=== PATIENT | female | born 1985 | race Caucasian/White ===

== ENCOUNTER → 2016-09-21 | Outpatient (CLI) | payer OTHER ==
[2016-09-21 16:09] LABS: Hepatitis B Surface Ag Index 0.07
[2016-09-21 20:42] LABS: HSV I IgG Interp POSITIVE (NEGATIVE); HSV II IgG Interp POSITIVE (NEGATIVE)
[2016-09-21 20:44] LABS: Treponemal Ab Non-Reactive (Non-Reactive)
[2016-09-22 07:19] LABS: HIV-1/HIV-2 Ab Screen NONREAC (NON REAC)
== END | disposition home or self-care (01) ==
LOC: LABWHC1 14:16
PROVIDERS: ATTEND Obstetrics & Gynecology
DX: Z11.3 Encounter for screening for infections with a predominantly sexual mode of transmission (principal)
CPT/HCPCS: 36415; 86695; 86696; 86780; 87340; 87389

== ENCOUNTER 2017-12-04 00:21 | Emergency (ER) | payer OTHER ==
[2017-12-04] MEDS ORDERED: SODIUM CHLORIDE 0.9% 1,000 ML IV STA (00:44)
[2017-12-04] MEDS ORDERED: RX INFO: IV CONTRAST WAS GIVEN 1 EACH MISC MISCELLANE PRN (00:44)
[2017-12-04] MEDS ORDERED: MORPHINE SULFATE 4 MG/ML SYRINGE IVP STA ×2 (00:45→04:21)
[2017-12-04] MEDS ORDERED: ONDANSETRON ODT 4 MG TAB PO STA (00:45)
--- NOTE | 2017-12-04 00:49 | ED ---
General Adult HPI - General Chief complaint: Abdominal Pain Stated complaint: Right flank pain Time Seen by Provider: 12/04/17 00:40 Source: patient, RN notes reviewed Mode of arrival: ambulatory Limitations: no limitations - History of Present Illness Initial comments: Patient 32-year-old female presented to the emergency room today with chief complaint right-sided abdominal pain over the last for 5 days. She states pain greatly increased yesterday. States pain is located right whole side of the abdomen. States prior pressure used to make it feel better but now any movement or palpation of the area is causing pain. She currently rates it a . Denies any radiation. She does admit to a history of ovarian cyst on the side. She states pain is higher than usual. She admits to nausea. Denies any other complaints. Patient denies any recent fever, chills, shortness of breath, chest pain, back pain, numbness or tingling, dysuria or hematuria, constipation or diarrhea, headaches or visual changes, or any other complaints. - Related Data Home Medications Medication Instructions Recorded Confirmed Atenolol [Tenormin] 100 mg PO TID 12/19/15 12/04/17 Lisinopril [Zestril] 20 mg PO BID 05/30/16 12/04/17 Allergies Allergy/AdvReac Type Severity Reaction Status Date / Time Penicillins Allergy Unknown Verified 05/30/16 10:31 Childhood Review of Systems ROS Statement: Those systems with pertinent positive or pertinent negative responses have been documented in the HPI. ROS Other: All systems not noted in ROS Statement are negative. Past Medical History Past Medical History: Hypertension Additional Past Medical History / Comment(s): OTHER HX: fibromyalgia, chronic pain-generalized, migraines, R ovarian cysts, frequent UTI's, tachycardia, gastritis, duodenitis. Anxiety disorder History of Any Multi-Drug Resistant Organisms: None Reported Past Surgical History: Orthopedic Surgery Past Anesthesia/Blood Transfusion Reactions: Unable to Obtain Additional Past Anesthesia/Blood Transfusion Reaction / Comment(s): Pt has never had surgery Past Psychological History: Anxiety, Depression Smoking Status: Current every day smoker Past Alcohol Use History: None Reported Past Drug Use History: None Reported - Past Family History Mother Family Medical History: Cancer, Diabetes Mellitus, Myocardial Infarction ([place]) Additional Family Medical History / Comment(s): Mother had cervical cancer and hypotension. Father Family Medical History: Hypertension General Exam - General Exam Comments Initial Comments: General: The patient is awake and alert, in moderate distress. Eye: Pupils are equal, round and reactive to light, extra-ocular movements are intact. No nystagmus. There is normal conjunctiva bilaterally. No signs of icterus. Ears, nose, mouth and throat: There are moist mucous membranes and no oral lesions. Neck: The neck is supple, there is no tenderness or JVD. Cardiovascular: There is a regular rate and rhythm. No murmur, rub or gallop is appreciated. Respiratory: Lungs are clear to auscultation, respirations are non-labored, breath sounds are equal. No wheezes, stridor, rales, or rhonchi. Gastrointestinal: Abdomen soft on palpation. There is no CVA tenderness or rebound tenderness. Patient is tender greatest in the right lower quadrant with mild tenderness in the right upper quadrant. Musculoskeletal: Normal ROM, no tenderness. Strength 5/5. Sensation intact. Pulses equal bilaterally 2+. Neurological: A&O x 3. CN II-XII intact, There are no obvious motor or sensory deficits. Coordination appears grossly intact. Speech is normal. Skin: Skin is warm and dry and no rashes or lesions are noted. Psychiatric: Cooperative, appropriate mood & affect, normal judgment. Limitations: no limitations Course Vital Signs 12/04/17 12/04/17 00:30 01:33 Temperature 98.1 F Pulse Rate 94 68 Respiratory 20 18 Rate Blood Pressure 217/123 171/94 O2 Sat by Pulse 98 98 Oximetry Medical Decision Making - Medical Decision Making Patient's labs been reviewed shows 11,000 white count. Patient has no fever here in the emergency room. CT the abdomen and pelvis performed shows a left- sided ovarian cyst measuring approximately 4 cm. Ultrasound performed showing no sign of ovarian torsion. At this time patient comfortable will be discharged home advised to follow-up with or family physician over the next 1-2 days. Advised return if there is any fever or increase or worsen his symptoms - Lab Data Result diagrams: 12/04/17 00:50 12/04/17 00:50 Lab Results 12/04/17 12/04/17 12/04/17 Range/Units 00:50 00:50 00:50 WBC 11.7 H (3.8-10.6) k/uL RBC 4.24 (3.80-5.40) m/uL Hgb 13.7 (11.4-16.0) gm/dL Hct 39.4 (34.0-46.0) % MCV 93.0 (80.0-100.0) fL MCH 32.2 (25.0-35.0) pg MCHC 34.7 (31.0-37.0) g/dL RDW 13.8 (11.5-15.5) % Plt Count 283 (150-450) k/uL Neutrophils % 61 % Lymphocytes % 29 % Monocytes % 6 % Eosinophils % 2 % Basophils % 0 % Neutrophils # 7.1 (1.3-7.7) k/uL Lymphocytes # 3.3 (1.0-4.8) k/uL Monocytes # 0.8 (0-1.0) k/uL Eosinophils # 0.2 (0-0.7) k/uL Basophils # 0.0 (0-0.2) k/uL Sodium 144 (137-145) mmol/L Potassium 3.4 L (3.5-5.1) mmol/L Chloride 105 (98-107) mmol/L Carbon Dioxide 26 (22-30) mmol/L Anion Gap 13 mmol/L BUN 11 (7-17) mg/dL Creatinine 0.70 (0.52-1.04) mg/dL Est GFR (CKD-EPI)AfAm >90 (>60 ml/min/1.73 sqM) Est GFR (CKD-EPI)NonAf >90 (>60 ml/min/1.73 sqM) Glucose 113 H (74-99) mg/dL Calcium 9.0 (8.4-10.2) mg/dL Total Bilirubin 0.2 (0.2-1.3) mg/dL AST 16 (14-36) U/L ALT 15 (9-52) U/L Alkaline Phosphatase 71 (38-126) U/L Total Protein 6.6 (6.3-8.2) g/dL Albumin 4.1 (3.5-5.0) g/dL Amylase 81 (30-110) U/L Lipase 158 (23-300) U/L Urine Color Urine Appearance (Clear) Urine pH (5.0-8.0) Ur Specific [place] (1.001-1.035) Urine Protein (Negative) Urine Glucose (UA) (Negative) Urine Ketones (Negative) Urine Blood (Negative) Urine Nitrite (Negative) Urine Bilirubin (Negative) Urine Urobilinogen (<2.0) mg/dL Ur Leukocyte Esterase (Negative) Urine HCG, Qual Not Detected (Not Detectd) 12/04/17 Range/Units 00:50 WBC (3.8-10.6) k/uL RBC (3.80-5.40) m/uL Hgb (11.4-16.0) gm/dL Hct (34.0-46.0) % MCV (80.0-100.0) fL MCH (25.0-35.0) pg MCHC (31.0-37.0) g/dL RDW (11.5-15.5) % Plt Count (150-450) k/uL Neutrophils % % Lymphocytes % % Monocytes % % Eosinophils % % Basophils % % Neutrophils # (1.3-7.7) k/uL Lymphocytes # (1.0-4.8) k/uL Monocytes # (0-1.0) k/uL Eosinophils # (0-0.7) k/uL Basophils # (0-0.2) k/uL Sodium (137-145) mmol/L Potassium (3.5-5.1) mmol/L Chloride (98-107) mmol/L Carbon Dioxide (22-30) mmol/L Anion Gap mmol/L BUN (7-17) mg/dL Creatinine (0.52-1.04) mg/dL Est GFR (CKD-EPI)AfAm (>60 ml/min/1.73 sqM) Est GFR (CKD-EPI)NonAf (>60 ml/min/1.73 sqM) Glucose (74-99) mg/dL Calcium (8.4-10.2) mg/dL Total Bilirubin (0.2-1.3) mg/dL AST (14-36) U/L ALT (9-52) U/L Alkaline Phosphatase (38-126) U/L Total Protein (6.3-8.2) g/dL Albumin (3.5-5.0) g/dL Amylase (30-110) U/L Lipase (23-300) U/L Urine Color Yellow Urine Appearance Clear (Clear) Urine pH 6.5 (5.0-8.0) Ur Specific [place] 1.017 (1.001-1.035) Urine Protein Negative (Negative) Urine Glucose (UA) Negative (Negative) Urine Ketones Negative (Negative) Urine Blood Negative (Negative) Urine Nitrite Negative (Negative) Urine Bilirubin Negative (Negative) Urine Urobilinogen 2.0 (<2.0) mg/dL Ur Leukocyte Esterase Negative (Negative) Urine HCG, Qual (Not Detectd) Disposition Clinical Impression: Ovarian cyst Disposition: HOME SELF-CARE Condition: Good Instructions: Ovarian Cyst (ED) Additional Instructions: Please follow-up with the [facility]/family doctor over the next 1-2 days. Please return to emergency room for any fever or increase worsen symptoms or any other concerns. Is patient prescribed a controlled substance at d/c from ED?: No Referrals: None,Stated [Primary Care Provider] - 1-2 days Amanda Campos DO [Doctor of Osteopathic Medicine] - 1-2 days Zeferino Sun DO [STAFF PHYSICIAN] - 1-2 days Mirta Schuler MD [REFERRING] - 1-2 days Time of Disposition: 03:52
[2017-12-04 01:08] LABS: Appearance,Urine Clear (Clear); Basophils % (A) 0 %; Bilirubin,Urine Negative (Negative); Blood,Urine Negative (Negative); Color,Urine Yellow; Eosinophils # (A) 0.2 k/uL (0-0.7); Eosinophils % (A) 2 %; Glucose,Urine (UA) Negative (Negative); HCT 39.4 % (34.0-46.0); HGB 13.7 gm/dL (11.4-16.0); Ketones,Urine Negative (Negative); Leukocyte Esterase,Urine Negative (Negative); Lymphocytes # (A) 3.3 k/uL (1.0-4.8); Lymphocytes % (A) 29 %; MCH 32.2 pg (25.0-35.0); MCHC 34.7 g/dL (31.0-37.0); Mean Platelet Volume 7.6; Monocytes # (A) 0.8 k/uL (0-1.0); Monocytes % (A) 6 %; Neutrophils # (A) 7.1 k/uL (1.3-7.7); Neutrophils % (A) 61 %; Nitrite,Urine Negative (Negative); PH, Urine 6.5 (5.0-8.0); Platelet Count 283 k/uL (150-450); Protein,Urine Negative (Negative); RBC 4.24 m/uL (3.80-5.40); RDW 13.8 % (11.5-15.5); Specific Gravity,Urine 1.017 (1.001-1.035); WBC 11.7 k/uL (3.8-10.6)
[2017-12-04 01:19] LABS: ALT 15 U/L (9-52); AST 16 U/L (14-36); Albumin 4.1 g/dL (3.5-5.0); Alkaline Phosphatase 71 U/L (38-126); Amylase 81 U/L (30-110); Anion Gap 13 mmol/L; Blood Urea Nitrogen 11 mg/dL (7-17); Carbon Dioxide 26 mmol/L (22-30); Chloride 105 mmol/L (98-107); Glucose 113 mg/dL (74-99); Lipase 158 U/L (23-300); Potassium 3.4 mmol/L (3.5-5.1); Sodium 144 mmol/L (137-145); Total Bilirubin 0.2 mg/dL (0.2-1.3); Total Protein 6.6 g/dL (6.3-8.2)
--- NOTE | 2017-12-04 02:02 | CT ---
EXAMINATION TYPE: CT abdomen pelvis w con DATE OF EXAM: 12/04/2017 COMPARISON: 09/02/2014 HISTORY: Prior on 2014, pt having mid to right sided abd pain CT DLP: 669.00 mGycm Automated exposure control for dose reduction was used. TECHNIQUE: Helical acquisition of images was performed from the lung bases through the pelvis. CONTRAST: Performed without Oral Contrast and with IV Contrast, patient injected with 100 mL of Isovue 300. FINDINGS: Lung bases are clear. There is no pleural effusion. There is no pericardial effusion. Heart is top no rmal in size. Liver spleen pancreas gallbladder appear normal. Bile ducts are not dilated. Stomach is large. There is no adrenal mass. There is normal contrast opacification the kidneys. There is no hydronephro sis. Ureters are not dilated. There is no retroperitoneal adenopathy. I see no intestinal wall thickening. There are no dilated loops. The lumbar spine is intact. There is no sign of free air. Bladder distends smoothly. Uterus is retroverted. There is a small amount of free fluid in the pelvis. There is probably a left ovarian cyst. Appendix is not seen. There is no sign of appendicitis. IMPRESSION: THERE IS A SMALL AMOUNT OF FREE FLUID IN THE PELVIS. THERE IS PROBABLY A LEFT OVARIAN CYST. THIS OMAR URES 4 CM IN LENGTH. I DO NOT SEE A CAUSE FOR RIGHT-SIDED ABDOMINAL PAIN.
[2017-12-04] MEDS ORDERED: KETOROLAC 30 MG/ML 1 ML VIAL IVP STA (02:06)
--- NOTE | 2017-12-04 03:43 | US ---
EXAMINATION TYPE: US transvaginal DATE OF EXAM: 12/04/2017 COMPARISON: NONE CLINICAL HISTORY: pain. Pain TECHNIQUE: Transvaginal (TV). EXAM MEASUREMENTS: Uterus: 7.8 x 4.4 x 4.3 cm Endometrial Stripe: 0.9 cm Right Ovary: 3.3 x 1.3 x 1.5 cm Left Ovary: 4.5 x 2.1 x 3.9 cm 1. Uterus: Retroverted wnl 2. Endometrium: wnl 3. Right Ovary: wnl 4. Left Ovary: Cystic area seen measuring 2.1 x 1.2 x 2.5 cm. Spectral, color and waveform doppler imaging shows good arterial and venous flow within the ovaries ; there is no evidence for ovarian torsion. 5. Bilateral Adnexa: wnl 6. Posterior cul-de-sac: Small amount of fluid. Cystic area left ovary measuring 21. x 1.2 x 2.5 cm. IMPRESSION: Normal uterus and endometrium. Simple left ovarian cyst. No evidence of ovarian torsion. There is a small amount of free fluid that could be physiologic.
[2017-12-04 04:19] VITALS: BP 150/98; PULSE 84; RESP 17; TEMP 98.2
== END 2017-12-04 04:51 | disposition home or self-care (01) ==
LOC: EC 00:21
DX: N83.202 Unspecified ovarian cyst, left side (principal); I10 Essential (primary) hypertension; F17.200 Nicotine dependence, unspecified, uncomplicated; Z79.899 Other long term (current) drug therapy; Z88.0 Allergy status to penicillin
CPT/HCPCS: 99284; 96374; 96375; 96376; 96361; 36415; 80053; 82150; 83690; 85025; 81003; 81025; 93975; 76830; 74177; J2270; J1885; Q9967

== ENCOUNTER 2018-01-19 15:29 | Emergency (ER) | payer OTHER ==
--- NOTE | 2018-01-19 16:04 | ED ---
General Adult HPI - General Chief complaint: Extremity Problem,Nontraumatic Stated complaint: arm swelling Source: patient Mode of arrival: ambulatory Limitations: no limitations - History of Present Illness Initial comments: Chief Complaint: 32-year-old female with past medical history hypertension presents with left forearm pain 1 day. History of Present Illness: States that her symptoms began last night. She noted that after work she began having forearm pain. She localizes the pain to her lateral left forearm. Patient states that the pain is constant and dull radiating up the left upper extremity to the shoulder. Patient denies any history of blood clots. Denies any history of IV drug abuse. Denies any family history of blood clots. Denies any chance of being . Denies any use of oral contraceptive pills. Past Medical History: Hypertension Past Surgical History:[reviewed, none to report] Social History: Tobacco, occasional marijuana Family History: reviewed and noncontributory The ROS documented in this emergency department record has been reviewed and confirmed by me. Those systems with pertinent positive or negative responses have been documented in the HPI. All other systems are other negative and/or noncontributory. - Related Data Home Medications Medication Instructions Recorded Confirmed Atenolol [Tenormin] 100 mg PO TID 12/19/15 12/04/17 Lisinopril [Zestril] 20 mg PO BID 05/30/16 12/04/17 Previous Rx's Medication Instructions Recorded Cephalexin [Keflex] 500 mg PO Q6HR 5 Days #20 cap 01/19/18 Ibuprofen [Motrin] 600 mg PO Q6HR PRN #24 tab 01/19/18 Sulfamethox-Tmp 800-160Mg [Bactrim 1 tab PO Q12HR 5 Days #10 tab 01/19/18 DS 800-160 mg] Allergies Allergy/AdvReac Type Severity Reaction Status Date / Time Penicillins Allergy Unknown Verified 01/19/18 15:36 Childhood Review of Systems ROS Statement: Those systems with pertinent positive or pertinent negative responses have been documented in the HPI. ROS Other: All systems not noted in ROS Statement are negative. Past Medical History Past Medical History: Hypertension Additional Past Medical History / Comment(s): OTHER HX: fibromyalgia, chronic pain-generalized, migraines, R ovarian cysts, frequent UTI's, tachycardia, gastritis, duodenitis. Anxiety disorder History of Any Multi-Drug Resistant Organisms: None Reported Past Surgical History: Orthopedic Surgery Past Anesthesia/Blood Transfusion Reactions: Unable to Obtain Additional Past Anesthesia/Blood Transfusion Reaction / Comment(s): Pt has never had surgery Past Psychological History: Anxiety, Depression Smoking Status: Current every day smoker Past Alcohol Use History: None Reported Past Drug Use History: Marijuana - Past Family History Mother Family Medical History: Cancer, Diabetes Mellitus, Myocardial Infarction ([place]) Additional Family Medical History / Comment(s): Mother had cervical cancer and hypotension. Father Family Medical History: Hypertension General Exam - General Exam Comments Initial Comments: Vitals: Signs upon arrival shows temperature of 99.7, heart rate 1:30, blood pressure 200/125 PHYSICAL EXAM: General Impression: Alert and oriented x3, acute distress secondary to pain HEENT: Normocephalic atraumatic, extra-ocular movements intact, pupils equal and reactive to light bilaterally, mucous membranes moist. Cardiovascular: Heart regular rate and rhythm, S1&S2 audible, no murmurs, rubs or gallops Chest: Lungs clear to auscultation bilaterally, no rhonchi, no wheeze, no rales Abdomen: Bowel sounds present, abdomen soft, non-tender, non-distended, no organomegaly Musculoskeletal: Pulses present and equal in all extremities, no peripheral edema, fullness and pain over left lateral forearm Motor: Power 5/5 bilaterally, no focal deficits noted Neurological: CN II-XII grossly intact, no focal motor or sensory deficits noted Skin: Intact with no visualized rashes Psych: Normal affect and mood Limitations: no limitations Course Vital Signs 01/19/18 01/19/18 01/19/18 15:32 16:26 17:03 Temperature 99.7 F H Pulse Rate 130 H 122 H 105 H Respiratory 20 18 18 Rate Blood Pressure 200/125 183/113 164/107 O2 Sat by Pulse 99 98 98 Oximetry Medical Decision Making - Medical Decision Making ED course: 32-year-old female with past medical history of hypertension presents with left forearm pain. Vital signs upon arrival shows tachycardia and hypertension. Patient has a past medical history of hypertension. Patient denies any chest pain and shortness of breath to suggest pulmonary embolus.Laboratory evaluation obtained. Leukocytosis of 15.0. Cardiac panel unremarkable. Patient has potassium level 3.2. Glucose of 117. Patient given 2 potassium. Forearm x-ray shows no acute processes. Left upper extremity venous Doppler shows no acute processes. [facility] bedside ultrasound showed hypoechoic area superficially approximately half a centimeter below the skin surface. Due to aspiration was performed using ultrasound guidance yielding no purulent fluid. At this point there is clinical suspicion that patient's symptoms represent abscess versus cellulitis. Patient given prescription for antibiotics and by mouth analgesia. She is advised to follow up with primary care physician upon discharge. She is told to return to the emergency Department with any worsening symptoms. Patient is understandable and agreeable to plan. Patient's blood pressure still mildly elevated however she is asymptomatic. Heart rate is improved. EKG Interpretation: A 12 lead EKG was obtained. It was interpreted by myself and attending physician. There is a P wave before every QRS complex. Rate is 109. Rhythm is sinus tachycardia, [place] interval 142, respiration 88, QTc 455. QT is not prolonged. No ST segment depression or elevation. No old EKG for comparison. Overall, this EKG is unremarkable - Lab Data Result diagrams: 01/19/18 15:38 01/19/18 15:38 Lab Results 01/19/18 01/19/18 01/19/18 Range/Units 15:38 15:38 15:38 WBC 15.0 H (3.8-10.6) k/uL RBC 4.45 (3.80-5.40) m/uL Hgb 14.4 (11.4-16.0) gm/dL Hct 42.4 (34.0-46.0) % MCV 95.3 (80.0-100.0) fL MCH 32.4 (25.0-35.0) pg MCHC 34.0 (31.0-37.0) g/dL RDW 13.3 (11.5-15.5) % Plt Count 267 (150-450) k/uL Neutrophils % 70 % Lymphocytes % 22 % Monocytes % 6 % Eosinophils % 0 % Basophils % 0 % Neutrophils # 10.5 H (1.3-7.7) k/uL Lymphocytes # 3.3 (1.0-4.8) k/uL Monocytes # 0.9 (0-1.0) k/uL Eosinophils # 0.1 (0-0.7) k/uL Basophils # 0.1 (0-0.2) k/uL PT 11.4 (9.0-12.0) sec INR 1.2 H (<1.2) Sodium 140 (137-145) mmol/L Potassium 3.2 L (3.5-5.1) mmol/L Chloride 104 (98-107) mmol/L Carbon Dioxide 24 (22-30) mmol/L Anion Gap 12 mmol/L BUN 15 (7-17) mg/dL Creatinine 0.68 (0.52-1.04) mg/dL Est GFR (CKD-EPI)AfAm >90 (>60 ml/min/1.73 sqM) Est GFR (CKD-EPI)NonAf >90 (>60 ml/min/1.73 sqM) Glucose 117 H (74-99) mg/dL Calcium 9.1 (8.4-10.2) mg/dL Disposition Clinical Impression: Abscess Disposition: HOME SELF-CARE Condition: Stable Instructions: Abscess (ED) Prescriptions: Cephalexin [Keflex] 500 mg PO Q6HR 5 Days #20 cap Ibuprofen [Motrin] 600 mg PO Q6HR PRN #24 tab PRN Reason: Pain Sulfamethox-Tmp 800-160Mg [Bactrim DS 800-160 mg] 1 tab PO Q12HR 5 Days #10 tab Is patient prescribed a controlled substance at d/c from ED?: No Referrals: None,Stated [Primary Care Provider] - 1-2 days Time of Disposition: 18:05
[2018-01-19] MEDS ORDERED: MORPHINE SULFATE 2 MG/ML SYRINGE IVP PRN (16:07)
[2018-01-19] MEDS ORDERED: SODIUM CHLORIDE 0.9% 1,000 ML IV STA (16:10)
[2018-01-19 16:14] LABS: Basophils # (A) 0.1 k/uL (0-0.2); Basophils % (A) 0 %; Eosinophils # (A) 0.1 k/uL (0-0.7); Eosinophils % (A) 0 %; HCT 42.4 % (34.0-46.0); HGB 14.4 gm/dL (11.4-16.0); Lymphocytes # (A) 3.3 k/uL (1.0-4.8); Lymphocytes % (A) 22 %; MCH 32.4 pg (25.0-35.0); MCV 95.3 fL (80.0-100.0); Mean Platelet Volume 7.4; Monocytes # (A) 0.9 k/uL (0-1.0); Monocytes % (A) 6 %; Neutrophils # (A) 10.5 k/uL (1.3-7.7); Neutrophils % (A) 70 %; Platelet Count 267 k/uL (150-450); RBC 4.45 m/uL (3.80-5.40); RDW 13.3 % (11.5-15.5)
[2018-01-19 16:20] LABS: INR 1.2 (<1.2); Prothrombin Time 11.4 sec (9.0-12.0)
[2018-01-19 16:23] LABS: Anion Gap 12 mmol/L; Blood Urea Nitrogen 15 mg/dL (7-17); Calcium 9.1 mg/dL (8.4-10.2); Carbon Dioxide 24 mmol/L (22-30); Chloride 104 mmol/L (98-107); Glucose 117 mg/dL (74-99); Potassium 3.2 mmol/L (3.5-5.1); Sodium 140 mmol/L (137-145)
[2018-01-19 16:28] VITALS: RESP 18
--- NOTE | 2018-01-19 16:54 | US ---
EXAMINATION TYPE: US venous doppler duplex UE LT DATE OF EXAM: 01/19/2018 COMPARISON: NONE CLINICAL HISTORY: Pain. Left arm pain SIDE PERFORMED: Left Left Arm: Appears negative for DVT IMPRESSION: Negative exam. No evidence of deep venous thrombosis in the left arm.
[2018-01-19] MEDS ORDERED: POTASSIUM CHLORIDE ER 10 MEQ TAB.ER.PRT PO ONE (17:15)
[2018-01-19] MEDS ORDERED: LIDOCAINE 1%-EPI 1:100,000 30 ML VIAL SQ STA (17:15)
--- NOTE | 2018-01-19 17:35 | XR ---
EXAMINATION TYPE: XR forearm LT DATE OF EXAM: 01/19/2018 COMPARISON: NONE HISTORY: Pain and swelling TECHNIQUE: 2 views FINDINGS: I see no fracture nor dislocation. Radius and ulna appear intact. IMPRESSION: Negative left forearm exam.
[2018-01-19] MEDS ORDERED: HYDROcodone/APAP 5-325MG 1 EACH TAB PO STA (18:02)
[2018-01-19 18:28] LABS: Appearance,Urine Clear (Clear); Bilirubin,Urine Negative (Negative); Blood,Urine Negative (Negative); Color,Urine Light Yellow; Glucose,Urine (UA) Negative (Negative); Ketones,Urine Negative (Negative); Leukocyte Esterase,Urine Negative (Negative); Nitrite,Urine Negative (Negative); PH, Urine 6.5 (5.0-8.0); Protein,Urine Negative (Negative); Urobilinogen,Urine <2.0 mg/dL (<2.0)
[2018-01-19] MEDS ORDERED: POTASSIUM CHLORIDE ER 10 MEQ TAB.ER.PRT PO SCH (18:30)
[2018-01-19 18:39] VITALS: BP 189/114; PULSE 98
[2018-01-19 18:41] VITALS: TEMP 99
[2018-01-20] MEDS ORDERED: POTASSIUM CITRATE 5 MEQ TABLET.ER PO SCH (08:30)
== END 2018-01-19 18:40 | disposition home or self-care (01) ==
LOC: EC 15:29
DX: L02.414 Cutaneous abscess of left upper limb (principal); I10 Essential (primary) hypertension; F17.200 Nicotine dependence, unspecified, uncomplicated; Z79.899 Other long term (current) drug therapy; Z88.0 Allergy status to penicillin
CPT/HCPCS: 36415; 93005; 80048; 85025; 85610; 81003; 81025; 73090; 93971; 99284; 96374; 96361 ×2; J2270

== ENCOUNTER 2018-10-24 21:29 | Emergency (ER) | payer OTHER ==
[2018-10-24] MEDS ORDERED: KETOROLAC 30 MG/ML 1 ML VIAL IVP STA (22:51)
[2018-10-24] MEDS ORDERED: diphenhydrAMINE 50 MG/ML 1 ML VIAL IVP STA (22:51)
[2018-10-24] MEDS ORDERED: cloNIDine HCL 0.2 MG TAB PO STA (22:53)
--- NOTE | 2018-10-24 22:55 | ED ---
Chest Pain HPI - General Chief Complaint: Chest Pain Stated Complaint: Chest pain,headache, lt arm numbness,CHF Time Seen by Provider: 10/24/18 21:55 Source: patient Mode of arrival: ambulatory Limitations: no limitations - History of Present Illness MD Complaint: chest pain Onset/Timin -: days(s) Onset: during rest Pain Location: substernal Pain Radiation: LUE Severity: moderate Quality: aching Consistency: constant Improves With: nothing Worsens With: nothing Treatments Prior to Arrival: none - Related Data Home Medications Medication Instructions Recorded Confirmed Lisinopril [Zestril] 20 mg PO BID 05/30/16 10/24/18 Atenolol [Tenormin] 50 mg PO TID 10/24/18 10/24/18 Previous Rx's Medication Instructions Recorded Ibuprofen 400 mg PO TID #20 tablet 10/25/18 Metoclopramide [Reglan] 5 mg PO TID PRN #12 tab 10/25/18 Allergies Allergy/AdvReac Type Severity Reaction Status Date / Time Penicillins Allergy Unknown Verified 10/24/18 21:56 Childhood Review of Systems ROS Statement: Those systems with pertinent positive or pertinent negative responses have been documented in the HPI. ROS Other: All systems not noted in ROS Statement are negative. Constitutional: Denies: fever, chills Respiratory: Denies: cough, dyspnea Cardiovascular: Reports: as per HPI, chest pain. Denies: palpitations, dyspnea on exertion, orthopnea, edema, syncope Gastrointestinal: Denies: abdominal pain, nausea, vomiting Genitourinary: Denies: dysuria, hematuria Musculoskeletal: Denies: back pain Skin: Denies: rash Neurological: Reports: headache. Denies: weakness, numbness, paresthesias, confusion EKG Findings - EKG Comments: EKG Findings:: Possible LVH - EKG Results: EKG: interpreted by ERMD, sinus rhythm (Rate proximal been 94 bpm), normal axis, normal QRS, normal ST/T Past Medical History Past Medical History: Hypertension Additional Past Medical History / Comment(s): OTHER HX: fibromyalgia, chronic pain-generalized, migraines, R ovarian cysts, frequent UTI's, tachycardia, gastritis, duodenitis. Anxiety disorder History of Any Multi-Drug Resistant Organisms: None Reported Past Surgical History: Orthopedic Surgery Past Anesthesia/Blood Transfusion Reactions: Unable to Obtain Additional Past Anesthesia/Blood Transfusion Reaction / Comment(s): Pt has never had surgery Past Psychological History: Anxiety, Depression Smoking Status: Current every day smoker Past Alcohol Use History: None Reported Past Drug Use History: Marijuana - Past Family History Mother Family Medical History: Cancer, Diabetes Mellitus, Myocardial Infarction ([place]) Additional Family Medical History / Comment(s): Mother had cervical cancer and hypotension. Father Family Medical History: Hypertension General Exam Limitations: no limitations General appearance: alert, in no apparent distress Head exam: Present: atraumatic, normocephalic Eye exam: Present: normal appearance, PERRL, EOMI. Absent: scleral icterus, conjunctival injection, nystagmus ENT exam: Present: normal oropharynx Neck exam: Present: normal inspection, full ROM Respiratory exam: Present: normal lung sounds bilaterally. Absent: respiratory distress, wheezes, rales, rhonchi, stridor Cardiovascular Exam: Present: regular rate, normal rhythm, normal heart sounds. Absent: systolic murmur, diastolic murmur, rubs, gallop GI/Abdominal exam: Present: soft. Absent: distended, tenderness, guarding, rebound, rigid, mass Extremities exam: Present: normal inspection, normal capillary refill. Absent: pedal edema, calf tenderness Back exam: Present: normal inspection. Absent: CVA tenderness (R), CVA tenderness (L) Neurological exam: Present: alert Skin exam: Present: warm, dry, intact, normal color. Absent: rash Course Vital Signs 10/24/18 10/24/18 10/24/18 21:36 21:50 22:40 Temperature 99.5 F Pulse Rate 116 H 111 H Respiratory 18 15 Rate Blood Pressure 225/132 188/116 O2 Sat by Pulse 98 99 97 Oximetry 10/24/18 10/25/18 10/25/18 23:00 00:00 00:34 Temperature Pulse Rate 73 79 Respiratory 19 20 Rate Blood Pressure 188/116 189/119 140/89 O2 Sat by Pulse 97 98 Oximetry Disposition Clinical Impression: Headache, Chest wall pain Disposition: HOME SELF-CARE Condition: Fair Instructions (If sedation given, give patient instructions): Chest Pain (ED), Acute Headache (ED) Prescriptions: Ibuprofen 400 mg PO TID #20 tablet Metoclopramide [Reglan] 5 mg PO TID PRN #12 tab PRN Reason: Headache Is patient prescribed a controlled substance at d/c from ED?: No Referrals: None,Stated [Primary Care Provider] - 1-2 days
--- NOTE | 2018-10-24 23:10 | XR ---
EXAM: XR Chest, 2 Views CLINICAL HISTORY: ITS.REASON XR Reason: Chest Pain TECHNIQUE: Frontal and lateral views of the chest. COMPARISON: No relevant prior studies available. FINDINGS: Lungs: No consolidation or mass. Pleural space: No effusion. Heart: No cardiomegaly. Mediastinum: Unremarkable. Bones/joints: No acute findings. IMPRESSION: No acute cardiopulmonary process.
[2018-10-24 23:12] LABS: Basophils % (A) 0 %; Eosinophils # (A) 0.1 k/uL (0-0.7); Eosinophils % (A) 0 %; HCT 47.3 % (34.0-46.0); HGB 15.6 gm/dL (11.4-16.0); Lymphocytes % (A) 16 %; MCH 32.4 pg (25.0-35.0); MCHC 32.9 g/dL (31.0-37.0); MCV 98.6 fL (80.0-100.0); Mean Platelet Volume 6.7; Monocytes # (A) 0.5 k/uL (0-1.0); Monocytes % (A) 4 %; Neutrophils % (A) 78 %; Platelet Count 362 k/uL (150-450); RDW 13.9 % (11.5-15.5); WBC 12.7 k/uL (3.8-10.6)
[2018-10-24 23:25] LABS: D-Dimer 0.18 mg/L FEU (<0.60); Partial Thromboplastin Time 26.2 sec (22.0-30.0); Prothrombin Time 10.6 sec (9.0-12.0)
[2018-10-24 23:41] LABS: ALT 28 U/L (9-52); AST 24 U/L (14-36); Albumin 4.7 g/dL (3.5-5.0); Alkaline Phosphatase 74 U/L (38-126); Amylase 89 U/L (30-110); Anion Gap 9 mmol/L; Blood Urea Nitrogen 18 mg/dL (7-17); Calcium 9.6 mg/dL (8.4-10.2); Carbon Dioxide 26 mmol/L (22-30); Chloride 106 mmol/L (98-107); Glucose 107 mg/dL (74-99); Lipase 173 U/L (23-300); Potassium 3.6 mmol/L (3.5-5.1); Sodium 141 mmol/L (137-145); Total Bilirubin 0.4 mg/dL (0.2-1.3); Total Protein 7.7 g/dL (6.3-8.2)
[2018-10-25] MEDS ORDERED: HYDROcodone/APAP 5-325MG 1 EACH TAB PO STA (00:23)
[2018-10-25 00:35] VITALS: RESP 20
--- NOTE | 2018-10-25 00:57 | CT ---
EXAM: CT Head Without Intravenous Contrast CLINICAL HISTORY: ITS.REASON CT Reason: Pain TECHNIQUE: Axial computed tomography images of the head/brain without intravenous contrast. CTDI is 49 mGy and DLP is 1099 mGy-cm. This CT exam was performed using one or more of the following dose reduction techniques: automated exposure control, adjustment of the mA and/or kV according to patient size, and/or use of iterative reconstruction technique. COMPARISON: 06/09/2014 FINDINGS: Brain: No hemorrhage, large hypodensity, or mass effect. Ventricles: No hydrocephalus. Bones/joints: Unremarkable. Soft tissues: Unremarkable. Sinuses: Unremarkable. Mastoid air cells: Clear. IMPRESSION: No acute hemorrhage, hydrocephalus, or mass effect.
[2018-10-25 02:27] VITALS: BP 136/87; PULSE 83; TEMP 97.6
== END 2018-10-25 02:29 | disposition home or self-care (01) ==
LOC: EC 21:29
DX: R07.89 Other chest pain (principal); R51 Headache; R07.2 Precordial pain; R20.0 Anesthesia of skin; I10 Essential (primary) hypertension; F17.200 Nicotine dependence, unspecified, uncomplicated; Z86.69 Personal history of other diseases of the nervous system and sense organs; Z82.49 Family history of ischemic heart disease and other diseases of the circulatory system; Z79.899 Other long term (current) drug therapy; Z88.0 Allergy status to penicillin
CPT/HCPCS: 36415; 93005; 85379; 80053; 82150; 83690; 83735; 84484; 85025; 85610; 85730; 71046; 70450; 99285; 96374; 96375; J1200; J1885

== ENCOUNTER 2020-04-03 18:58 | Observation (INO) | payer OTHER ==
[2020-04-03] MEDS ORDERED: lisinopriL 20 MG TAB PO STA (19:30)
[2020-04-03] MEDS ORDERED: atenoloL 50 MG TAB PO STA (19:30)
[2020-04-03 19:59] LABS: Cocaine Screen,Urine Not Detected (NotDetected); Opiate Screen,Urine Detected (NotDetected); Phencyclidine Screen,Urine Not Detected (NotDetected); Urn Cannabinoid Scrn Detected (NotDetected)
[2020-04-03 20:00] LABS: Amphetamine Screen,Urine Detected (NotDetected); Barbiturate Screen,Urine Not Detected (NotDetected); Benzodiazepines Screen,Urine Not Detected (NotDetected); Methadone Screen, Urine Not Detected (NotDetected); Oxycodone Screen, Urine Not Detected (NotDetected); Tricyclic Antidepressant,Urine Not Detected (NotDetected)
--- NOTE | 2020-04-03 20:24 | ED ---
Psych HPI - General Source: patient Mode of arrival: ambulatory <Desiree Edgar - Last Filed: 04/04/20 04:01> <Mariaa Douglas - Last Filed: 04/06/20 21:41> - General Chief Complaint: Psychiatric Symptoms Stated Complaint: EPS eval Time Seen by Provider: 04/03/20 19:22 - History of Present Illness Initial Comments: 35-year-old female patient presents to the emergency department today for evaluation of hallucinations and increased anxiety. Patient states that she's had a lot going on lately and has been very stressed out. She admits to having auditory hallucinations today. States she is hearing her friends voice begging for help when she was not present. States that this has never happened to her before. She does admit to a history of anxiety and depression but denies taking any medication for her symptoms. She admits to using marijuana but denies any other use of street drugs. Denies suicidal or homicidal ideation. Patient does have elevated blood pressure in triage, states she has a history of hypertension but stopped taking her medications quite some time ago. She does not follow with a primary care physician. She is currently reporting headache and nasal congestion. Patient denies any recent rash, fever, chills, cough, shortness of breath, chest pain, abdominal pain, nausea, vomiting, diarrhea, constipation, back pain, numbness, tingling, dizziness, weakness, hematuria, dysuria, urinary urgency, urinary frequency, or any other complaints. (Desiree Edgar) - Related Data Previous Rx's Medication Instructions Recorded atenoloL [Tenormin] 50 mg PO BID #60 tab 04/04/20 lisinopriL [Zestril] 20 mg PO BID #60 tab 04/04/20 Allergies Allergy/AdvReac Type Severity Reaction Status Date / Time Penicillins Allergy Unknown Verified 04/03/20 19:15 Childhood Review of Systems ROS Other: All systems not noted in ROS Statement are negative. <Desiree Edgar - Last Filed: 04/04/20 04:01> ROS Other: All systems not noted in ROS Statement are negative. <Mariaa Douglas - Last Filed: 04/06/20 21:41> ROS Statement: Those systems with pertinent positive or pertinent negative responses have been documented in the HPI. Past Medical History Past Medical History: Hypertension Additional Past Medical History / Comment(s): OTHER HX: fibromyalgia, chronic pain-generalized, migraines, R ovarian cysts, frequent UTI's, tachycardia, gastritis, duodenitis. Anxiety disorder History of Any Multi-Drug Resistant Organisms: None Reported Past Surgical History: Orthopedic Surgery Past Anesthesia/Blood Transfusion Reactions: Unable to Obtain Additional Past Anesthesia/Blood Transfusion Reaction / Comment(s): Pt has never had surgery Past Psychological History: Anxiety, Depression Smoking Status: Current every day smoker Past Alcohol Use History: None Reported Past Drug Use History: Marijuana - Past Family History Mother Family Medical History: Cancer, Diabetes Mellitus, Myocardial Infarction ([place]) Additional Family Medical History / Comment(s): Mother had cervical cancer and hypotension. Father Family Medical History: Hypertension <Desiree Edgar - Last Filed: 04/04/20 04:01> General Exam Limitations: no limitations General appearance: alert, in no apparent distress, other (This is a well-deve loped, well-nourished adult female patient in no acute distress. Vital signs upon presentation are temperature 98.1F, pulse 107, respirations 18, blood pressure 200/136, pulse ox 99% on room air.) Eye exam: Present: normal appearance, PERRL, EOMI. Absent: scleral icterus, conjunctival injection, periorbital swelling ENT exam: Present: normal exam, normal oropharynx, mucous membranes moist Respiratory exam: Present: normal lung sounds bilaterally. Absent: respiratory distress, wheezes, rales, rhonchi, stridor Cardiovascular Exam: Present: normal rhythm, tachycardia, normal heart sounds. Absent: systolic murmur, diastolic murmur, rubs, gallop, clicks GI/Abdominal exam: Present: soft, normal bowel sounds. Absent: distended, tenderness, guarding, rebound, rigid Neurological exam: Present: alert, oriented X3, CN II-XII intact Psychiatric exam: Present: normal affect, normal mood Skin exam: Present: warm, dry, intact, normal color. Absent: rash <Desiree Edgar - Last Filed: 04/04/20 04:01> Course Vital Signs 04/03/20 04/03/20 04/03/20 19:12 19:48 20:15 Temperature 98.1 F Pulse Rate 107 H 105 H Respiratory 18 Rate Blood Pressure 200/136 192/125 186/140 O2 Sat by Pulse 99 98 Oximetry 04/03/20 04/03/20 04/03/20 20:42 22:08 22:18 Temperature Pulse Rate 103 H 83 63 Respiratory 20 20 20 Rate Blood Pressure 200/142 190/154 172/135 O2 Sat by Pulse 98 96 Oximetry 04/03/20 04/03/20 22:31 23:57 Temperature Pulse Rate 91 91 Respiratory 18 18 Rate Blood Pressure 133/101 163/112 O2 Sat by Pulse 98 98 Oximetry Medical Decision Making - Lab Data Result diagrams: 04/03/20 21:33 04/03/20 21:33 - EKG Data -: EKG Interpreted by Me - Radiology Data Radiology results: report reviewed, image reviewed <Desiree Edgar - Last Filed: 04/04/20 04:01> - Lab Data Result diagrams: 04/04/20 06:01 04/03/20 21:33 <Mariaa Douglas - Last Filed: 04/06/20 21:41> - Medical Decision Making 35-year-old female patient presented to the emergency department today for evaluation of auditory hallucinations. Patient states that she has never experienced this before. Patient was found to have significantly elevated blood pressure. We did attempt to give her oral medications without relief. At that time we did add labs which were relatively unremarkable other than leukocytosis at 19,000. Drug screen positive for opiates, marijuana, and methamphetamines. Patient's chest x-ray was negative. CT brain was negative. We did give doses of Ativan and labetalol which did seem to improve blood pressure however he did want to admit for accelerated hypertension and to be evaluated by psych due to the hallucinations. Patient became very upset and anxious. She was reporting concern for her mother who was going to "be arrested", she stated that her mother was "being held hostage and was going to " and she had to go. Patient was quite delusional during our discussion and was trying to leave the hospital. I did speak to her mother on the phone who stated that none of these claims were true and that the patient had been exhibiting bizarre behavior for the last three days. Due to concerns that she was unable to understand the significance of her medical condition related to her mental state I did fill out a petition. She will be admitted to the hospital with psych on consult. (Desiree Edgar) I was available for consultation in the emergency department. The history and physical exam were done by the midlevel provider. I was consulted for this patients care. I reviewed the case with the midlevel provider and based on their presentation of the patient, I agree with the assessment, medical decision making and plan of care as documented. Chart was dictated using [employer] dictation software. Attempts were made to correct any dictation errors however some typographical errors may persist. Patient was seen during a national state of emergency due to the Covid-19 pandemic. (Mariaa Douglas) - Lab Data Lab Results 04/03/20 04/03/20 04/03/20 Range/Units 19:43 19:43 19:43 WBC (3.8-10.6) k/uL RBC (3.80-5.40) m/uL Hgb (11.4-16.0) gm/dL Hct (34.0-46.0) % MCV (80.0-100.0) fL MCH (25.0-35.0) pg MCHC (31.0-37.0) g/dL RDW (11.5-15.5) % Plt Count (150-450) k/uL Neutrophils % % Lymphocytes % % Monocytes % % Eosinophils % % Basophils % % Neutrophils # (1.3-7.7) k/uL Lymphocytes # (1.0-4.8) k/uL Monocytes # (0-1.0) k/uL Eosinophils # (0-0.7) k/uL Basophils # (0-0.2) k/uL Sodium (137-145) mmol/L Potassium (3.5-5.1) mmol/L Chloride (98-107) mmol/L Carbon Dioxide (22-30) mmol/L Anion Gap mmol/L BUN (7-17) mg/dL Creatinine (0.52-1.04) mg/dL Est GFR (CKD-EPI)AfAm (>60 ml/min/1.73 sqM) Est GFR (CKD-EPI)NonAf (>60 ml/min/1.73 sqM) Glucose (74-99) mg/dL Calcium (8.4-10.2) mg/dL Total Bilirubin (0.2-1.3) mg/dL AST (14-36) U/L ALT (4-34) U/L Alkaline Phosphatase (38-126) U/L Troponin I (0.000-0.034) ng/mL Total Protein (6.3-8.2) g/dL Albumin (3.5-5.0) g/dL Urine Color Yellow Urine Appearance Clear (Clear) Urine pH 6.0 (5.0-8.0) Ur Specific [place] 1.011 (1.001-1.035) Urine Protein 1+ H (Negative) Urine Glucose (UA) Negative (Negative) Urine Ketones Negative (Negative) Urine Blood Negative (Negative) Urine Nitrite Negative (Negative) Urine Bilirubin Negative (Negative) Urine Urobilinogen <2.0 (<2.0) mg/dL Ur Leukocyte Esterase Small H (Negative) Urine RBC 4 (0-5) /hpf Urine WBC 6 H (0-5) /hpf Ur Squamous Epith Cells 2 (0-4) /hpf Urine Bacteria Moderate H (None) /hpf Urine Mucus Rare H (None) /hpf Urine HCG, Qual Not Detected (Not Detectd) Urine Opiates Screen Detected H (NotDetected) Ur Oxycodone Screen Not Detected (NotDetected) Urine Methadone Screen Not Detected (NotDetected) Ur Propoxyphene Screen Not Detected (NotDetected) Ur Barbiturates Screen Not Detected (NotDetected) U Tricyclic Antidepress Not Detected (NotDetected) Ur Phencyclidine Scrn Not Detected (NotDetected) Ur Amphetamines Screen Detected H (NotDetected) U Methamphetamines Scrn Detected H (NotDetected) U Benzodiazepines Scrn Not Detected (NotDetected) Urine Cocaine Screen Not Detected (NotDetected) U Marijuana (THC) Screen Detected H (NotDetected) 04/03/20 04/03/20 04/03/20 Range/Units 21:33 21:33 21:33 WBC 19.6 H (3.8-10.6) k/uL RBC 4.58 (3.80-5.40) m/uL Hgb 14.5 (11.4-16.0) gm/dL Hct 44.1 (34.0-46.0) % MCV 96.4 (80.0-100.0) fL MCH 31.8 (25.0-35.0) pg MCHC 32.9 (31.0-37.0) g/dL RDW 13.5 (11.5-15.5) % Plt Count 369 (150-450) k/uL Neutrophils % 80 % Lymphocytes % 12 % Monocytes % 4 % Eosinophils % 2 % Basophils % 1 % Neutrophils # 15.7 H (1.3-7.7) k/uL Lymphocytes # 2.4 (1.0-4.8) k/uL Monocytes # 0.9 (0-1.0) k/uL Eosinophils # 0.3 (0-0.7) k/uL Basophils # 0.1 (0-0.2) k/uL Sodium 138 (137-145) mmol/L Potassium 3.9 (3.5-5.1) mmol/L Chloride 105 (98-107) mmol/L Carbon Dioxide 28 (22-30) mmol/L Anion Gap 5 mmol/L BUN 19 H (7-17) mg/dL Creatinine 0.76 (0.52-1.04) mg/dL Est GFR (CKD-EPI)AfAm >90 (>60 ml/min/1.73 sqM) Est GFR (CKD-EPI)NonAf >90 (>60 ml/min/1.73 sqM) Glucose 93 (74-99) mg/dL Calcium 9.1 (8.4-10.2) mg/dL Total Bilirubin 0.5 (0.2-1.3) mg/dL AST 33 (14-36) U/L ALT 25 (4-34) U/L Alkaline Phosphatase 79 (38-126) U/L Troponin I <0.012 (0.000-0.034) ng/mL Total Protein 6.4 (6.3-8.2) g/dL Albumin 3.9 (3.5-5.0) g/dL Urine Color Urine Appearance (Clear) Urine pH (5.0-8.0) Ur Specific [place] (1.001-1.035) Urine Protein (Negative) Urine Glucose (UA) (Negative) Urine Ketones (Negative) Urine Blood (Negative) Urine Nitrite (Negative) Urine Bilirubin (Negative) Urine Urobilinogen (<2.0) mg/dL Ur Leukocyte Esterase (Negative) Urine RBC (0-5) /hpf Urine WBC (0-5) /hpf Ur Squamous Epith Cells (0-4) /hpf Urine Bacteria (None) /hpf Urine Mucus (None) /hpf Urine HCG, Qual (Not Detectd) Urine Opiates Screen (NotDetected) Ur Oxycodone Screen (NotDetected) Urine Methadone Screen (NotDetected) Ur Propoxyphene Screen (NotDetected) Ur Barbiturates Screen (NotDetected) U Tricyclic Antidepress (NotDetected) Ur Phencyclidine Scrn (NotDetected) Ur Amphetamines Screen (NotDetected) U Methamphetamines Scrn (NotDetected) U Benzodiazepines Scrn (NotDetected) Urine Cocaine Screen (NotDetected) U Marijuana (THC) Screen (NotDetected) - EKG Data EKG Comments: EKG obtained at 2138 shows normal sinus rhythm with a prolonged QT interval. Ventricular rate is 91, CO interval 132, QRS duration 92, QT 398, QTC 489. No evidence of ST elevation or depression. (Desiree Edgar) - Radiology Data CT brain without contrast was obtained. Report reviewed in its entirety. Impression by Dr. Mobley shows negative unenhanced head computed tomography scan. No change. Two-view x-ray of the chest is obtained. Report was reviewed in its entirety. Impression by Dr. Mobley shows no active cardiopulmonary disease. No change. (Desiree Edgar) Disposition Decision to Admit Reason: Admit from EC Decision Date: 04/03/20 Decision Time: 22:52 <Desiree Edgar - Last Filed: 04/04/20 04:01> <Mariaa Douglas - Last Filed: 04/06/20 21:41> Clinical Impression: Accelerated hypertension, Headache, Hallucinations Disposition: ADMITTED IP TO THIS [facility] Condition: Stable
[2020-04-03] MEDS ORDERED: ACETAMINOPHEN TAB 500 MG TAB PO STA (20:25)
[2020-04-03] MEDS ORDERED: IBUPROFEN 600 MG TAB PO STA (20:25)
[2020-04-03] MEDS ORDERED: LORazepam 2 MG/ML INJ IV STA (20:59)
[2020-04-03] MEDS ORDERED: SODIUM CHLORIDE 0.9% 1,000 ML IV ONE (20:59)
[2020-04-03 21:34] LABS: Appearance,Urine Clear (Clear); Bacteria,Urine Moderate /hpf; Bilirubin,Urine Negative (Negative); Blood,Urine Negative (Negative); Color,Urine Yellow; Glucose,Urine (UA) Negative (Negative); Ketones,Urine Negative (Negative); Leukocyte Esterase,Urine Small (Negative); Mucus,Urine Rare /hpf; Nitrite,Urine Negative (Negative); Protein,Urine 1+ (Negative); RBC,Urine 4 /hpf (0-5); Specific Gravity,Urine 1.011 (1.001-1.035); Squamous Epithelial Cell,Urine 2 /hpf (0-4); Urobilinogen,Urine <2.0 mg/dL (<2.0); WBC,Urine 6 /hpf (0-5)
[2020-04-03 21:45] LABS: Basophils # (A) 0.1 k/uL (0-0.2); Basophils % (A) 1 %; Eosinophils # (A) 0.3 k/uL (0-0.7); Eosinophils % (A) 2 %; HCT 44.1 % (34.0-46.0); HGB 14.5 gm/dL (11.4-16.0); Lymphocytes # (A) 2.4 k/uL (1.0-4.8); Lymphocytes % (A) 12 %; MCH 31.8 pg (25.0-35.0); MCHC 32.9 g/dL (31.0-37.0); MCV 96.4 fL (80.0-100.0); Mean Platelet Volume 7.1; Monocytes # (A) 0.9 k/uL (0-1.0); Monocytes % (A) 4 %; Neutrophils # (A) 15.7 k/uL (1.3-7.7); Neutrophils % (A) 80 %; Platelet Count 369 k/uL (150-450); RBC 4.58 m/uL (3.80-5.40); RDW 13.5 % (11.5-15.5); WBC 19.6 k/uL (3.8-10.6)
[2020-04-03 21:56] LABS: ALT 25 U/L (4-34); AST 33 U/L (14-36); African American GFR (CKD) >90 (>60 ml/min/1.73 sqM); Albumin 3.9 g/dL (3.5-5.0); Alkaline Phosphatase 79 U/L (38-126); Anion Gap 5 mmol/L; Blood Urea Nitrogen 19 mg/dL (7-17); Calcium 9.1 mg/dL (8.4-10.2); Carbon Dioxide 28 mmol/L (22-30); Chloride 105 mmol/L (98-107); Glucose 93 mg/dL (74-99); Non-African American GFR(CKD) >90 (>60 ml/min/1.73 sqM); Sodium 138 mmol/L (137-145); Total Bilirubin 0.5 mg/dL (0.2-1.3); Total Protein 6.4 g/dL (6.3-8.2)
[2020-04-03 22:01] LABS: Potassium 3.9 mmol/L (3.5-5.1)
--- NOTE | 2020-04-03 22:05 | CT ---
EXAMINATION TYPE: CT brain wo con DATE OF EXAM: 04/03/2020 COMPARISON: 10/25/2018 HISTORY: Headache, critical blood pressure. CT DLP: 1131.4 mGycm Automated exposure control for dose reduction was used. Ventricles and sulci appear normal. There is no mass effect nor midline shift. There is no sign of in tracranial hemorrhage. There is no evidence of cerebral edema. The calvarium is intact. IMPRESSION: Negative unenhanced head CT scan. No change.
[2020-04-03] MEDS ORDERED: LABETALOL 5 MG/ML VIAL MDV IVP STA (22:12)
--- NOTE | 2020-04-03 22:33 | XR ---
EXAMINATION TYPE: XR chest 2V DATE OF EXAM: 04/03/2020 COMPARISON: 10/24/2018 HISTORY: Chest pain TECHNIQUE: FINDINGS: There is no heart failure nor confluent pneumonic infiltrate. Costophrenic angles are clear . There are no hilar masses. There are chest leads. Bony thorax is intact. IMPRESSION: No active cardiopulmonary disease. No change.
[2020-04-03] MEDS ORDERED: NALOXONE 0.4 MG/ML 1 ML VIAL IV PRN (22:43)
[2020-04-03] MEDS ORDERED: ENALAPRILAT 1.25 MG/ML 1 ML VIAL IVP PRN (22:51)
[2020-04-03] MEDS ORDERED: LORazepam 2 MG/ML INJ IV PRN (23:55)
--- NOTE | 2020-04-04 01:03 | P.HPIM ---
History of Present Illness H&P Date: 04/04/20 Patient is a 35-year-old female with a PMH of polysubstance abuse and hypertension who presented to the ED with complaints of auditory hallucinations. The patient reports that she has been hearing her friends begging for help who she knows are not there. The history was limited as the patient was lethargic during the interview. She also notes that she has been under quite a bit of stress recently. She admits to using marijuana though denied any additional recent drug use, though did say that she used methamphetamine several months ago. She otherwise denied any active complaints including chest pain, shortness of fever, chills, cough, or abdominal pain. As per the ED staff, the patient w as paranoid and anxious throughout her stay and was claiming that her mother was being jailed and that she had to go take care of her. The patient also reported to them a history of hypertension and that she had not been taking her medications. The ED provider spoke with the patient's mother reported that the patient has been acting strangely throughout the day today. In the emergency room, the patient was very hypertensive upon initial presentation with BP 200/136 and pulse of 107. Brain CT was negative and chest x-ray unremarkable. Urine toxicology was positive for methamphetamine and marijuana. She also had leukocytosis with WBC count of 19.6. Review of Systems Pertinent positives and negatives as discussed in HPI, a complete review of systems was performed and all other systems are negative. Past Medical History Past Medical History: Hypertension Additional Past Medical History / Comment(s): OTHER HX: fibromyalgia, chronic pain-generalized, migraines, R ovarian cysts, frequent UTI's, tachycardia, gastritis, duodenitis. Anxiety disorder History of Any Multi-Drug Resistant Organisms: None Reported Past Surgical History: Orthopedic Surgery Past Anesthesia/Blood Transfusion Reactions: Unable to Obtain Additional Past Anesthesia/Blood Transfusion Reaction / Comment(s): Pt has never had surgery Past Psychological History: Anxiety, Depression Smoking Status: Current every day smoker Past Alcohol Use History: None Reported Past Drug Use History: Marijuana - Past Family History Mother Family Medical History: Cancer, Diabetes Mellitus, Myocardial Infarction ([place]) Additional Family Medical History / Comment(s): Mother had cervical cancer and hypotension. Father Family Medical History: Hypertension Medications and Allergies Home Medications Medication Instructions Recorded Confirmed Type lisinopriL [Zestril] 20 mg PO BID 05/30/16 10/24/18 History atenoloL [Tenormin] 50 mg PO TID 10/24/18 10/24/18 History Ibuprofen 400 mg PO TID #20 tablet 10/25/18 Rx Metoclopramide [Reglan] 5 mg PO TID PRN #12 tab 10/25/18 Rx Allergies Allergy/AdvReac Type Severity Reaction Status Date / Time Penicillins Allergy Unknown Verified 04/03/20 19:15 Childhood Physical Exam Vitals: Vital Signs Temp Pulse Pulse Resp BP BP Pulse Ox 04/04/20 00:38 97.6 F 89 12 138/92 98 04/03/20 23:57 91 18 163/112 98 04/03/20 22:31 91 18 133/101 98 04/03/20 22:18 63 20 172/135 04/03/20 22:08 83 20 190/154 96 04/03/20 20:42 103 H 20 200/142 98 04/03/20 20:15 105 H 186/140 98 04/03/20 19:48 192/125 04/03/20 19:12 98.1 F 107 H 18 200/136 99 Intake and Output 04/03/20 04/03/20 04/04/20 14:59 22:59 06:59 Other: Weight 48.988 kg General: Disheveled female, no distress, appears older than stated age, normal weight Derm: no unusual rashes/lesions no unusual ecchymoses, warm, dry Head: atraumatic, normocephalic, symmetric Eyes: EOMI, no lid lag, anicteric sclera, pupils equal round reactive to light ENT: Nose and ears atraumatic, no thrush, no pharyngeal erythema Neck: No thyromegaly, no cervical lymphadenopathy, trachea midline, supple Mouth: no lip lesion, mucus membranes moist Cardiovascular: S1S2 reg, no murmur, positive posterior tibial pulse bilateral, no edema, capillary refill less than 2 seconds Lungs: CTA bilateral, no rhonchi, no rales , no accessory muscle use Abdominal: soft, nontender to palpation, no guarding, no appreciable organomegaly Ext: no gross muscle atrophy, muscle strength 5 out of 5 in all 4 extremities grossly, no contractures Neuro: CN II-XI grossly intact, no focal neuro deficits noted, Kernig's and Brudzinski's negative Psych: Lethargic, answering questions appropriately but falls asleep during the conversation, oriented x 3 Results CBC & Chem 7: 04/03/20 21:33 04/03/20 21:33 Labs: Abnormal Lab Results - Last 24 Hours (Table) 04/03/20 04/03/20 04/03/20 Range/Units 19:43 19:43 21:33 WBC 19.6 H (3.8-10.6) k/uL Neutrophils # 15.7 H (1.3-7.7) k/uL BUN (7-17) mg/dL Urine Protein 1+ H (Negative) Ur Leukocyte Esterase Small H (Negative) Urine WBC 6 H (0-5) /hpf Urine Bacteria Moderate H (None) /hpf Urine Mucus Rare H (None) /hpf Urine Opiates Screen Detected H (NotDetected) Ur Amphetamines Screen Detected H (NotDetected) U Methamphetamines Scrn Detected H (NotDetected) U Marijuana (THC) Screen Detected H (NotDetected) 04/03/20 Range/Units 21:33 WBC (3.8-10.6) k/uL Neutrophils # (1.3-7.7) k/uL BUN 19 H (7-17) mg/dL Urine Protein (Negative) Ur Leukocyte Esterase (Negative) Urine WBC (0-5) /hpf Urine Bacteria (None) /hpf Urine Mucus (None) /hpf Urine Opiates Screen (NotDetected) Ur Amphetamines Screen (NotDetected) U Methamphetamines Scrn (NotDetected) U Marijuana (THC) Screen (NotDetected) Assessment and Plan Plan: Hypertensive urgency, likely secondary to methamphetamine abuse -Improved -Continue with atenolol and lisinopril home doses Lethargy, due to sedation with Ativan along with methamphetamine withdrawal -Neurochecks -CT head unremarkable -Fall, aspiration precautions Hallucinations -Psychiatry consult -The patient was petitioned by ED staff Leukocytosis, no signs of active infection at this time -Monitor CBC for now DVT prophylaxis -IPCDs The patient is admitted with an anticipated less than 2 midnight stay for evaluation of hypertensive urgency CODE STATUS: Full Code Discussed with: Patient Anticipated discharge date: 04/[address]: Home A total of 35 minutes was spent on the care of this complex patient more than 50% of the time was spent in counseling and care coordination.
[2020-04-04 03:47] LABS: Glucose,Whole Blood 86 mg/dL (75-99)
[2020-04-04 03:53] VITALS: RESP 10
[2020-04-04 07:40] LABS: HCT 47.4 % (34.0-46.0); HGB 15.1 gm/dL (11.4-16.0); MCH 31.6 pg (25.0-35.0); MCHC 31.8 g/dL (31.0-37.0); MCV 99.4 fL (80.0-100.0); Mean Platelet Volume 7.1; Platelet Count 366 k/uL (150-450); RBC 4.77 m/uL (3.80-5.40); RDW 13.6 % (11.5-15.5); WBC 13.5 k/uL (3.8-10.6)
[2020-04-04 09:17] VITALS: TEMP 97.7
[2020-04-04] MEDS ORDERED: atenoloL 50 MG TAB PO SCH (10:00)
[2020-04-04] MEDS ORDERED: lisinopriL 20 MG TAB PO SCH (10:00)
[2020-04-04] MEDS ORDERED: QUEtiapine 25 MG TAB PO PRN (10:23)
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
[2020-04-04] MEDS ORDERED: LORazepam 2 MG/ML INJ IV STA (13:09)
[2020-04-04 13:38] VITALS: BMI 18.3
[2020-04-04 15:51] VITALS: BP 147/96; PULSE 83
--- NOTE | 2020-04-04 17:32 | P.DS ---
Providers Date of admission: 04/03/20 23:22 Expected date of discharge: 04/04/20 Attending physician: Edis Morris MD Consults: 04/03/20 22:50 Consult Physician Stat Consulting Provider: Anne Marte Consult Reason/Comments: New onset hallucinations Do you want consulting provider notified?: Already Contacted Primary care physician: Stated None Hospital Course: Discharge Diagnosis: Hypertensive urgency secondary to medical noncompliance Methamphetamine use Hallucinations Leukocytosis, likely reactive Toxic metabolic encephalopathy secondary to Ativan and methamphetamine use Hospital Course: Patient is a 35-year-old female with a history of polysubstance abuse, hypertension who presented to the emergency department secondary to auditory hallucinations. On arrival to the ER her pulse was 107 and blood pressure was 200/136. Laboratory analysis showed white blood cell, 19.6. Urine showed 1+ protein with 6 white blood cells and moderate bacteria. Urine drug screen was positive for opiates, methamphetamine, amphetamines, and marijuana. In the ER she was actively hallucinating. Due to her hypertensive urgency she was admitted to the cardiac floor. She received atenolol and lisinopril in the ER. The next morning her blood pressure was up again but slightly improved. She was seen by psychiatry who cleared her for discharge home. They recommended substance abuse treatment program for that she did not need inpatient psych. There was some concern about a urinary tract infection however patient had no urinary symptoms and this was felt to be secondary to bacteria not in active infection. Her hallucinations had resolved. Her blood pressure was improving. She was determined stable for discharge home. She was given a 30 day supply of her lisinopril and metoprolol. She was given a list of primary care physicians. She was told to abstain from drug and alcohol use. She did not wish to receive any substance abuse treatment. Patient seen and examined at bedside. No additional hallucinations, no depression, still having some anxiety but she states she continue with this. S he denies any chest pain or headache. Asking to be discharged. Vital signs reviewed and stable. General: non toxic, no distress, appears at stated age, disheveled Derm: warm, dry Head: atraumatic, normocephalic, symmetric Eyes: EOMI, no lid lag, anicteric sclera Mouth: no lip lesion, mucus membranes moist Cardiovascular: S1S2 reg, no murmur, positive posterior tibial pulse bilateral, Lungs: Coarse breath sounds bilateral , no accessory muscle use Abdominal: soft, nontender to palpation, no guarding, no appreciable organomegaly Ext: no gross muscle atrophy, no edema, no contractures Neuro: CN II-XI grossly intact, no focal neuro deficits Psych: Alert, oriented, appropriate affect A total of 25 minutes of time were spent preparing this complex discharge summary . Patient Condition at Discharge: Stable Plan - Discharge Summary New Discharge Prescriptions: New lisinopriL [Zestril] 20 mg PO BID #60 tab Continue atenoloL [Tenormin] 50 mg PO BID #60 tab Discontinued lisinopriL 40 mg PO DAILY Discharge Medication List atenoloL [Tenormin] 50 mg PO BID #60 tab 04/04/20 [Rx] lisinopriL [Zestril] 20 mg PO BID #60 tab 04/04/20 [Rx] Follow up Appointment(s)/Referral(s): None,Stated [Primary Care Provider] - 1-2 days Patient Instructions/Handouts: Polysubstance Abuse (ED) Discharge Disposition: HOME SELF-CARE
== END 2020-04-04 16:07 | disposition home or self-care (01) ==
LOC: EC 18:58 → 3SCARD 23:22 → INTOOBSV 23:22
PROVIDERS: ADMIT Internal Medicine; ATTEND Internal Medicine
DX: I16.0 Hypertensive urgency (principal); Z91.19 Patient's noncompliance with other medical treatment and regimen; D72.829 Elevated white blood cell count, unspecified; G92 Toxic encephalopathy; F12.159 Cannabis abuse with psychotic disorder, unspecified; F15.23 Other stimulant dependence with withdrawal; F15.259 Other stimulant dependence with stimulant-induced psychotic disorder, unspecified; F17.200 Nicotine dependence, unspecified, uncomplicated; F32.9 Major depressive disorder, single episode, unspecified; F41.0 Panic disorder [episodic paroxysmal anxiety]; G89.29 Other chronic pain; R44.0 Auditory hallucinations; I10 Essential (primary) hypertension; M79.7 Fibromyalgia; T42.4X5A Adverse effect of benzodiazepines, initial encounter; Z79.899 Other long term (current) drug therapy; Z80.49 Family history of malignant neoplasm of other genital organs; Z82.49 Family history of ischemic heart disease and other diseases of the circulatory system; Z83.3 Family history of diabetes mellitus; Z87.440 Personal history of urinary (tract) infections
CPT/HCPCS: 96376; 82075; 96374; 96375; 99285; 36415; 93005; 80053; 84484; 85025; 85027; 81001; 81025; 80306; 71046; 70450; G0378 ×2; J2060 ×2

== ENCOUNTER 2020-05-30 02:48 | Emergency (ER) | payer OTHER ==
[2020-05-30 03:28] VITALS: TEMP 98.2
[2020-05-30] MEDS ORDERED: LORazepam 2 MG/ML INJ IV STA (03:49)
[2020-05-30] MEDS ORDERED: SODIUM CHLORIDE 0.9% 1,000 ML IV ONE (03:50)
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
[2020-05-30 04:03] LABS: Appearance,Urine Clear (Clear); Bilirubin,Urine Negative (Negative); Blood,Urine Moderate (Negative); Color,Urine Yellow; Glucose,Urine (UA) Negative (Negative); Ketones,Urine Negative (Negative); Leukocyte Esterase,Urine Trace (Negative); Mucus,Urine Moderate /hpf; Nitrite,Urine Negative (Negative); PH, Urine 6.5 (5.0-8.0); Protein,Urine Trace (Negative); RBC,Urine 4 /hpf (0-5); Specific Gravity,Urine 1.032 (1.001-1.035); Squamous Epithelial Cell,Urine 10 /hpf (0-4); WBC,Urine 2 /hpf (0-5)
[2020-05-30 04:09] LABS: Amphetamine Screen,Urine Detected (NotDetected); Barbiturate Screen,Urine Not Detected (NotDetected); Benzodiazepines Screen,Urine Detected (NotDetected); Cocaine Screen,Urine Detected (NotDetected); Methadone Screen, Urine Not Detected (NotDetected); Opiate Screen,Urine Detected (NotDetected); Oxycodone Screen, Urine Not Detected (NotDetected); Phencyclidine Screen,Urine Not Detected (NotDetected); Tricyclic Antidepressant,Urine Not Detected (NotDetected); Urn Cannabinoid Scrn Detected (NotDetected)
[2020-05-30] MEDS ORDERED: HALOPERIDOL LACTATE 5 MG/ML 1 ML VIAL IM STA (05:04)
[2020-05-30] MEDS ORDERED: diphenhydrAMINE 50 MG/ML 1 ML VIAL IM STA (05:04)
[2020-05-30 05:20] LABS: Basophils % (A) 0 %; Eosinophils # (A) 0.1 k/uL (0-0.7); Eosinophils % (A) 1 %; HCT 41.7 % (34.0-46.0); HGB 13.8 gm/dL (11.4-16.0); Lymphocytes # (A) 2.8 k/uL (1.0-4.8); Lymphocytes % (A) 25 %; MCH 31.9 pg (25.0-35.0); MCHC 33.2 g/dL (31.0-37.0); Mean Platelet Volume 7.1; Monocytes # (A) 0.5 k/uL (0-1.0); Monocytes % (A) 5 %; Neutrophils # (A) 7.3 k/uL (1.3-7.7); Neutrophils % (A) 67 %; Platelet Count 281 k/uL (150-450); RBC 4.34 m/uL (3.80-5.40); RDW 13.6 % (11.5-15.5); WBC 10.9 k/uL (3.8-10.6)
[2020-05-30 05:29] LABS: ALT 14 U/L (4-34); AST 19 U/L (14-36); Acetaminophen <10.0 ug/mL; African American GFR (CKD) >90 (>60 ml/min/1.73 sqM); Albumin 3.9 g/dL (3.5-5.0); Alkaline Phosphatase 65 U/L (38-126); Anion Gap 5 mmol/L; Blood Urea Nitrogen 20 mg/dL (7-17); Calcium 8.9 mg/dL (8.4-10.2); Carbon Dioxide 25 mmol/L (22-30); Chloride 107 mmol/L (98-107); Glucose 116 mg/dL (74-99); Non-African American GFR(CKD) >90 (>60 ml/min/1.73 sqM); Potassium 3.6 mmol/L (3.5-5.1); Salicylate <1.0 mg/dL; Sodium 137 mmol/L (137-145); Total Bilirubin 0.5 mg/dL (0.2-1.3); Total Protein 6.6 g/dL (6.3-8.2)
[2020-05-30 08:07] VITALS: RESP 18
[2020-05-30 12:32] VITALS: BP 149/108; PULSE 90
== END 2020-05-30 13:00 ==
LOC: EC 02:48
DX: F29 Unspecified psychosis not due to a substance or known physiological condition (principal); I10 Essential (primary) hypertension; F41.9 Anxiety disorder, unspecified; F32.9 Major depressive disorder, single episode, unspecified; F17.200 Nicotine dependence, unspecified, uncomplicated; Z79.899 Other long term (current) drug therapy; Z88.0 Allergy status to penicillin; R00.0 Tachycardia, unspecified
CPT/HCPCS: 82075; 36415; 80053; 85025; 81001; 81025; 80306; 83520; 87635; 99285; 96374; 96372 ×2; G0480; J2060; J1200; J1630; 80329

== ENCOUNTER 2020-07-10 01:11 | Emergency (ER) | payer OTHER ==
[2020-07-10 01:19] VITALS: TEMP 98.5
[2020-07-10] MEDS ORDERED: lisinopriL 20 MG TAB PO STA (01:50)
[2020-07-10] MEDS ORDERED: cloNIDine HCL 0.2 MG TAB PO STA (01:50)
[2020-07-10] MEDS ORDERED: amLODIPine 5 MG TAB PO STA (01:51)
[2020-07-10 01:54] LABS: Amphetamine Screen,Urine Detected (NotDetected); Barbiturate Screen,Urine Not Detected (NotDetected); Benzodiazepines Screen,Urine Detected (NotDetected); Cocaine Screen,Urine Detected (NotDetected); Methadone Screen, Urine Not Detected (NotDetected); Opiate Screen,Urine Detected (NotDetected); Oxycodone Screen, Urine Not Detected (NotDetected); Phencyclidine Screen,Urine Not Detected (NotDetected); Tricyclic Antidepressant,Urine Not Detected (NotDetected); Urn Cannabinoid Scrn Detected (NotDetected)
--- NOTE | 2020-07-10 01:54 | ED ---
General Adult HPI - General Source: patient, police Mode of arrival: ambulatory Limitations: no limitations <Jace Pizarro - Last Filed: 07/10/20 03:14> <Dickson Spangler - Last Filed: 07/10/20 06:15> - General Chief complaint: Psychiatric Symptoms Stated complaint: Mental Health Time Seen by Provider: 07/10/20 01:21 - History of Present Illness Initial comments: 35-year-old female with a past medical history of anxiety, depression, polysubstance abuse presents to the emergency department for paranoid delusions, petitioned by [employer]. Patient apparently called 911 today because she thought that her boyfriend had kidnapped her mom. Patient reports that she could see him dragging her to the car. Patient's mother reportedly lives out of state. Patient states that someone implanted something in her head and that this is why she can hear all these voices. Patient reports she can hear her mom's voice and her head right now. Patient denies suicidal ideation. Patient's speech is very tangential and pressured. Patient has had similar episodes previously possibly related to methamphetamine use.Patient has no other complaints at this time including shortness of breath, chest pain, abdominal pain, nausea or vomiting, headache, or visual changes. (Jace Pizarro) - Related Data Home Medications Medication Instructions Recorded Confirmed Escitalopram [Lexapro] 10 mg PO DAILY 05/30/20 05/30/20 Gabapentin [Neurontin] 300 mg PO BID 05/30/20 05/30/20 LORazepam [Ativan] 1 mg PO BID PRN 05/30/20 05/30/20 OLANZapine 20 mg PO HS 05/30/20 05/30/20 QUEtiapine [SEROquel] 200 mg PO HS 05/30/20 05/30/20 amLODIPine [Norvasc] 5 mg PO DAILY 05/30/20 05/30/20 lamoTRIgine [LaMICtal] 25 mg PO BID 05/30/20 05/30/20 Previous Rx's Medication Instructions Recorded lisinopriL [Zestril] 20 mg PO BID #60 tab 04/04/20 Allergies Allergy/AdvReac Type Severity Reaction Status Date / Time Penicillins Allergy Unknown Verified 07/10/20 01:19 Childhood Review of Systems ROS Other: All systems not noted in ROS Statement are negative. <Jace Pizarro P - Last Filed: 07/10/20 03:14> ROS Other: All systems not noted in ROS Statement are negative. <Dickson Spangler Giovanna - Last Filed: 07/10/20 06:15> ROS Statement: Those systems with pertinent positive or pertinent negative responses have been documented in the HPI. Past Medical History Past Medical History: Hypertension Additional Past Medical History / Comment(s): OTHER HX: fibromyalgia, chronic pain-generalized, migraines, R ovarian cysts, frequent UTI's, tachycardia, gastritis, duodenitis. Anxiety disorder History of Any Multi-Drug Resistant Organisms: None Reported Past Surgical History: Orthopedic Surgery Past Anesthesia/Blood Transfusion Reactions: Unable to Obtain Additional Past Anesthesia/Blood Transfusion Reaction / Comment(s): Pt has never had surgery Past Psychological History: Anxiety, Depression Smoking Status: Current every day smoker Past Alcohol Use History: None Reported Past Drug Use History: Marijuana - Past Family History Mother Family Medical History: Cancer, Diabetes Mellitus, Myocardial Infarction ([place]) Additional Family Medical History / Comment(s): Mother had cervical cancer and hypotension. Father Family Medical History: Hypertension <JuarezJace coles P - Last Filed: 07/10/20 03:14> General Exam Limitations: no limitations General appearance: anxious Head exam: Present: atraumatic, normocephalic, normal inspection Eye exam: Present: normal appearance, PERRL, EOMI. Absent: scleral icterus, conjunctival injection, periorbital swelling ENT exam: Present: normal exam, mucous membranes moist Neck exam: Present: normal inspection, full ROM. Absent: tenderness, meningismus, lymphadenopathy Respiratory exam: Present: normal lung sounds bilaterally. Absent: respiratory distress, wheezes, rales, rhonchi, stridor Cardiovascular Exam: Present: regular rate, normal rhythm, normal heart sounds. Absent: systolic murmur, diastolic murmur, rubs, gallop, clicks GI/Abdominal exam: Present: soft, normal bowel sounds. Absent: distended, tenderness, guarding, rebound, rigid Psychiatric exam: Present: anxious, manic <JuarezJace marte P - Last Filed: 07/10/20 03:14> General appearance: alert, in no apparent distress Head exam: Present: atraumatic, normocephalic, normal inspection Eye exam: Present: normal appearance, PERRL, EOMI. Absent: scleral icterus, conjunctival injection, periorbital swelling ENT exam: Present: normal exam, mucous membranes moist Neck exam: Present: normal inspection. Absent: tenderness, meningismus, lymphadenopathy Respiratory exam: Present: normal lung sounds bilaterally. Absent: respiratory distress, wheezes, rales, rhonchi, stridor Cardiovascular Exam: Present: regular rate, normal rhythm, normal heart sounds. Absent: systolic murmur, diastolic murmur, rubs, gallop, clicks GI/Abdominal exam: Present: soft, normal bowel sounds. Absent: distended, tenderness, guarding, rebound, rigid Extremities exam: Present: normal inspection, full ROM, normal capillary refill. Absent: tenderness, pedal edema, joint swelling, calf tenderness Back exam: Present: normal inspection Neurological exam: Present: alert, oriented X3, CN II-XII intact Psychiatric exam: Present: normal affect, normal mood Skin exam: Present: warm, dry, intact, normal color. Absent: rash <Dickson Spangler - Last Filed: 07/10/20 06:15> Course <Dickson Spangler - Last Filed: 07/10/20 06:15> Vital Signs 07/10/20 07/10/20 07/10/20 01:14 01:42 04:00 Temperature 98.5 F Pulse Rate 104 H 79 Respiratory 22 19 Rate Blood Pressure 160/120 198/125 162/93 O2 Sat by Pulse 99 94 L Oximetry - Reevaluation(s) Reevaluation #1: 07/10/20 06:13 Medical record is reviewed (Dickson Spangler) Reevaluation #2: 07/10/20 06:13 Medical clear for psychiatric evaluation Patient is seen and evaluated by psychiatry here in the ER (Dickson Spangler) Medical Decision Making <Jace Pizarro - Last Filed: 07/10/20 03:14> <Dickson Spangler - Last Filed: 07/10/20 06:15> - Medical Decision Making Patient hypertensive upon arrival. She is very agitated and anxious which is likely contributing. Patient's home medication for hypertension as well as Catapres were ordered. Care signed out to Dr. Spangler at 1452 pending psychiatric evaluation. (Jace Pizarro) 35 female to the ER for evaluation regarding acute she'll be admitted, patient also may be withdrawing, she is agitated, patient will be transferred for inpatient psychiatric evaluation. (Dickson Spangler) - Lab Data Lab Results 07/10/20 Range/Units 01:26 Urine Opiates Screen Detected H (NotDetected) Ur Oxycodone Screen Not Detected (NotDetected) Urine Methadone Screen Not Detected (NotDetected) Ur Propoxyphene Screen Not Detected (NotDetected) Ur Barbiturates Screen Not Detected (NotDetected) U Tricyclic Antidepress Not Detected (NotDetected) Ur Phencyclidine Scrn Not Detected (NotDetected) Ur Amphetamines Screen Detected H (NotDetected) U Methamphetamines Scrn Detected H (NotDetected) U Benzodiazepines Scrn Detected H (NotDetected) Urine Cocaine Screen Detected H (NotDetected) U Marijuana (THC) Screen Detected H (NotDetected) Disposition <Jace Pizarro - Last Filed: 07/10/20 03:14> Is patient prescribed a controlled substance at d/c from ED?: No <Dickson Spangler - Last Filed: 07/10/20 06:15> Clinical Impression: Acute psychosis, Drug-induced psychotic disorder, Hallucinations, Anxiety Disposition: TRANSFER TO PSYCH HOSP/UNIT Condition: Fair Referrals: Christophe Melton MD [Primary Care Provider] - 1-2 days
[2020-07-10] MEDS ORDERED: ALPRAZolam 0.5 MG TAB PO STA ×2 (03:24→09:43)
[2020-07-10 06:30] VITALS: BP 124/79; PULSE 85
[2020-07-10 08:10] VITALS: RESP 18
== END 2020-07-10 10:41 ==
LOC: EC 01:11
DX: Z03.818 Encounter for observation for suspected exposure to other biological agents ruled out (principal); F23 Brief psychotic disorder; F19.951 Other psychoactive substance use, unspecified with psychoactive substance-induced psychotic disorder with hallucinations; F41.9 Anxiety disorder, unspecified; I10 Essential (primary) hypertension; M79.7 Fibromyalgia; F32.9 Major depressive disorder, single episode, unspecified; G43.909 Migraine, unspecified, not intractable, without status migrainosus; F17.200 Nicotine dependence, unspecified, uncomplicated; Z79.899 Other long term (current) drug therapy; Z88.0 Allergy status to penicillin
CPT/HCPCS: 80306; 81025; 82075; 87635; 99285

== ENCOUNTER 2020-08-05 21:52 | Emergency (ER) | payer OTHER ==
[2020-08-05 22:01] VITALS: BP 145/95; PULSE 98; RESP 18; TEMP 98.6
--- NOTE | 2020-08-05 22:17 | ED ---
ENT HPI - General Chief complaint: Dental/Oral Stated complaint: Face swelling Time Seen by Provider: 08/05/20 22:05 Source: patient Mode of arrival: ambulatory Limitations: no limitations - History of Present Illness Initial comments: Patient is a 35-year-old female presenting to the emergency Department with complaints of left lower dental pain 2 days. Patient is also complaining that she feels like her face is swollen and she has biting the inside of her cheek. She denies any fever or chills, no nausea or vomiting. She states she has not seen her dentist in over 6 months. She denies any injuries or trauma to her face. She has no further complaints at this time. Upon arrival to the ER, her vitals are normal. - Related Data Home Medications Medication Instructions Recorded Confirmed Escitalopram [Lexapro] 10 mg PO DAILY 05/30/20 05/30/20 Gabapentin [Neurontin] 300 mg PO BID 05/30/20 05/30/20 LORazepam [Ativan] 1 mg PO BID PRN 05/30/20 05/30/20 OLANZapine 20 mg PO HS 05/30/20 05/30/20 QUEtiapine [SEROquel] 200 mg PO HS 05/30/20 05/30/20 amLODIPine [Norvasc] 5 mg PO DAILY 05/30/20 05/30/20 lamoTRIgine [LaMICtal] 25 mg PO BID 05/30/20 05/30/20 Previous Rx's Medication Instructions Recorded lisinopriL [Zestril] 20 mg PO BID #60 tab 04/04/20 Clindamycin HCl 300 mg PO Q8H 5 Days #15 cap 08/05/20 Allergies Allergy/AdvReac Type Severity Reaction Status Date / Time Penicillins Allergy Unknown Verified 08/05/20 22:01 Childhood Review of Systems ROS Statement: Those systems with pertinent positive or pertinent negative responses have been documented in the HPI. ROS Other: All systems not noted in ROS Statement are negative. Past Medical History Past Medical History: Hypertension Additional Past Medical History / Comment(s): OTHER HX: fibromyalgia, chronic pain-generalized, migraines, R ovarian cysts, frequent UTI's, tachycardia, gastritis, duodenitis. Anxiety disorder History of Any Multi-Drug Resistant Organisms: None Reported Past Surgical History: Orthopedic Surgery Past Anesthesia/Blood Transfusion Reactions: Unable to Obtain Additional Past Anesthesia/Blood Transfusion Reaction / Comment(s): Pt has never had surgery Past Psychological History: Anxiety, Depression Smoking Status: Current every day smoker Past Alcohol Use History: None Reported Past Drug Use History: Marijuana - Past Family History Mother Family Medical History: Cancer, Diabetes Mellitus, Myocardial Infarction ([place]) Additional Family Medical History / Comment(s): Mother had cervical cancer and hypotension. Father Family Medical History: Hypertension General Exam - General Exam Comments Initial Comments: GENERAL: Patient is well-developed and well-nourished. Patient is nontoxic and in no acute distress. HEAD: Atraumatic, normocephalic. EYES: Pupils equal round and reactive to light, extraocular movements intact, sclera anicteric, conjunctiva are normal. Eyelids were unremarkable. ENT: TMs normal, nares patent, oropharynx clear without exudates. Moist mucous membranes. Patient has many dental caries, broken teeth, there is some mild pain with palpation of tooth #20. No visible abscess seen. There is no facial swelling, no facial erythema. NECK: Normal range of motion, supple without lymphadenopathy or JVD. LUNGS: Unlabored respirations. Breath sounds clear to auscultation bilaterally and equal. No wheezes rales or rhonchi. HEART: Regular rate and rhythm without murmurs, rubs or gallops. ABDOMEN: Soft, nontender, normoactive bowel sounds. No guarding, no rebound. No masses appreciated. : Deferred MUSCULOSKELETAL: Normal extremities with adequate strength and normal range of motion, no pitting or edema. No clubbing or cyanosis. NEUROLOGICAL: Patient is alert and oriented x 3. Motor and sensory are also intact. Cranial nerves II through XII grossly intact. Symmetrical smile. Normal speech, normal gait. PSYCH: Normal mood, normal affect. SKIN: Warm, Dry, normal turgor, no rashes or lesions noted. Limitations: no limitations Course Vital Signs 08/05/20 21:55 Temperature 98.6 F Pulse Rate 98 Respiratory 18 Rate Blood Pressure 145/95 O2 Sat by Pulse 97 Oximetry Medical Decision Making - Medical Decision Making Patient is a 35-year-old female here for left lower sided dental pain 2 days. Her vitals are he will see is afebrile. Patient's exam reveals no obvious dental abscess, no signs of an obvious infection, she does have pain with palpation of tooth. I will start patient on antibiotic for possible infection, I'll give her shot of Toradol today. She is follow-up with her dentist on Saturday. She is in agreement with this plan of care. She is stable for discharge. Disposition Clinical Impression: Dental caries, Fracture of tooth, Toothache Disposition: HOME SELF-CARE Condition: Stable Instructions (If sedation given, give patient instructions): Toothache (ED) Additional Instructions: Please return to the Emergency Department if symptoms worsen or any other concerns. 8 antibiotic as prescribed. May alternate between Tylenol and Motrin for discomfort. Follow-up with your dentist as discussed. Prescriptions: Clindamycin HCl 300 mg PO Q8H 5 Days #15 cap Is patient prescribed a controlled substance at d/c from ED?: No Referrals: Christophe Melton MD [Primary Care Provider] - 1-2 days
[2020-08-05] MEDS: ACET/COD 300 MG/30 MG STARTER PACK 6 TAB BTL PO STA (22:23)
[2020-08-05] MEDS: CLINDAMYCIN 150 MG CAP PO STA (22:23)
[2020-08-05] MEDS: KETOROLAC 15 MG/ML 1 ML VIAL IM STA (22:24)
== END 2020-08-05 22:31 | disposition home or self-care (01) ==
LOC: EC 21:52
DX: K02.9 Dental caries, unspecified (principal); K03.81 Cracked tooth; I10 Essential (primary) hypertension; M79.7 Fibromyalgia; G89.29 Other chronic pain; G43.909 Migraine, unspecified, not intractable, without status migrainosus; F41.9 Anxiety disorder, unspecified; F32.9 Major depressive disorder, single episode, unspecified; F17.200 Nicotine dependence, unspecified, uncomplicated; Z88.0 Allergy status to penicillin; Z79.899 Other long term (current) drug therapy
CPT/HCPCS: 96372; 99283; J1885

== ENCOUNTER 2020-08-24 19:22 | Inpatient (IN) | payer MEDICAID, OTHER ==
--- NOTE | 2020-08-24 20:11 | ED ---
Psych HPI - General Source: patient, police, RN notes reviewed Mode of arrival: ambulatory - History of Present Illness MD Complaint: other <Juan Antonio Stockton - Last Filed: 08/24/20 22:57> <Dickson Spangler - Last Filed: 08/25/20 02:27> - General Chief Complaint: Psychiatric Symptoms Stated Complaint: Mental Health Time Seen by Provider: 08/24/20 19:58 - History of Present Illness Initial Comments: This is a 35-year-old female her prior history of psychosis from drug use history of anxiety history of depression also hypertension who is brought in by police today in petition been seen things and hearing things she also thought she saw her daughter pain from a tree today. She is talking to people that are not present. She denies any drug drug use at this time however. (Juan Antonio Stockton) - Related Data Home Medications Medication Instructions Recorded Confirmed amLODIPine [Norvasc] 5 mg PO DAILY 05/30/20 08/24/20 lamoTRIgine [LaMICtal] 25 mg PO HS 05/30/20 08/24/20 ALPRAZolam [Xanax] 0.5 mg PO TID PRN 08/24/20 08/24/20 Atenolol [Tenormin] 50 mg PO DAILY 08/24/20 08/24/20 Gabapentin [Neurontin] 100 mg PO BID 08/24/20 08/24/20 Ibuprofen [Motrin] 800 mg PO Q6H PRN 08/24/20 08/24/20 QUEtiapine FUMARATE [SEROquel] 300 mg PO HS 08/24/20 08/24/20 QUEtiapine [SEROquel] 100 mg PO DAILY 08/24/20 08/24/20 hydrOXYzine pamoate [Vistaril] 50 mg PO TID PRN 08/24/20 08/24/20 lisinopriL [Zestril] 20 mg PO DAILY 08/24/20 08/24/20 Allergies Allergy/AdvReac Type Severity Reaction Status Date / Time Penicillins Allergy Unknown Verified 08/24/20 21:11 Childhood Review of Systems ROS Other: All systems not noted in ROS Statement are negative. <Juan Antonio Stockton - Last Filed: 08/24/20 22:57> ROS Other: All systems not noted in ROS Statement are negative. <Dickson Spangler - Last Filed: 08/25/20 02:27> ROS Statement: Those systems with pertinent positive or pertinent negative responses have been documented in the HPI. Past Medical History Past Medical History: Hypertension Additional Past Medical History / Comment(s): OTHER HX: fibromyalgia, chronic pain-generalized, migraines, R ovarian cysts, frequent UTI's, tachycardia, gastritis, duodenitis. Anxiety disorder History of Any Multi-Drug Resistant Organisms: None Reported Past Surgical History: Orthopedic Surgery Past Anesthesia/Blood Transfusion Reactions: Unable to Obtain Additional Past Anesthesia/Blood Transfusion Reaction / Comment(s): Pt has never had surgery Past Psychological History: Anxiety, Depression Smoking Status: Current every day smoker Past Alcohol Use History: None Reported Past Drug Use History: Marijuana, Opiates - Past Family History Mother Family Medical History: Cancer, Diabetes Mellitus, Myocardial Infarction ([place]) Additional Family Medical History / Comment(s): Mother had cervical cancer and hypotension. Father Family Medical History: Hypertension <Juan Antonio Stockton - Last Filed: 08/24/20 22:57> General Exam Limitations: no limitations General appearance: alert, anxious Head exam: Present: atraumatic, normocephalic, normal inspection Eye exam: Present: normal appearance, PERRL, EOMI. Absent: scleral icterus, conjunctival injection, periorbital swelling ENT exam: Present: normal exam, mucous membranes moist Neck exam: Present: normal inspection. Absent: tenderness, meningismus, lymphadenopathy Respiratory exam: Present: normal lung sounds bilaterally. Absent: respiratory distress, wheezes, rales, rhonchi, stridor Cardiovascular Exam: Present: regular rate, normal rhythm, normal heart sounds. Absent: systolic murmur, diastolic murmur, rubs, gallop, clicks GI/Abdominal exam: Present: soft, normal bowel sounds. Absent: distended, tenderness, guarding, rebound, rigid Extremities exam: Present: normal inspection, full ROM, normal capillary refill. Absent: tenderness, pedal edema, joint swelling, calf tenderness Back exam: Present: normal inspection Neurological exam: Present: alert, oriented X3, CN II-XII intact Psychiatric exam: Present: anxious, other (Demonstrate a flight of ideas) Skin exam: Present: warm, dry, intact, normal color. Absent: rash <Juan Antonio Stockton - Last Filed: 08/24/20 22:57> - General Exam Comments Initial Comments: This is a well-developed well-nourished awake alert female (Juan Antonio Stockton) Course <Juan Antonio Stockton - Last Filed: 08/24/20 22:57> Vital Signs 08/24/20 08/24/20 19:41 23:33 Temperature 98.0 F Pulse Rate 110 H 92 Respiratory 18 14 Rate Blood Pressure 190/101 161/104 O2 Sat by Pulse 98 97 Oximetry - Reevaluation(s) Reevaluation #1: 08/24/20 22:57 The patient's care is endorsed to Dr. Spangler at our shift change pending psychiatric evaluation (Juan Antonio Stockton) Medical Decision Making <Dickson Spangler - Last Filed: 08/25/20 02:27> - Medical Decision Making 35 female who was seen in however psychiatry, patient is started will be admi tted for psychiatric evaluation and treatment (Dickson Spangler) - Lab Data Lab Results 08/24/20 08/24/20 Range/Units 23:45 23:45 Urine HCG, Qual Not Detected (Not Detectd) Urine Opiates Screen Detected H (NotDetected) Ur Oxycodone Screen Not Detected (NotDetected) Urine Methadone Screen Not Detected (NotDetected) Ur Propoxyphene Screen Not Detected (NotDetected) Ur Barbiturates Screen Not Detected (NotDetected) U Tricyclic Antidepress Detected H (NotDetected) Ur Phencyclidine Scrn Not Detected (NotDetected) Ur Amphetamines Screen Detected H (NotDetected) U Methamphetamines Scrn Detected H (NotDetected) U Benzodiazepines Scrn Detected H (NotDetected) Urine Cocaine Screen Not Detected (NotDetected) U Marijuana (THC) Screen Detected H (NotDetected) Disposition <Juan Antonio Stockton - Last Filed: 08/24/20 22:57> Is patient prescribed a controlled substance at d/c from ED?: No <Dickson Spangler - Last Filed: 08/25/20 02:27> Clinical Impression: Psychosis, Acute psychosis, Drug-induced psychotic disorder Disposition: TRANSFER TO PSYCH HOSP/UNIT Condition: Fair Referrals: None,Stated [Primary Care Provider] - 1-2 days
[2020-08-24] MEDS ORDERED: LORazepam 2 MG/ML INJ IM STA (20:33)
[2020-08-25 01:02] LABS: Amphetamine Screen,Urine Detected (NotDetected); Benzodiazepines Screen,Urine Detected (NotDetected); Cocaine Screen,Urine Not Detected (NotDetected); Methadone Screen, Urine Not Detected (NotDetected); Opiate Screen,Urine Detected (NotDetected); Phencyclidine Screen,Urine Not Detected (NotDetected); Tricyclic Antidepressant,Urine Detected (NotDetected)
[2020-08-25 01:03] LABS: Barbiturate Screen,Urine Not Detected (NotDetected); Oxycodone Screen, Urine Not Detected (NotDetected); Urn Cannabinoid Scrn Detected (NotDetected)
[2020-08-25] MEDS ORDERED: LORazepam 2 MG/ML INJ IM STA (02:11)
[2020-08-25] MEDS ORDERED: LORazepam 2 MG/ML INJ IM PRN (03:50)
[2020-08-25] MEDS: HALOPERIDOL LACTATE 5 MG/ML 1 ML VIAL IM PRN ×2 (04:25→23:59)
[2020-08-25] MEDS ORDERED: ZIPRASIDONE 20 MG VIAL IM STA (04:38)
[2020-08-25] MEDS ORDERED: ACETAMINOPHEN TAB 325 MG TAB PO PRN (05:00)
[2020-08-25] MEDS ORDERED: MAG HYDROX/AL HYDROX/SIMETH 30 ML CUP PO PRN (08:00)
[2020-08-25] MEDS ORDERED: MAGNESIUM HYDROXIDE 2,400 MG/10 ML CUP PO PRN (09:00)
[2020-08-25] MEDS: lisinopriL 20 MG TAB PO SCH (09:18)
[2020-08-25] MEDS: atenoloL 50 MG TAB PO SCH (09:18)
[2020-08-25] MEDS: amLODIPine 5 MG TAB PO SCH (09:18)
[2020-08-25] MEDS: NICOTINE 14MG/24HR PATCH TRANSDERM SCH (09:18)
[2020-08-25] MEDS: QUEtiapine 100 MG TAB PO SCH ×2 (09:18→21:15)
--- NOTE | 2020-08-25 10:53 | P.HP ---
Psychiatric H&P - . H&P Date: 08/25/20 History & Physical: I reviewed the medical record and attempted to interview the patient. She is laying in bed, made eye contact but would not get out of bed or answer questions. The police brought her to the ED and completed a petition stated she is "hearing voices" and "not acting herself." She told the EPS nurse that she is "hearing voices" for the last 2 days. In the ED she was restless and agitated. She perseverated about needing to find a person called Terry who she believed killed her daughter. Nursing staff was unable to redirect her and she remained agitated until she received a total of 4 mg of Ativan IM and 20 mg of Geodon. Her UDS was positive for opiates, tricyclics, amphetamine, methamphetamine, benzodiazepines and marijuana. According to medical record she presented to the ED on 05/30/2020 and 07/10/2020 involuntarily in an agitated state and expressing paranoid delusional beliefs. She was transferred to other psychiatric facilities due to bed availability. Her UDS during both presentations were positive for opiates, amphetamines, methamphetamines and marijuana. We will proceed with involuntary hospitalization and obtain a comprehensive psychiatric assessments with he she is more cooperative. Allergies Allergy/AdvReac Type Severity Reaction Status Date / Time Penicillins Allergy Unknown Verified 08/24/20 21:11 Childhood Vital Signs Temp 98.6 F 08/25/20 09:28 Pulse 135 H 08/25/20 09:28 Resp 16 08/25/20 09:28 BP 133/77 08/25/20 09:28 Pulse Ox 98 08/25/20 09:28 Intake & Output 08/24/20 08/25/20 08/25/20 18:59 06:59 18:59 Weight 47.627 kg Laboratory Last Values Urine HCG, Qual Not Detected (Not Detectd) 08/24/20 23:45 Urine Opiates Screen Detected (NotDetected) H 08/24/20 23:45 Ur Oxycodone Screen Not Detected (NotDetected) 08/24/20 23:45 Urine Methadone Screen Not Detected (NotDetected) 08/24/20 23:45 Ur Propoxyphene Screen Not Detected (NotDetected) 08/24/20 23:45 Ur Barbiturates Screen Not Detected (NotDetected) 08/24/20 23:45 U Tricyclic Antidepress Detected (NotDetected) H 08/24/20 23:45 Ur Phencyclidine Scrn Not Detected (NotDetected) 08/24/20 23:45 Ur Amphetamines Screen Detected (NotDetected) H 08/24/20 23:45 U Methamphetamines Scrn Detected (NotDetected) H 08/24/20 23:45 U Benzodiazepines Scrn Detected (NotDetected) H 08/24/20 23:45 Urine Cocaine Screen Not Detected (NotDetected) 08/24/20 23:45 U Marijuana (THC) Screen Detected (NotDetected) H 08/24/20 23:45 Coronavirus (PCR) Not Detected (Not Detectd) 08/25/20 03:16 08/25/20 10:39
[2020-08-25] MEDS: lamoTRIgine 25 MG TAB PO SCH (21:15)
[2020-08-25] MEDS: LORazepam 1 MG TAB PO PRN (23:28)
[2020-08-26] MEDS: lisinopriL 20 MG TAB PO SCH ×2 (09:18→09:28)
[2020-08-26] MEDS: atenoloL 50 MG TAB PO SCH ×2 (09:18→09:28)
[2020-08-26] MEDS: QUEtiapine 100 MG TAB PO SCH ×2 (09:18→21:39)
[2020-08-26] MEDS: amLODIPine 5 MG TAB PO SCH ×2 (09:18→09:28)
[2020-08-26] MEDS: NICOTINE 14MG/24HR PATCH TRANSDERM SCH (09:18)
--- NOTE | 2020-08-26 10:42 | P.PN ---
Progress Note - Text Progress Note Date: 08/26/20 Clinical Problems: Drug induced psychotic disorder, methamphetamine use disorder severe, opiate use disorder unspecified, cannabis use disorder Interim history: I reviewed the medical record, attempted to interview the patient and discussed her treatment and treatment plan during team meeting. She would not cooperate with an interview. She would not get out of bed or make eye contact. When I asked her if she would talk about the reasons for this hospitalization she mumbled "no". She complained of feeling "tired from the medicine." According to record she became agitated and and confused last night. She told the nurse that she was being followed and felt scared. She received 1 mg of Ativan and 5 mg Haldol by mouth. According to information from [facility] she was admitted to psychiatric unit at [facility] from 05/30/2020 to 06/03/2020 and at [facility] from 07/10/2020 to 07/25/2020. We do not have access to the discharge summaries from either hospitals. Mental status exam: She presented as a disheveled appearing woman who is laying in bed wrapped up in blankets. She would not make eye contact. She had marked psychomotor retardation. Her speech was not spontaneous and she had marked poverty of speech. Her affect was irritable. There is a paucity of speech, fully evaluate her content or process. She would not answer questions about hallucinatory experiences. Assessment: She appears he withdrawing from methamphetamine. I cannot exclude presence of a primary mood or psychotic disorder. Plan: Continue inpatient. Safety precautions. Probate hearing pending. Obtain release of information from prior 2 psychiatric hospitalizations. Continue to try to engage her to complete a comprehensive psychiatric assessment. Continue Seroquel 100 mg daily and 300 mg at bedtime and Lamictal 25 mg at bedtime. Continue Haldol and or Ativan IM or by mouth when necessary for agitation or anxiety. Continue Norvasc, atenolol, Zestril and Habitrol. Encourage participation in therapeutic groups and activities. Evaluate clinical status response to treatment daily basis.
[2020-08-26 11:18] LABS: Basophils # (A) 0.1 k/uL (0-0.2); Basophils % (A) 1 %; Eosinophils # (A) 0.2 k/uL (0-0.7); Eosinophils % (A) 3 %; HCT 41.8 % (34.0-46.0); HGB 13.9 gm/dL (11.4-16.0); Lymphocytes # (A) 2.4 k/uL (1.0-4.8); Lymphocytes % (A) 31 %; MCH 31.7 pg (25.0-35.0); MCHC 33.3 g/dL (31.0-37.0); MCV 95.2 fL (80.0-100.0); Mean Platelet Volume 6.8; Monocytes # (A) 0.4 k/uL (0-1.0); Monocytes % (A) 6 %; Neutrophils # (A) 4.4 k/uL (1.3-7.7); Neutrophils % (A) 57 %; Platelet Count 424 k/uL (150-450); RDW 13.5 % (11.5-15.5); WBC 7.6 k/uL (3.8-10.6)
[2020-08-26 12:05] LABS: ALT 20 U/L (4-34); AST 42 U/L (14-36); African American GFR (CKD) >90 (>60 ml/min/1.73 sqM); Albumin 3.5 g/dL (3.5-5.0); Alkaline Phosphatase 59 U/L (38-126); Anion Gap 5 mmol/L; Bilirubin, Delta 0.1 mg/dL (0.0-0.2); Bilirubin,Unconjugated 0.4 mg/dL (0.0-1.1); Blood Urea Nitrogen 28 mg/dL (7-17); Calcium 8.8 mg/dL (8.4-10.2); Carbon Dioxide 26 mmol/L (22-30); Chloride 106 mmol/L (98-107); Glucose 87 mg/dL (74-99); Non-African American GFR(CKD) >90 (>60 ml/min/1.73 sqM); Potassium 3.7 mmol/L (3.5-5.1); Sodium 137 mmol/L (137-145); Total Bilirubin 0.5 mg/dL (0.2-1.3); Total Protein 6.2 g/dL (6.3-8.2)
[2020-08-26 12:25] LABS: Cholesterol 170 mg/dL (<200); HDL Cholesterol 42 mg/dL (40-60); LDL Cholesterol,Calculated 117 mg/dL (0-99); Triglycerides 55 mg/dL (<150)
[2020-08-26 16:24] LABS: Hemoglobin A1C 5.2 % (4.0-6.0)
[2020-08-26] MEDS: LORazepam 1 MG TAB PO PRN (18:05)
[2020-08-26] MEDS: lamoTRIgine 25 MG TAB PO SCH (21:39)
--- NOTE | 2020-08-26 21:57 | P.CONS ---
History of Present Illness - Reason for Consult Consult date: 08/25/20 medical eval Requesting physician: Eusebio Moreno - Chief Complaint psychosis - History of Present Illness Maria M Paz is a 35 yo F with PMH of methamphetamine abuse, bipolar disorder, HTN who was brought to the ED by police due to psychosis. She has intermittently abused methamphetamine in the past which has frequently triggered her to experience auditory hallucinations and paranoia. She states she has had a lot of stress related to not being able to contact her mother and was apparently hearing voices. She as brought in by the police and became agitated expressing paranoid belief about hospital staff and required haldol. Currently she is groggy but has no complaints. Review of Systems All systems: negative Constitutional: Denies chills, Denies fever Eyes: denies blurred vision, denies pain Ears, nose, mouth and throat: Denies headache, Denies sore throat Cardiovascular: Denies chest pain, Denies shortness of breath Respiratory: Denies cough Gastrointestinal: Denies abdominal pain, Denies diarrhea, Denies nausea, Denies vomiting Genitourinary: Denies dysuria, Denies hematuria Musculoskeletal: Denies myalgias Integumentary: Denies pruritus, Denies rash Neurological: Denies numbness, Denies weakness Psychiatric: Reports as per HPI, Reports anxiety, Reports hallucinations, Reports irritability, Reports paranoia, Denies depression Endocrine: Denies fatigue, Denies weight change Past Medical History Past Medical History: Hypertension Additional Past Medical History / Comment(s): OTHER HX: fibromyalgia, chronic pain-generalized, migraines, R ovarian cysts, frequent UTI's, tachycardia, gastritis, duodenitis. Anxiety disorder History of Any Multi-Drug Resistant Organisms: None Reported Past Surgical History: Orthopedic Surgery Past Anesthesia/Blood Transfusion Reactions: Unable to Obtain Additional Past Anesthesia/Blood Transfusion Reaction / Comm: Pt has never had surgery Past Psychological History: Anxiety, Depression Smoking Status: Current every day smoker Past Alcohol Use History: None Reported Past Drug Use History: Marijuana, Opiates - Past Family History Mother Family Medical History: Cancer, Diabetes Mellitus, Myocardial Infarction ([place]) Additional Family Medical History / Comment(s): Mother had cervical cancer and hypotension. Father Family Medical History: Hypertension Medications and Allergies Home Medications Medication Instructions Recorded Confirmed Type amLODIPine [Norvasc] 5 mg PO DAILY 05/30/20 08/24/20 History lamoTRIgine [LaMICtal] 25 mg PO HS 05/30/20 08/24/20 History ALPRAZolam [Xanax] 0.5 mg PO TID PRN 08/24/20 08/24/20 History Atenolol [Tenormin] 50 mg PO DAILY 08/24/20 08/24/20 History Gabapentin [Neurontin] 100 mg PO BID 08/24/20 08/24/20 History Ibuprofen [Motrin] 800 mg PO Q6H PRN 08/24/20 08/24/20 History QUEtiapine FUMARATE [SEROquel] 300 mg PO HS 08/24/20 08/24/20 History QUEtiapine [SEROquel] 100 mg PO DAILY 08/24/20 08/24/20 History hydrOXYzine pamoate [Vistaril] 50 mg PO TID PRN 08/24/20 08/24/20 History lisinopriL [Zestril] 20 mg PO DAILY 08/24/20 08/24/20 History Allergies Allergy/AdvReac Type Severity Reaction Status Date / Time Penicillins Allergy Unknown Verified 08/24/20 21:11 Childhood Physical Exam Vitals: Vital Signs Temp Pulse Pulse Pulse Resp BP BP 08/25/20 09:28 98.6 F 135 H 16 133/77 08/25/20 04:54 98.0 F 112 H 18 08/25/20 03:17 98.1 F 111 H 16 137/98 08/24/20 23:33 92 14 161/104 BP Pulse Ox 08/25/20 09:28 98 08/25/20 04:54 142/82 97 08/25/20 03:17 97 08/24/20 23:33 97 General: well nourished, well developed, NAD. Vitals reviewed Eyes: PERRL, EOMI, conjunctiva normal HENT: normocephalic, mucus membranes moist Neck: supple, no JVD Lungs: normal respiratory effort, no wheezes or rales CV: Regular rate and rhythm, no murmur. Peripheral pulses 2+ Abdomen: soft, nondistended, no organomegaly Lymph: no cervical or axillary LAD Skin: warm and dry. Neuro: depressed mood and affect, poor eye contact Results CBC & Chem 7: 08/26/20 10:29 08/26/20 10:29 Labs: Abnormal Lab Results - Last 24 Hours (Table) 08/24/20 Range/Units 23:45 Urine Opiates Screen Detected H (NotDetected) U Tricyclic Antidepress Detected H (NotDetected) Ur Amphetamines Screen Detected H (NotDetected) U Methamphetamines Scrn Detected H (NotDetected) U Benzodiazepines Scrn Detected H (NotDetected) U Marijuana (THC) Screen Detected H (NotDetected) Assessment and Plan (1) Essential hypertension Current Visit: Yes Status: Acute Code(s): I10 - ESSENTIAL (PRIMARY) HYPERTENSION SNOMED Code(s): 36165310 (2) Bipolar 1 disorder Current Visit: Yes Status: Acute Code(s): F31.9 - BIPOLAR DISORDER, UNSPECIF IED SNOMED Code(s): 738806560 (3) Methamphetamine abuse Current Visit: Yes Status: Acute Code(s): F15.10 - OTHER STIMULANT ABUSE, UNCOMPLICATED SNOMED Code(s): 952773020 (4) Acute psychosis Current Visit: Yes Status: Acute Code(s): F23 - BRIEF PSYCHOTIC DISORDER SNOMED Code(s): 03695392 Plan: 1. Acute psychosis. Management per psychiatry. Continue with her regular seroquel and encourage participation in therapy 2. Methamphetamine abuse, likely contributing to hallucinations 3. Essential hypertension, continue norvasc, lisinopril and atenolol
[2020-08-27] MEDS: amLODIPine 5 MG TAB PO SCH (08:25)
[2020-08-27] MEDS: lisinopriL 20 MG TAB PO SCH (08:25)
[2020-08-27] MEDS: atenoloL 50 MG TAB PO SCH (08:25)
[2020-08-27] MEDS: NICOTINE 14MG/24HR PATCH TRANSDERM SCH (08:25)
[2020-08-27] MEDS: QUEtiapine 100 MG TAB PO SCH ×2 (08:25→20:55)
[2020-08-27] MEDS: IBUPROFEN 800 MG TAB PO PRN (08:26)
--- NOTE | 2020-08-27 11:58 | P.PN ---
Progress Note - Text Progress Note Date: 08/27/20 Interval history: Patient was seen taking part in group today and was directable and agreeable to speak with program writer. Patient appeared to be an distressed today when speaking with program writer. She states that she does not know where her daughter raises and was questioning out loud where she thinks she could be enlisted off several different people and names. She states that she feels very "unsure of myself" and claims that she is feeling confused. She states that she is also worried about her mother's safety and her own safety on the unit. She was tearful at times during the interview. She claims that she was able to sleep fairly throughout the night. She claims that she is going to groups. At this time patient denies any suicidal or homicidal ideations intent or plan. Denies any visual hallucinations however does state that she is hearing voices "telling me what to do". Patient denies any side effects from the medications and has been compliant with meds. Mental status exam: General Appearance: Patient appears to be short in stature, stated age is alert, directable, and appears to be confused at times. Poor hygiene and grooming. Behavior: No agitated behavior. Patient is calm and directable Speech: Patient's speech is fluent and nonpressured. Mood/Affect: Mood is improving mildly, affect is congruent and labile. Tearful at times. Suicidality/Homicidality: Patient denies having any suicidal or homicidal ideation intent or plan. Perceptions: Patient denies any visual hallucinations. She states that she is hearing voices "telling me what to do". Though content/process: Patient is endorsing paranoia, she is preoccupied with the safety of her family members and herself. Illogical at times. Memory and concentration: AOX3, grossly intact for the purposes of this session Judgment and insight: Poor Assessment/Plan: Continue with current diagnosis. Patient continues to meet criteria for inpatient psychiatric admission for symptom stabilization and safety.Patient will be maintained on current psychotropic medication regimen, with the exception of increasing Lamictal to 50 mg daily at bedtime for mood stabilization/depression. Monitor for medication compliance and for any psychotropic medication side effects. Will continue to monitor ongoing response to treatment. Encouraged participation in milieu.
[2020-08-27] MEDS: LORazepam 1 MG TAB PO PRN ×2 (13:43→20:55)
[2020-08-27] MEDS: hydrOXYzine HCL 25 MG TAB PO PRN ×2 (18:18→22:11)
[2020-08-27] MEDS: haloperidoL 5 MG TAB PO PRN (19:18)
[2020-08-27] MEDS: lamoTRIgine 25 MG TAB PO SCH (20:55)
[2020-08-28] MEDS: NICOTINE 14MG/24HR PATCH TRANSDERM SCH (08:27)
[2020-08-28] MEDS: lisinopriL 20 MG TAB PO SCH (08:27)
[2020-08-28] MEDS: amLODIPine 5 MG TAB PO SCH (08:27)
[2020-08-28] MEDS: IBUPROFEN 800 MG TAB PO PRN ×2 (08:28→23:33)
[2020-08-28] MEDS: atenoloL 50 MG TAB PO SCH (08:28)
[2020-08-28] MEDS: QUEtiapine 100 MG TAB PO SCH ×2 (08:28→20:57)
--- NOTE | 2020-08-28 12:40 | P.PN ---
Progress Note - Text Progress Note Date: 08/28/20 Interval history: Patient was seen lying in her bed today and was directable and agreeable to s peak with report writer. Patient appeared to be calmer today when speaking with report writer. She continues to raise doubts of her family safety and also today spoke more about how she believes that somebody murdered her father. She spoke about several different people that she thinks he could be however continues to state "I don't know" when asked why she believes this. She claims that overall she is feeling better today and appears to be tired. She was not tearful during the interview today had a constricted affect. She claims that she was able to sleep fairly throughout the night. She claims that she is going to groups. At this time patient denies any suicidal or homicidal ideations intent or plan. Denies any visual hallucinations however does state that she is hearing voices "telling me what to do". Patient denies any side effects from the medications and has been compliant with meds. Mental status exam: General Appearance: Patient appears to be short in stature, stated age is alert, directable, and attempts to cooperate however appears to be confused still. Poor hygiene and grooming. Behavior: No agitated behavior. Patient is calm and directable Speech: Patient's speech is fluent and nonpressured. Hesitant. Mood/Affect: Mood is improving mildly, affect is congruent and labile. Not tearful today Suicidality/Homicidality: Patient denies having any suicidal or homicidal idea tion intent or plan. Perceptions: Patient denies any visual hallucinations. She states that she is hearing voices "telling me what to do". Though content/process: Patient is endorsing paranoia, she is preoccupied with the safety of her family members and their safety. More logical today. Memory and concentration: AOX3, grossly intact for the purposes of this session Judgment and insight: Poor, improving mildly Assessment/Plan: Continue with current diagnosis. Patient continues to meet criteria for inpatient psychiatric admission for symptom stabilization and safety.Patient will be maintained on current psychotropic medication regimen. Patient spoke with report writer about the possibility and side effect of Lamictal which could cause a rash and for patient to be monitoring her skin and let staff know if this does occur. Monitor for medication compliance and for any psychotropic medication side effects. Will continue to monitor ongoing response to treatment. Encouraged participation in milieu.
[2020-08-28] MEDS: LORazepam 1 MG TAB PO PRN ×2 (13:54→22:29)
[2020-08-28] MEDS: haloperidoL 5 MG TAB PO PRN ×2 (17:29→22:29)
[2020-08-28] MEDS: lamoTRIgine 25 MG TAB PO SCH (20:57)
[2020-08-28] MEDS: hydrOXYzine HCL 25 MG TAB PO PRN (21:00)
[2020-08-29] MEDS: atenoloL 50 MG TAB PO SCH (08:50)
[2020-08-29] MEDS: lisinopriL 20 MG TAB PO SCH (08:50)
[2020-08-29] MEDS: QUEtiapine 100 MG TAB PO SCH (08:50)
[2020-08-29] MEDS: NICOTINE 14MG/24HR PATCH TRANSDERM SCH (08:50)
[2020-08-29] MEDS: amLODIPine 5 MG TAB PO SCH (08:51)
[2020-08-29] MEDS: LORazepam 1 MG TAB PO PRN (11:40)
[2020-08-29 11:54] VITALS: BP 102/68; PULSE 87; RESP 16
--- NOTE | 2020-08-29 12:25 | P.HP ---
Psychiatric H&P - . H&P Date: 08/29/20 History & Physical: IDENTIFYING DATA: She is a 35-year-old single female admitted psychiatric unit involuntarily. The police brought her to the ED and completed apetition stating that she was hearing voices "not acting herself." In the emergency room she told the EPS nurse that she was hearing voices for "2 days" prior to admission. In the ED she was restless, agitated and perseverative about needing to find a person called dog who she believes killed her daughter. She required sedation due to the level of her agitation. HISTORY OF PRESENT ILLNESS: She was uncooperative when she arrived on the unit. She refused to speak with me and spent her time in bed except for meals her medications. We proceeded with the involuntary hospitalization. She met with her professor of art and deferred the probate hearing on 08/26/2020. This morning she agreed to the interview and came to my office. She perseverated about needing to be discharge. She talked about having just paid off and the impound fee and now that she was "back in the hospital" and her car is again in impound she'll be left with another impound to pay off. She alleged that she called the police on the day of admission. She was in her car when she called the police. She stated that she was confused because she thought that her daughter and her mother were killed. She attributed her confusion to her medications. She talked about having prescriptions for "50 different medications" and was uncertain which one she should or shouldn't take. She was guarded about her use of drugs but after I showed her the results of her urine drug screening she admitted to using Vicodin and "some Adderall." She alleged that she couldn't understand why the urine was positive for methamphetamine. I reviewed her controlled substance prescription history on [facility]. She was prescribed Suboxone by a provider in [facility] until April 2019. She has been since prescribed Ativan and Xanax and Attempting by 2 prescribers PAST PSYCHIATRIC HISTORY: She was guarded about her psychiatric history. According to information from [facility] she was admitted to the psychiatric unit at [facility] and May and at [facility] in July. She alleges that she is unaware of her medications at discharge or the aftercare recommendations. PAST MEDICAL HISTORY: See medical history and physical ALLERGIES: Penicillins SUBSTANCE USE HISTORY: She was guarded about her substance use or need treatment history. She would not give a clear answer whether she has been admitted to a substance abuse treatment program in the past. FAMILY PSYCHIATRIC/SUBSTANCE USE HISTORY: She would not answer questions about her family history. LEGAL HISTORY: She was told forthcoming about her legal history but according to [facility] Docket she has past charges of attempted kidnapping- longterm interference, assault and battery, controlled substance manufacturing, maintaining a drug house and uttering and publishing. SOCIAL HISTORY: She would not provide information about her past history. She has one child out of wedlock. She currently lives with a friend. She is unemployed and has no income. MENTAL STATUS EXAM: She presented as a thin disheveled appearing 34-year-old female who is irritable and minimally cooperative. She made eye contact and attended their to attend to the interview. She had no prominent physical abnormalities or no distinguishing features. She had a distressed facial expression. She is alert and oriented to person, place and time. She had psychomotor retardation but no abnormal involuntary movements. Gait was slow but steady. Her speech was not spontaneous but had normal rate and rhythm. Affect was irritable but controlled. She denied suicidal ideation or wishes. She denied homicidal ideation. She ruminated about discharge. She did not express phobias, ideas reference, paranoid ideation or delusions. Her thinking was concrete but her associations were coherent, logical and goal directed. She denied hallucinations did not appear to be responding to internal stimuli. Global impression of intellect is average to below. She has limited awareness and understanding of her illness and need for treatment. STRENGTHS: Good physical health, stable housing, supportive relationships WEAKNESSES: Substance use problems, lack of income IMPRESSION: She is a 35-year-old single female admitted to the psychiatric unit involuntarily with the recent change in behavior, agitation and reported auditory hallucinations. She was irritable and uncooperative throughout much of the hospitalization initially refused to speak with auto service writer or other treatment staff. She eventually agreed to the interview overtly in order to gain discharge. She was guarded and not forthcoming about her history. Her history is significant for multiple legal infractions related to substance use problems. I suspect that the reason for this hospitalization is related to her chronic abuse of drugs. PRINCIPLE DIAGNOSIS: Drug induced psychotic disorder, amphetamine use disorder severe, methamphetamine use disorder severe, opiate use disorder severe, benzodiazepine use disorder moderate, cannabis use disorder, antisocial personality disorder RECOMMENDATION: And attended to the psychiatric unit. Safety precautions. Continue Seroquel 100 mg daily and 300 mg at bedtime and Lamictal 50 mg at bedt juwan. Continue Norvasc 5 mg daily, Tenormin 50 mg daily and lisinopril 20 mg daily for treatment of hypertension. Habitrol for smoking cessation. fruit farmworker to obtain a release and discussed aftercare with friends or family. Discharge patient after becoming complete the family contact. She would benefit from referral to community mental health for both mental health's abuse treatment.
[2020-08-29] MEDS: hydrOXYzine HCL 25 MG TAB PO PRN (14:32)
[2020-08-29 15:56] VITALS: TEMP 97.1
--- NOTE | 2020-08-30 09:09 | P.DS ---
Providers Date of admission: 08/25/20 03:19 Attending physician: Eusebio Moreno MD Consults: 08/25/20 05:29 Consult Physician Routine Consulting Provider: Christophe Melton Consult Reason/Comments: Medical H and P Do you want consulting provider notified?: Yes, Notify in am Primary care physician: Stated None - Discharge Diagnosis(es) (1) Drug-induced psychotic disorder Status: Acute Priority: Medium (2) Amphetamine and psychostimulant dependence Status: Chronic Priority: High (3) Opioid use disorder, severe, dependence Status: Chronic Priority: High (4) Moderate benzodiazepine use disorder Status: Chronic Priority: Medium (5) Cannabis use disorder, mild, abuse Status: Chronic Priority: Low (6) Antisocial personality disorder Status: Chronic Priority: High Hospital Course: HISTORY: She is a 35-year-old single female admitted psychiatric unit involuntarily. The police brought her to the ED and completed apetition stating that she was hearing voices "not acting herself." In the emergency room she told the EPS nurse that she was hearing voices for "2 days" prior to admission. In the ED she was restless, agitated and perseverative about needing to find a person called dog who she believes killed her daughter. She required sedation due to the level of her agitation. She was uncooperative when she arrived on the unit. She refused to speak with me and spent her time in bed except for meals her medications. We proceeded with the involuntary hospitalization. She met with her parcel post officer and deferred the probate hearing on 08/26/2020. This morning she agreed to the interview and came to my office. She perseverated about needing to be discharge. She talked about having just paid off and the impound fee and now that she was "back in the hospital" and her car is again in impound she'll be left with another impound to pay off. She alleged that she called the police on the day of admission. She was in her car when she called the police. She stated that she was confused because she thought that her daughter and her mother were killed. She attributed her confusion to her medications. She talked about having prescriptions for "50 different medications" and was uncertain which one she should or shouldn't take. She was guarded about her use of drugs but after I showed her the results of her urine drug screening she admitted to using Vicodin and "some Adderall." She alleged that she couldn't understand why the urine was positive for methamphetamine. I reviewed her controlled substance prescription history on [facility]. She was prescribed Suboxone by a provider in [facility] until April 2019. She has been since prescribed Ativan and Xanax and Attempting by 2 prescribers She was guarded about her psychiatric history. According to information from [facility] she was admitted to the psychiatric unit at [facility] and May and at [place] in July. She alleges that she is unaware of her medications at discharge or the aftercare recommendations. HOSPITAL COURSE: We admitted to the psychiatric unit under care of this investment underwriter. We completed the second clinical certificate and proceeded with involuntary hospitalization. We provided a comprehensive biopsychosocial assessment. The validation consultant help desk engineer completed initial physical exam and medical history and diagnosis of hypertension and recommended Norvasc 5 mg daily, Tenormin 50 mg daily and Zestril 20 mg daily. Maria M was uncooperative for several days. She remained in bed only coming out for medications or meals. When she recovered from the drug-induced psychosis she was irritable and demanding. She met with the court appointed parcel post officer and deferred the probate hearing. She minimized her substance use and did not need for substance abuse treatment. She repeatedly demanded to be discharge. We spoke with her mother who expressed no concerns about her safety and explained that she has a safe home to return. MENTAL STATUS ON DISCHARGE: At time of discharge she presented as a thin disheveled appearing 34-year-old female who is irritable and minimally cooperative. She made eye contact and attended their to attend to the interview. She had no prominent physical abnormalities or no distinguishing features. She had a distressed facial expression. She is alert and oriented to person, place and time. She had psychomotor retardation but no abnormal involuntary movements. Gait was slow but steady. Her speech was not spontaneous but had normal rate and rhythm. Affect was irritable but controll ed. She denied suicidal ideation or wishes. She denied homicidal ideation. She ruminated about discharge. She did not express phobias, ideas reference, paranoid ideation or delusions. Her thinking was concrete but her associations were coherent, logical and goal directed. She denied hallucinations did not appear to be responding to internal stimuli. Global impression of intellect is average to below. She has limited awareness and understanding of her illness and need for treatment. DISPOSITION: She will return to her former address. Her discharge medications include Seroquel 100 mg daily and 300 mg at bedtime Lamictal 50 mg at bedtime. She has a follow-up in health clinic appointment at [facility] 2020. Patient Condition at Discharge: Stable Plan - Discharge Summary New Discharge Prescriptions: New Nicotine 14Mg/24Hr Patch [Habitrol] 1 patch TRANSDERM DAILY patch lamoTRIgine [LaMICtal] 50 mg PO HS #30 tab Continue amLODIPine [Norvasc] 5 mg PO DAILY Ibuprofen [Motrin] 800 mg PO Q6H PRN PRN Reason: Pain Atenolol [Tenormin] 50 mg PO DAILY lisinopriL [Zestril] 20 mg PO DAILY hydrOXYzine pamoate [Vistaril] 50 mg PO TID PRN PRN Reason: Anxiety QUEtiapine FUMARATE [SEROquel] 300 mg PO HS #30 tab QUEtiapine [SEROquel] 100 mg PO DAILY #30 tab Discontinued lamoTRIgine [LaMICtal] 25 mg PO HS Gabapentin [Neurontin] 100 mg PO BID ALPRAZolam [Xanax] 0.5 mg PO TID PRN PRN Reason: Anxiety Discharge Medication List amLODIPine [Norvasc] 5 mg PO DAILY 05/30/20 [History] Atenolol [Tenormin] 50 mg PO DAILY 08/24/20 [History] Ibuprofen [Motrin] 800 mg PO Q6H PRN 08/24/20 [History] hydrOXYzine pamoate [Vistaril] 50 mg PO TID PRN 08/24/20 [History] lisinopriL [Zestril] 20 mg PO DAILY 08/24/20 [History] Nicotine 14Mg/24Hr Patch [Habitrol] 1 patch TRANSDERM DAILY patch 08/29/20 [Rx] QUEtiapine FUMARATE [SEROquel] 300 mg PO HS #30 tab 08/29/20 [Rx] QUEtiapine [SEROquel] 100 mg PO DAILY #30 tab 08/29/20 [Rx] lamoTRIgine [LaMICtal] 50 mg PO HS #30 tab 08/29/20 [Rx] Follow up Appointment(s)/Referral(s): [facility]Outside] - 09/05/20 11:30 am (Shielamaría Vasquez) None,Stated [Primary Care Provider] - 1-2 days [facility] [NON-STAFF] - 1 Week Patient Instructions/Handouts: Psychotic Disorder (DC) Activity/Diet/Wound Care/Special Instructions: Activity and diet as tolerated. Avoid the use of street drugs and alcohol. Take all medications as prescribed. When you are in need of refills on your medications please contact your medical provider and/or outpatient psychiatrist to have this done. Please go to scheduled outpatient appointment for aftercare treatment. If symptoms return or become worse, call the crisis line at [phone] and/or go to the nearest emergency room for evaluation. Discharge Disposition: HOME SELF-CARE
== END 2020-08-29 16:25 | disposition home or self-care (01) | DRG 897 ==
LOC: EC 19:22 → 3MHU 08-25 03:19
PROVIDERS: ADMIT Psychiatry & Neurology Psychiatry; ATTEND Psychiatry & Neurology Psychiatry
DX: F15.259 Other stimulant dependence with stimulant-induced psychotic disorder, unspecified (principal); F11.20 Opioid dependence, uncomplicated; F13.20 Sedative, hypnotic or anxiolytic dependence, uncomplicated; F31.9 Bipolar disorder, unspecified; F15.23 Other stimulant dependence with withdrawal; F60.2 Antisocial personality disorder; Z20.822 Contact with and (suspected) exposure to COVID-19; I10 Essential (primary) hypertension; F41.9 Anxiety disorder, unspecified; M79.7 Fibromyalgia; G43.909 Migraine, unspecified, not intractable, without status migrainosus; G89.29 Other chronic pain; N83.201 Unspecified ovarian cyst, right side; F17.200 Nicotine dependence, unspecified, uncomplicated; F12.10 Cannabis abuse, uncomplicated; Z79.899 Other long term (current) drug therapy; Z56.0 Unemployment, unspecified; Z87.440 Personal history of urinary (tract) infections; Z88.0 Allergy status to penicillin; Z82.49 Family history of ischemic heart disease and other diseases of the circulatory system; Z83.3 Family history of diabetes mellitus; Z80.49 Family history of malignant neoplasm of other genital organs
CPT/HCPCS: 80053; 80061; 80306; 81025; 82075; 82248; 83036; 84443; 85025; 87635; 99285

== ENCOUNTER 2020-09-02 03:39 | Inpatient (IN) | payer MEDICAID, OTHER ==
[2020-09-02] MEDS ORDERED: LORazepam 1 MG TAB PO STA (04:11)
[2020-09-02 04:31] LABS: Amorphous Sediment,Urine Occasional /hpf; Appearance,Urine Cloudy (Clear); Bilirubin,Urine Negative (Negative); Blood,Urine Negative (Negative); Color,Urine Light Yellow; Glucose,Urine (UA) Negative (Negative); Hyaline Casts,Urine 3 /lpf (0-2); Ketones,Urine Negative (Negative); Leukocyte Esterase,Urine Negative (Negative); Mucus,Urine Occasional /hpf; Nitrite,Urine Negative (Negative); Protein,Urine Negative (Negative); RBC,Urine 1 /hpf (0-5); Specific Gravity,Urine 1.007 (1.001-1.035); Squamous Epithelial Cell,Urine 2 /hpf (0-4); Urobilinogen,Urine <2.0 mg/dL (<2.0); WBC,Urine 1 /hpf (0-5)
--- NOTE | 2020-09-02 04:32 | ED ---
Psych HPI - General Chief Complaint: Psychiatric Symptoms Stated Complaint: Mental Health Source: patient, police, RN notes reviewed, old records reviewed Mode of arrival: ambulatory - History of Present Illness Initial Comments: This is a 35-year-old female poor historian presents for altered mental status, psychiatric illness with history of medical disease. Drug abuse history. Patient is delusional with hallucinations presented under petition by located within [facility] department for mental health evaluation MD Complaint: altered mental status -: unknown Associated Psychiatric Symptoms: auditory hallucinations, visual hallucinations, delusions Quality: constant, intermittent Improves With: none Worsens With: none Context: recent drug abuse Associated Symptoms: denies other symptoms Treatments Prior to Arrival: none - Related Data Home Medications Medication Instructions Recorded Confirmed amLODIPine [Norvasc] 5 mg PO DAILY 05/30/20 09/02/20 Atenolol [Tenormin] 50 mg PO DAILY 08/24/20 09/02/20 Ibuprofen [Motrin] 800 mg PO Q6H PRN 08/24/20 09/02/20 hydrOXYzine pamoate [Vistaril] 50 mg PO TID PRN 08/24/20 09/02/20 lisinopriL [Zestril] 20 mg PO DAILY 08/24/20 09/02/20 ALPRAZolam [Xanax] 0.5 mg PO TID PRN 09/02/20 09/02/20 Gabapentin [Neurontin] 100 mg PO BID 09/02/20 09/02/20 Previous Rx's Medication Instructions Recorded Nicotine 14Mg/24Hr Patch [Habitrol] 1 patch TRANSDERM DAILY patch 08/29/20 QUEtiapine FUMARATE [SEROquel] 300 mg PO HS #30 tab 08/29/20 QUEtiapine [SEROquel] 100 mg PO DAILY #30 tab 08/29/20 lamoTRIgine [LaMICtal] 50 mg PO HS #30 tab 08/29/20 Allergies Allergy/AdvReac Type Severity Reaction Status Date / Time Penicillins Allergy Unknown Verified 09/02/20 06:27 Childhood Review of Systems ROS Statement: Those systems with pertinent positive or pertinent negative responses have been documented in the HPI. ROS Other: All systems not noted in ROS Statement are negative. Past Medical History Past Medical History: Hypertension Additional Past Medical History / Comment(s): OTHER HX: fibromyalgia, chronic pain-generalized, migraines, R ovarian cysts, frequent UTI's, tachycardia, gas tritis, duodenitis. Anxiety disorder History of Any Multi-Drug Resistant Organisms: None Reported Past Surgical History: Orthopedic Surgery Past Anesthesia/Blood Transfusion Reactions: Unable to Obtain Additional Past Anesthesia/Blood Transfusion Reaction / Comment(s): Pt has never had surgery Past Psychological History: Anxiety, Depression Smoking Status: Current every day smoker Past Alcohol Use History: None Reported Past Drug Use History: Marijuana, Opiates - Past Family History Mother Family Medical History: Cancer, Diabetes Mellitus, Myocardial Infarction ([place]) Additional Family Medical History / Comment(s): Mother had cervical cancer and hypotension. Father Family Medical History: Hypertension General Exam Limitations: no limitations General appearance: alert, in no apparent distress, anxious Head exam: Present: atraumatic, normocephalic, normal inspection Eye exam: Present: normal appearance, PERRL, EOMI. Absent: scleral icterus, conjunctival injection, periorbital swelling ENT exam: Present: normal exam, mucous membranes moist Neck exam: Present: normal inspection. Absent: tenderness, meningismus, lymphadenopathy Respiratory exam: Present: normal lung sounds bilaterally. Absent: respiratory distress, wheezes, rales, rhonchi, stridor Cardiovascular Exam: Present: regular rate, normal rhythm, normal heart sounds. Absent: systolic murmur, diastolic murmur, rubs, gallop, clicks GI/Abdominal exam: Present: soft, normal bowel sounds. Absent: distended, tenderness, guarding, rebound, rigid Extremities exam: Present: normal inspection, full ROM, normal capillary refill. Absent: tenderness, pedal edema, joint swelling, calf tenderness Back exam: Present: normal inspection Neurological exam: Present: alert, oriented X3, CN II-XII intact Psychiatric exam: Present: normal affect, normal mood Skin exam: Present: warm, dry, intact, normal color. Absent: rash Course Vital Signs 09/02/20 03:42 Temperature 97.7 F Pulse Rate 93 Respiratory 20 Rate Blood Pressure 170/90 O2 Sat by Pulse 98 Oximetry - Reevaluation(s) Reevaluation #1: Medical record is reviewed Medical clear for psychiatric evaluation Medical Decision Making - Medical Decision Making 35 female DF for evaluation patient will be admitted for psychiatric evaluation and treatment - Lab Data Lab Results 09/02/20 09/02/20 09/02/20 Range/Units 04:00 04:09 04:16 Urine Color Light Yellow Urine Appearance Cloudy H (Clear) Urine pH 6.0 (5.0-8.0) Ur Specific [place] 1.007 (1.001-1.035) Urine Protein Negative (Negative) Urine Glucose (UA) Negative (Negative) Urine Ketones Negative (Negative) Urine Blood Negative (Negative) Urine Nitrite Negative (Negative) Urine Bilirubin Negative (Negative) Urine Urobilinogen <2.0 (<2.0) mg/dL Ur Leukocyte Esterase Negative (Negative) Urine RBC 1 (0-5) /hpf Urine WBC 1 (0-5) /hpf Ur Squamous Epith Cells 2 (0-4) /hpf Amorphous Sediment Occasional H (None) /hpf Hyaline Casts 3 H (0-2) /lpf Urine Mucus Occasional H (None) /hpf Urine HCG, Qual Not Detected (Not Detectd) Urine Opiates Screen Detected H (NotDetected) Ur Oxycodone Screen Not Detected (NotDetected) Urine Methadone Screen Not Detected (NotDetected) Ur Propoxyphene Screen Not Detected (NotDetected) Ur Barbiturates Screen Not Detected (NotDetected) U Tricyclic Antidepress Detected H (NotDetected) Ur Phencyclidine Scrn Not Detected (NotDetected) Ur Amphetamines Screen Detected H (NotDetected) U Methamphetamines Scrn Detected H (NotDetected) U Benzodiazepines Scrn Detected H (NotDetected) Urine Cocaine Screen Not Detected (NotDetected) U Marijuana (THC) Screen Detected H (NotDetected) Coronavirus (PCR) (Not Detectd) 09/02/20 Range/Units 07:13 Urine Color Urine Appearance (Clear) Urine pH (5.0-8.0) Ur Specific [place] (1.001-1.035) Urine Protein (Negative) Urine Glucose (UA) (Negative) Urine Ketones (Negative) Urine Blood (Negative) Urine Nitrite (Negative) Urine Bilirubin (Negative) Urine Urobilinogen (<2.0) mg/dL Ur Leukocyte Esterase (Negative) Urine RBC (0-5) /hpf Urine WBC (0-5) /hpf Ur Squamous Epith Cells (0-4) /hpf Amorphous Sediment (None) /hpf Hyaline Casts (0-2) /lpf Urine Mucus (None) /hpf Urine HCG, Qual (Not Detectd) Urine Opiates Screen (NotDetected) Ur Oxycodone Screen (NotDetected) Urine Methadone Screen (NotDetected) Ur Propoxyphene Screen (NotDetected) Ur Barbiturates Screen (NotDetected) U Tricyclic Antidepress (NotDetected) Ur Phencyclidine Scrn (NotDetected) Ur Amphetamines Screen (NotDetected) U Methamphetamines Scrn (NotDetected) U Benzodiazepines Scrn (NotDetected) Urine Cocaine Screen (NotDetected) U Marijuana (THC) Screen (NotDetected) Coronavirus (PCR) Not Detected (Not Detectd) Disposition Clinical Impression: Anxiety, Drug-induced psychotic disorder, Acute psychosis, Bipolar 1 disorder Disposition: TRANSFER TO PSYCH HOSP/UNIT Condition: Fair Is patient prescribed a controlled substance at d/c from ED?: No
[2020-09-02 04:44] LABS: Cocaine Screen,Urine Not Detected (NotDetected); Phencyclidine Screen,Urine Not Detected (NotDetected); Urn Cannabinoid Scrn Detected (NotDetected)
[2020-09-02 04:45] LABS: Amphetamine Screen,Urine Detected (NotDetected); Barbiturate Screen,Urine Not Detected (NotDetected); Benzodiazepines Screen,Urine Detected (NotDetected); Methadone Screen, Urine Not Detected (NotDetected); Opiate Screen,Urine Detected (NotDetected); Oxycodone Screen, Urine Not Detected (NotDetected); Tricyclic Antidepressant,Urine Detected (NotDetected)
[2020-09-02] MEDS ORDERED: ALPRAZolam 0.5 MG TAB PO STA (05:53)
[2020-09-02] MEDS ORDERED: MAG HYDROX/AL HYDROX/SIMETH 30 ML CUP PO PRN (08:52)
[2020-09-02] MEDS ORDERED: MAGNESIUM HYDROXIDE 2,400 MG/10 ML CUP PO PRN (08:52)
[2020-09-02] MEDS ORDERED: ACETAMINOPHEN TAB 325 MG TAB PO PRN (08:52)
[2020-09-02] MEDS ORDERED: LORazepam 2 MG/ML INJ IM PRN (08:56)
--- NOTE | 2020-09-02 12:02 | P.HP ---
Psychiatric H&P - . H&P Date: 09/02/20 History & Physical: Allergies Allergy/AdvReac Type Severity Reaction Status Date / Time Penicillins Allergy Unknown Verified 09/02/20 06:27 Childhood Vital Signs Temp 98.0 F 09/02/20 09:33 Pulse 14 L 09/02/20 09:33 Resp 16 09/02/20 09:33 BP 130/100 09/02/20 09:33 Pulse Ox 98 09/02/20 09:33 Intake & Output 09/01/20 09/02/20 09/02/20 18:59 06:59 18:59 Weight 48.081 kg 45.359 kg Laboratory Last Values Urine Color Light Yellow 09/02/20 04:16 Urine Appearance Cloudy (Clear) H 09/02/20 04:16 Urine pH 6.0 (5.0-8.0) 09/02/20 04:16 Ur Specific [place] 1.007 (1.001-1.035) 09/02/20 04:16 Urine Protein Negative (Negative) 09/02/20 04:16 Urine Glucose (UA) Negative (Negative) 09/02/20 04:16 Urine Ketones Negative (Negative) 09/02/20 04:16 Urine Blood Negative (Negative) 09/02/20 04:16 Urine Nitrite Negative (Negative) 09/02/20 04:16 Urine Bilirubin Negative (Negative) 09/02/20 04:16 Urine Urobilinogen <2.0 mg/dL (<2.0) 09/02/20 04:16 Ur Leukocyte Esterase Negative (Negative) 09/02/20 04:16 Urine RBC 1 /hpf (0-5) 09/02/20 04:16 Urine WBC 1 /hpf (0-5) 09/02/20 04:16 Ur Squamous Epith Cells 2 /hpf (0-4) 09/02/20 04:16 Amorphous Sediment Occasional /hpf (None) H 09/02/20 04:16 Hyaline Casts 3 /lpf (0-2) H 09/02/20 04:16 Urine Mucus Occasional /hpf (None) H 09/02/20 04:16 Urine HCG, Qual Not Detected (Not Detectd) 09/02/20 04:09 Urine Opiates Screen Detected (NotDetected) H 09/02/20 04:00 Ur Oxycodone Screen Not Detected (NotDetected) 09/02/20 04:00 Urine Methadone Screen Not Detected (NotDetected) 09/02/20 04:00 Ur Propoxyphene Screen Not Detected (NotDetected) 09/02/20 04:00 Ur Barbiturates Screen Not Detected (NotDetected) 09/02/20 04:00 U Tricyclic Antidepress Detected (NotDetected) H 09/02/20 04:00 Ur Phencyclidine Scrn Not Detected (NotDetected) 09/02/20 04:00 Ur Amphetamines Screen Detected (NotDetected) H 09/02/20 04:00 U Methamphetamines Scrn Detected (NotDetected) H 09/02/20 04:00 U Benzodiazepines Scrn Detected (NotDetected) H 09/02/20 04:00 Urine Cocaine Screen Not Detected (NotDetected) 09/02/20 04:00 U Marijuana (THC) Screen Detected (NotDetected) H 09/02/20 04:00 Coronavirus (PCR) Not Detected (Not Detectd) 09/02/20 07:13 09/02/20 11:45 IDENTIFYING DATA: Patient is a 35-year-old female who was admitted to the psychiatric unit involuntarily for psychosis. The patient is currently under deferral status. HPI: Patient presented to the hospital on 09/02/2020, brought in and petition by police for psychosis and bizarre behavior. As per petition, the patient has been calling 911 multiple times requesting officers to help her. The patient has been endorsing seeing a child hanging from the house and wanted officers to rescue the child. The patient was noted to be presenting as very disorganized and paranoid. In the emergency department, the patient tested positive for opiates, tricyclic antidepressants, amphetamines, methamphetamines, benzodiazepines, and marijuana. As per discussion with the EPS nurse, the patient denied using any substances despite testing positive for these. The patient later relented stating that she did use amphetamines 4 days ago. This would be impossible as the patient was admitted to the psychiatric unit on 08/25 and was discharged on 08/30/2020. Currently, the patient is not participating in the psychiatric interview. She appears to be quite somnolent. She did maintain eye contact for a few seconds and then go back to bed. Much of the history was obtained through chart review. PAST PSYCHIATRIC HISTORY: Patient has had multiple psychiatric hospitalizations. This appears to be her fourth psychiatric hospitalization over the past year. The patient was admitted to [facility] in May and at [facility] in July. Her whole medications prior to this admission included following psychotropic medications: Xanax 0.5 mg by mouth 3 times a day when necessary, Lamictal 50 mg by mouth at bedtime, Vistaril 50 mg by mouth 3 times a day when necessary, Seroquel 300 mg by mouth at bedtime, Seroquel 100 mg pill daily, Neurontin 100 mg by mouth twice a day, and nicotine replacement therapy patches. PMH: Hypertension ALLERGIES: Penicillins CHEMICAL DEPENDENCY HISTORY: Patient tested positive for multiple illicit substances including amphetamines, methamphetamines, and opiates. She is currently unable to provide any history. FAMILY PSYCHIATRIC/SUBSTANCE USE HISTORY: Unable to obtain at this time. SOCIAL HISTORY: As per review of the patient's chart, the patient does have a history of legal problems including attempted kidnappingcustodial interference, assault and battery, controlled substance manufacturing, and maintaining a drug house, and uttering and publishing. She has one child out of [facility]. She currently lives with a friend. She is unemployed and has no income. MENTAL STATUS EXAM: General Appearance: Patient appears to be petite and thin with blonde hair. She appears disheveled, dressed in a hospital gown. .Behavior: Patient appears to be somnolent, and unable to stay awake during the interview. Eye contact is poor. Speech: Patient's speech is nonspontaneous, very minimal, and only replied "no." Mood/Affect: Unable to appropriately assess mood. Affect appears to be somnolent. Suicidality/Homicidality: Unable to assess at this time. Perceptions: Unable to assess at this time. Though content/process: Unable to assess at this time. Memory and concentration: Very poor Judgment and insight: Very poor STRENGTHS/WEAKNESSES: unable to identify any strengths at this time other than relatively good physical health. Weakness is polysubstance abuse. INTELLECT: [average] IMPRESSIONS: Psychosis, unspecified - substance induced psychosis vs schizoaffective disorder vs bipolar disorder Polysubstance abuse - psychostimulant use disorder, cannabis use disorder, opiate use disorder, suspect benzodiazepine abuse Nicotine Dependence PLAN: -Patient is admitted under innvoluntary status to MHU for stabilization of psychiatric symptoms and safety. She is currently under deferral. -Will hold all her home prescribed psychotropic medications. Strongly recommend that this patient is not prescribed Xanax upon discharge or have access to this medication in the outpatient setting for concerns of abuse and respiratory depression when combined with her opiate use disorder. -We will start Risperdal 0.5 mg by mouth twice a day for mood stab ilization/psychosis. Patient may benefit from transition to a long-acting injectable medication to ensure treatment. -Ativan And Haldol PRN for agitation/aggression -Patient was informed of the risks, benefits, and alternatives of the medication but could not verbalize understanding due to somnolence. -Internal Medicine consult to perform medical evaluation and physical. -NRT - [nicotine patch] -SW on board for discharge planning. Encourage patient to participate in groups to work on coping skills. []
[2020-09-02] MEDS: NICOTINE 14MG/24HR PATCH TRANSDERM SCH (13:31)
[2020-09-02] MEDS: LORazepam 1 MG TAB PO PRN ×2 (13:33→19:59)
[2020-09-02] MEDS: haloperidoL 5 MG TAB PO PRN (16:00)
[2020-09-02] MEDS ORDERED: QUEtiapine 100 MG TAB PO STA (19:32)
[2020-09-02] MEDS ORDERED: risperiDONE 0.5 MG TAB PO SCH (21:00)
[2020-09-02] MEDS: HALOPERIDOL LACTATE 5 MG/ML 1 ML VIAL IM PRN (21:59)
[2020-09-03] MEDS: LORazepam 1 MG TAB PO PRN (09:11)
[2020-09-03] MEDS: NICOTINE 14MG/24HR PATCH TRANSDERM SCH (09:11)
[2020-09-03 09:26] VITALS: RESP 16
[2020-09-03] MEDS ORDERED: risperiDONE 0.5 MG TAB PO SCH (11:00)
--- NOTE | 2020-09-03 15:05 | P.PN ---
Subjective Progress Note Date: 09/03/20 Subjective: Patient was seen today as a cross coverage for Dr. Moreno. The patient was ev aluated, chart reviewed, case discussed with the treatment team. Patient reports better sleep last night, and appetite was reported as " fair ". Patient has not been going to groups and other unit activities. The patient is compliant with her medications and denies any adverse reactions. Patient refused to take risperidone yesterday and reports was maintained on Seroquel as outpatient and has history of successful treatment with Seroquel. Patient was a started on Seroquel 100 mg at bedtime last night which she reported helped with mood stabilization and sleep. Reports is still feeling depressed that the relatively better that she doesn't feel hopeless or suicidal. Her anxiety is manageable and she denies any homicidal ideation. Denies any hallucinations, delusions, paranoid ideation, or manic symptoms. Patient has no specific complaints today besides requested for discharge and to get back on Seroquel. Reports used to take 300 mg of Seroquel at home and she agreed to maintain 100 at this time Objective: Vitals has been reviewed. Mental status examination; Appearance: The patient appears disheveled, partially groomed, average body built, no specific features. Gait/posture: Normal gait, Normal arm swinging: No abnormal movements. Attitude and behavior: Not fully engaged, cooperative, intermittent eye contact. Motor activity: Normal psychomotor activity Speech: Slow, low tone Mood: Depressed Affect: Restricted Thought form: goal-directed, linear, coherent. Thought content: Non-delusional, denies suicidal thoughts, denies homicidal thoughts, denies intentions or plans. Perception: Denies any auditory or visual hallucinations Attention: No impairment. Orientation: Patient is oriented to time place person and situation. Insight: Patient has fair insight about her psychiatric disorder. Judgment: Patient has fair judgment about her psychiatric treatment. Assessment: Psychosis, unspecified - substance induced psychosis vs schizoaffective disorder vs bipolar disorder Polysubstance abuse - psychostimulant use disorder, cannabis use disorder, opiate use disorder, suspect benzodiazepine abuse Nicotine Dependence Plan: Continue inpatient level of care due to need for further stabilization on medications and monitoring of psychiatric symptoms Precautions: Continue 15 minutes check for safety. Consider medical consultation if any acute medical issues arise. Provide the patient individual, group therapy, substance use disorder counseling to give better insight and learn coping skills. Medications: Discontinue risperidone-patient refused medication. Start Seroquel 100 mg at bedtime for mood stabilization and to help with insomnia. Continue as needed medications for psychiatric emergencies including psychosis, agitation and anxiety. Continue non-psychiatric medications for medical conditions as recommended by the medical team. Discharge patient to OUTPATIENT services upon a stabilization Objective - Vital Signs Vital signs: Vital Signs Temp 98.3 F 09/03/20 09:10 Pulse 131 H 09/03/20 09:10 Resp 16 09/03/20 09:10 BP 133/84 09/03/20 09:10 Pulse Ox 98 09/02/20 09:33 Intake & Output 09/02/20 09/03/20 09/03/20 18:59 06:59 18:59 Weight 45.359 kg
[2020-09-03] MEDS: atenoloL 50 MG TAB PO SCH (19:11)
[2020-09-03] MEDS: HALOPERIDOL LACTATE 5 MG/ML 1 ML VIAL IM PRN (19:45)
--- NOTE | 2020-09-03 20:01 | CONS ---
CONSULTATION DATE OF SERVICE: 09/03/2020 REASON FOR CONSULTATION: Advice regarding hypertension and other medical issues, requested by Psychiatry. HISTORY OF PRESENT ILLNESS: This 35-year-old woman with the past medical history of hypertension, history of fibromyalgia, chronic pain syndrome, anxiety, depression, was admitted for evaluation of psychosis. The patient is followed by Dr. Melton in the outpatient setting. There is no history of chest pain. No history of palpitations, headache, loss of consciousness, seizures, nausea, vomiting, diarrhea, fever, rigors at this time. PAST MEDICAL HISTORY: Hypertension, fibromyalgia, chronic pain syndrome, anxiety, depression. MEDICATIONS: Zestril, Lamictal, Vistaril, Norvasc, Seroquel, Habitrol, Motrin, Neurontin, Tenormin, Xanax. Doses reviewed. ALLERGIES: PENICILLIN. FAMILY HISTORY: History of cancer, diabetes, myocardial infarction, cervical cancer, hypertension in the family. SOCIAL HISTORY: History of smoking. No history of alcohol intake. REVIEW OF SYSTEMS: ENT No history of diminished hearing or vision. CARDIOVASCULAR No angina or palpitations. RESPIRATORY No cough, no hemoptysis. GI No nausea, vomiting, or diarrhea. No dysuria or hematuria. NERVOUS No numbness or weakness. ALLERGY/IMMUNOLOGY No asthma or hayfever. MUSCULOSKELETAL As mentioned earlier. HEMATOLOGY/ONCOLOGY Negative. ENDOCRINE No history of diabetes or hypothyroidism. CONSTITUTIONAL As mentioned earlier. DERMATOLOGY Negative. RHEUMATOLOGY Negative, PSYCHIATRY As mentioned earlier. PHYSICAL EXAMINATION: Alert and oriented x3. Pulse 131, blood pressure 133/84, respirations 16, temperature 98.4, pulse ox 98% on room air. HEENT: Conjunctivae normal. Oral mucosa moist. NECK: No jugular venous distention. No lymph node enlargement. CARDIOVASCULAR: S1, S2, muffled. No S3, no S4, RESPIRATORY: Diminished breath sounds at the bases. Bilateral scattered rhonchi and crackles. ABDOMEN: Soft, nontender. LEGS: No edema, no swelling. NERVOUS SYSTEM: No focal motor or sensory deficits. LABS: At this time drug screen positive for opiates, antidepressants, amphetamines, methamphetamines, benzodiazepines and THC. UA noted. ASSESSMENT: 1. Psychosis for evaluation. 2. Hypertension. 3. History of fibromyalgia. 4. History of migraines. 5. History of frequent urinary tract infections. 6. History of duodenitis. 7. History of anxiety, depression. 8. History of nicotine dependence. 9. History of THC. 10.Tachycardia, possibly sinus. RECOMMENDATIONS AND DISCUSSION: In this 35-year-old woman who presented with multiple medical issues, at this time I recommend to continue the current medications. Resume the home medications and I would also recommend a TSH level. Otherwise, we will follow the patient closely with you. The patient will be asked to follow with Dr. Melton closely after discharge. Thank you for letting us participate in the care of this patient. MMODL / IJN: [id number] /
[2020-09-03] MEDS ORDERED: QUEtiapine 100 MG TAB PO SCH (21:00)
[2020-09-04] MEDS: NICOTINE 14MG/24HR PATCH TRANSDERM SCH (08:31)
[2020-09-04] MEDS: amLODIPine 5 MG TAB PO SCH (08:32)
[2020-09-04] MEDS: atenoloL 50 MG TAB PO SCH (08:32)
[2020-09-04] MEDS: lisinopriL 20 MG TAB PO SCH (08:32)
--- NOTE | 2020-09-04 13:04 | P.PN ---
Subjective Progress Note Date: 09/04/20 Subjective: Patient was seen today as a cross coverage for Dr. Moreno. The patient was evaluated, chart reviewed, case discussed with the treatment team. Patient reports feeling weak today and is still having some depression symptoms with irritability of her mood. Denies feeling hopeless or suicidal, and in no report of intention or plan to hurt herself or others. She denies any hallucinations, delusions, or paranoid ideation. No report of manic symptoms and patient presented with disorganized thoughts, speech and appropriate behavior. She continues to take her psychiatric medications and he denies any side effects, reports fair sleep and improved appetite. Patient selectively attends groups and other unit activities as per her report. Objective: Vitals has been reviewed. Mental status examination; Appearance: The patient appears disheveled, partially groomed, average body built, no specific features. Gait/posture: Normal gait, Normal arm swinging: No abnormal movements. Attitude and behavior: Not fully engaged, cooperative, intermittent eye contact. Motor activity: Normal psychomotor activity Speech: Slow, low tone Mood: Depressed Affect: Restricted Thought form: goal-directed, linear, coherent. Thought content: Non-delusional, denies suicidal thoughts, denies homicidal thoughts, denies intentions or plans. Perception: Denies any auditory or visual hallucinations Attention: No impairment. Orientation: Patient is oriented to time place person and situation. Insight: Patient has fair insight about her psychiatric disorder. Judgment: Patient has fair judgment about her psychiatric treatment. Assessment: Psychosis, unspecified - substance induced psychosis vs schizoaffective disorder vs bipolar disorder Polysubstance abuse - psychostimulant use disorder, cannabis use disorder, opiate use disorder, suspect benzodiazepine abuse Nicotine Dependence Plan: Continue inpatient level of care due to need for further stabilization on medications and monitoring of psychiatric symptoms Precautions: Continue 15 minutes check for safety. Consider medical consultation if any acute medical issues arise. Provide the patient individual, group therapy, substance use disorder counseling to give better insight and learn coping skills. Medications: Discontinue risperidone-patient refused medication. Increase Seroquel 150 mg at bedtime for mood stabilization and to help with insomnia. Continue as needed medications for psychiatric emergencies including psychosis, agitation and anxiety. Continue non-psychiatric medications for medical conditions as recommended by the medical team. Discharge patient to OUTPATIENT services upon a stabilization Objective - Vital Signs Vital signs: Vital Signs Temp 97.8 F 09/04/20 12:22 Pulse 87 09/04/20 12:22 Resp 16 09/04/20 12:22 BP 126/87 09/04/20 12:22 Pulse Ox 98 09/02/20 09:33
[2020-09-04] MEDS: LORazepam 1 MG TAB PO PRN ×2 (14:08→20:46)
[2020-09-04] MEDS: QUEtiapine 50 MG TAB PO SCH (20:08)
[2020-09-04] MEDS: HALOPERIDOL LACTATE 5 MG/ML 1 ML VIAL IM PRN (21:36)
[2020-09-05] MEDS: atenoloL 50 MG TAB PO SCH (08:48)
[2020-09-05] MEDS: amLODIPine 5 MG TAB PO SCH (08:48)
[2020-09-05] MEDS: NICOTINE 14MG/24HR PATCH TRANSDERM SCH (08:49)
[2020-09-05] MEDS: lisinopriL 20 MG TAB PO SCH (08:49)
--- NOTE | 2020-09-05 11:18 | P.PN ---
Progress Note - Text Progress Note Date: 09/05/20 Clinical Problems: Drug induced psychotic disorder, methamphetamine use disorder severe, opiate use disorder severe, benzodiazepine use disorder unspecified, cannabis use disorder moderate, antisocial personality disorder Interim history: I reviewed the medical record, interviewed the patient and discussed her treatment and treatment plan during team meeting. She is a 35-year-old female readmitted to the psychiatric unit involuntarily. The immigration officer completed the petition apparently because she was calling the police "several times" complaining of seeing a child hanging from a house and wanting the officers service to rescue the child. The admitting psychiatrist agreed to a voluntary admission. We discharged her from this unit on 08/25/2020 with the diagnoses of a drug- induced psychosis as well as some methamphetamine use disorder, opiate use disorder, benzodiazepines use disorder, cannabis use disorder and antisocial personality. We recommended residential substance abuse treatment but she did not follow through with this recommendation. She was focused on discharge and expressed concerns about her daughter. She alleged that her now ex-boyfriend influenced her to relapse to methamphetamine. She admitted that she has been insufflating methamphetamine since she was discharged from this unit. She currently denies feeling depressed or having thoughts of or suicide. She denied experiencing auditory, visual or olfactory hallucinations. She denied ideas reference, thought insertion, thought broadcasting or thought control. Mental status exam: She presented as a casually groomed minimally cooperative 35-year-old female who was pleasant on approach. She made eye contact and attended to the interview. She had no distinguishing features or prominent physical abnormalities. She had a blunted facial expression. She showed psychomotor retardation but no abnormal involuntary movements. Her affect was blunted but stable and appropriate. She denied suicidal ideation, wishes or homicidal ideation. She denied feeling hopeless or helpless but expressed feelings of worthlessness regarding her chronic and recurrent drug use. She ruminated about her ex-boyfriend and her child. She did not express ideas refe rence, paranoid ideation or delusions. Her thinking was concrete but her associations were goal-directed. She denied hallucinations and did not appear to be responding to internal stimuli. Assessment: This admission was precipitated by a psychosis induced by relapse to methamphetamine. She would benefit from participating in a residential substance abuse treatment considering her chronic and recurrent use of methamphetamine in addition to opiates and other drugs. Plan: Plan for discharge on 09/06/2020. Safety precautions. Continue Seroquel 50 mg at bedtime. Continue Norvasc 5 mg daily, atenolol 50 mg daily and Zestril 20 mg daily for the treatment of hypertension. Habitrol for smoking cessation. Shortly provide information about residential substance abuse treatment options. Encourage participation in therapeutic groups and activities. Evaluate clinical status and response to treatment daily basis.
[2020-09-05] MEDS: LORazepam 1 MG TAB PO PRN ×2 (11:21→19:34)
[2020-09-05] MEDS: QUEtiapine 50 MG TAB PO SCH (20:41)
[2020-09-05] MEDS: haloperidoL 5 MG TAB PO PRN (20:42)
[2020-09-06 06:57] VITALS: TEMP 97.9
[2020-09-06] MEDS: NICOTINE 14MG/24HR PATCH TRANSDERM SCH (08:20)
[2020-09-06] MEDS: amLODIPine 5 MG TAB PO SCH (08:20)
[2020-09-06] MEDS: lisinopriL 20 MG TAB PO SCH (08:20)
[2020-09-06] MEDS: atenoloL 50 MG TAB PO SCH (08:20)
[2020-09-06] MEDS: LORazepam 1 MG TAB PO PRN (09:03)
[2020-09-06 09:05] VITALS: BP 162/75; PULSE 109
--- NOTE | 2020-09-06 10:11 | P.DS ---
Providers Date of admission: 09/02/20 08:45 Attending physician: Eusebio Moreno MD Consults: 09/02/20 08:52 Consult Physician Routine Consulting Provider: Christophe Melton Consult Reason/Comments: Medical Management Do you want consulting provider notified?: Yes Primary care physician: Christophe Melton MD - Discharge Diagnosis(es) (1) Drug-induced psychotic disorder Current Visit: Yes Status: Acute Priority: Medium (2) Methamphetamine use disorder, severe Current Visit: No Status: Chronic Priority: High (3) Antisocial personality disorder Current Visit: No Status: Chronic Priority: High (4) Cannabis use disorder, mild, abuse Current Visit: No Status: Chronic Priority: Low (5) Moderate benzodiazepine use disorder Current Visit: No Status: Chronic Priority: Medium (6) Opioid use disorder, severe, dependence Current Visit: No Status: Chronic Priority: High Hospital Course: HISTORY: She is a 35-year-old female readmitted to the psychiatric unit involuntarily. The state highway police officer completed the petition apparently because she was calling the police "several times" complaining of seeing a child hanging from a house and wanting the officers service to rescue the child. The admitting psychiatrist agreed to a voluntary admission. Similar to her prior admission she was uncooperative and provided little information about the reason for her presentation. In the emergency department, the patient tested positive for opiates, tricyclic antidepressants, amphetamines, methamphetamines, benzodiazepines, and marijuana. As per discussion with the EPS nurse, the patient denied using any substances despite testing positive for these. The patient later relented stating that she did use amphetamines 4 days ago. This would be impossible as the patient was admitted to the psychiatric unit on 08/25/2020 and was discharged on 08/30/2020. We suspect that she relapsed to methamphetamine, opiates, benzodiazepines and marijuana and neatly after discharge. We discharged her from this unit on 08/25/2020 with the diagnoses of a drug- induced psychosis as well as some methamphetamine use disorder, opiate use disorder, benzodiazepines use disorder, cannabis use disorder and antisocial personality. We recommended residential substance abuse treatment but she did not follow through with this recommendation. Patient has had multiple psychiatric hospitalizations. This appears to be her fourth psychiatric hospitalization over the past year. The patient was admitted to [facility] in May and at [facility] in July. Her whole medications prior to this admission included following psychotropic medications: Xanax 0.5 mg by mouth 3 times a day when necessary, Lamictal 50 mg by mouth at bedtime, Vistaril 50 mg by mouth 3 times a day when necessary, Seroquel 300 mg by mouth at bedtime, Seroquel 100 mg pill daily, Neurontin 100 mg by mouth twice a day, and nicotine replacement therapy patches. HOSPITAL COURSE: We admitted her to psychiatric unit voluntarily and did not proceed with a demand (she is on a deferral from a prior admission) because this admission was a result of her use of drugs. We provided a comprehensive biopsychosocial assessment. The x ray consultant baking assistant completed initial physical exam and medical history diagnosed hypertension, history of fibromyalgia, history of migraine headaches, history of frequent urinary tract infections, tobacco use and tachycardia. We resumed her outpatient medications including Norvasc 5 mg daily, atenolol 50 mg daily, and Zestril 20 mg daily. We continued Seroquel at bedtime but reduced the dose to 150 mg. We prescribed Habitrol for smoking cessation. She spent her time in bed coming out for meals and medications. She did not participate in therapeutic groups to activities. She demand to be discharged soon after admission. She was irritable during most encounters. We discussed substance abuse treatment. Social work a little information about [facility] but she declined a referral. MENTAL STATUS ON DISCHARGE: Time of discharge presented as a disheveled appearing 35-year-old female who is irritable but cooperative. She made eye contact and attended to the interview. She had no distinction features are prominent physical abnormalities. She had a irritable facial expression. She was alert and oriented to person, place and time. She showed no abnormality of psychomotor activity. Her gait was slow but steady. His speech was spontaneous with normal rate and rhythm. Affect was guarded and irritable. She denied suicidal ideation, wishes or homicidal ideation. She denied feeling hopeless, helpless or worthless. She did not express ideas reference, paranoid ideation or delusions. Her thinking was concrete but his associations were coherent and logical. She denied hallucinations and did not appear to be responding to internal stimuli. DISPOSITION: We discharge her to her prior address. Her only psychotropic medication was Seroquel 150 mg at bedtime. We did not recommend she continue with Xanax due to history of substance use and substance use problems. She is scheduled for an intake appointment with [facility] on 09/08/2020. We recommend that she contact [facility] regarding residential substance abuse services. Patient Condition at Discharge: Stable Plan - Discharge Summary New Discharge Prescriptions: New QUEtiapine [SEROquel] 150 mg PO HS #90 tab Continue amLODIPine [Norvasc] 5 mg PO DAILY Ibuprofen [Motrin] 800 mg PO Q6H PRN PRN Reason: Pain Atenolol [Tenormin] 50 mg PO DAILY lisinopriL [Zestril] 20 mg PO DAILY Nicotine 14Mg/24Hr Patch [Habitrol] 1 patch TRANSDERM DAILY patch Discontinued hydrOXYzine pamoate [Vistaril] 50 mg PO TID PRN PRN Reason: Anxiety lamoTRIgine [LaMICtal] 50 mg PO HS #30 tab QUEtiapine FUMARATE [SEROquel] 300 mg PO HS #30 tab QUEtiapine [SEROquel] 100 mg PO DAILY #30 tab Gabapentin [Neurontin] 100 mg PO BID ALPRAZolam [Xanax] 0.5 mg PO TID PRN PRN Reason: Anxiety Discharge Medication List amLODIPine [Norvasc] 5 mg PO DAILY 05/30/20 [History] Atenolol [Tenormin] 50 mg PO DAILY 08/24/20 [History] Ibuprofen [Motrin] 800 mg PO Q6H PRN 08/24/20 [History] lisinopriL [Zestril] 20 mg PO DAILY 08/24/20 [History] Nicotine 14Mg/24Hr Patch [Habitrol] 1 patch TRANSDERM DAILY patch 08/29/20 [Rx] QUEtiapine [SEROquel] 150 mg PO HS #90 tab 09/06/20 [Rx] Follow up Appointment(s)/Referral(s): [facility] [Outside] - 09/08/20 11:30 am (Shiela Vasquez ) Christophe Melton MD [Primary Care Provider] - 1-2 days Patient Instructions/Handouts: How to Stop Smoking (DC), Bipolar Disorder (DC) Activity/Diet/Wound Care/Special Instructions: Activity and diet as tolerated. Avoid the use of street drugs and alcohol. Take all medications as prescribed. When you are in need of refills on your medications please contact your medical provider and/or outpatient psychiatrist to have this done. Please go to scheduled outpatient appointment for aftercare treatment. If symptoms return or become worse, call the crisis line at and/or go to the nearest emergency room for evaluation. Discharge Disposition: HOME SELF-CARE
== END 2020-09-06 10:32 | disposition home or self-care (01) | DRG 897 ==
LOC: EC 03:39 → 3MHU 08:45
PROVIDERS: ADMIT Psychiatry & Neurology Psychiatry; ATTEND Psychiatry & Neurology Psychiatry
DX: F15.259 Other stimulant dependence with stimulant-induced psychotic disorder, unspecified (principal); F11.20 Opioid dependence, uncomplicated; F12.10 Cannabis abuse, uncomplicated; F13.10 Sedative, hypnotic or anxiolytic abuse, uncomplicated; F17.210 Nicotine dependence, cigarettes, uncomplicated; F60.2 Antisocial personality disorder; F41.9 Anxiety disorder, unspecified; F31.9 Bipolar disorder, unspecified; G89.4 Chronic pain syndrome; I10 Essential (primary) hypertension; M79.7 Fibromyalgia; Z56.0 Unemployment, unspecified; Z65.3 Problems related to other legal circumstances; Z79.899 Other long term (current) drug therapy; Z80.49 Family history of malignant neoplasm of other genital organs; Z82.49 Family history of ischemic heart disease and other diseases of the circulatory system; Z83.3 Family history of diabetes mellitus; Z87.440 Personal history of urinary (tract) infections; Z88.0 Allergy status to penicillin; Z20.822 Contact with and (suspected) exposure to COVID-19
CPT/HCPCS: 80306; 81001; 81025; 82075; 87635; 99285

== ENCOUNTER 2020-09-10 15:16 | Emergency (ER) | payer OTHER ==
[2020-09-10 15:22] VITALS: RESP 18
--- NOTE | 2020-09-10 15:24 | ED ---
Recheck HPI - General Chief Complaint: Recheck/Abnormal Lab/Rx Stated Complaint: New med reacton/vomiting/high BP Time Seen by Provider: 09/10/20 15:23 Source: patient Mode of arrival: ambulatory Limitations: no limitations - History of Present Illness Initial Comments: 35-year-old female with extensive psychiatric history presents to emergency department with multiple chief complaints. Patient reports she was recently discharged from the psychiatric unit and was started on a new medication but cannot remember which one. Patient states over she has taken 2 doses of medication and is "not feeling right". Patient reports having some nausea and vomiting but is drinking a soda as she is talking. patient is also requesting psychiatric evaluation. Patient is also requesting some food and drinks because she is hungry. she is denying homicidal, suicidal thoughts or ideations. - Related Data Home Medications Medication Instructions Recorded Confirmed amLODIPine [Norvasc] 5 mg PO DAILY 05/30/20 09/02/20 Atenolol [Tenormin] 50 mg PO DAILY 08/24/20 09/02/20 Ibuprofen [Motrin] 800 mg PO Q6H PRN 08/24/20 09/02/20 lisinopriL [Zestril] 20 mg PO DAILY 08/24/20 09/02/20 Previous Rx's Medication Instructions Recorded Nicotine 14Mg/24Hr Patch [Habitrol] 1 patch TRANSDERM DAILY patch 08/29/20 QUEtiapine [SEROquel] 150 mg PO HS #90 tab 09/06/20 Allergies Allergy/AdvReac Type Severity Reaction Status Date / Time Penicillins Allergy Unknown Verified 09/10/20 15:22 Childhood Review of Systems ROS Statement: Those systems with pertinent positive or pertinent negative responses have been documented in the HPI. ROS Other: All systems not noted in ROS Statement are negative. Past Medical History Past Medical History: Hypertension Additional Past Medical History / Comment(s): OTHER HX: fibromyalgia, chronic pain-generalized, migraines, R ovarian cysts, frequent UTI's, tachycardia, gastritis, duodenitis. Anxiety disorder History of Any Multi-Drug Resistant Organisms: None Reported Past Surgical History: Orthopedic Surgery Past Anesthesia/Blood Transfusion Reactions: Unable to Obtain Additional Past Anesthesia/Blood Transfusion Reaction / Comment(s): Pt has never had surgery Past Psychological History: Anxiety, Depression Smoking Status: Current every day smoker Past Alcohol Use History: None Reported Past Drug Use History: Marijuana, Opiates - Past Family History Mother Family Medical History: Cancer, Diabetes Mellitus, Myocardial Infarction ([place]) Additional Family Medical History / Comment(s): Mother had cervical cancer and hypotension. Father Family Medical History: Hypertension General Exam Limitations: no limitations General appearance: alert, in no apparent distress Head exam: Present: atraumatic, normocephalic, normal inspection Eye exam: Present: normal appearance, PERRL, EOMI Pupils: Present: normal accommodation ENT exam: Present: normal exam, normal oropharynx, mucous membranes moist Neck exam: Present: normal inspection, full ROM. Absent: tenderness Respiratory exam: Present: normal lung sounds bilaterally. Absent: respiratory distress Cardiovascular Exam: Present: regular rate, normal rhythm, normal heart sounds GI/Abdominal exam: Present: soft. Absent: distended, tenderness, guarding, rebound, rigid Extremities exam: Present: normal inspection, full ROM, normal capillary refill. Absent: tenderness Back exam: Present: normal inspection, full ROM. Absent: tenderness, CVA tenderness (R), CVA tenderness (L) Neurological exam: Present: alert, oriented X3 Psychiatric exam: Present: normal affect, normal mood Skin exam: Present: warm, dry, intact, normal color Course Vital Signs 09/10/20 09/10/20 15:19 16:34 Temperature 98.1 F 98.2 F Pulse Rate 103 H 96 Respiratory 18 18 Rate Blood Pressure 124/86 120/78 O2 Sat by Pulse 98 98 Oximetry Medical Decision Making - Medical Decision Making 35-year-old female with extensive psychiatric history presents to the emergency department with multiple chief complaints.on physical examination, is patient is resting comfortably. She is eating and drinking right up front of me even though she reports being nauseous and vomiting. She requested food and drink. I gave her a sandwich and water. Patient was requesting psychiatric evaluation. I reviewed her medical records and the patient was started on Seroquel. So far taken only 2 doses of medication. Patient is likely having a response to this medication. She was offered laboratory workup she declined and only requested EPS evaluation. I did clear her medically EPS evaluation pending. Patient did not want to wait for evaluation and eloped. Case discussed with physician. Disposition Clinical Impression: Medication reaction Disposition: HOME SELF-CARE Condition: Stable Instructions (If sedation given, give patient instructions): Quetiapine (By mouth) Additional Instructions: Please return to the Emergency Department if symptoms worsen or any other concerns. Is patient prescribed a controlled substance at d/c from ED?: No Referrals: Christophe Melton MD [Primary Care Provider] - 1-2 days Time of Disposition: 16:34
[2020-09-10 16:47] VITALS: BP 120/78; PULSE 96; TEMP 98.2
== END 2020-09-10 16:34 | disposition home or self-care (01) ==
LOC: EC 15:16
DX: R11.2 Nausea with vomiting, unspecified (principal); T43.595A Adverse effect of other antipsychotics and neuroleptics, initial encounter; I10 Essential (primary) hypertension; F17.200 Nicotine dependence, unspecified, uncomplicated; Z79.899 Other long term (current) drug therapy; Z88.0 Allergy status to penicillin; Z87.19 Personal history of other diseases of the digestive system
CPT/HCPCS: 99283

== ENCOUNTER 2020-09-13 15:45 | Inpatient (IN) | payer MEDICAID, OTHER ==
--- NOTE | 2020-09-13 17:11 | ED ---
General Adult HPI - General Chief complaint: Psychiatric Symptoms Stated complaint: mental health Time Seen by Provider: 09/13/20 16:45 Source: patient, RN notes reviewed, old records reviewed Mode of arrival: ambulatory Limitations: no limitations - History of Present Illness Initial comments: This is a 35-year-old female with past medical history significant for bipolar. Patient comes emergency Department today because she believes someone may have killed her father and her daughter. Patient states all day she did try to get a hold and has not been able to get hold. Patient states it's either her friend who killed them or if maybe someone else. Patient states she has people whispering in her ear she hears her grandmother and her mother but neither of them told her that they were someone else told her that they were . Patient states it's a female voice but is not her grandmother or mother. Patient states she has a meth user and uses the last time 2 days ago. Patient denies any other drug use. Patient denies any physical complaints today. Patient denies headache patient denies lightheadedness. Patient denies any chest pain palpitations difficulty breathing first breath per patient denies any abdominal pain patient denies nausea vomiting diarrhea. Patient denies any recent fever chills or cough. - Related Data Home Medications Medication Instructions Recorded Confirmed amLODIPine [Norvasc] 5 mg PO DAILY 05/30/20 09/13/20 Atenolol [Tenormin] 50 mg PO DAILY 08/24/20 09/13/20 Ibuprofen [Motrin] 800 mg PO Q6H PRN 08/24/20 09/13/20 lisinopriL [Zestril] 20 mg PO DAILY 08/24/20 09/13/20 Azithromycin [Zithromax Z-pack (6 See Taper PO DIRECTED 09/13/20 09/13/20 tabs)] cloNIDine HCL [Catapres] 0.1 mg PO HS 09/13/20 09/13/20 Previous Rx's Medication Instructions Recorded Nicotine 14Mg/24Hr Patch [Habitrol] 1 patch TRANSDERM DAILY patch 08/29/20 Allergies Allergy/AdvReac Type Severity Reaction Status Date / Time Penicillins Allergy Unknown Verified 09/13/20 18:01 Childhood Review of Systems ROS Statement: Those systems with pertinent positive or pertinent negative responses have been documented in the HPI. ROS Other: All systems not noted in ROS Statement are negative. Past Medical History Past Medical History: Hypertension Additional Past Medical History / Comment(s): OTHER HX: fibromyalgia, chronic pain-generalized, migraines, R ovarian cysts, frequent UTI's, tachycardia, gastritis, duodenitis. Anxiety disorder History of Any Multi-Drug Resistant Organisms: None Reported Past Surgical History: Orthopedic Surgery Past Anesthesia/Blood Transfusion Reactions: Unable to Obtain Additional Past Anesthesia/Blood Transfusion Reaction / Comment(s): Pt has never had surgery Past Psychological History: Anxiety, Depression Smoking Status: Current every day smoker Past Alcohol Use History: None Reported Past Drug Use History: Marijuana, Opiates - Past Family History Mother Family Medical History: Cancer, Diabetes Mellitus, Myocardial Infarction ([place]) Additional Family Medical History / Comment(s): Mother had cervical cancer and hypotension. Father Family Medical History: Hypertension General Exam - General Exam Comments Initial Comments: GENERAL: Patient is well-developed and well-nourished. Patient is nontoxic and well- hydrated and is in no acute distress. ENT: Neck is soft and supple. No significant lymphadenopathy is noted. Oropharynx is clear. Moist mucous membranes. Neck has full range of motion without eliciting any pain. EYES: The sclera were anicteric and conjunctiva were pink and moist. Extraocular movements were intact and pupils were equal round and reactive to light. Eyelids were unremarkable. PULMONARY: Unlabored respirations. Good breath sounds bilaterally. CARDIOVASCULAR: There is a regular rate and rhythm without any murmurs gallops or rubs. ABDOMEN: Soft and nontender with normal bowel sounds. SKIN: Skin is clear with no lesions or rashes and otherwise unremarkable. NEUROLOGIC: Patient is alert and oriented x3. Cranial nerves II through XII are grossly intact. Motor and sensory are also intact. Normal speech, volume and content. Symmetrical smile. MUSCULOSKELETAL: Normal extremities with adequate strength and full range of motion. LYMPHATICS: No significant lymphadenopathy is noted PSYCHIATRIC: Patient thinks someone is killed her daughter and her father. Patient denies suicidal homicidal ideations. Limitations: no limitations Course Vital Signs 09/13/20 15:47 Temperature 98.7 F Pulse Rate 111 H Respiratory 18 Rate Blood Pressure 171/140 O2 Sat by Pulse 100 Oximetry Medical Decision Making - Medical Decision Making EPS evaluated the patient and determined the patient needed to be admitted. - Lab Data Lab Results 09/13/20 Range/Units 17:48 Urine Opiates Screen Detected H (NotDetected) Ur Oxycodone Screen Not Detected (NotDetected) Urine Methadone Screen Not Detected (NotDetected) Ur Propoxyphene Screen Not Detected (NotDetected) Ur Barbiturates Screen Not Detected (NotDetected) U Tricyclic Antidepress Detected H (NotDetected) Ur Phencyclidine Scrn Not Detected (NotDetected) Ur Amphetamines Screen Detected H (NotDetected) U Methamphetamines Scrn Detected H (NotDetected) U Benzodiazepines Scrn Not Detected (NotDetected) Urine Cocaine Screen Not Detected (NotDetected) U Marijuana (THC) Screen Detected H (NotDetected) Disposition Clinical Impression: Polypharmacy, Acute psychosis Disposition: ADMITTED IP TO THIS HOSP Referrals: Christophe Melton MD [Primary Care Provider] - 1-2 days Time of Disposition: 18:14
[2020-09-13] MEDS ORDERED: LORazepam 1 MG TAB PO STA (17:51)
[2020-09-13 18:05] LABS: Amphetamine Screen,Urine Detected (NotDetected); Barbiturate Screen,Urine Not Detected (NotDetected); Benzodiazepines Screen,Urine Not Detected (NotDetected); Cocaine Screen,Urine Not Detected (NotDetected); Methadone Screen, Urine Not Detected (NotDetected); Opiate Screen,Urine Detected (NotDetected); Oxycodone Screen, Urine Not Detected (NotDetected); Phencyclidine Screen,Urine Not Detected (NotDetected); Tricyclic Antidepressant,Urine Detected (NotDetected); Urn Cannabinoid Scrn Detected (NotDetected)
[2020-09-13] MEDS ORDERED: IBUPROFEN 600 MG TAB PO STA (18:56)
[2020-09-13] MEDS ORDERED: LORazepam 2 MG/ML INJ IM STA (19:43)
[2020-09-13] MEDS ORDERED: MAGNESIUM HYDROXIDE 2,400 MG/10 ML CUP PO PRN (20:05)
[2020-09-13] MEDS ORDERED: LORazepam 2 MG/ML INJ IM PRN (20:06)
[2020-09-13] MEDS ORDERED: HALOPERIDOL LACTATE 5 MG/ML 1 ML VIAL IM PRN (20:06)
[2020-09-13] MEDS: busPIRone HCl 10 MG TAB PO SCH (20:48)
[2020-09-13] MEDS: cloNIDine HCL 0.1 MG TAB PO SCH (20:48)
[2020-09-13] MEDS: DIVALPROEX 250 MG TABLET.DR PO SCH (20:48)
[2020-09-13] MEDS: NICOTINE 14MG/24HR PATCH TRANSDERM SCH (20:50)
[2020-09-13] MEDS: AZITHROMYCIN 250 MG TAB PO SCH (20:52)
[2020-09-13] MEDS ORDERED: QUEtiapine 50 MG TAB PO SCH (21:00)
[2020-09-14] MEDS: atenoloL 50 MG TAB PO SCH (09:03)
[2020-09-14] MEDS: lisinopriL 20 MG TAB PO SCH (09:03)
[2020-09-14] MEDS: busPIRone HCl 10 MG TAB PO SCH ×2 (09:03→20:39)
[2020-09-14] MEDS: amLODIPine 5 MG TAB PO SCH (09:03)
[2020-09-14] MEDS: NICOTINE 14MG/24HR PATCH TRANSDERM SCH (09:03)
--- NOTE | 2020-09-14 11:35 | P.HP ---
Psychiatric H&P - . H&P Date: 09/14/20 History & Physical: Allergies Allergy/AdvReac Type Severity Reaction Status Date / Time Penicillins Allergy Unknown Verified 09/13/20 18:01 Childhood Vital Signs Temp 98.2 F 09/13/20 20:01 Pulse 87 09/14/20 09:10 Resp 20 09/14/20 09:10 BP 133/86 09/14/20 09:10 Pulse Ox 100 09/13/20 20:01 Intake & Output 09/13/20 09/14/20 09/14/20 18:59 06:59 18:59 Weight 48.534 kg Laboratory Last Values Urine Opiates Screen Detected (NotDetected) H 09/13/20 17:48 Ur Oxycodone Screen Not Detected (NotDetected) 09/13/20 17:48 Urine Methadone Screen Not Detected (NotDetected) 09/13/20 17:48 Ur Propoxyphene Screen Not Detected (NotDetected) 09/13/20 17:48 Ur Barbiturates Screen Not Detected (NotDetected) 09/13/20 17:48 U Tricyclic Antidepress Detected (NotDetected) H 09/13/20 17:48 Ur Phencyclidine Scrn Not Detected (NotDetected) 09/13/20 17:48 Ur Amphetamines Screen Detected (NotDetected) H 09/13/20 17:48 U Methamphetamines Scrn Detected (NotDetected) H 09/13/20 17:48 U Benzodiazepines Scrn Not Detected (NotDetected) 09/13/20 17:48 Urine Cocaine Screen Not Detected (NotDetected) 09/13/20 17:48 U Marijuana (THC) Screen Detected (NotDetected) H 09/13/20 17:48 Coronavirus (PCR) Not Detected (Not Detectd) 09/13/20 18:28 09/14/20 11:10 IDENTIFYING DATA: Patient is a 35-year-old female who was admitted to the psychiatric unit involuntarily for psychosis, she is currently living with a friend has 1 in an house and is unemployed. HPI: Patient has a significant history for polysubstance abuse including methamphetamine and bipolar disorder with multiple psychiatric hospitalizations within the past few months. Patient presented to the ER and complained of believing that someone had killed her father and daughter. She stated that she could not get a hold of them or reach them. She is also endorsing auditory hallucinations of whispering in her ears. She reported that her last methamphetamine use was 2 days prior to coming into the ER. Patient's UDS was positive for methamphetamine, opiates, TCAs and THC. Patient was previously discharged from the mental health unit on Seroquel with [facility] follow-up however patient did not follow up. Patient was seen today and appeared to be fairly disheveled in appearance and have poor hygiene and grooming. She claims that she stopped taking her medications and believes that she is on the "wrong meds". She states that she wants to be back on Xanax at this time and believes that the hospital is telling her PCP to take her off of Xanax. She states that "I have nothing for panic attacks and have them every day". She claims that she also came into the hospital because she believed that her kid was "gone". She claims that it was because she wasn't on her medications that she believed that. She also states that her brother may have been killed by "Kevin" however claims that she is unsure about this. She states that her father was also killed. She states that she has been using methamphetamine daily approximately "2 lines" a day. She states that her mood is okay however claims that she has anxiety. She states that she's been having poor sleep. At this time she is denying any suicidal or homicidal ideations intent or plan. She denies any auditory or visual hallucinations. PAST PSYCHIATRIC HISTORY: Patient has had multiple psychiatric hospitalizations. This appears to be her fifth psychiatric hospitalization over the past year. The patient was admitted to [facility] in May and at [facility] in July. She was previously discharged from the mental health unit under the care of Dr. Moreno. She was previously on seroquel however claims that she only needs to be on xanax. PMH: Hypertension ALLERGIES: Penicillins CHEMICAL DEPENDENCY HISTORY: Patient tested positive for multiple illicit substances including amphetamines, methamphetamines, and opiates, cannabis. FAMILY PSYCHIATRIC/SUBSTANCE USE HISTORY: denies SOCIAL HISTORY: As per review of the patient's chart, the patient does have a history of legal problems including attempted kidnappingcustodial interference, assault and battery, controlled substance manufacturing, and maintaining a drug house, and uttering and publishing. She has one child out of wedlock. She currently lives with a friend in a house. She is unemployed and has no income. MENTAL STATUS EXAM: General Appearance: Patient appears to be petite and thin with blonde hair. She appears disheveled, dressed in a hospital gown. Poor hygiene and grooming. Behavior: Patient appears to be somnolent, and unable to stay awake during the interview. Eye contact is poor. Speech: Patient's speech is nonspontaneous, concrete. Mood/Affect: She claims her mood is "fine".. Affect appears to be constricted. Suicidality/Homicidality: denies Perceptions: Not responding to internal stimuli. Denies any auditory or visual hallucinations. Though content/process: Patient is illogical at times, loose in associations. She is preoccupied with her family and then being . Multiple loosely formed delusions. Memory and concentration: Alert and oriented 3, poor attention span. Judgment and insight: poor STRENGTHS/WEAKNESSES: Strength is that patient has access to healthcare and follow-up. Weakness is polysubstance abuse and impulsivity. INTELLECT: average IMPRESSIONS: Bipolar disorder with psychotic features Methamphetamine abuse cannabis use disorder opiate use disorder Nicotine Dependence PLAN: -Patient is admitted under involuntary status to MHU for stabilization of psychiatric symptoms and safety. Patient has signed medication consent and is placed in patient's chart. As patient was previously on a deferral from her last admission and did not have follow-up and not taking her medications, will file demand for hearing today. -Medications : Will start patient on paliperidone 3 mg daily at bedtime for mood stabilization/psychosis. Plan will be to transition patient onto long-acting injection to ensure compliance. Continue Depakote 250 mg daily at bedtime for mood stabilization. BuSpar 10 mg twice a day for anxiety. -Ativan and Haldol PRN for agitation/aggression -Patient was counselled on substance abuse and desired to cut back on use -Patient was informed of the risks, benefits and side effects of the medication and patient verbally consented to taking the medications. Patient signed med consent form and was placed in chart. -Internal Medicine consult to perform medical evaluation and physical. -NRT - nicotine patch -SW on board for discharge planning. Encourage patient to participate in groups to work on coping skills. Will await court date for demand.
[2020-09-14] MEDS: ACETAMINOPHEN TAB 325 MG TAB PO PRN (19:08)
[2020-09-14] MEDS: cloNIDine HCL 0.1 MG TAB PO SCH (20:38)
[2020-09-14] MEDS: PALIPERIDONE 3 MG TAB.ER.24 PO SCH (20:39)
[2020-09-14] MEDS: DIVALPROEX 250 MG TABLET.DR PO SCH (20:40)
[2020-09-14] MEDS: AZITHROMYCIN 250 MG TAB PO SCH (20:40)
[2020-09-15] MEDS: NICOTINE 14MG/24HR PATCH TRANSDERM SCH (08:22)
[2020-09-15] MEDS: atenoloL 50 MG TAB PO SCH (08:23)
[2020-09-15] MEDS: busPIRone HCl 10 MG TAB PO SCH (08:23)
[2020-09-15] MEDS: amLODIPine 5 MG TAB PO SCH (08:24)
[2020-09-15] MEDS: lisinopriL 20 MG TAB PO SCH (08:24)
[2020-09-15] MEDS: ONDANSETRON 4 MG TAB PO PRN ×2 (10:02→19:52)
--- NOTE | 2020-09-15 10:56 | P.PN ---
Progress Note - Text Progress Note Date: 09/15/20 Interval History: Patient was seen lying in her bed this morning and was directable and agreeable to speak with bond writer in the office. She states that today she feels nauseous and states that she would like medications to help her. She also claims that she was having some arm pain last night and found it difficult to sleep. She states that her outpatient doctor prescribes her Neurontin as needed for pain and after maps was checked, patient was agreeable to be restarted on Neurontin. She states that her energy level is fair at this time. She continues to endorse her family members potentially being killed by someone however patient was less preoccupied with this today. She claims that she has been going to minimal groups. At this time patient denies any suicidal or homical ideations, intent or plan. Patient denies any auditory, visual hallucinations. Patient denies any side effects from the medications and has been compliant with meds. Mental Status Exam: General Appearance: Patient appears to be petite and thin with blonde hair. She appears disheveled, dressed in a hospital gown. Poor hygiene and grooming. Behavior: Patient appears to be more awake today and attending to be cooperative. Eye contact is improving mildly Speech: Patient's speech is nonspontaneous, concrete. Mood/Affect: She claims her mood is "fine". Affect appears to be constricted. Suicidality/Homicidality: denies Perceptions: Not responding to internal stimuli. Denies any auditory or visual hallucinations. Though content/process: Patient is more goal oriented. She is less preoccupied with her family and then being . Multiple loosely formed delusions. Focused on her medications. Memory and concentration: Alert and oriented 3, fair attention span. Judgment and insight: chronically poor, improving mildly Assessment Bipolar disorder with psychotic features Methamphetamine abuse cannabis use disorder opiate use disorder Nicotine Dependence Plan: -Patient continues to meet criteria for inpatient psychiatric admission for symptom stabilization and safety. Patient has not signed medication consent and was placed in patient's chart. -Medications: Continue with paliperidone 3 mg daily at bedtime for mood stabilization/psychosis. Plan will be to transition patient onto long-acting injection to ensure compliance. Continue Depakote 250 mg daily at bedtime for mood stabilization. Increase BuSpar to 15 mg twice a day for anxiety. Plan will be to transition patient onto Invega Sustenna to insure compliance. -When necessary Ativan and Haldol for agitation/aggression. -NRT - nicotine patch -SW on board for discharge planning. Encouraged the patient to participate in milieu. Patient's court date for demand is set for 09/21/2020.
[2020-09-15] MEDS: LORazepam 1 MG TAB PO PRN ×2 (11:47→19:52)
[2020-09-15] MEDS: MAG HYDROX/AL HYDROX/SIMETH 30 ML CUP PO PRN (17:14)
[2020-09-15] MEDS: IBUPROFEN 800 MG TAB PO PRN (18:16)
[2020-09-15] MEDS: busPIRone HCl 5 MG TAB PO SCH (20:54)
[2020-09-15] MEDS: PALIPERIDONE 3 MG TAB.ER.24 PO SCH (20:54)
[2020-09-15] MEDS: AZITHROMYCIN 250 MG TAB PO SCH (20:54)
[2020-09-15] MEDS: DIVALPROEX 250 MG TABLET.DR PO SCH (20:54)
[2020-09-15] MEDS: ACETAMINOPHEN TAB 325 MG TAB PO PRN (20:57)
[2020-09-15] MEDS: GABAPENTIN 100 MG CAP PO PRN (20:57)
--- NOTE | 2020-09-15 22:35 | P.CONS ---
History of Present Illness - Reason for Consult Consult date: 09/15/20 medical eval - Chief Complaint hallucinations - History of Present Illness Maria M Paz is a 35 yo F with hx methamphetamine abuse, bipolar disorder, recent admission with suicidal ideation and hallucinations who presented to the ED complaining of hallucinations and severe anxiety. She states that since she was discharged she has continued to use methamphetamine every day and has been very frustrated that she has not had any xanax as an outpatient. She denies any chest pain, cough or shortness of breath. Review of Systems All systems: negative Constitutional: Denies chills, Denies fever Eyes: denies blurred vision, denies pain Ears, nose, mouth and throat: Denies headache, Denies sore throat Cardiovascular: Denies chest pain, Denies shortness of breath Respiratory: Denies cough Gastrointestinal: Denies abdominal pain, Denies diarrhea, Denies nausea, Denies vomiting Genitourinary: Denies dysuria, Denies hematuria Musculoskeletal: Denies myalgias Integumentary: Denies pruritus, Denies rash Neurological: Denies numbness, Denies weakness Psychiatric: Reports anxiety, Reports anxiety attacks, Reports mood swings, Denies depression Endocrine: Denies fatigue, Denies weight change Past Medical History Past Medical History: Hypertension Additional Past Medical History / Comment(s): OTHER HX: fibromyalgia, chronic pain-generalized, migraines, R ovarian cysts, frequent UTI's, tachycardia, gastritis, duodenitis. Anxiety disorder History of Any Multi-Drug Resistant Organisms: None Reported Past Surgical History: Orthopedic Surgery Past Anesthesia/Blood Transfusion Reactions: Unable to Obtain Additional Past Anesthesia/Blood Transfusion Reaction / Comm: Pt has never had surgery Past Psychological History: Anxiety, Depression Smoking Status: Current every day smoker Past Alcohol Use History: None Reported Past Drug Use History: Marijuana, Opiates - Past Family History Mother Family Medical History: Cancer, Diabetes Mellitus, Myocardial Infarction ([place]) Additional Family Medical History / Comment(s): Mother had cervical cancer and hypotension. Father Family Medical History: Hypertension Medications and Allergies Home Medications Medication Instructions Recorded Confirmed Type amLODIPine [Norvasc] 5 mg PO DAILY 05/30/20 09/13/20 History Atenolol [Tenormin] 50 mg PO DAILY 08/24/20 09/13/20 History Ibuprofen [Motrin] 800 mg PO Q6H PRN 08/24/20 09/13/20 History lisinopriL [Zestril] 20 mg PO DAILY 08/24/20 09/13/20 History Nicotine 14Mg/24Hr Patch [Habitrol] 1 patch TRANSDERM DAILY patch 08/29/20 09/13/20 Rx Azithromycin [Zithromax Z-pack (6 See Taper PO DIRECTED 09/13/20 09/13/20 History tabs)] Divalproex [Depakote] 250 mg PO HS 09/13/20 09/13/20 History QUEtiapine [SEROquel] 150 mg PO HS 09/13/20 09/13/20 History busPIRone HCl [Buspar] 10 mg PO BID 09/13/20 09/13/20 History cloNIDine HCL [Catapres] 0.1 mg PO HS 09/13/20 09/13/20 History Allergies Allergy/AdvReac Type Severity Reaction Status Date / Time Penicillins Allergy Unknown Verified 09/13/20 18:01 Childhood Physical Exam Vitals: Vital Signs Temp Pulse Pulse BP BP 09/15/20 18:25 97.8 F 09/15/20 13:12 97.2 F L 09/15/20 11:48 95 109/62 09/15/20 10:05 94 93/54 09/15/20 08:20 97 95/62 General: well nourished, well developed, NAD. Vitals reviewed Eyes: PERRL, EOMI, conjunctiva normal HENT: normocephalic, mucus membranes moist Neck: supple, no JVD Lungs: normal respiratory effort, no wheezes or rales CV: Regular rate and rhythm, no murmur. Peripheral pulses 2+ Abdomen: soft, nondistended, no organomegaly Lymph: no cervical or axillary LAD Skin: warm and dry. Neuro: A&Ox3, depressed mood, anxiety Assessment and Plan (1) Acute psychosis Current Visit: Yes Status: Acute Code(s): F23 - BRIEF PSYCHOTIC DISORDER SNOMED Code(s): 65673766 Plan: 1. Acute psychosis. Bipolar disorder. Management per psychiatry, continue with current care 2. HTN. Normotensive this admission, likely secondary to meth use. Decrease lisinopril
[2020-09-16] MEDS: LORazepam 1 MG TAB PO PRN ×2 (08:28→19:17)
[2020-09-16] MEDS: busPIRone HCl 5 MG TAB PO SCH ×3 (08:28→20:39)
[2020-09-16] MEDS: lisinopriL 20 MG TAB PO SCH (08:29)
[2020-09-16] MEDS: atenoloL 50 MG TAB PO SCH (08:29)
[2020-09-16] MEDS: NICOTINE 14MG/24HR PATCH TRANSDERM SCH (08:29)
[2020-09-16] MEDS: ONDANSETRON 4 MG TAB PO PRN ×2 (10:30→19:17)
--- NOTE | 2020-09-16 11:01 | P.PN ---
Progress Note - Text Progress Note Date: 09/16/20 Interval History: Patient was seen lying in her bed this morning and was directable and agreeable to speak with radio news writer in the office. She states that today she feels less nauseous and states that the Zofran has been helping and she is getting more used to the medication. She states that she feels more awake today with more energy however states that she wants to sleep in her bed more because she wants to "waste time" being here on the unit. She was fairly preoccupied with being discharged today and was minimizing her hospitalization and her symptoms. She continues to state that she will be taking the medications. She was preoccupied also with court and the different proceedings. She claims her mood is "fine" had a constricted affect. She states that her anxiety been improving. She states that she was able to sleep throughout the night. She claims that she has been going to minimal groups. At this time patient denies any suicidal or homical ideations, intent or plan. Patient denies any auditory, visual hallucinations. Patient denies any side effects from the medications and has been compliant with meds. She did make a comment about how her brother may be " I don't know" and was preoccupied with the safety of her daughter today. Mental Status Exam: General Appearance: Patient appears to be petite and thin with blonde hair. She appears disheveled, dressed in a hospital gown. Poor hygiene and grooming. Behavior: Patient appears to be more awake today and attending to be cooperative. Eye contact is fair Speech: Patient's speech is nonspontaneous, concrete. Mood/Affect: She claims her mood is "fine". Affect appears to be constricted. Suicidality/Homicidality: denies Perceptions: Not responding to internal stimuli. Denies any auditory or visual hallucinations. Though content/process: Patient is more goal oriented. She is less preoccupied with her family and then being . Focused on her medications. Memory and concentration: Alert and oriented 3, fair attention span. Judgment and insight: chronically poor, improving mildly Assessment Bipolar disorder with psychotic features Methamphetamine abuse cannabis use disorder opiate use disorder Nicotine Dependence Plan: -Patient continues to meet criteria for inpatient psychiatric admission for symptom stabilization and safety. Patient has not signed medication consent and was placed in patient's chart. -Medications: increased paliperidone 3 mg bid for mood stabilization/psychosis. Plan will be to transition patient onto Invega Sustenna long-acting injection to ensure compliance once patient is stabilized psychiatrically as patient is not taking her medications. Continue Depakote 250 mg daily at bedtime for mood stabilization. continue with BuSpar to 15 mg twice a day for anxiety. -When necessary Ativan and Haldol for agitation/aggression. -NRT - nicotine patch -SW on board for discharge planning. Encouraged the patient to participate in milieu. Patient's court date for demand is set for 09/21/2020.
[2020-09-16] MEDS: MAG HYDROX/AL HYDROX/SIMETH 30 ML CUP PO PRN ×2 (13:28→21:32)
[2020-09-16] MEDS: IBUPROFEN 800 MG TAB PO PRN (17:24)
[2020-09-16] MEDS: DIVALPROEX 250 MG TABLET.DR PO SCH (20:38)
[2020-09-16] MEDS: GABAPENTIN 100 MG CAP PO PRN (20:40)
[2020-09-16] MEDS ORDERED: PALIPERIDONE 3 MG TAB.ER.24 PO SCH (21:00)
[2020-09-17] MEDS: LORazepam 1 MG TAB PO PRN ×2 (08:22→14:54)
[2020-09-17] MEDS: NICOTINE 14MG/24HR PATCH TRANSDERM SCH (08:23)
[2020-09-17] MEDS: busPIRone HCl 5 MG TAB PO SCH ×3 (08:23→20:18)
[2020-09-17] MEDS: lisinopriL 20 MG TAB PO SCH (08:24)
[2020-09-17] MEDS: atenoloL 50 MG TAB PO SCH (08:25)
[2020-09-17] MEDS ORDERED: PALIPERIDONE 3 MG TAB.ER.24 PO SCH (09:00)
[2020-09-17] MEDS: ONDANSETRON 4 MG TAB PO PRN ×2 (11:41→19:45)
--- NOTE | 2020-09-17 13:48 | P.PN ---
Progress Note - Text Progress Note Date: 09/17/20 Clinical Problems: Psychotic disorder unspecified, rule out is abuse psychotic disorder, rule out psychotic disorder secondary to bipolar illness, opiate use disorder severe, methamphetamine use disorder severe, cannabis use disorder, tobacco use Interim history: I reviewed the medical record and interviewed the patient. She is known to this service writer from prior admissions. She relapsed to opiates and methamphetamine after her last discharge. Today, she was somatically preoccupied and complains of general dysphoria and abdominal distress. She requested to increase in Neurontin alleging that she has been prescribed 300 mg 3 times a day as an outpatient. I reviewed her MAPS and a Dr. Melton prescribed gabapentin 100 mg twice a day in July 2020. She does not attend therapeutic groups and activities. She spends her time in bed coming out for meals her medications. She frequent requests when necessary Ativan for complaints of subjective anxiety. Mental status exam: She presented as a casually groomed 35-year-old female who was pleasant on approach. She made eye contact and attended the interview. She had a loaded facial expression. She showed psychomotor retardation but no abnormal involuntary movements. Her speech was spontaneous with decreased rate and rhythm. Affect was blunted. She did not express suicidal ideation, wishes or homicidal ideation. She expressed feelings of service regarding this hospitalization. She did not express ideas reference, paranoid ideation or delusions. Her thinking was concrete and medication focused. She denied hallucinations and did not appear to be responding to internal stimuli. Assessment: She is less distressed, disorganized and psychotic denied admission. She continues to show signs and symptoms of withdrawal from chronic amphetamine use. Plan: Continue inpatient treatment. Probate hearing pending. Continue BuSpar 15 mg 3 times a day, Depakote 250 mg at bedtime, Prolixin 2 mg twice a day and Neurontin 200 mg at bedtime when necessary for anxiety or pain. Continue Tenormin 50 mg daily, Zestril 10 mg daily and nicotine patch. Encourage participation in therapeutic groups and activities. Evaluate clinical status response to treatment daily basis.
[2020-09-17] MEDS: DIVALPROEX 250 MG TABLET.DR PO SCH (20:18)
[2020-09-18] MEDS: atenoloL 50 MG TAB PO SCH (08:22)
[2020-09-18] MEDS: busPIRone HCl 5 MG TAB PO SCH ×3 (08:22→20:09)
[2020-09-18] MEDS: NICOTINE 14MG/24HR PATCH TRANSDERM SCH (08:22)
[2020-09-18] MEDS: lisinopriL 20 MG TAB PO SCH (08:23)
--- NOTE | 2020-09-18 11:18 | P.PN ---
Progress Note - Text Progress Note Date: 09/18/20 Clinical Problems: Psychotic disorder unspecified, rule out is abuse psychotic disorder, rule out psychotic disorder secondary to bipolar illness, opiate use disorder severe, methamphetamine use disorder severe, cannabis use disorder, tobacco use Interim history: I reviewed the medical record and interviewed the patient. She complained of feeling unwell and experiencing nausea and hot and cold sweats. These symptoms began last night and persisted since. She denied vomiting. She is afebrile (temperature 97.8F). We discussed possible since for the nausea. She posed the thought that maybe related to withdrawal from opiates and methamphetamine. She does not attend therapeutic groups and activities. She spends her time in bed coming out for meals her medications. She frequent requests when necessary Ativan for complaints of subjective anxiety. Mental status exam: She presented as a casually groomed 35-year-old female who was pleasant on approach. She made eye contact and attended the interview. She had a loaded facial expression. She showed psychomotor retarda tion but no abnormal involuntary movements. Her speech was spontaneous with decreased rate and rhythm. Affect was blunted. She did not express suicidal ideation, wishes or homicidal ideation. She expressed feelings of service regarding this hospitalization. She did not express ideas reference, paranoid ideation or delusions. Her thinking was concrete and medication focused. She denied hallucinations and did not appear to be responding to internal stimuli. Assessment: She remains withdrawn and unengage with therapeutic services. The nausea may be related to her psychotropic medications including BuSpar, Depakote, Prolixin and Neurontin. Plan: Continue inpatient treatment. Probate hearing pending. Hold Depakote 250 mg at bedtime. Continue BuSpar 15 mg 3 times a day, Prolixin 2 mg twice a day and Neurontin 200 mg at bedtime when necessary for anxiety or pain. Continue Tenormin 50 mg daily, Zestril 10 mg daily and nicotine patch. Encourage participation in therapeutic groups and activities. Evaluate clinical status response to treatment daily basis.
[2020-09-18] MEDS: LORazepam 1 MG TAB PO PRN ×2 (11:25→20:09)
[2020-09-18] MEDS: IBUPROFEN 800 MG TAB PO PRN (11:54)
[2020-09-18] MEDS: ACETAMINOPHEN TAB 325 MG TAB PO PRN (17:00)
[2020-09-18] MEDS: GABAPENTIN 100 MG CAP PO PRN (17:00)
[2020-09-18] MEDS: ONDANSETRON 4 MG TAB PO PRN (19:18)
[2020-09-18] MEDS: MAG HYDROX/AL HYDROX/SIMETH 30 ML CUP PO PRN (20:09)
[2020-09-19] MEDS: NICOTINE 14MG/24HR PATCH TRANSDERM SCH (09:29)
[2020-09-19] MEDS: atenoloL 50 MG TAB PO SCH (09:30)
[2020-09-19] MEDS: busPIRone HCl 5 MG TAB PO SCH ×3 (09:30→21:35)
[2020-09-19] MEDS: lisinopriL 20 MG TAB PO SCH (09:31)
[2020-09-19] MEDS: LORazepam 1 MG TAB PO PRN ×3 (11:27→21:35)
--- NOTE | 2020-09-19 13:23 | P.PN ---
Progress Note - Text Progress Note Date: 09/19/20 Clinical Problems: Psychotic disorder unspecified, rule out is abuse psychotic disorder, rule out psychotic disorder secondary to bipolar illness, opiate use disorder severe, methamphetamine use disorder severe, cannabis use disorder, tobacco use Interim history: I reviewed the medical record, interviewed the patient is asked her treatment and treatment plan during team meeting. She again complained of feeling unwell and experiencing nausea and hot and cold sweats. She denied vomiting. She is afebrile (temperature 97.8F). She has noticed no change in these symptoms since we discontinued Depakote. She continues to deny that these symptoms could be related to the opiate methamphetamine withdrawal. Otherwise she only concern was discharge and she anticipates being discharged after her probate hearing. She attended one therapeutic activities yesterday. She spends her time in bed coming out for meals or medications. She frequent requests when necessary Ativan for complaints of subjective anxiety. Mental status exam: She presented as a casually groomed 35-year-old female who was minimally cooperative. She made eye contact and attended the interview. She had a blunted facial expression. She had normal psychomotor activity. Her speech was spontaneous with decreased rate and rhythm. Affect was blunted. She did not express suicidal ideation, wishes or homicidal ideation. She expressed feelings of restlessness regarding this hospitalization. She was somatically preoccupied but did not express somatic delusional beliefs. She did not express ideas reference, paranoid ideation or delusions. Her thinking was concrete and medication focused. She denied hallucinations and did not appear to be responding to internal stimuli. Assessment: She remains withdrawn and unengage with therapeutic services. The somatic symptoms are likely related to withdrawal from opiates and methamphetamine Plan: Continue inpatient treatment. Probate hearing pending. Continue BuSpar 15 mg 3 times a day, Prolixin 2 mg twice a day and Neurontin 200 mg at bedtime when necessary for anxiety or pain. Continue Tenormin 50 mg daily, Zestril 10 mg daily and nicotine patch. Encourage participation in therapeutic groups and activities. Evaluate clinical status response to treatment daily basis.
[2020-09-19] MEDS: GABAPENTIN 100 MG CAP PO PRN (21:35)
[2020-09-20] MEDS: NICOTINE 14MG/24HR PATCH TRANSDERM SCH (08:14)
[2020-09-20] MEDS: busPIRone HCl 5 MG TAB PO SCH ×3 (08:15→20:12)
[2020-09-20] MEDS: atenoloL 50 MG TAB PO SCH (08:15)
[2020-09-20] MEDS: lisinopriL 20 MG TAB PO SCH (08:57)
[2020-09-20 09:03] VITALS: RESP 16
[2020-09-20] MEDS: LORazepam 1 MG TAB PO PRN (12:30)
[2020-09-20] MEDS: IBUPROFEN 800 MG TAB PO PRN ×2 (13:44→20:13)
--- NOTE | 2020-09-20 13:44 | P.PN ---
Progress Note - Text Progress Note Date: 09/20/20 Clinical Problems: Psychotic disorder unspecified, rule out is abuse psychotic disorder, opiate use disorder severe, methamphetamine use disorder severe, cannabis use disorder, tobacco use Interim history: I reviewed the medical record, interviewed the patient is asked her treatment and treatment plan during team meeting. She complained of flank pain and feeling restless and sedated. She attributes the latter to the Prolixin; the antipsychotic started during this admission. She is keen on discharge and expressed an interest in waving and stipulating to the probate order. We talked about her frequent hospitalizations and her use of methamphetamine and opiates. She again alleged that she does not have to use is her drug but has been feeling lonely and abandoned since her family moved from [place] to [place]. She remained in [place] rather than moving with her family because she has a daughter in [place]. She attended to therapeutic activities yesterday. She spends her time in bed coming out for meals or medications. She frequent requests when necessary Ativan for complaints of subjective anxiety. Mental status exam: She presented as a casually groomed 35-year-old female who was pleasant and cooperative. She made eye contact and attended the interview. She had a blunted facial expression. She had normal psychomotor activity. Her speech was spontaneous with normal rate and rhythm. Affect was blunted. She did not express suicidal ideation, wishes or homicidal ideation. She expressed feelings of hopelessness regarding this hospitalization. She was somatically preoccupied but did not express somatic delusional beliefs. She did not express ideas reference, paranoid ideation or delusions. Her thinking was concrete and medication focused. She denied hallucinations and did not appear to be responding to internal stimuli. Assessment: She remains withdrawn and unengage with therapeutic services. The somatic symptoms are likely related to withdrawal from opiates and methamphetamine. Rule out urinary tract infection Plan: Continue inpatient treatment. Probate scheduled for 09/21/2020. Urine culture and sensitivity. His continue Prolixin 2 mg twice a day. Continue BuSpar 15 mg 3 times a day and Neurontin 200 mg at bedtime when necessary for anxiety or pain. Continue Tenormin 50 mg daily, Zestril 10 mg daily and nicotine patch. Decrease Ativan to 0.5 mg twice a day. Encourage participation in therapeutic groups and activities. Evaluate clinical status response to treatment daily basis.
[2020-09-20] MEDS: GABAPENTIN 100 MG CAP PO PRN ×2 (13:45→20:14)
[2020-09-20] MEDS ORDERED: QUEtiapine 25 MG TAB PO ONE (14:34)
[2020-09-20] MEDS: LORazepam 0.5 MG TAB PO SCH (20:12)
[2020-09-20] MEDS: ACETAMINOPHEN TAB 325 MG TAB PO PRN (20:14)
[2020-09-20] MEDS: MAG HYDROX/AL HYDROX/SIMETH 30 ML CUP PO PRN (20:16)
[2020-09-20] MEDS ORDERED: QUEtiapine 100 MG TAB PO SCH (21:00)
[2020-09-21 07:21] VITALS: TEMP 98.7
[2020-09-21] MEDS: NICOTINE 14MG/24HR PATCH TRANSDERM SCH (09:23)
[2020-09-21] MEDS: busPIRone HCl 5 MG TAB PO SCH (09:23)
[2020-09-21] MEDS: LORazepam 0.5 MG TAB PO SCH (09:24)
[2020-09-21] MEDS: lisinopriL 20 MG TAB PO SCH (09:26)
[2020-09-21] MEDS: atenoloL 50 MG TAB PO SCH (09:26)
[2020-09-21 09:27] VITALS: BP 102/56; PULSE 100
[2020-09-21] MEDS: IBUPROFEN 800 MG TAB PO PRN (11:22)
[2020-09-21] MEDS: GABAPENTIN 100 MG CAP PO PRN (11:23)
[2020-09-21] MEDS: ACETAMINOPHEN TAB 325 MG TAB PO PRN (11:23)
--- NOTE | 2020-09-21 12:14 | P.DS ---
Providers Date of admission: 09/13/20 19:25 Attending physician: Eusebio Moreno MD Consults: 09/13/20 20:05 Consult Physician Routine Consulting Provider: Christophe Melton Consult Reason/Comments: H&P and medical Do you want consulting provider notified?: Yes Primary care physician: Christophe Melton MD - Discharge Diagnosis(es) (1) Drug-induced psychotic disorder Current Visit: No Status: Acute Priority: Medium (2) Cannabis use disorder, mild, abuse Current Visit: No Status: Chronic Priority: Low (3) Methamphetamine use disorder, severe Current Visit: No Status: Chronic Priority: High (4) Opioid use disorder, severe, dependence Current Visit: No Status: Chronic Priority: High (5) Tobacco use Current Visit: Yes Status: Acute Hospital Course: HISTORY: She is a 35-year-old female who was admitted to the psychiatric unit involuntarily for psychosis, she is currently living with a friend has 1 in an house and is unemployed. She has a significant history for polysubstance abuse including methamphetamine and bipolar disorder with multiple psychiatric hospitalizations within the past few months. Patient presented to the ER and complained of believing that someone had killed her father and daughter. She stated that she could not get a hold of them or reach them. She is also endorsing auditory hallucinations of whispering in her ears. She reported that her last methamphetamine use was 2 days prior to coming into the ER. Patient's UDS was positive for methamphetamine, opiates, TCAs and THC. Patient was previously discharged from the mental health unit on Seroquel with [facility] follow-up however patient did not follow up. Patient was seen today and appeared to be fairly disheveled in appearance and have poor hygiene and grooming. She claims that she stopped taking her medications and believes that she is on the "wrong meds". She states that she wants to be back on Xanax at this time and believes that the hospital is telling her PCP to take her off of Xanax. She states that "I have nothing for panic attacks and have them every day". She claims that she also came into the hospital because she believed that her kid was "gone". She claims that it was because she wasn't on her medications that she believed that. She also states that her brother may have been killed by "Kevin" however claims that she is unsure about this. She states that her father was also killed. She states that she has been using methamphetamine daily approximately "2 lines" a day. She states that her mood is okay however claims that she has anxiety. She states that she's been having poor sleep. At this time she is denying any suicidal or homicidal ideations intent or plan. She denies any auditory or visual gardiner ucinations. She has had multiple psychiatric hospitalizations. This appears to be her fifth psychiatric hospitalization over the past year. The patient was admitted to [facility] in May and at [facility] in July. She was previously discharged from the mental health unit under the care of Dr. Moreno. She was previously on seroquel however claims that she only needs to be on xanax. HOSPITAL COURSE: We admitted to the psychiatric unit, filed a demand for probate hearing and provided a comprehensive biopsychosocial assessment. Her urine drug screen on admission was positive for opiates, tricyclic antidepressants, amphetamines, methamphetamine and marijuana. The medical imaging tech completed initial physical exam and medical history and diagnosed hypertension although patient was normotensive at admission. The nursing consultant noted that the hypertension is likely secondary to her methamphetamine use. The nursing consultant recommended discontinue Norvasc but continue atenolol 50 mg daily and lisinopril 10 mg daily for treatment of the hypertension. We initially treated for psychotic symptoms with Prolixin 2 mg twice per day and Depakote 250 mg daily. Psychotic symptoms resolved over several days. We treated your complaints of subjective anxiety with BuSpar titrating dose to 15 mg 3 times a day. As in prior to admission she spent much of the hospitalization in bed coming out for medications or meals. She rarely attended therapeutic groups and activities. After she recovered from psychosis she complained of side effects to her medications. We discussed treatment options and agreed to restart Seroquel 300 mg at bedtime. She showed limited understanding of the relationship between her drug use and her psychiatric hospitalizations. She minimized the severity and frequency of use. She alleged that she also uses when she visited her ex- boyfriend but did not visit him now because he is in [facility]pc. She demanded to be discharged as soon as she recovered from psychosis. She stipulated to the involuntary treatment order. MENTAL STATUS ON DISCHARGE: She presented as a casually groomed 35-year-old female who was pleasant and cooperative. She made eye contact and attended the interview. She had a blunted facial expression. She had normal psychomotor activity. Her speech was spontaneous with normal rate and rhythm. Affect was blunted. She did not express suicidal ideation, wishes or homicidal ideation. She expressed feelings of hopelessness regarding this hospitalization. She was somatically preoccupied but did not express somatic delusional beliefs. She did not express ideas reference, paranoid ideation or delusions. Her thinking was concrete and medication focused. She denied hallucinations and did not appear to be responding to internal stimuli. DISPOSITION: She was discharged to her former address. Her discharge psychotropic medications include gabapentin 100 mg twice a day, Seroquel 300 mg at bedtime and BuSpar 15 mg 3 times a day. She has an appointment scheduled with [facility] on 09/27/2020 at 1:30 PM. Patient Condition at Discharge: Stable Plan - Discharge Summary New Discharge Prescriptions: New busPIRone HCL [Buspar] 15 mg PO TID #60 tablet Gabapentin [Neurontin] 100 mg PO BID PRN #60 cap PRN Reason: Pain QUEtiapine FUMARATE [SEROquel] 300 mg PO HS #30 tab Continue Ibuprofen [Motrin] 800 mg PO Q6H PRN PRN Reason: Pain Atenolol [Tenormin] 50 mg PO DAILY lisinopriL [Zestril] 20 mg PO DAILY Nicotine 14Mg/24Hr Patch [Habitrol] 1 patch TRANSDERM DAILY patch Discontinued amLODIPine [Norvasc] 5 mg PO DAILY Azithromycin [Zithromax Z-pack (6 tabs)] See Taper PO DIRECTED cloNIDine HCL [Catapres] 0.1 mg PO HS QUEtiapine [SEROquel] 150 mg PO HS Divalproex [Depakote] 250 mg PO HS busPIRone HCl [Buspar] 10 mg PO BID Discharge Medication List Atenolol [Tenormin] 50 mg PO DAILY 08/24/20 [History] Ibuprofen [Motrin] 800 mg PO Q6H PRN 08/24/20 [History] lisinopriL [Zestril] 20 mg PO DAILY 08/24/20 [History] Nicotine 14Mg/24Hr Patch [Habitrol] 1 patch TRANSDERM DAILY patch 08/29/20 [Rx] Gabapentin [Neurontin] 100 mg PO BID PRN #60 cap 09/21/20 [Rx] QUEtiapine FUMARATE [SEROquel] 300 mg PO HS #30 tab 09/21/20 [Rx] busPIRone HCL [Buspar] 15 mg PO TID #60 tablet 09/21/20 [Rx] Follow up Appointment(s)/Referral(s): Christophe Melton MD [Primary Care Provider] - 1-2 days Activity/Diet/Wound Care/Special Instructions: Activity and diet as tolerated. Avoid the use of street drugs and alcohol. Take all medications as prescribed. When you are in need of refills on your medications please contact your medical provider and/or outpatient psychiatrist to have this done. Please go to scheduled outpatient appointment for aftercare treatment. If symptoms return or become worse, call the crisis line at and/or go to the nearest emergency room for evaluation. Discharge Disposition: HOME SELF-CARE
== END 2020-09-21 13:30 | disposition home or self-care (01) | DRG 897 ==
LOC: EC 15:45 → 3MHU 19:25
PROVIDERS: ADMIT Psychiatry & Neurology Psychiatry; ATTEND Psychiatry & Neurology Psychiatry
DX: F15.259 Other stimulant dependence with stimulant-induced psychotic disorder, unspecified (principal); F23 Brief psychotic disorder; F11.20 Opioid dependence, uncomplicated; F29 Unspecified psychosis not due to a substance or known physiological condition; F31.9 Bipolar disorder, unspecified; F15.23 Other stimulant dependence with withdrawal; Z20.822 Contact with and (suspected) exposure to COVID-19; I10 Essential (primary) hypertension; M79.7 Fibromyalgia; G43.909 Migraine, unspecified, not intractable, without status migrainosus; G89.29 Other chronic pain; F41.0 Panic disorder [episodic paroxysmal anxiety]; F17.200 Nicotine dependence, unspecified, uncomplicated; F12.10 Cannabis abuse, uncomplicated; Z56.0 Unemployment, unspecified; Z79.899 Other long term (current) drug therapy; Z87.440 Personal history of urinary (tract) infections; Z88.0 Allergy status to penicillin; Z65.3 Problems related to other legal circumstances; Z82.49 Family history of ischemic heart disease and other diseases of the circulatory system; Z83.3 Family history of diabetes mellitus; Z80.49 Family history of malignant neoplasm of other genital organs
CPT/HCPCS: 80306; 82075; 87086; 87635; 93005; 96372; 99285

== ENCOUNTER 2021-01-23 19:17 | Inpatient (IN) | payer MEDICAID, OTHER ==
--- NOTE | 2021-01-23 21:36 | ED ---
General Adult HPI - General Chief complaint: Psychiatric Symptoms Stated complaint: Pickup order Time Seen by Provider: 01/23/21 21:13 Source: patient Mode of arrival: ambulatory Limitations: no limitations - History of Present Illness Initial comments: 35-year-old female with a past medical history of anxiety, depression, psychosis with multiple admissions presents to the emergency room for pickup order. Patient has not been taking her IM injection of Haldol since November. Patient states she was told she does not have to take this and is taking her oral medications. States she has too many side effects from the IM medication. Patient denies any suicidal or homicidal thoughts.Patient has no other complaints at this time including shortness of breath, chest pain, abdominal pain, nausea or vomiting, headache, or visual changes. - Related Data Home Medications Medication Instructions Recorded Confirmed Atenolol [Tenormin] 50 mg PO DAILY 08/24/20 01/24/21 Ibuprofen [Motrin] 800 mg PO Q6H PRN 08/24/20 01/24/21 lisinopriL [Zestril] 20 mg PO DAILY 08/24/20 01/24/21 Previous Rx's Medication Instructions Recorded Nicotine 14Mg/24Hr Patch [Habitrol] 1 patch TRANSDERM DAILY patch 08/29/20 Gabapentin [Neurontin] 100 mg PO BID PRN #60 cap 09/21/20 QUEtiapine FUMARATE [SEROquel] 300 mg PO HS #30 tab 09/21/20 busPIRone HCL [Buspar] 15 mg PO TID #60 tablet 09/21/20 Allergies Allergy/AdvReac Type Severity Reaction Status Date / Time Penicillins Allergy Unknown Verified 01/24/21 01:12 Childhood Review of Systems ROS Statement: Those systems with pertinent positive or pertinent negative responses have been documented in the HPI. ROS Other: All systems not noted in ROS Statement are negative. Past Medical History Past Medical History: Hypertension Additional Past Medical History / Comment(s): OTHER HX: fibromyalgia, chronic pain-generalized, migraines, R ovarian cysts, frequent UTI's, tachycardia, gastritis, duodenitis. Anxiety disorder History of Any Multi-Drug Resistant Organisms: None Reported Past Surgical History: Orthopedic Surgery Past Anesthesia/Blood Transfusion Reactions: Unable to Obtain Additional Past Anesthesia/Blood Transfusion Reaction / Comment(s): Pt has never had surgery Past Psychological History: Anxiety, Depression Smoking Status: Current every day smoker Past Alcohol Use History: None Reported Past Drug Use History: Marijuana, Opiates - Past Family History Mother Family Medical History: Cancer, Diabetes Mellitus, Myocardial Infarction ([place]) Additional Family Medical History / Comment(s): Mother had cervical cancer and hypotension. Father Family Medical History: Hypertension General Exam Limitations: no limitations General appearance: alert, in no apparent distress Head exam: Present: atraumatic, normocephalic, normal inspection Eye exam: Present: normal appearance, PERRL, EOMI. Absent: scleral icterus, conjunctival injection, periorbital swelling ENT exam: Present: normal exam, mucous membranes moist Neck exam: Present: normal inspection. Absent: tenderness, meningismus, lymphadenopathy Respiratory exam: Present: normal lung sounds bilaterally. Absent: respiratory distress, wheezes, rales, rhonchi, stridor Cardiovascular Exam: Present: regular rate, normal rhythm, normal heart sounds. Absent: systolic murmur, diastolic murmur, rubs, gallop, clicks Neurological exam: Present: alert Psychiatric exam: Present: normal affect, normal mood Course Vital Signs 01/23/21 20:10 Temperature 98.0 F Pulse Rate 76 Respiratory 18 Rate Blood Pressure 144/100 O2 Sat by Pulse 99 Oximetry Medical Decision Making - Medical Decision Making pt seen by EPS, admitted under court order - Lab Data Lab Results 01/23/21 01/23/21 01/24/21 Range/Units 22:01 23:24 00:01 Urine Color Dark Brown Urine Appearance Turbid H (Clear) Urine pH 6.5 (5.0-8.0) Ur Specific [place] 1.024 (1.001-1.035) Urine Protein 1+ H (Negative) Urine Glucose (UA) Negative (Negative) Urine Ketones 1+ H (Negative) Urine Blood Negative (Negative) Urine Nitrite Positive H (Negative) Urine Bilirubin Negative (Negative) Urine Urobilinogen <2.0 (<2.0) mg/dL Ur Leukocyte Esterase Negative (Negative) Urine WBC 13 H (0-5) /hpf Ur Squamous Epith Cells 4 (0-4) /hpf Urine Bacteria Many H (None) /hpf Urine Mucus Many H (None) /hpf Urine HCG, Qual (Not Detectd) Urine Opiates Screen Not Detected (NotDetected) Ur Oxycodone Screen Not Detected (NotDetected) Urine Methadone Screen Not Detected (NotDetected) Ur Propoxyphene Screen Not Detected (NotDetected) Ur Barbiturates Screen Not Detected (NotDetected) U Tricyclic Antidepress Detected H (NotDetected) Ur Phencyclidine Scrn Not Detected (NotDetected) Ur Amphetamines Screen Detected H (NotDetected) U Methamphetamines Scrn Detected H (NotDetected) U Benzodiazepines Scrn Not Detected (NotDetected) Urine Cocaine Screen Not Detected (NotDetected) U Marijuana (THC) Screen Detected H (NotDetected) Coronavirus (PCR) Not Detected (Not Detectd) 01/24/21 Range/Units 00:01 Urine Color Urine Appearance (Clear) Urine pH (5.0-8.0) Ur Specific [place] (1.001-1.035) Urine Protein (Negative) Urine Glucose (UA) (Negative) Urine Ketones (Negative) Urine Blood (Negative) Urine Nitrite (Negative) Urine Bilirubin (Negative) Urine Urobilinogen (<2.0) mg/dL Ur Leukocyte Esterase (Negative) Urine WBC (0-5) /hpf Ur Squamous Epith Cells (0-4) /hpf Urine Bacteria (None) /hpf Urine Mucus (None) /hpf Urine HCG, Qual Not Detected (Not Detectd) Urine Opiates Screen (NotDetected) Ur Oxycodone Screen (NotDetected) Urine Methadone Screen (NotDetected) Ur Propoxyphene Screen (NotDetected) Ur Barbiturates Screen (NotDetected) U Tricyclic Antidepress (NotDetected) Ur Phencyclidine Scrn (NotDetected) Ur Amphetamines Screen (NotDetected) U Methamphetamines Scrn (NotDetected) U Benzodiazepines Scrn (NotDetected) Urine Cocaine Screen (NotDetected) U Marijuana (THC) Screen (NotDetected) Coronavirus (PCR) (Not Detectd) Disposition Clinical Impression: Noncompliance with medication regimen Disposition: TRANSFER TO PSYCH HOSP/UNIT Is patient prescribed a controlled substance at d/c from ED?: No Time of Disposition: 02:50
[2021-01-23 22:21] LABS: Urn Cannabinoid Scrn Detected (NotDetected)
[2021-01-23 22:22] LABS: Amphetamine Screen,Urine Detected (NotDetected); Barbiturate Screen,Urine Not Detected (NotDetected); Benzodiazepines Screen,Urine Not Detected (NotDetected); Cocaine Screen,Urine Not Detected (NotDetected); Methadone Screen, Urine Not Detected (NotDetected); Opiate Screen,Urine Not Detected (NotDetected); Oxycodone Screen, Urine Not Detected (NotDetected); Phencyclidine Screen,Urine Not Detected (NotDetected); Tricyclic Antidepressant,Urine Detected (NotDetected)
[2021-01-24] MEDS ORDERED: HALOPERIDOL LACTATE 5 MG/ML 1 ML VIAL IM PRN (00:12)
[2021-01-24] MEDS ORDERED: MAGNESIUM HYDROXIDE 2,400 MG/10 ML CUP PO PRN (00:12)
[2021-01-24] MEDS ORDERED: haloperidoL 5 MG TAB PO PRN (00:12)
[2021-01-24] MEDS ORDERED: LORazepam 2 MG/ML INJ IM PRN (00:12)
[2021-01-24] MEDS ORDERED: MAG HYDROX/AL HYDROX/SIMETH 30 ML CUP PO PRN (00:12)
[2021-01-24] MEDS ORDERED: QUEtiapine 100 MG TAB PO SCH (01:00)
[2021-01-24] MEDS: LORazepam 1 MG TAB PO PRN ×3 (01:02→18:21)
[2021-01-24] MEDS: ACETAMINOPHEN TAB 325 MG TAB PO PRN (01:02)
[2021-01-24 01:28] LABS: Appearance,Urine Turbid (Clear); Bacteria,Urine Many /hpf; Bilirubin,Urine Negative (Negative); Blood,Urine Negative (Negative); Color,Urine Dark Brown; Glucose,Urine (UA) Negative (Negative); Ketones,Urine 1+ (Negative); Leukocyte Esterase,Urine Negative (Negative); Mucus,Urine Many /hpf; Nitrite,Urine Positive (Negative); PH, Urine 6.5 (5.0-8.0); Protein,Urine 1+ (Negative); Specific Gravity,Urine 1.024 (1.001-1.035); Squamous Epithelial Cell,Urine 4 /hpf (0-4); Urobilinogen,Urine <2.0 mg/dL (<2.0); WBC,Urine 13 /hpf (0-5)
[2021-01-24] MEDS ORDERED: cloNIDine HCL 0.1 MG TAB PO STA (08:16)
--- NOTE | 2021-01-24 10:15 | P.HP ---
Psychiatric H&P - . H&P Date: 01/24/21 History & Physical: Allergies Allergy/AdvReac Type Severity Reaction Status Date / Time Penicillins Allergy Unknown Verified 01/24/21 01:12 Childhood Vital Signs Temp 98.5 F 01/24/21 00:58 Pulse 69 01/24/21 00:58 Resp 18 01/24/21 00:58 BP 174/100 01/24/21 00:58 Pulse Ox 100 01/24/21 00:58 Intake & Output 01/23/21 01/24/21 01/24/21 18:59 06:59 18:59 Weight 48.081 kg Laboratory Last Values Urine Color Dark Brown 01/24/21 00:01 Urine Appearance Turbid (Clear) H 01/24/21 00:01 Urine pH 6.5 (5.0-8.0) 01/24/21 00:01 Ur Specific [place] 1.024 (1.001-1.035) 01/24/21 00:01 Urine Protein 1+ (Negative) H 01/24/21 00:01 Urine Glucose (UA) Negative (Negative) 01/24/21 00:01 Urine Ketones 1+ (Negative) H 01/24/21 00:01 Urine Blood Negative (Negative) 01/24/21 00:01 Urine Nitrite Positive (Negative) H 01/24/21 00:01 Urine Bilirubin Negative (Negative) 01/24/21 00:01 Urine Urobilinogen <2.0 mg/dL (<2.0) 01/24/21 00:01 Ur Leukocyte Esterase Negative (Negative) 01/24/21 00:01 Urine WBC 13 /hpf (0-5) H 01/24/21 00:01 Ur Squamous Epith Cells 4 /hpf (0-4) 01/24/21 00:01 Urine Bacteria Many /hpf (None) H 01/24/21 00:01 Urine Mucus Many /hpf (None) H 01/24/21 00:01 Urine HCG, Qual Not Detected (Not Detectd) 01/24/21 00:01 Urine Opiates Screen Not Detected (NotDetected) 01/23/21 22:01 Ur Oxycodone Screen Not Detected (NotDetected) 01/23/21 22:01 Urine Methadone Screen Not Detected (NotDetected) 01/23/21 22:01 Ur Propoxyphene Screen Not Detected (NotDetected) 01/23/21 22:01 Ur Barbiturates Screen Not Detected (NotDetected) 01/23/21 22:01 U Tricyclic Antidepress Detected (NotDetected) H 01/23/21 22:01 Ur Phencyclidine Scrn Not Detected (NotDetected) 01/23/21 22:01 Ur Amphetamines Screen Detected (NotDetected) H 01/23/21 22:01 U Methamphetamines Scrn Detected (NotDetected) H 01/23/21 22:01 U Benzodiazepines Scrn Not Detected (NotDetected) 01/23/21 22:01 Urine Cocaine Screen Not Detected (NotDetected) 01/23/21 22:01 U Marijuana (THC) Screen Detected (NotDetected) H 01/23/21 22:01 Coronavirus (PCR) Not Detected (Not Detectd) 01/23/21 23:24 01/24/21 10:05 IDENTIFYING DATA: Patient is a 35-year-old female who was admitted to the psychiatric unit for psychosis, she is currently living with her uncle in an house and is unemployed. HPI: Patient has a significant history for polysubstance abuse including methamphetamine and mood disorder with multiple psychiatric hospitalizations in the past. Patient presented to the ER on a pickup order last night. According to ER report patient has apparently "not been taking her IM injection of Haldol since November". She had apparently stated that she does not have to take this any longer and has been taking her oral medications. Patient was seen in the hallway sleeping on a chair and appeared to have a disheveled appearance. She was awoken by senior writer and agreeable to speak in the office. She appeared to have fairly poor hygiene and grooming and also appeared to be drowsy/lethargic. She was a poor historian. She claims that her [facility] worker "[place]" had petitioned her to come to the hospital. She claims that she does not know why she had done this. She states that she is not using any drugs however her UDS was positive for methamphetamine, THC and TCAs. She claims that after senior writer asked her about the drug use she states that "I was probably using a little bit". She claims that it was mainly methamphetamine and marijuana however did not say how much she was using. She claims that her mood is "fine but sad". She claims that she misses her daughter who is 15 years old. She states that her daughter then going back and forth with the father. She claims that she is not having any anxiety at this time and endorsing mild depression. She states that her sleep has been poor and admits to a fair appetite. At this time she is denying any suicidal or homicidal ideations intent or plan. She denies any auditory or visual hallucinations. She is not endorsing any paranoid thoughts at this time or any delusions. PAST PSYCHIATRIC HISTORY: Patient has had multiple psychiatric hospitalizations. She has had varying diagnosis including depression and psychosis along with anxiety. Her last psychiatric admission was in September 2020. She was previously discharged from the mental health unit under the care of Dr. Moreno. He denies any history of suicide attempts. She is currently following up with [facility] and his depression is under a court order for treatment. PMH: Hypertension ALLERGIES: Penicillins CHEMICAL DEPENDENCY HISTORY: Patient tested positive for multiple illicit substances including amphetamines, methamphetamines, and cannabis. FAMILY PSYCHIATRIC/SUBSTANCE USE HISTORY: denies SOCIAL HISTORY: As per review of the patient's chart, the patient does have a history of legal problems including attempted kidnappingcustodial interference, assault and battery, controlled substance manufacturing, and maintaining a drug house, and uttering and publishing. She has one child out of wedlock. She currently lives with her uncle in a house. She is unemployed and has no income. MENTAL STATUS EXAM: General Appearance: Patient appears to be petite and thin with blonde hair. She appears disheveled, dressed in a hospital gown. Poor hygiene and grooming. Behavior: Patient appears to be somnolent, and unable to stay awake during the interview. Eye contact is poor. Speech: Patient's speech is nonspontaneous, concrete. Mood/Affect: She claims her mood is "fine but sad". Affect appears to be constricted. Suicidality/Homicidality: denies Perceptions: Not responding to internal stimuli. Denies any auditory or visual hallucinations. Though content/process: Patient is logical. [place]. Poverty of content. None endorsing any delusions. Memory and concentration: Alert and oriented 3, poor attention span. Judgment and insight: poor STRENGTHS/WEAKNESSES: Strength is that patient has access to healthcare and follow-up. Weakness is polysubstance abuse and impulsivity. INTELLECT: average IMPRESSIONS: Bipolar disorder, currently depressed Methamphetamine abuse cannabis use disorder Nicotine Dependence PLAN: -Patient is admitted on an active court order for treatment to [facility] for stabilization of psychiatric symptoms and safety. Patient has signed medication consent and is placed in patient's chart. -Medications : Continue with Seroquel 300 mg daily at bedtime for mood stabilization/insomnia/psychosis. BuSpar 10 mg twice a day for anxiety. -Ativan and Haldol PRN for agitation/aggression -Patient was counselled on substance abuse and desired to cut back on use -Patient was informed of the risks, benefits and side effects of the medication and patient verbally consented to taking the medications. Patient signed med consent form and was placed in chart. -Internal Medicine consult to perform medical evaluation and physical. -NRT - nicotine patch -SW on board for discharge planning. Encourage patient to participate in groups to work on coping skills. She is currently on an active treatment order.
[2021-01-24] MEDS: atenoloL 50 MG TAB PO SCH (10:25)
[2021-01-24] MEDS: lisinopriL 20 MG TAB PO SCH (10:25)
[2021-01-24] MEDS: NICOTINE 14MG/24HR PATCH TRANSDERM SCH (10:25)
[2021-01-24] MEDS: busPIRone HCl 10 MG TAB PO SCH ×2 (10:26→21:05)
[2021-01-24] MEDS ORDERED: busPIRone HCl 5 MG TAB PO SCH (10:30)
[2021-01-24 11:28] LABS: Basophils # (A) 0.1 k/uL (0-0.2); Basophils % (A) 1 %; Eosinophils # (A) 0.3 k/uL (0-0.7); Eosinophils % (A) 3 %; HCT 40.4 % (34.0-46.0); HGB 13.7 gm/dL (11.4-16.0); Lymphocytes # (A) 3.5 k/uL (1.0-4.8); Lymphocytes % (A) 34 %; MCH 31.9 pg (25.0-35.0); MCV 93.9 fL (80.0-100.0); Mean Platelet Volume 7.1; Monocytes # (A) 0.6 k/uL (0-1.0); Monocytes % (A) 6 %; Neutrophils # (A) 5.7 k/uL (1.3-7.7); Neutrophils % (A) 55 %; Platelet Count 351 k/uL (150-450); WBC 10.3 k/uL (3.8-10.6)
[2021-01-24 11:46] LABS: ALT 11 U/L (4-34); AST 15 U/L (14-36); African American GFR (CKD) >90 (>60 ml/min/1.73 sqM); Albumin 3.6 g/dL (3.5-5.0); Alkaline Phosphatase 69 U/L (38-126); Anion Gap 6 mmol/L; Bilirubin,Unconjugated 0.2 mg/dL (0.0-1.1); Blood Urea Nitrogen 15 mg/dL (7-17); Calcium 8.9 mg/dL (8.4-10.2); Carbon Dioxide 28 mmol/L (22-30); Chloride 106 mmol/L (98-107); Glucose 108 mg/dL (74-99); Non-African American GFR(CKD) >90 (>60 ml/min/1.73 sqM); Potassium 3.7 mmol/L (3.5-5.1); Sodium 140 mmol/L (137-145); Total Bilirubin 0.1 mg/dL (0.2-1.3); Total Protein 6.2 g/dL (6.3-8.2)
[2021-01-24] MEDS: QUEtiapine 50 MG TAB PO SCH (21:06)
[2021-01-25] MEDS: busPIRone HCl 10 MG TAB PO SCH ×2 (09:37→21:08)
[2021-01-25] MEDS: atenoloL 50 MG TAB PO SCH (09:37)
[2021-01-25] MEDS: NICOTINE 14MG/24HR PATCH TRANSDERM SCH (09:37)
[2021-01-25] MEDS: lisinopriL 20 MG TAB PO SCH (09:37)
--- NOTE | 2021-01-25 11:08 | P.PN ---
Progress Note - Text Progress Note Date: 01/25/21 Interval History: Patient was seen lying in her bed this morning and was directable and agreeable to speak with business writer in the office. Patient appears to have a disheveled appearance and appeared to be more awake today. She appeared to be very concerned and states that "my father I just found out". She claims that she does not know how he however states that he 3 days ago. She claims that she wants to go check on her family and once the leave the hospital. She was very persistent on discharge today. She claims that "I don't know why you keeping me here" fine". She appears to have very poor insight and judgment. She claims that she does not want to go to groups that she feels she does not need to go to them. She states that she slept poorly last night. At this time patient denies any suicidal or homical ideations, intent or plan. Patient denies any auditory, visual hallucinations. Patient denies any side effects from the medications and has been compliant with meds. Mental Status Exam: General Appearance: Patient appears to be petite and thin with blonde hair. She appears disheveled, dressed in a hospital gown. Poor hygiene and grooming. Poor dentition. Behavior: Patient appears to be more awake today. Eye contact is poor. Demanding discharge Speech: Patient's speech is nonspontaneous, concrete. Mood/Affect: She claims her mood is "fine". Affect appears to be constricted and incongruent. Suicidality/Homicidality: denies Perceptions: Not responding to internal stimuli. Denies any auditory or visual hallucinations. Though content/process: Patient is concrete. Endorsing delusion of her father dying. Paranoia. Perseverating on discharge. Memory and concentration: Alert and oriented 3, poor attention span. Judgment and insight: Chronically poor Assessment Bipolar disorder, currently depressed Methamphetamine abuse cannabis use disorder Nicotine Dependence Plan: -Patient continues to meet criteria for inpatient psychiatric admission for symptom stabilization and safety. Patient is currently on an active treatment order until 03/20/2021. -Medications: Increased Prolixin to 4 mg twice a day for psychosis with a plan to transition patient onto Prolixin D to ensure compliance. Continue Seroquel 150 mg daily at bedtime for mood/psychosis/insomnia. Continue BuSpar 10 mg twice a day for anxiety. -When necessary Ativan and Haldol for agitation/aggression. -NRT - nicotine patch -SW on board for discharge planning. Encouraged the patient to participate in milieu. She is currently on an active treatment order. once patient is psychiatrically stabilized and transitioned onto Prolixin D then shee can be discharged
[2021-01-25] MEDS: LORazepam 1 MG TAB PO PRN ×2 (13:58→21:09)
[2021-01-25] MEDS: QUEtiapine 50 MG TAB PO SCH (21:08)
[2021-01-25] MEDS: ACETAMINOPHEN TAB 325 MG TAB PO PRN (21:09)
[2021-01-26] MEDS: lisinopriL 20 MG TAB PO SCH (08:20)
[2021-01-26] MEDS: NICOTINE 14MG/24HR PATCH TRANSDERM SCH (08:20)
[2021-01-26] MEDS: busPIRone HCl 10 MG TAB PO SCH ×2 (08:21→20:44)
[2021-01-26] MEDS: atenoloL 50 MG TAB PO SCH (08:21)
[2021-01-26] MEDS: IBUPROFEN 800 MG TAB PO PRN (08:24)
[2021-01-26] MEDS: LORazepam 1 MG TAB PO PRN ×2 (08:24→20:44)
[2021-01-26] MEDS: QUEtiapine 50 MG TAB PO SCH (20:44)
--- NOTE | 2021-01-26 20:53 | PN ---
PROGRESS NOTE DATE OF SERVICE: 01/26/2021 CHIEF COMPLAINT: The patient had significant substance use issues. She had not been taking prescribed psychotropic medications. She was on a court order for treatment. INTERVAL HISTORY: Patient has been doing fair. She had a quiet day yesterday. She spends quite a bit of time in her room. She does not come out in the day area much. She does not interact too much with others. She will respond appropriately to staff. She chooses not to attend groups. She says that she has too much problems with social anxiety as noted by Dr. Sethi. She is very focused on going home. She said her father 3 days ago. She did not have any more information about that situation. She was hopeful of getting home, so she could make contact with family. She also says she needs to be home to help support her daughter who is 16 and currently at home alone. The patient said she slept well last night, today she has been up. She continues to keep to herself. She has spent a fair amount of time today in her room as well. She has been cooperative with care. She was having trouble with Haldol and did not want to continue on Haldol Decanoate. As such, she has been switched to Prolixin. She was seen in court in regard to the petition for involuntary treatment. She does have a court order for treatment. She understands that she will be receiving Prolixin Decanoate. She does not have any issues with that. She has not had any problems with the start of Prolixin. She asked about being on Neurontin, which she says she takes for fibromyalgia. It is noted that she has prescribed a fairly low dose of 100 mg twice a day p.r.n. She asked about her Seroquel dose and why it had been reduced from 300 mg down to 150 mg. She does note that she slept fairly well, which may be attributed to some of her medications in combination including the Prolixin. She was hopeful of going home even as early as today though as we discussed her situation, she seemed to accept that she would need to be on Prolixin Decanoate for at least 2 days prior to discharge. In addition, we would not start her on the medication until she has been exposed to, to the oral dose for at least 48 hours. For the most part she seemed to accept that noted that she said she talked to her daughter once, though I encouraged her to have contact with the daughter at least 3 times a day even if they are just brief phone calls. I encouraged the patient to do some therapeutic walking as well. The patient appears to tolerate her psychotropic medications. She is not reporting any EPS symptoms. She does think that she was on some Cogentin previously, though she was not prescribed that when she was here during her September admission. MENTAL STATUS: Patient sat without restlessness. Eye contact was poor. Mostly she sat with her eyes looking down. She responded to questions mostly with one-word responses. She was not spontaneous or interactive. She did not show any change in facial expression. She spoke in a soft voice. Her affect was flat. Mood depressed. She seemed moderately distressed. It was difficult to assess for thought disorder. She voiced no thoughts of harm. She was oriented to his circumstances and surroundings. ASSESSMENT: I will continue the current diagnosis and treatment plan. I will increase Prolixin to 6 mg twice a day. I will continue to review her case and look at ordering Prolixin Decanoate either for tomorrow or Saturday. I discussed discharge planning issues with the patient. We will focus on stabilization and discharge planning. MMODL / IJN: [id number] /
--- NOTE | 2021-01-26 22:13 | P.CONS ---
History of Present Illness - Reason for Consult Consult date: 01/24/21 - Chief Complaint depression - History of Present Illness Maria M Paz is a 35 yo F with PMH of bipolar disorder, psychosis, polysubstance abuse who was brought to the ED by EMS on a pickup order. She had stopped taking her medications and had been using multiple substances including methamphetam ine. Pt hypertensive on admission, labs unremarkable. UDS positive for methamphetamine, THC Review of Systems All systems: negative Constitutional: Denies chills, Denies fever Eyes: denies blurred vision, denies pain Ears, nose, mouth and throat: Denies headache, Denies sore throat Cardiovascular: Denies chest pain, Denies shortness of breath Respiratory: Denies cough Gastrointestinal: Denies abdominal pain, Denies diarrhea, Denies nausea, Denies vomiting Genitourinary: Denies dysuria, Denies hematuria Musculoskeletal: Denies myalgias Integumentary: Denies pruritus, Denies rash Neurological: Denies numbness, Denies weakness Psychiatric: Reports anxiety, Reports depression, Reports difficulty concentrating Endocrine: Denies fatigue, Denies weight change Past Medical History Past Medical History: Hypertension Additional Past Medical History / Comment(s): OTHER HX: fibromyalgia, chronic pain-generalized, migraines, R ovarian cysts, frequent UTI's, tachycardia, gastritis, duodenitis. Anxiety disorder History of Any Multi-Drug Resistant Organisms: None Reported Past Surgical History: Orthopedic Surgery Past Anesthesia/Blood Transfusion Reactions: Unable to Obtain Additional Past Anesthesia/Blood Transfusion Reaction / Comm: Pt has never had surgery Past Psychological History: Anxiety, Depression Smoking Status: Current every day smoker Past Alcohol Use History: None Reported Past Drug Use History: Marijuana, Opiates - Past Family History Mother Family Medical History: Cancer, Diabetes Mellitus, Myocardial Infarction (MD) Additional Family Medical History / Comment(s): Mother had cervical cancer and hypotension. Father Family Medical History: Hypertension Medications and Allergies Home Medications Medication Instructions Recorded Confirmed Type Atenolol [Tenormin] 50 mg PO DAILY 08/24/20 01/24/21 History Ibuprofen [Motrin] 800 mg PO Q6H PRN 08/24/20 01/24/21 History lisinopriL [Zestril] 20 mg PO DAILY 08/24/20 01/24/21 History Nicotine 14Mg/24Hr Patch [Habitrol] 1 patch TRANSDERM DAILY patch 08/29/20 09/13/20 Rx Gabapentin [Neurontin] 100 mg PO BID PRN #60 cap 09/21/20 01/24/21 Rx QUEtiapine FUMARATE [SEROquel] 300 mg PO HS #30 tab 09/21/20 01/24/21 Rx busPIRone HCL [Buspar] 15 mg PO TID #60 tablet 09/21/20 01/24/21 Rx Allergies Allergy/AdvReac Type Severity Reaction Status Date / Time Penicillins Allergy Unknown Verified 01/24/21 01:12 Childhood Physical Exam Vitals: Vital Signs Pulse Resp BP 01/26/21 08:15 90 16 110/77 General: disheveled appearance, NAD. Vitals reviewed Eyes: PERRL, EOMI, conjunctiva normal HENT: normocephalic, mucus membranes moist Neck: supple, no JVD Lungs: normal respiratory effort, no wheezes or rales CV: Regular rate and rhythm, no murmur. Peripheral pulses 2+ Abdomen: soft, nondistended, no organomegaly Lymph: no cervical or axillary LAD Skin: warm and dry. Neuro: A&Ox3, anxious mood and affect Results CBC & Chem 7: 01/24/21 10:53 01/24/21 10:53 Assessment and Plan Plan: 1. Acute psychosis. Management per psychiatry 2. Hypertension. Continue lisinopril 20 mg. Will give one time clonidine dose for meth withdrawal 3. Methamphetamine withdrawal 4. ROCIO. Continue buspar
[2021-01-27] MEDS: NICOTINE 14MG/24HR PATCH TRANSDERM SCH (08:42)
[2021-01-27] MEDS: atenoloL 50 MG TAB PO SCH (08:43)
[2021-01-27] MEDS: busPIRone HCl 10 MG TAB PO SCH ×2 (08:44→20:57)
[2021-01-27] MEDS: lisinopriL 20 MG TAB PO SCH (08:44)
[2021-01-27] MEDS: LORazepam 1 MG TAB PO PRN ×2 (08:44→21:01)
[2021-01-27] MEDS: QUEtiapine 50 MG TAB PO SCH (20:56)
--- NOTE | 2021-01-28 08:52 | PN ---
PROGRESS NOTE DATE OF SERVICE: 01/27/2021 CHIEF COMPLAINT: The patient had significant substance use issue. She has not been taking prescribed psychotropic medications. She was on a court order for treatment. INTERVAL HISTORY: The patient has been doing fair. She had a quiet day yesterday. Generally, she keeps to herself. She will come out in the day area some, though she does not interact much with others. She spends a fair amount of time in her room. She has been cooperative with care. She did not attend any groups yesterday. She reports that she slept fairly well last night. Today, she has been doing about the same. She continues to spend a fair amount of time in her room just laying in bed. When I saw her today, that is where she was when I first saw her. She did not say much. She did not have any significant concerns or complaints. Her only focus was when she would be able to get out of the hospital. She wondered if she would be able to be discharged on Saturday. She understood that she would be the receiving the Prolixin Decanoate injection Saturday. She has been cooperative with care. She tolerates her psychotropic medications. MENTAL STATUS: Patient gave fair eye contact. Psychomotor activity was slowed. Speech was monotone. She answered questions with 1 or 2 word responses. She did not say much. Her affect was flat. Mood reserved. She seemed somewhat distressed, mostly she had a quiet manner. She did not show outward signs of thought disorder. She did not voice any thoughts of harm. She was oriented to her circumstances and her situation. ASSESSMENT: I will continue the current diagnosis and treatment plan. The patient will receive Prolixin Decanoate 25 mg IM tomorrow. She will continue oral Prolixin for a transition. She will continue Seroquel 150 mg at bedtime, though we could look at beginning to taper the dose of that. In addition, she will continue BuSpar 10 mg twice a day. I had briefly reviewed medication issues with the patient. She did not seem to be too focused on that conversation. We will continue to work on stabilization and discharge planning. MMODL / IJN: [id number] /
[2021-01-28] MEDS: NICOTINE 14MG/24HR PATCH TRANSDERM SCH (09:11)
[2021-01-28] MEDS: busPIRone HCl 10 MG TAB PO SCH ×2 (09:13→20:38)
[2021-01-28] MEDS: LORazepam 1 MG TAB PO PRN ×2 (09:13→20:39)
[2021-01-28] MEDS: lisinopriL 20 MG TAB PO SCH (09:13)
[2021-01-28] MEDS: atenoloL 50 MG TAB PO SCH (09:13)
[2021-01-28] MEDS: IBUPROFEN 800 MG TAB PO PRN ×2 (09:14→22:29)
[2021-01-28] MEDS ORDERED: fluPHENAZine DECANOATE 25 MG/ML 5ML MDV IM ONE (10:00)
--- NOTE | 2021-01-28 16:08 | P.PN ---
Progress Note - Text Progress Note Date: 01/28/21 Clinical Problems: Bipolar disorder currently episode depressed, methamphetamine use disorder, cannabis use disorder, tobacco use disorder, poor compliance with mental health treatment Interim history: I reviewed the medical record and the patient. She complained that she was unfairly admitted to the psychiatric unit. She is under court order for involuntary treatment and according to [facility] is not received an injection of Haldol decanoate since November. However, she alleges that she missed one appointment and was not able to schedule a follow-up appointment. She requests to be discharged today because she had received her "HALDOL injection" his morning. She denied that she had been using methamphetamine. However her UDS was positive for amphetamine, methamphetamine and marijuana. Note that her current medications include Prolixin 6 mg twice a day and Prolixin Decanoate 25 mg IM. She denied experiencing feelings of depression or thoughts of or suicide. She denied experiencing auditory, visual or olfactory hallucinations. Mental status exam: She presented as a disheveled appearing 35-year-old female who was pleasant on approach. She made eye contact and attended the interview. She had no prominent physical modalities. She had a flat facial expression. She had psychomotor retardation but no abnormal movements. Her speech was not spontaneous and had decreased rate and rhythm. Affect was flat. She denied suicidal ideation, wishes or homicidal ideation. She denied feeling hopeless, helpless or worthless. She ruminated over this hospitalization. She denied express ideas reference, paranoid ideation or delusions. Her thinking was concrete. Associations were goal- directed. She denied hallucinations didn't appear to responding to internal stimuli. Assessment: She is moderately mentally ill and moderately improve from admission. Plan: Inpatient treatment. Safety precautions. Plan for discharge on 01/30/2021. Continue current psychotropic medications-Prolixin 6 mg twice a day, BuSpar 10 mg twice a day, Seroquel and 50 mg at bedtime. Continue Tenormin and Zestril and Habitrol. target worker to coordinate discharge and aftercare. Encourage participation in therapeutic groups and activities. Evaluate clinical status response to treatment daily basis.
[2021-01-28] MEDS: QUEtiapine 50 MG TAB PO SCH (20:39)
[2021-01-29] MEDS: busPIRone HCl 10 MG TAB PO SCH ×2 (08:10→20:32)
[2021-01-29] MEDS: lisinopriL 20 MG TAB PO SCH (08:10)
[2021-01-29] MEDS: NICOTINE 14MG/24HR PATCH TRANSDERM SCH (08:10)
[2021-01-29] MEDS: atenoloL 50 MG TAB PO SCH (08:11)
[2021-01-29] MEDS: IBUPROFEN 800 MG TAB PO PRN (08:11)
--- NOTE | 2021-01-29 11:38 | P.PN ---
Progress Note - Text Progress Note Date: 01/29/21 Clinical Problems: Bipolar disorder currently episode depressed, methamphetamine use disorder, cannabis use disorder, tobacco use disorder, poor compliance with mental health treatment Interim history: I reviewed the medical record and the patient. She denied problems or concerns other than discharge. She again demanded to be discharge alleging that hospitalization was result of a misunderstanding. She spends her time in bed coming out for meals and medications. She does not attend therapeutic groups or activities. She slept 8 hours last night. Mental status exam: She presented as a disheveled appearing 35-year-old female who was pleasant on approach. She made eye contact and attended the interview. She had a flat facial expression. She had psychomotor retardation but no abnormal movements. Her speech was not spontaneous and had decreased rate and rhythm. Affect was flat. She denied suicidal ideation, wishes or homicidal ideation. She denied feeling hopeless, helpless or worthless. She ruminated over this hospitalization. She denied express ideas r eference, paranoid ideation or delusions. Her thinking was concrete. Associations were goal-directed. She denied hallucinations didn't appear to responding to internal stimuli. Assessment: She is moderately mentally ill and moderately improve from admission. Plan: Inpatient treatment. Safety precautions. Plan for discharge on 01/30/2021. Continue current psychotropic medications-Prolixin 6 mg twice a day, BuSpar 10 mg twice a day, Seroquel and 50 mg at bedtime. Continue Tenormin and Zestril and Habitrol. print room worker to coordinate discharge and aftercare. Encourage participation in therapeutic groups and activities. Evaluate clinical status response to treatment daily basis.
[2021-01-29] MEDS: QUEtiapine 50 MG TAB PO SCH (20:30)
[2021-01-29] MEDS: LORazepam 1 MG TAB PO PRN (20:31)
[2021-01-30 06:46] VITALS: BP 145/91; PULSE 51; RESP 14; TEMP 97.6
[2021-01-30] MEDS ORDERED: hydrOXYzine pamoate 25 MG CAP PO PRN (08:43)
--- NOTE | 2021-01-30 08:55 | P.DS ---
Providers Date of admission: 01/24/21 00:02 Expected date of discharge: 01/30/21 Attending physician: Delta Sethi MD Consults: 01/24/21 00:12 Consult Physician Routine Consulting Provider: Grisel Melton Consult Reason/Comments: H & P Do you want consulting provider notified?: Yes, Notify in am Primary care physician: Grisel Melton - Discharge Diagnosis(es) (1) Bipolar disorder with psychotic features Current Visit: Yes Status: Acute Priority: High (2) Methamphetamine abuse Current Visit: Yes Status: Acute Priority: High (3) Cannabis abuse Current Visit: Yes Status: Acute Priority: Medium (4) Nicotine dependence Current Visit: Yes Status: Acute Priority: Low Hospital Course: Admission HPI: Admission note was completed by content writer "Patient is a 35-year-old female who was admitted to the psychiatric unit for psychosis, she is currently living with her uncle in an house and is unemployed. Patient has a significant history for polysubstance abuse including methamphetamine and mood disorder with multiple psychiatric hospitalizations in the past. Patient presented to the ER on a pickup order last night. According to ER report patient has apparently "not been taking her IM injection of Haldol since November". She had apparently stated that she does not have to take this any longer and has been taking her oral medications. Patient was seen in the hallway sleeping on a chair and appeared to have a disheveled appearance. She was awoken by content writer and agreeable to speak in the office. She appeared to have fairly poor hygiene and grooming and also appeared to be drowsy/lethargic. She was a poor historian. She claims that her [facility] worker "[place]" had petitioned her to come to the hospital. She claims that she does not know why she had done this. She states that she is not using any drugs however her UDS was positive for methamphetamine, THC and TCAs. She claims that after content writer asked her about the drug use she states that "I was probably using a little bit". She claims that it was mainly methamphetamine and marijuana however did not say how much she was using. She claims that her mood is "fine but sad". She claims that she misses her daughter who is 15 years old. She states that her daughter then going back and forth with the father. She claims that she is not having any anxiety at this time and endorsing mild depression. She states that her sleep has been poor and admits to a fair appetite. At this time she is denying any suicidal or homicidal ideations intent or plan. She denies any auditory or visual hallucinations. She is not endorsing any paranoid thoughts at this time or any delusions." Hospital course: Upon admission to the unit patient was initially bizarre, delusional and labile. Patient was however currently on an active treatment order. Patient got along well with other patients on the unit and followed unit protocol. Patient was compliant with the medications and denied any side effects throughout hospital course. Patient was started on Prolixin by mouth and transitioned onto Prolixin D 25 mg IM and given her first dose on 01/28 and will be due for her next dose in 2 weeks on 02/10/21. Patient was also resumed back on Seroquel however dose was titrated down to 100 mg daily at bedtime and will need to be further evaluated with her outpatient psychiatrist to see if this dose can be further decreased or titrated off. Patient was started on BuSpar titrated up to 15 mg twice a day for anxiety. Patient spoke of her stressors and engaged in therapy both group and individual. Patient was also seen by medical team for history and physical exam. Throughout the course of the hospitalization patient gradually improved with regards to mood, psychosis, anxiety, sleep and became more future oriented with improved insight and judgment. On the day of discharge patient denied any suicidal or homicidal ideations intent or plan denied any auditory or visual hallucinations. Patient endorsed wanting to live for her health and her daughter. The patient denied any access to guns or weapons. Patient denied any paranoia and did not endorse any delusions. Patient does have a significant history of substance abuse and was counseled on abstaining from all substances including alcohol and marijuana. Patient was offered however declined inpatient substance-abuse rehab. Patient elected to do outpatient substance use treatment program through [facility]. Patient was also counseled on the medications and need for regular compliance and was encouraged to follow-up with their outpatient appointment for mental health and also for primary care. Prior to discharge a family meeting will be arranged by social sciences professor to answer any questions and ensure safety upon discharge. Mental status exam: General Appearance: Patient appears to be short in stature, stated age is alert, pleasant, and cooperative. Patient is in no acute distress and has improved hygiene and grooming Behavior: Patient is calmly seated without any agitated behavior. Speech: Patient's speech is fluent and nonpressured. Mood/Affect: Patient reports their mood is "better", affect is congruent Suicidality/Homicidality: Patient denies having any suicidal or homicidal ideation intent or plan. Perceptions: Patient denies any auditory or visual hallucinations. Though content/process: There is no evidence of any delusional thought content and thought process is linear and goal-directed. [place] at times. Memory and concentration: AOX3, grossly intact for the purposes of this session. Can spell "WORLD" backwards correctly. Judgment and insight: chronically poor, however has improved with guarded prognosis Impression: Bipolar disorder, with psychotic features Methamphetamine abuse Cannabis abuse Nicotine dependence Plan: -Continue with discharge today as patient has improved and stabilized psychiatrically and is not currently an imminent threat to herself and/or others. Patient will remain at chronically elevated risk for harm to self and/or others due to her impulsivity and polysubstance abuse. -Continue medications: Continue with Seroquel by mouth 100 mg daily at bedtime for mood/psychosis/insomnia, this can continue to be evaluated and titrated down further as an outpatient. Use par 15 mg twice a day for anxiety. Vistaril 25 mg twice a day when necessary for anxiety, continue with Prolixin by mouth 4 mg twice a day for 4 days then to be discontinued. Patient was transitioned onto Prolixin D 25 mg IM and given her first dose on 01/28 and will be due for her next dose in 2 weeks on 02/10/21. -Patient was counseled on the need for medication compliance and appropriate follow-up at mental health and also primary care for medical issues. Patient verbalized understanding and agreed. -Social work to arrange for and conduct family meeting to ensure safety upon discharge and answer any questions/concerns. Social work also to arrange for patients follow up appointments with [facility] for psychiatric care along with follow up with primary care provider. -Patient counseled on abstaining from recreational drugs and marijuana and alcohol. Was informed/educated on the adverse effects on their physical and mental health. Patient verbally agreed and understood. Patient was offered substance abuse treatment however declined at this time. -Patient was instructed to return to the hospital or seek immediate medical care if their psychiatric or medical symptoms do worsen or reoccur. Allergies Allergy/AdvReac Type Severity Reaction Status Date / Time Penicillins Allergy Unknown Verified 01/24/21 01:12 Childhood Laboratory Results WBC 10.3 k/uL (3.8-10.6) 01/24/21 10:53 RBC 4.30 m/uL (3.80-5.40) 01/24/21 10:53 Hgb 13.7 gm/dL (11.4-16.0) 01/24/21 10:53 Hct 40.4 % (34.0-46.0) 01/24/21 10:53 MCV 93.9 fL (80.0-100.0) 01/24/21 10:53 MCH 31.9 pg (25.0-35.0) 01/24/21 10:53 MCHC 34.0 g/dL (31.0-37.0) 01/24/21 10:53 RDW 14.0 % (11.5-15.5) 01/24/21 10:53 Plt Count 351 k/uL (150-450) 01/24/21 10:53 MPV 7.1 01/24/21 10:53 Neutrophils % 55 % 01/24/21 10:53 Lymphocytes % 34 % 01/24/21 10:53 Monocytes % 6 % 01/24/21 10:53 Eosinophils % 3 % 01/24/21 10:53 Basophils % 1 % 01/24/21 10:53 Neutrophils # 5.7 k/uL (1.3-7.7) 01/24/21 10:53 Lymphocytes # 3.5 k/uL (1.0-4.8) 01/24/21 10:53 Monocytes # 0.6 k/uL (0-1.0) 01/24/21 10:53 Eosinophils # 0.3 k/uL (0-0.7) 01/24/21 10:53 Basophils # 0.1 k/uL (0-0.2) 01/24/21 10:53 Sodium 140 mmol/L (137-145) 01/24/21 10:53 Potassium 3.7 mmol/L (3.5-5.1) 01/24/21 10:53 Chloride 106 mmol/L (98-107) 01/24/21 10:53 Carbon Dioxide 28 mmol/L (22-30) 01/24/21 10:53 Anion Gap 6 mmol/L 01/24/21 10:53 BUN 15 mg/dL (7-17) 01/24/21 10:53 Creatinine 0.78 mg/dL (0.52-1.04) 01/24/21 10:53 Est GFR (CKD-EPI)AfAm >90 (>60 ml/min/1.73 sqM) 01/24/21 10:53 Est GFR (CKD-EPI)NonAf >90 (>60 ml/min/1.73 sqM) 01/24/21 10:53 Glucose 108 mg/dL (74-99) H 01/24/21 10:53 Calcium 8.9 mg/dL (8.4-10.2) 01/24/21 10:53 Total Bilirubin 0.1 mg/dL (0.2-1.3) L 01/24/21 10:53 Conjugated Bilirubin 0.0 mg/dL (0.0-0.3) 01/24/21 10:53 Unconjugated Bilirubin 0.2 mg/dL (0.0-1.1) 01/24/21 10:53 Delta Bilirubin 0.0 mg/dL (0.0-0.2) 01/24/21 10:53 AST 15 U/L (14-36) 01/24/21 10:53 ALT 11 U/L (4-34) 01/24/21 10:53 Alkaline Phosphatase 69 U/L (38-126) 01/24/21 10:53 Total Protein 6.2 g/dL (6.3-8.2) L 01/24/21 10:53 Albumin 3.6 g/dL (3.5-5.0) 01/24/21 10:53 TSH 3.930 mIU/L (0.465-4.680) 01/24/21 10:53 Urine Color Dark Brown 01/24/21 00:01 Urine Appearance Turbid (Clear) H 01/24/21 00:01 Urine pH 6.5 (5.0-8.0) 01/24/21 00:01 Ur Specific [place] 1.024 (1.001-1.035) 01/24/21 00:01 Urine Protein 1+ (Negative) H 01/24/21 00:01 Urine Glucose (UA) Negative (Negative) 01/24/21 00:01 Urine Ketones 1+ (Negative) H 01/24/21 00:01 Urine Blood Negative (Negative) 01/24/21 00:01 Urine Nitrite Positive (Negative) H 01/24/21 00:01 Urine Bilirubin Negative (Negative) 01/24/21 00:01 Urine Urobilinogen <2.0 mg/dL (<2.0) 01/24/21 00:01 Ur Leukocyte Esterase Negative (Negative) 01/24/21 00:01 Urine WBC 13 /hpf (0-5) H 01/24/21 00:01 Ur Squamous Epith Cells 4 /hpf (0-4) 01/24/21 00:01 Urine Bacteria Many /hpf (None) H 01/24/21 00:01 Urine Mucus Many /hpf (None) H 01/24/21 00:01 Urine HCG, Qual Not Detected (Not Detectd) 01/24/21 00:01 Urine Opiates Screen Not Detected (NotDetected) 01/23/21 22:01 Ur Oxycodone Screen Not Detected (NotDetected) 01/23/21 22:01 Urine Methadone Screen Not Detected (NotDetected) 01/23/21 22:01 Ur Propoxyphene Screen Not Detected (NotDetected) 01/23/21 22:01 Ur Barbiturates Screen Not Detected (NotDetected) 01/23/21 22:01 U Tricyclic Antidepress Detected (NotDetected) H 01/23/21 22:01 Ur Phencyclidine Scrn Not Detected (NotDetected) 01/23/21 22:01 Ur Amphetamines Screen Detected (NotDetected) H 01/23/21 22:01 U Methamphetamines Scrn Detected (NotDetected) H 01/23/21 22:01 U Benzodiazepines Scrn Not Detected (NotDetected) 01/23/21 22:01 Urine Cocaine Screen Not Detected (NotDetected) 01/23/21 22:01 U Marijuana (THC) Screen Detected (NotDetected) H 01/23/21 22:01 Coronavirus (PCR) Not Detected (Not Detectd) 01/23/21 23:24 Vital Signs Temp 97.6 F 01/30/21 06:46 Pulse 51 L 01/30/21 06:46 Resp 14 01/30/21 06:46 BP 145/91 01/30/21 06:46 Pulse Ox 95 01/28/21 07:05 Patient Condition at Discharge: Stable Plan - Discharge Summary Discharge Rx Participant: No New Discharge Prescriptions: New atenoloL [Tenormin] 50 mg PO DAILY 30 Days tab fluPHENAZine decanoate [Prolixin Decanoate] 25 mg IM [id number] #1 vial Nicotine 14Mg/24Hr Patch [Habitrol] 1 patch TRANSDERM DAILY 14 Days patch fluPHENAZine [Prolixin] 4 mg PO BID 4 Days tab QUEtiapine [SEROquel] 100 mg PO HS 30 Days tab hydrOXYzine pamoate [Vistaril] 25 mg PO BID PRN 30 Days cap PRN Reason: Anxiety Continue Ibuprofen [Motrin] 800 mg PO Q6H PRN PRN Reason: Pain Gabapentin [Neurontin] 100 mg PO BID PRN #60 cap PRN Reason: Pain lisinopriL [Zestril] 20 mg PO DAILY 30 Days tab Changed busPIRone HCL [Buspar] 15 mg PO BID 30 Days tablet Discontinued Atenolol [Tenormin] 50 mg PO DAILY Nicotine 14Mg/24Hr Patch [Habitrol] 1 patch TRANSDERM DAILY patch QUEtiapine FUMARATE [SEROquel] 300 mg PO HS #30 tab Discharge Medication List Ibuprofen [Motrin] 800 mg PO Q6H PRN 08/24/20 [History] Gabapentin [Neurontin] 100 mg PO BID PRN #60 cap 09/21/20 [Rx] Nicotine 14Mg/24Hr Patch [Habitrol] 1 patch TRANSDERM DAILY 14 Days patch 01/30/21 [Rx] QUEtiapine [SEROquel] 100 mg PO HS 30 Days tab 01/30/21 [Rx] atenoloL [Tenormin] 50 mg PO DAILY 30 Days tab 01/30/21 [Rx] busPIRone HCL [Buspar] 15 mg PO BID 30 Days tablet 01/30/21 [Rx] fluPHENAZine [Prolixin] 4 mg PO BID 4 Days tab 01/30/21 [Rx] fluPHENAZine decanoate [Prolixin Decanoate] 25 mg IM [id number] #1 vial 01/30/21 [Rx] hydrOXYzine pamoate [Vistaril] 25 mg PO BID PRN 30 Days cap 01/30/21 [Rx] lisinopriL [Zestril] 20 mg PO DAILY 30 Days tab 01/30/21 [Rx] Follow up Appointment(s)/Referral(s): Grisel Melton DO [Primary Care Provider] - 1-2 days Activity/Diet/Wound Care/Special Instructions: Activity and diet as tolerated. Avoid the use of street drugs and alcohol. Take all medications as prescribed. When you are in need of refills on your medications please contact your medical provider and/or outpatient psychiatrist to have this done. Please go to scheduled outpatient appointment for aftercare treatment. If symptoms return or become worse, call the crisis line at and/or go to the nearest emergency room for evaluation. Discharge Disposition: HOME SELF-CARE
[2021-01-30] MEDS ORDERED: busPIRone HCl 5 MG TAB PO SCH (09:00)
[2021-01-30] MEDS: lisinopriL 20 MG TAB PO SCH (09:22)
[2021-01-30] MEDS: atenoloL 50 MG TAB PO SCH (09:23)
[2021-01-30] MEDS: NICOTINE 14MG/24HR PATCH TRANSDERM SCH (09:23)
[2021-01-30] MEDS ORDERED: QUEtiapine 100 MG TAB PO SCH (21:00)
== END 2021-01-30 11:44 | disposition home or self-care (01) | DRG 885 ==
LOC: EC 19:17 → 3MHU 01-24 00:02
PROVIDERS: ADMIT Psychiatry & Neurology Psychiatry; ATTEND Psychiatry & Neurology Psychiatry
DX: F31.30 Bipolar disorder, current episode depressed, mild or moderate severity, unspecified (principal); F15.10 Other stimulant abuse, uncomplicated; F17.200 Nicotine dependence, unspecified, uncomplicated; F12.10 Cannabis abuse, uncomplicated; F29 Unspecified psychosis not due to a substance or known physiological condition; F40.10 Social phobia, unspecified; G47.00 Insomnia, unspecified; I10 Essential (primary) hypertension; M79.7 Fibromyalgia; Z56.0 Unemployment, unspecified; Z65.3 Problems related to other legal circumstances; Z79.899 Other long term (current) drug therapy; Z87.440 Personal history of urinary (tract) infections; Z91.14 Patient's other noncompliance with medication regimen; Z20.822 Contact with and (suspected) exposure to COVID-19
CPT/HCPCS: 80053; 80306; 81001; 81025; 82075; 82248; 84443; 85025; 87635; 99285

== ENCOUNTER 2021-11-28 10:17 | Emergency (ER) | payer OTHER ==
[2021-11-28 10:24] VITALS: RESP 18; TEMP 98.2
[2021-11-28] MEDS ORDERED: SODIUM CHLORIDE 0.9% 1,000 ML IV STA ×2 (10:32→13:21)
--- NOTE | 2021-11-28 10:45 | ED ---
General Adult HPI - General Chief complaint: Syncope Stated complaint: Syncope Time Seen by Provider: 11/28/21 10:24 Source: patient, EMS Mode of arrival: EMS Limitations: no limitations - History of Present Illness Initial comments: This 36-year-old female with past medical history fibromyalgia, migraines and anxiety disorder presents emergency Department after syncopal episode. Patient states she was at the pharmacy when she fell and hit her head while standing in line. Patient states bleeding at the [place] did witness the fall and denied any convulsions or seizure-like activity. Patient states just prior to the fall she did feel a little bit lightheaded. Patient is unsure if she had her head, however she states the woman behind the counter told her she did hit her head on the ground. Patient does not remember the fall. Patient states this has happened in her past about 3-4 times, however she did not follow-up for this issue. Patient states over the last few days when she goes from sitting to standing she does feel a little bit lightheaded when doing so. Patient states she usually has high blood pressure and does take lisinopril and atenolol for this. Patient denies any chest pain, shortness of breath, abdominal pain, nausea, vomiting, dizziness, change in vision, headache, fever, rash, change in appetite, diarrhea, constipation, one-sided weakness, neck pain, back pain, trouble speaking, change in bladder or bowel. Patient denies any bowel or bladder incontinence/retention, she denies biting her tongue or vomiting. Patient states she currently feels well without any complaints and states she is just hungry. - Related Data Home Medications Medication Instructions Recorded Confirmed Ibuprofen [Motrin] 800 mg PO Q6H PRN 08/24/20 01/24/21 Previous Rx's Medication Instructions Recorded Gabapentin [Neurontin] 100 mg PO BID PRN #60 cap 09/21/20 Nicotine 14Mg/24Hr Patch [Habitrol] 1 patch TRANSDERM DAILY 14 Days 01/30/21 patch QUEtiapine [SEROquel] 100 mg PO HS 30 Days tab 01/30/21 atenoloL [Tenormin] 50 mg PO DAILY 30 Days tab 01/30/21 busPIRone HCL [Buspar] 15 mg PO BID 30 Days tablet 01/30/21 fluPHENAZine [Prolixin] 4 mg PO BID 4 Days tab 01/30/21 fluPHENAZine decanoate [Prolixin 25 mg IM [id number] #1 vial 01/30/21 Decanoate] hydrOXYzine pamoate [Vistaril] 25 mg PO BID PRN 30 Days cap 01/30/21 lisinopriL [Zestril] 20 mg PO DAILY 30 Days tab 01/30/21 Allergies Allergy/AdvReac Type Severity Reaction Status Date / Time Penicillins Allergy Unknown Verified 11/28/21 10:24 Childhood Review of Systems ROS Statement: Those systems with pertinent positive or pertinent negative responses have been documented in the HPI. ROS Other: All systems not noted in ROS Statement are negative. Past Medical History Past Medical History: Hypertension Additional Past Medical History / Comment(s): OTHER HX: fibromyalgia, chronic pain-generalized, migraines, R ovarian cysts, frequent UTI's, tachycardia, gastritis, duodenitis. Anxiety disorder History of Any Multi-Drug Resistant Organisms: None Reported Past Surgical History: Orthopedic Surgery Past Anesthesia/Blood Transfusion Reactions: Unable to Obtain Additional Past Anesthesia/Blood Transfusion Reaction / Comment(s): Pt has never had surgery Past Psychological History: Anxiety, Depression Smoking Status: Current every day smoker Past Alcohol Use History: None Reported Past Drug Use History: Marijuana, Opiates - Past Family History Mother Family Medical History: Cancer, Diabetes Mellitus, Myocardial Infarction ([place]) Additional Family Medical History / Comment(s): Mother had cervical cancer and hypotension. Father Family Medical History: Hypertension General Exam Limitations: no limitations General appearance: alert, in no apparent distress Head exam: Present: atraumatic, normocephalic, normal inspection Eye exam: Present: normal appearance, PERRL, EOMI. Absent: scleral icterus, conjunctival injection, periorbital swelling Pupils: Present: normal accommodation ENT exam: Present: normal exam, mucous membranes moist Neck exam: Present: normal inspection, full ROM. Absent: tenderness, meningismus, lymphadenopathy Respiratory exam: Present: normal lung sounds bilaterally. Absent: respiratory distress, wheezes, rales, rhonchi, stridor, chest wall tenderness Cardiovascular Exam: Present: regular rate, normal rhythm, normal heart sounds. Absent: systolic murmur, diastolic murmur, rubs, gallop, clicks GI/Abdominal exam: Present: soft, normal bowel sounds. Absent: distended, tenderness, guarding, rebound, rigid Extremities exam: Present: normal inspection, full ROM, normal capillary refill. Absent: tenderness, pedal edema, joint swelling, calf tenderness Back exam: Present: normal inspection, full ROM. Absent: CVA tenderness (R), C VA tenderness (L), paraspinal tenderness, vertebral tenderness Neurological exam: Present: alert, oriented X3, CN II-XII intact Psychiatric exam: Present: normal affect, normal mood Skin exam: Present: warm, dry, intact, normal color. Absent: rash Course Vital Signs 11/28/21 11/28/21 11/28/21 10:21 12:33 15:17 Temperature 98.2 F Pulse Rate 99 Pulse Rate [ 114 H 90 Sitting] Pulse Rate [ 129 H 96 Standing] Pulse Rate [ 93 84 Supine] Respiratory 18 Rate Blood Pressure 98/66 Blood Pressure 105/76 108/74 [Sitting] Blood Pressure 105/76 106/72 [Standing] Blood Pressure 98/72 102/70 [Supine] O2 Sat by Pulse 98 Oximetry - Reevaluation(s) Reevaluation #1: 11/28/21 11:41 On reevaluation, patient states she would like us if possible. Patient states she is thirsty and hungry at this time. She denies any symptoms at this time. 11/28/21 12:02 On reevaluation patient did eat some of her sandwich and drank some water. She has no complaints at this time. Patient is resting comfortably in bed. EKG Findings - EKG Comments: EKG Findings:: EKG impression: Sinus rhythm. Ventricular rate 98 bpm. MA interval 112. QRS duration 91. QT/QTC 366/421. Interpreted by myself and my attending, Medical Decision Making - Medical Decision Making This 36-year-old female presents emergency department with a syncopal episode while standing in line at a pharmacy. Chest x-ray impression: No acute process Labs without any leukocytosis, coagulations unremarkable. Chemistry unremarkable. Troponin negative. CT brain and C-spine without contrast impression: No acute fracture or dislocation evident in the cervical spine. No acute intracranial hemorrhage or midline shift seen. Patient with orthostatic hypotension- I did instruct her to call her primary care provider tomorrow morning as she is on lisinopril and atenolol for hypertension. 2 L normal saline given to patient. Prior to discharge patient without any symptoms and stated she felt well. Strict return precautions were discussed. Patient verbally agreed to plan. Patient sent home in stable condition. Case discussed in detail by attending, . - Lab Data Result diagrams: 11/28/21 10:51 11/28/21 10:51 Lab Results 11/28/21 11/28/21 11/28/21 Range/Units 10:51 10:51 10:51 WBC 6.8 (3.8-10.6) k/uL RBC 5.11 (3.80-5.40) m/uL Hgb 16.4 H (11.4-16.0) gm/dL Hct 48.5 H (34.0-46.0) % MCV 94.8 (80.0-100.0) fL MCH 32.0 (25.0-35.0) pg MCHC 33.7 (31.0-37.0) g/dL RDW 14.6 (11.5-15.5) % Plt Count 207 (150-450) k/uL MPV 8.3 Neutrophils % 67 % Lymphocytes % 22 % Monocytes % 7 % Eosinophils % 1 % Basophils % 1 % Neutrophils # 4.5 (1.3-7.7) k/uL Lymphocytes # 1.5 (1.0-4.8) k/uL Monocytes # 0.5 (0-1.0) k/uL Eosinophils # 0.1 (0-0.7) k/uL Basophils # 0.0 (0-0.2) k/uL PT 10.4 (9.0-12.0) sec INR 0.9 (<1.2) APTT 23.4 (22.0-30.0) sec Sodium 140 (137-145) mmol/L Potassium 4.0 (3.5-5.1) mmol/L Chloride 104 (98-107) mmol/L Carbon Dioxide 28 (22-30) mmol/L Anion Gap 8 mmol/L BUN 28 H (7-17) mg/dL Creatinine 1.04 (0.52-1.04) mg/dL Est GFR (CKD-EPI)AfAm 81 (>60 ml/min/1.73 sqM) Est GFR (CKD-EPI)NonAf 71 (>60 ml/min/1.73 sqM) Glucose 92 (74-99) mg/dL Calcium 9.0 (8.4-10.2) mg/dL Magnesium 2.3 (1.6-2.3) mg/dL Total Bilirubin 0.7 (0.2-1.3) mg/dL AST 22 (14-36) U/L ALT 15 (4-34) U/L Alkaline Phosphatase 73 (38-126) U/L Troponin I (0.000-0.034) ng/mL Total Protein 8.1 (6.3-8.2) g/dL Albumin 4.6 (3.5-5.0) g/dL 11/28/21 Range/Units 10:51 WBC (3.8-10.6) k/uL RBC (3.80-5.40) m/uL Hgb (11.4-16.0) gm/dL Hct (34.0-46.0) % MCV (80.0-100.0) fL MCH (25.0-35.0) pg MCHC (31.0-37.0) g/dL RDW (11.5-15.5) % Plt Count (150-450) k/uL MPV Neutrophils % % Lymphocytes % % Monocytes % % Eosinophils % % Basophils % % Neutrophils # (1.3-7.7) k/uL Lymphocytes # (1.0-4.8) k/uL Monocytes # (0-1.0) k/uL Eosinophils # (0-0.7) k/uL Basophils # (0-0.2) k/uL PT (9.0-12.0) sec INR (<1.2) APTT (22.0-30.0) sec Sodium (137-145) mmol/L Potassium (3.5-5.1) mmol/L Chloride (98-107) mmol/L Carbon Dioxide (22-30) mmol/L Anion Gap mmol/L BUN (7-17) mg/dL Creatinine (0.52-1.04) mg/dL Est GFR (CKD-EPI)AfAm (>60 ml/min/1.73 sqM) Est GFR (CKD-EPI)NonAf (>60 ml/min/1.73 sqM) Glucose (74-99) mg/dL Calcium (8.4-10.2) mg/dL Magnesium (1.6-2.3) mg/dL Total Bilirubin (0.2-1.3) mg/dL AST (14-36) U/L ALT (4-34) U/L Alkaline Phosphatase (38-126) U/L Troponin I 0.015 (0.000-0.034) ng/mL Total Protein (6.3-8.2) g/dL Albumin (3.5-5.0) g/dL Disposition Clinical Impression: Syncope due to orthostatic hypotension Disposition: HOME SELF-CARE Condition: Stable Instructions (If sedation given, give patient instructions): Syncope (ED), Hypotension (ED) Additional Instructions: Please follow-up with your primary care provider tomorrow morning. Return to the emergency department with any new, worsening, or concerning symptoms. Is patient prescribed a controlled substance at d/c from ED?: No Referrals: Grisel Melton DO [Primary Care Provider] - 1-2 days Time of Disposition: 15:20
--- NOTE | 2021-11-28 11:05 | XR ---
EXAMINATION TYPE: XR chest 2V DATE OF EXAM: 11/28/2021 COMPARISON: Chest x-ray April 03, 2020 HISTORY: Syncope and weakness. TECHNIQUE: Frontal and lateral views of the chest are obtained. FINDINGS: There is no suspicious focal air space opacity, pleural effusion, or pneumothorax seen. T he cardiac silhouette size remains within normal limits. The osseous structures are intact. IMPRESSION: No acute process.
[2021-11-28 11:10] LABS: INR 0.9 (<1.2); Prothrombin Time 10.4 sec (9.0-12.0)
[2021-11-28 11:11] LABS: Partial Thromboplastin Time 23.4 sec (22.0-30.0)
[2021-11-28 11:17] LABS: Albumin 4.6 g/dL (3.5-5.0); Magnesium 2.3 mg/dL (1.6-2.3); Total Bilirubin 0.7 mg/dL (0.2-1.3); Total Protein 8.1 g/dL (6.3-8.2)
--- NOTE | 2021-11-28 11:19 | CT ---
EXAMINATION TYPE: CT brain cspine wo con DATE OF EXAM: 11/28/2021 COMPARISON: CT brain April 03, 2020 HISTORY: syncope with headache and neck pain. CT DLP: 1293.2 mGycm. Automated Exposure Control for Dose Reduction was Utilized. TECHNIQUE: CT scan of the head and cervical spine are performed without contrast. FINDINGS: There is no acute intracranial hemorrhage, mass effect, or midline shift identified. The ventricles and sulci are within normal limits in size. Lambert-white matter differentiation is maintain ed. The calvarium is intact. The globes are intact and the visualized sinuses are clear. No suspiciou s opacification of the mastoid air cells bilaterally. Cervical spine is visualized in its entirety from C1 through upper thoracic levels and demonstrates s atisfactory alignment without evidence of acute fracture or dislocation. Prevertebral soft tissue ap pears within normal limits. The C1-C2 articulation is within normal limits on the coronal images. V ertebral body heights and disc space heights are maintained. Spinal canal is preserved. Axial images show no suspicious abnormality. Thyroid gland is normal in size. IMPRESSION: 1. There is no acute fracture or dislocation evident in the cervical spine. 2. No acute intracranial hemorrhage or midline shift is seen.
[2021-11-28 11:39] LABS: Basophils % (A) 1 %; Eosinophils # (A) 0.1 k/uL (0-0.7); Eosinophils % (A) 1 %; HCT 48.5 % (34.0-46.0); HGB 16.4 gm/dL (11.4-16.0); Lymphocytes # (A) 1.5 k/uL (1.0-4.8); Lymphocytes % (A) 22 %; MCHC 33.7 g/dL (31.0-37.0); MCV 94.8 fL (80.0-100.0); Mean Platelet Volume 8.3; Monocytes # (A) 0.5 k/uL (0-1.0); Monocytes % (A) 7 %; Neutrophils # (A) 4.5 k/uL (1.3-7.7); Neutrophils % (A) 67 %; Platelet Count 207 k/uL (150-450); RBC 5.11 m/uL (3.80-5.40); RDW 14.6 % (11.5-15.5); WBC 6.8 k/uL (3.8-10.6)
[2021-11-28 16:06] VITALS: BP 110/78; PULSE 94
== END 2021-11-28 16:06 | disposition home or self-care (01) ==
LOC: EC 10:17
DX: I95.1 Orthostatic hypotension (principal); F17.200 Nicotine dependence, unspecified, uncomplicated; I10 Essential (primary) hypertension; Z88.0 Allergy status to penicillin
CPT/HCPCS: 36415; 70450; 71046; 72125; 80053; 83735; 84484; 85025; 85610; 85730; 93005; 96360; 96361; 99285

== ENCOUNTER 2022-02-27 15:37 | Emergency (ER) | payer OTHER ==
[2022-02-27 16:00] VITALS: RESP 18; TEMP 98.3
[2022-02-27] MEDS ORDERED: cefTRIAXone 250 MG VIAL IM STA (18:45)
[2022-02-27 18:53] LABS: Amphetamine Screen,Urine Not Detected (NotDetected); Barbiturate Screen,Urine Not Detected (NotDetected); Benzodiazepines Screen,Urine Not Detected (NotDetected); Cocaine Screen,Urine Not Detected (NotDetected); Methadone Screen, Urine Not Detected (NotDetected); Opiate Screen,Urine Not Detected (NotDetected); Oxycodone Screen, Urine Not Detected (NotDetected); Phencyclidine Screen,Urine Not Detected (NotDetected); Tricyclic Antidepressant,Urine Not Detected (NotDetected); Urn Cannabinoid Scrn Not Detected (NotDetected)
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
[2022-02-27] MEDS ORDERED: DOXYCYCLINE 100 MG CAP PO SCH (21:00)
[2022-02-27] MEDS ORDERED: metroNIDAZOLE 500 MG TAB PO STA (22:28)
[2022-02-28 02:17] VITALS: BP 122/67; PULSE 71
[2022-03-01 14:53] LABS: C. trachomatis,PCR Negative (Neg,Equiv); Chlamydia trachomatis Source Urine; N. gonorrhoeae,PCR Negative (Neg,Equiv); Neisseria Source Urine
== END 2022-02-28 02:17 | disposition home or self-care (01) ==
LOC: EC 15:37
DX: T74.21XA Adult sexual abuse, confirmed, initial encounter (principal); I10 Essential (primary) hypertension; F17.200 Nicotine dependence, unspecified, uncomplicated; M79.7 Fibromyalgia; Z04.6 Encounter for general psychiatric examination, requested by authority; Z88.0 Allergy status to penicillin; Z79.899 Other long term (current) drug therapy
CPT/HCPCS: 82075; 81025; 87491; 87591; 80306; 99284; 96372; J0696

== ENCOUNTER → 2022-03-09 | Outpatient (CLI) | payer OTHER | END | disposition home or self-care (01) | LOC: LABWHC1 13:00 | PROVIDERS: ATTEND Obstetrics & Gynecology | DX: N94.89 Other specified conditions associated with female genital organs and menstrual cycle (principal) | CPT/HCPCS: 36415; 84702 ==

== ENCOUNTER 2022-05-28 19:39 | Observation (INO) | payer OTHER ==
[2022-05-28 20:32] VITALS: RESP 16
[2022-05-28] MEDS ORDERED: SODIUM CHLORIDE 0.9% 1,000 ML IV STA (22:18)
[2022-05-28] MEDS ORDERED: LORazepam 2 MG/ML INJ IV STA (22:21)
[2022-05-28] MEDS ORDERED: KETOROLAC 15 MG/ML 1 ML VIAL IVP STA (22:21)
--- NOTE | 2022-05-28 22:26 | ED ---
Back Pain HPI - General Chief Complaint: Back Pain/Injury Stated Complaint: ABD pain Time Seen by Provider: 05/28/22 22:12 Source: patient, RN notes reviewed Limitations: no limitations - History of Present Illness Initial Comments: This is a pleasant 37-year-old female with history of hypertension, anxiety. Patient presents today complaining of pain to her low back which radiates down the left leg. Patient denies any problems with bowel movements or urination. Patient states she's also having frequent panic attacks, patient states she had some nonspecific chest pain yesterday. Patient states her blood pressure is extremely high. Patient takes lisinopril but states it does not work. Patient states she's been on that medication since she was about 23 years old. Patient denies chance of . Denies any illicit drug abuse. Patient does take BuSpar for anxiolytic therapy. No headache, no fever or chills, no changes in vision or hearing, no sore throat or difficulty with speech, no neck pain, no shortness of breath, despite what the triage note says the patient is complaining of no abdominal pain, no nausea or vomiting, no changes in urination or bowel movements, no numbness or tingling, no extremity pain, no skin rashes or lesions. Past medical, surgical, social, and family history reviewed. - Related Data Home Medications Medication Instructions Recorded Confirmed ARIPiprazole [Abilify] 30 mg PO HS 02/27/22 02/27/22 Gabapentin [Neurontin] 400 mg PO TID 02/27/22 02/27/22 Ibuprofen [Motrin] 600 mg PO Q8HR PRN 02/27/22 02/27/22 Lisinopril-Hctz 20-12.5 mg 1 tab PO BID 02/27/22 02/27/22 [Zestoretic 20-12.5] QUEtiapine FUMARATE [SEROquel] 400 mg PO HS 02/27/22 02/27/22 QUEtiapine [SEROquel] 50 mg PO DAILY 02/27/22 02/27/22 Sertraline [Zoloft] 50 mg PO DAILY 02/27/22 02/27/22 busPIRone HCL 15 mg PO BID 02/27/22 02/27/22 haloperidoL [Haldol] 1 mg PO HS 02/27/22 02/27/22 hydrOXYzine pamoate 50 mg PO TID PRN 02/27/22 02/27/22 Previous Rx's Medication Instructions Recorded Doxycycline [Vibramycin] 100 mg PO BID 7 Days #14 capsule 02/27/22 Allergies Allergy/AdvReac Type Severity Reaction Status Date / Time Penicillins Allergy Unknown Verified 05/28/22 20:27 Childhood Review of Systems ROS Statement: Those systems with pertinent positive or pertinent negative responses have been documented in the HPI. ROS Other: All systems not noted in ROS Statement are negative. Past Medical History Past Medical History: Hypertension Additional Past Medical History / Comment(s): OTHER HX: fibromyalgia, chronic pain-generalized, migraines, R ovarian cysts, frequent UTI's, tachycardia, gastritis, duodenitis. Anxiety disorder History of Any Multi-Drug Resistant Organisms: None Reported Past Surgical History: Orthopedic Surgery Past Anesthesia/Blood Transfusion Reactions: Unable to Obtain Additional Past Anesthesia/Blood Transfusion Reaction / Comment(s): Pt has never had surgery Past Psychological History: Anxiety, Depression Smoking Status: Current every day smoker Past Alcohol Use History: None Reported Past Drug Use History: Marijuana, Opiates - Past Family History Mother Family Medical History: Cancer, Diabetes Mellitus, Myocardial Infarction ([place]) Additional Family Medical History / Comment(s): Mother had cervical cancer and hypotension. Father Family Medical History: Hypertension General Exam - General Exam Comments Initial Comments: This is an anxious appearing 37-year-old female in minimal distress. Noted to be extremely hypertensive with blood pressure 211/123. Heart rate 118. Capillary refill less than 2 seconds. Does not appear to be dehydrated. No mottling. Limitations: no limitations General appearance: alert, anxious Head exam: Present: atraumatic, normocephalic, normal inspection Eye exam: Present: normal appearance, PERRL, EOMI. Absent: scleral icterus, c onjunctival injection, periorbital swelling ENT exam: Present: normal exam, normal oropharynx, mucous membranes moist, normal external ear exam Neck exam: Present: normal inspection, full ROM. Absent: tenderness, meningismus, lymphadenopathy Respiratory exam: Present: normal lung sounds bilaterally, chest wall tenderness, accessory muscle use. Absent: respiratory distress, wheezes, rales, rhonchi, stridor, decreased breath sounds, prolonged expiratory Cardiovascular Exam: Present: normal rhythm, tachycardia, normal heart sounds. Absent: systolic murmur, diastolic murmur, rubs, gallop, clicks GI/Abdominal exam: Present: soft, normal bowel sounds. Absent: distended, tenderness, guarding, rebound, rigid Extremities exam: Present: normal inspection, full ROM, normal capillary refill. Absent: tenderness, pedal edema, joint swelling, calf tenderness Back exam: Present: normal inspection, full ROM (Patient has pain with axial rotation and lateral bending to the left), tenderness (Mild right lumbar paraspinal tenderness), paraspinal tenderness. Absent: muscle spasm, vertebral tenderness, rash noted Neurological exam: Present: alert, oriented X3, CN II-XII intact, normal gait, reflexes normal, other (Straight leg raise is negative bilaterally. Great toe extensor strength is +5 over 5. Sensory status intact). Absent: abnormal gait, motor sensory deficit Psychiatric exam: Present: normal affect, normal mood Skin exam: Present: warm, dry, intact, normal color. Absent: rash Course Vital Signs 05/28/22 05/28/22 20:28 23:03 Temperature 98.6 F Pulse Rate 118 H Respiratory 16 16 Rate Blood Pressure 211/123 Blood Pressure 202/120 [Left Arm] O2 Sat by Pulse 98 100 Oximetry - Reevaluation(s) Reevaluation #1: 05/28/22 23:31 Patient reevaluated is still having a lot of pain in her right flank area. Radiate into the right leg. Patient found to have an elevated white blood cell count as well. I did look back at the patient's previous visits. For a long time she had leukocytosis and then had a few visits where her white blood cell count was normal now it is back again. CT abdomen and pelvis with IV contrast ordered. Labetalol ordered and morphine ordered. Patient still having significant pain. Reevaluation #2: 05/29/22 00:18 Repeat blood pressure is 182/114 after 20 mg of labetalol IV push. Medical Decision Making - Medical Decision Making Patient presents with Symptomology of right low back pain with radicular type symptoms. Negative straight leg raise. No bowel or bladder problems. No symptoms consistent with cauda equina syndrome. Patient extremely hypertensive and tachycardic. However has no shortness of breath or current chest pain. States she did have some chest pain yesterday. Patient is a cigarette smoker. Not on hormones. Denying illicit drug abuse. Computed tomography scan shows bilateral ovarian cysts The case was discussed in detail with ED attending physician. Presentation, findings, treatment plan discussed in detail. Supervising physician is Dr. Douglas - Lab Data Result diagrams: 05/28/22 22:31 05/28/22 22:31 Lab Results 05/28/22 05/28/22 05/28/22 Range/Units 22:20 22:31 22:31 WBC 18.7 H (3.8-10.6) k/uL RBC 4.38 (3.80-5.40) m/uL Hgb 14.4 (11.4-16.0) gm/dL Hct 41.8 (34.0-46.0) % MCV 95.5 (80.0-100.0) fL MCH 32.9 (25.0-35.0) pg MCHC 34.5 (31.0-37.0) g/dL RDW 13.0 (11.5-15.5) % Plt Count 271 (150-450) k/uL MPV 8.2 Neutrophils % 82 % Lymphocytes % 12 % Monocytes % 4 % Eosinophils % 1 % Basophils % 0 % Neutrophils # 15.3 H (1.3-7.7) k/uL Lymphocytes # 2.2 (1.0-4.8) k/uL Monocytes # 0.7 (0-1.0) k/uL Eosinophils # 0.2 (0-0.7) k/uL Basophils # 0.1 (0-0.2) k/uL D-Dimer (<0.60) mg/L FEU Sodium 138 (137-145) mmol/L Potassium 3.5 (3.5-5.1) mmol/L Chloride 105 (98-107) mmol/L Carbon Dioxide 24 (22-30) mmol/L Anion Gap 9 mmol/L BUN 13 (7-17) mg/dL Creatinine 0.66 (0.52-1.04) mg/dL Est GFR (CKD-EPI)AfAm >90 (>60 ml/min/1.73 sqM) Est GFR (CKD-EPI)NonAf >90 (>60 ml/min/1.73 sqM) Glucose 90 (74-99) mg/dL Calcium 9.2 (8.4-10.2) mg/dL Magnesium 1.7 (1.6-2.3) mg/dL Total Bilirubin 0.5 (0.2-1.3) mg/dL AST 20 (14-36) U/L ALT 18 (4-34) U/L Alkaline Phosphatase 92 (38-126) U/L Troponin I (0.000-0.034) ng/mL Total Protein 7.0 (6.3-8.2) g/dL Albumin 4.6 (3.5-5.0) g/dL Lipase 89 (23-300) U/L Urine Color Urine Appearance (Clear) Urine pH (5.0-8.0) Ur Specific [place] (1.001-1.035) Urine Protein (Negative) Urine Glucose (UA) (Negative) Urine Ketones (Negative) Urine Blood (Negative) Urine Nitrite (Negative) Urine Bilirubin (Negative) Urine Urobilinogen (<2.0) mg/dL Ur Leukocyte Esterase (Negative) Urine RBC (0-5) /hpf Urine WBC (0-5) /hpf Ur Squamous Epith Cells (0-4) /hpf Urine Bacteria (None) /hpf Hyaline Casts (0-2) /lpf Urine Mucus (None) /hpf Urine HCG, Qual Not Detected (Not Detectd) Urine Opiates Screen (NotDetected) Ur Oxycodone Screen (NotDetected) Urine Methadone Screen (NotDetected) Ur Propoxyphene Screen (NotDetected) Ur Barbiturates Screen (NotDetected) U Tricyclic Antidepress (NotDetected) Ur Phencyclidine Scrn (NotDetected) Ur Amphetamines Screen (NotDetected) U Methamphetamines Scrn (NotDetected) U Benzodiazepines Scrn (NotDetected) Urine Cocaine Screen (NotDetected) U Marijuana (THC) Screen (NotDetected) 05/28/22 05/28/22 05/28/22 Range/Units 22:31 22:31 22:37 WBC (3.8-10.6) k/uL RBC (3.80-5.40) m/uL Hgb (11.4-16.0) gm/dL Hct (34.0-46.0) % MCV (80.0-100.0) fL MCH (25.0-35.0) pg MCHC (31.0-37.0) g/dL RDW (11.5-15.5) % Plt Count (150-450) k/uL MPV Neutrophils % % Lymphocytes % % Monocytes % % Eosinophils % % Basophils % % Neutrophils # (1.3-7.7) k/uL Lymphocytes # (1.0-4.8) k/uL Monocytes # (0-1.0) k/uL Eosinophils # (0-0.7) k/uL Basophils # (0-0.2) k/uL D-Dimer 0.19 (<0.60) mg/L FEU Sodium (137-145) mmol/L Potassium (3.5-5.1) mmol/L Chloride (98-107) mmol/L Carbon Dioxide (22-30) mmol/L Anion Gap mmol/L BUN (7-17) mg/dL Creatinine (0.52-1.04) mg/dL Est GFR (CKD-EPI)AfAm (>60 ml/min/1.73 sqM) Est GFR (CKD-EPI)NonAf (>60 ml/min/1.73 sqM) Glucose (74-99) mg/dL Calcium (8.4-10.2) mg/dL Magnesium (1.6-2.3) mg/dL Total Bilirubin (0.2-1.3) mg/dL AST (14-36) U/L ALT (4-34) U/L Alkaline Phosphatase (38-126) U/L Troponin I <0.012 (0.000-0.034) ng/mL Total Protein (6.3-8.2) g/dL Albumin (3.5-5.0) g/dL Lipase (23-300) U/L Urine Color Yellow Urine Appearance Cloudy H (Clear) Urine pH 7.0 (5.0-8.0) Ur Specific [place] 1.018 (1.001-1.035) Urine Protein Trace H (Negative) Urine Glucose (UA) Negative (Negative) Urine Ketones Trace H (Negative) Urine Blood Negative (Negative) Urine Nitrite Negative (Negative) Urine Bilirubin Negative (Negative) Urine Urobilinogen <2.0 (<2.0) mg/dL Ur Leukocyte Esterase Trace H (Negative) Urine RBC 2 (0-5) /hpf Urine WBC 2 (0-5) /hpf Ur Squamous Epith Cells 5 H (0-4) /hpf Urine Bacteria Rare H (None) /hpf Hyaline Casts 1 (0-2) /lpf Urine Mucus Rare H (None) /hpf Urine HCG, Qual (Not Detectd) Urine Opiates Screen (NotDetected) Ur Oxycodone Screen (NotDetected) Urine Methadone Screen (NotDetected) Ur Propoxyphene Screen (NotDetected) Ur Barbiturates Screen (NotDetected) U Tricyclic Antidepress (NotDetected) Ur Phencyclidine Scrn (NotDetected) Ur Amphetamines Screen (NotDetected) U Methamphetamines Scrn (NotDetected) U Benzodiazepines Scrn (NotDetected) Urine Cocaine Screen (NotDetected) U Marijuana (THC) Screen (NotDetected) 05/28/22 Range/Units 22:37 WBC (3.8-10.6) k/uL RBC (3.80-5.40) m/uL Hgb (11.4-16.0) gm/dL Hct (34.0-46.0) % MCV (80.0-100.0) fL MCH (25.0-35.0) pg MCHC (31.0-37.0) g/dL RDW (11.5-15.5) % Plt Count (150-450) k/uL MPV Neutrophils % % Lymphocytes % % Monocytes % % Eosinophils % % Basophils % % Neutrophils # (1.3-7.7) k/uL Lymphocytes # (1.0-4.8) k/uL Monocytes # (0-1.0) k/uL Eosinophils # (0-0.7) k/uL Basophils # (0-0.2) k/uL D-Dimer (<0.60) mg/L FEU Sodium (137-145) mmol/L Potassium (3.5-5.1) mmol/L Chloride (98-107) mmol/L Carbon Dioxide (22-30) mmol/L Anion Gap mmol/L BUN (7-17) mg/dL Creatinine (0.52-1.04) mg/dL Est GFR (CKD-EPI)AfAm (>60 ml/min/1.73 sqM) Est GFR (CKD-EPI)NonAf (>60 ml/min/1.73 sqM) Glucose (74-99) mg/dL Calcium (8.4-10.2) mg/dL Magnesium (1.6-2.3) mg/dL Total Bilirubin (0.2-1.3) mg/dL AST (14-36) U/L ALT (4-34) U/L Alkaline Phosphatase (38-126) U/L Troponin I (0.000-0.034) ng/mL Total Protein (6.3-8.2) g/dL Albumin (3.5-5.0) g/dL Lipase (23-300) U/L Urine Color Urine Appearance (Clear) Urine pH (5.0-8.0) Ur Specific [place] (1.001-1.035) Urine Protein (Negative) Urine Glucose (UA) (Negative) Urine Ketones (Negative) Urine Blood (Negative) Urine Nitrite (Negative) Urine Bilirubin (Negative) Urine Urobilinogen (<2.0) mg/dL Ur Leukocyte Esterase (Negative) Urine RBC (0-5) /hpf Urine WBC (0-5) /hpf Ur Squamous Epith Cells (0-4) /hpf Urine Bacteria (None) /hpf Hyaline Casts (0-2) /lpf Urine Mucus (None) /hpf Urine HCG, Qual (Not Detectd) Urine Opiates Screen Not Detected (NotDetected) Ur Oxycodone Screen Not Detected (NotDetected) Urine Methadone Screen Not Detected (NotDetected) Ur Propoxyphene Screen Not Detected (NotDetected) Ur Barbiturates Screen Not Detected (NotDetected) U Tricyclic Antidepress Detected H (NotDetected) Ur Phencyclidine Scrn Not Detected (NotDetected) Ur Amphetamines Screen Not Detected (NotDetected) U Methamphetamines Scrn Not Detected (NotDetected) U Benzodiazepines Scrn Not Detected (NotDetected) Urine Cocaine Screen Not Detected (NotDetected) U Marijuana (THC) Screen Detected H (NotDetected) - EKG Data -: EKG Interpreted by Me (Review by the ED attending physician.) EKG Comments: EKG done at 2245 reveals sinus rhythm with a rate of 99, possible left atrial e nlargement, possible left ventricular hypertrophy, normal intervals, normal axis, no evidence of acute ST elevation or ST depression. When compared to the previous study LVH Disposition Clinical Impression: Hypertensive urgency, Right flank pain, Acute back pain, Leukocytosis, Bilateral ovarian cysts Disposition: ADMITTED IP TO THIS HOSP Condition: Fair Is patient prescribed a controlled substance at d/c from ED?: No Referrals: Christophe Melton MD [Primary Care Provider] - 1-2 days Time of Disposition: 23:32 Decision to Admit Reason: Admit from EC Decision Time: 23:32
[2022-05-28 22:53] LABS: Basophils # (A) 0.1 k/uL (0-0.2); Basophils % (A) 0 %; Eosinophils # (A) 0.2 k/uL (0-0.7); Eosinophils % (A) 1 %; HCT 41.8 % (34.0-46.0); HGB 14.4 gm/dL (11.4-16.0); Lymphocytes # (A) 2.2 k/uL (1.0-4.8); Lymphocytes % (A) 12 %; MCH 32.9 pg (25.0-35.0); MCHC 34.5 g/dL (31.0-37.0); MCV 95.5 fL (80.0-100.0); Mean Platelet Volume 8.2; Monocytes # (A) 0.7 k/uL (0-1.0); Monocytes % (A) 4 %; Neutrophils # (A) 15.3 k/uL (1.3-7.7); Neutrophils % (A) 82 %; Platelet Count 271 k/uL (150-450); RBC 4.38 m/uL (3.80-5.40); WBC 18.7 k/uL (3.8-10.6)
[2022-05-28 23:02] LABS: ALT 18 U/L (4-34); AST 20 U/L (14-36); African American GFR (CKD) >90 (>60 ml/min/1.73 sqM); Albumin 4.6 g/dL (3.5-5.0); Alkaline Phosphatase 92 U/L (38-126); Anion Gap 9 mmol/L; Blood Urea Nitrogen 13 mg/dL (7-17); Calcium 9.2 mg/dL (8.4-10.2); Carbon Dioxide 24 mmol/L (22-30); Chloride 105 mmol/L (98-107); Glucose 90 mg/dL (74-99); Lipase 89 U/L (23-300); Magnesium 1.7 mg/dL (1.6-2.3); Non-African American GFR(CKD) >90 (>60 ml/min/1.73 sqM); Potassium 3.5 mmol/L (3.5-5.1); Sodium 138 mmol/L (137-145); Total Bilirubin 0.5 mg/dL (0.2-1.3)
[2022-05-28 23:17] LABS: Appearance,Urine Cloudy (Clear); Bacteria,Urine Rare /hpf; Bilirubin,Urine Negative (Negative); Blood,Urine Negative (Negative); Cocaine Screen,Urine Not Detected (NotDetected); Color,Urine Yellow; Glucose,Urine (UA) Negative (Negative); Hyaline Casts,Urine 1 /lpf (0-2); Ketones,Urine Trace (Negative); Leukocyte Esterase,Urine Trace (Negative); Mucus,Urine Rare /hpf; Nitrite,Urine Negative (Negative); Phencyclidine Screen,Urine Not Detected (NotDetected); Protein,Urine Trace (Negative); RBC,Urine 2 /hpf (0-5); Specific Gravity,Urine 1.018 (1.001-1.035); Squamous Epithelial Cell,Urine 5 /hpf (0-4); Urn Cannabinoid Scrn Detected (NotDetected); Urobilinogen,Urine <2.0 mg/dL (<2.0); WBC,Urine 2 /hpf (0-5)
[2022-05-28 23:18] LABS: Amphetamine Screen,Urine Not Detected (NotDetected); Barbiturate Screen,Urine Not Detected (NotDetected); Benzodiazepines Screen,Urine Not Detected (NotDetected); Methadone Screen, Urine Not Detected (NotDetected); Opiate Screen,Urine Not Detected (NotDetected); Oxycodone Screen, Urine Not Detected (NotDetected); Tricyclic Antidepressant,Urine Detected (NotDetected)
[2022-05-28] MEDS ORDERED: LABETALOL SYRINGE 5 MG/ML IV STA (23:28)
[2022-05-28] MEDS ORDERED: MORPHINE SULFATE 4 MG/ML SYRINGE IV STA (23:30)
--- NOTE | 2022-05-28 23:51 | XR ---
EXAMINATION TYPE: XR abdomen acute w cxr DATE OF EXAM: 05/28/2022 COMPARISON: NONE HISTORY: Pain TECHNIQUE: 3 views FINDINGS: Heart and mediastinum are normal. Lungs are clear. Diaphragm is normal. Bony thorax is inta ct. The bowel gas pattern is normal. No sign of intestinal obstruction or pneumoperitoneum. Fecal pattern is normal. No calcification seen over the kidneys. IMPRESSION: Normal chest. Nonacute abdomen.
--- NOTE | 2022-05-29 00:22 | CT ---
EXAMINATION TYPE: CT abdomen pelvis w con DATE OF EXAM: 05/29/2022 COMPARISON: 12/04/2017 HISTORY: right flank pain CT DLP: 575.5 mGycm Automated exposure control for dose reduction was used. CONTRAST: Performed with IV Contrast, patient injected with 100 mL of Isovue 300. Images obtained from the diaphragm to the floor the pelvis with the IV contrast. The lung bases are clear. No pleural effusion. Heart size is top normal. No pericardial effusion. Liver spleen and stomach pancreas and gallbladder appear intact. The bile ducts are not dilated. There is no adrenal mass. Kidneys show satisfactory contrast opacification. There is no hydronephrosi s. Delayed images show normal renal excretion. Ureters are not dilated. No retroperitoneal adenopathy . The bladder distends smoothly. No inguinal hernia. No free fluid in the pelvis. Uterus is retrovert ed. There are bilateral ovarian cysts. Right ovarian cyst measures 3.5 cm. Left-sided cyst measures 1 .7 cm. There is no mesenteric edema. No ascites or free air. No sign of a bowel obstruction. The terminal il eum appears normal. Appendix is posterior near the iliac vessels and appears normal. IMPRESSION: Bilateral ovarian cysts. No sign of appendicitis. No evidence of renal stone or obstruction.
[2022-05-29] MEDS ORDERED: NALOXONE 0.4 MG/ML 1 ML VIAL IV PRN (00:30)
[2022-05-29] MEDS ORDERED: ONDANSETRON 4 MG/2 ML VIAL IVP PRN (00:30)
[2022-05-29] MEDS ORDERED: LORazepam 0.5 MG TAB PO PRN (00:30)
[2022-05-29] MEDS ORDERED: ACETAMINOPHEN TAB 325 MG TAB PO PRN (00:30)
[2022-05-29] MEDS ORDERED: TEMAZEPAM 15 MG CAP PO PRN (00:30)
[2022-05-29] MEDS ORDERED: LABETALOL SYRINGE 5 MG/ML IVP STA (00:35)
[2022-05-29] MEDS ORDERED: LORazepam 2 MG/ML INJ IV STA (00:45)
[2022-05-29] MEDS: MORPHINE SULFATE 4 MG/ML SYRINGE IV PRN ×2 (04:07→08:13)
[2022-05-29] MEDS ORDERED: HEPARIN SODIUM,PORCINE/PF 5,000 UNIT/0.5 ML SYRINGE SQ SCH (08:00)
[2022-05-29 08:36] VITALS: PULSE 92; TEMP 97.1
[2022-05-29] MEDS ORDERED: NICOTINE 14MG/24HR PATCH TRANSDERM SCH (09:00)
[2022-05-29] MEDS ORDERED: GABAPENTIN 400 MG CAP PO SCH (10:00)
[2022-05-29] MEDS ORDERED: LISINOPRIL-HCTZ 20-12.5 MG 1 EACH TAB PO SCH (11:15)
[2022-05-29] MEDS ORDERED: busPIRone HCl 5 MG TAB PO SCH (11:15)
[2022-05-29] MEDS ORDERED: POTASSIUM CHLORIDE ER 20 MEQ TAB.ER PO STA (11:25)
[2022-05-29] MEDS ORDERED: MAGNESIUM OXIDE 400 MG TAB PO SCH (11:30)
[2022-05-29] MEDS ORDERED: ALPRAZolam 0.5 MG TAB PO STA (11:52)
[2022-05-29 13:34] VITALS: BP 138/98
--- NOTE | 2022-05-29 18:16 | P.HPIM ---
History of Present Illness H&P Date: 05/29/22 History and Physical and Discharge Summary This is a 37-year-old female with PMH of bipolar disorder, anxiety, polysubstance abuse, methamphetamine psychosis, hypertension presented to the complaining of chronic left lateral lumbar pain radiating to posterior thigh, present for greater than 2 weeks. Reports worsened when she attempts to walk. No sciatica pain . Denies numbness or tingling . Denies spasms or burning sensation .Denies difficulty with urinating or bowel movements. Denies dysuria or urinary frequency. Reports she ran out of her Neurontin and is not scheduled to obtain more until next week, developed panic attacks all day long 2 days. Denies nausea vomiting or diarrhea. Denies abdominal pain. Denies cough congestion, headache fever or chills. Denies lightheadedness dizziness. States she has been clean from polysubstance abuse 6 months and has been following with [facility]. Hypertensive on admission with blood pressure of 212/123, reports compliancy with antihypertensive home med regimen. Toxicology screen reported positive for tricyclics and marijuana. Urine hCG not detected. UA negative. Afebrile, WBC 18.7. CT of abdomen and pelvis reported bilateral ovarian cysts, no sign of appendicitis, no evidence of renal stone or obstruction. Acute abdominal series reported normal chest, nonacute abdomen. EKG reported sinus rhythm, troponin negative 1. Received Toradol, labetalol, Ativan in the ER were significant clinical improvement Review of Systems Constitutional: Denied any fatigue denied any fever. Cardio vascular: denied any chest pain, palpitations Gastrointestinal denied any nausea vomiting Pulmonary: Denied any shortness of breath cough Neurologic denied any new focal deficits ROS Statement: Those systems with pertinent positive or pertinent negative responses have been documented in the HPI. ROS Other: All systems not noted in ROS Statement are negative. Past Medical History Past Medical History: Hypertension Additional Past Medical History / Comment(s): OTHER HX: fibromyalgia, chronic pain-generalized, migraines, R ovarian cysts, frequent UTI's, tachycardia, gastritis, duodenitis. Anxiety disorder History of Any Multi-Drug Resistant Organisms: None Reported Past Surgical History: Orthopedic Surgery Past Anesthesia/Blood Transfusion Reactions: Unable to Obtain Additional Past Anesthesia/Blood Transfusion Reaction / Comment(s): Pt has never had surgery Past Psychological History: Anxiety, Depression Additional Psychological History / Comment(s): . Smoking Status: Current every day smoker Past Alcohol Use History: None Reported Past Drug Use History: Marijuana, Opiates - Past Family History Mother Family Medical History: Cancer, Diabetes Mellitus, Myocardial Infarction ([place]) Additional Family Medical History / Comment(s): Mother had cervical cancer and hypotension. Father Family Medical History: Hypertension Medications and Allergies Home Medications Medication Instructions Recorded Confirmed Type Lisinopril-Hctz 20-12.5 mg 1 tab PO BID 02/27/22 05/29/22 History [Zestoretic 20-12.5] QUEtiapine FUMARATE [SEROquel] 100 mg PO HS 02/27/22 05/29/22 History QUEtiapine [SEROquel] 50 mg PO DAILY 02/27/22 05/29/22 History busPIRone HCL 15 mg PO TID 02/27/22 05/29/22 History Gabapentin [Neurontin] 400 mg PO TID #6 cap 05/29/22 Rx Allergies Allergy/AdvReac Type Severity Reaction Status Date / Time Penicillins Allergy Unknown Verified 05/29/22 08:11 Childhood temazepam [From Restoril] Allergy Itching Verified 05/29/22 08:11 Physical Exam Vitals: Vital Signs Temp Pulse Pulse Resp BP BP Pulse Ox 05/29/22 13:33 138/98 05/29/22 11:14 172/118 05/29/22 08:34 97.1 F L 92 16 152/106 97 05/29/22 08:00 92 16 05/29/22 04:13 16 144/98 05/29/22 02:50 96 16 144/108 144/108 95 05/29/22 00:17 103 H 16 182/114 99 05/29/22 00:00 16 144/101 96 05/28/22 23:03 16 202/120 100 05/28/22 20:28 98.6 F 118 H 16 211/123 98 FiO2 05/29/22 13:33 05/29/22 11:14 05/29/22 08:34 05/29/22 08:00 05/29/22 04:13 05/29/22 02:50 95 05/29/22 00:17 05/29/22 00:00 05/28/22 23:03 05/28/22 20:28 Intake and Output 05/28/22 05/29/22 05/29/22 22:59 06:59 14:59 Other: Weight 55.792 kg 55.792 kg General: Standing up at side of stretcher, NAD. Vitals reviewed Eyes: PERRL, EOMI, conjunctiva normal HENT: normocephalic, mucus membranes moist Neck: supple, no JVD Lungs: normal respiratory effort, no wheezes or rales CV: Regular rate and rhythm, no murmur. Peripheral pulses 2+ Abdomen: soft, nondistended, no organomegaly Lymph: no cervical or axillary LAD Skin: warm and dry. Neuro: A&Ox3, anxious mood and affect. Spine nontender to palpation, bilateral flanks/lumbar nontender to palpation. Ambulating in room without difficulty. Results CBC & Chem 7: 05/28/22 22:31 05/28/22 22:31 Labs: Abnormal Lab Results - Last 24 Hours (Table) 05/28/22 05/28/22 05/28/22 Range/Units 22:31 22:37 22:37 WBC 18.7 H (3.8-10.6) k/uL Neutrophils # 15.3 H (1.3-7.7) k/uL Urine Appearance Cloudy H (Clear) Urine Protein Trace H (Negative) Urine Ketones Trace H (Negative) Ur Leukocyte Esterase Trace H (Negative) Ur Squamous Epith Cells 5 H (0-4) /hpf Urine Bacteria Rare H (None) /hpf Urine Mucus Rare H (None) /hpf U Tricyclic Antidepress Detected H (NotDetected) U Marijuana (THC) Screen Detected H (NotDetected) Thrombosis Risk Factor Assmnt - Choose All That Apply Any of the Below Risk Factors Present?: No Other Risk Factors: No Thrombosis Risk Factor Assessment Level: Very Low Risk Assessment and Plan Assessment: Hypertensive urgency, resolved Chronic pain syndrome with currently complaining of right lumbar pain greater than 2 weeks, currently improved with initiation of Neurontin Panic attack, ran out of Neurontin Bipolar disorder, anxiety, depression Nicotine dependence Daily marijuana use History of polysubstance abuse History of methamphetamine psychosis Plan: Continue on current medication regime ,monitoring and symptomatic treatment. Patient threatening AMA. Patient will be discharged once blood pressure controlled today in a stable condition with guarded prognosis. Patient has been advised to follow-up with [facility] regarding her requests for benzodiazepines. Patient has also been advised to follow-up in clinic regarding further pain management. Discharge Medication List Lisinopril-Hctz 20-12.5 mg [Zestoretic 20-12.5] 1 tab PO BID 02/27/22 [History] QUEtiapine FUMARATE [SEROquel] 100 mg PO HS 02/27/22 [History] QUEtiapine [SEROquel] 50 mg PO DAILY 02/27/22 [History] busPIRone HCL 15 mg PO TID 02/27/22 [History] Gabapentin [Neurontin] 400 mg PO TID #6 cap 05/29/22 [Rx] The impression and plan of care has been dictated as directed. : I performed a history and examination of this patient, discussed the same with the dictator. I agree with the dictator's note ,documented as a scribe. Any additional findings or plans will be noted.
== END 2022-05-29 19:56 | disposition home or self-care (01) ==
LOC: EC 19:39 → 6NMEDSUR 05-29 00:32
PROVIDERS: ADMIT Family Medicine; ATTEND Family Medicine
DX: I16.0 Hypertensive urgency (principal); D72.829 Elevated white blood cell count, unspecified; N83.201 Unspecified ovarian cyst, right side; N83.202 Unspecified ovarian cyst, left side; I10 Essential (primary) hypertension; F41.9 Anxiety disorder, unspecified; M79.7 Fibromyalgia; F32.A Depression, unspecified; F17.210 Nicotine dependence, cigarettes, uncomplicated; G89.4 Chronic pain syndrome; F31.9 Bipolar disorder, unspecified; F12.10 Cannabis abuse, uncomplicated; F11.10 Opioid abuse, uncomplicated; Z79.899 Other long term (current) drug therapy; Z88.0 Allergy status to penicillin; Z83.3 Family history of diabetes mellitus; Z82.49 Family history of ischemic heart disease and other diseases of the circulatory system; Z80.49 Family history of malignant neoplasm of other genital organs; Z32.02 Encounter for pregnancy test, result negative; Z87.440 Personal history of urinary (tract) infections
CPT/HCPCS: 96376; 96372; 96374; 96375; 99285; 36415; 93005; 85379; 80053; 83690; 83735; 84484; 85025; 81001; 81025; 80306; 74022; 74177; G0378; S4990; J2060 ×2; J2270 ×2; J1885; Q9967; J1644

== ENCOUNTER 2022-06-10 02:04 | Emergency (ER) | payer OTHER ==
[2022-06-10 02:10] VITALS: TEMP 98.3
[2022-06-10] MEDS ORDERED: SODIUM CHLORIDE 0.9% 1,000 ML IV ONE (02:10)
[2022-06-10] MEDS ORDERED: LORazepam 2 MG/ML INJ IV STA ×2 (02:15→03:04)
[2022-06-10] MEDS ORDERED: ASPIRIN 81 MG PO STA (02:15)
[2022-06-10] MEDS ORDERED: LABETALOL 5 MG/ML VIAL MDV IVP STA ×2 (02:19→02:58)
--- NOTE | 2022-06-10 02:20 | ED ---
Arrhythmia/Palpitations HPI - General Chief Complaint: Arrhythmia/Palpitations Stated Complaint: palpatations Time Seen by Provider: 06/10/22 02:08 Source: patient, EMS, RN notes reviewed - History of Present Illness Initial Comments: This is a pleasant 37-year-old female with a history of bipolar disorder, anxiety, polysubstance abuse, methamphetamine psychosis, and hypertension which is difficult to control. Patient presents to the emergency department today complaining of chest pain, palpitations, and a strange taste in her mouth. Patient states the chest pain seems to radiate to her neck. Patient has had similar symptoms such as this in the past. Chest discomfort is not related to exertion. Patient also complaining of anxiety. Patient states that previously anxiety as cause similar symptoms. Patient was admitted here in May for hypertensive urgency. Patient states she was taken off of her lisinopril and started on another heart medicine which she is not taking. Patient admittedly is not taking the medication by her own choice. She states that it was a "heart" medication. Patient denies chance of . No recent surgeries. No recent immobilizations. No headache, no fever or chills, no changes in vision or hearing, no sore throat or difficulty with speech, no neck pain, no chest pain or shortness of breath, no abdominal pain, no nausea or vomiting, no changes in urination or bowel movements, no numbness or tingling, no extremity pain, no skin rashes or les ions. Past medical, surgical, social, and family history reviewed. - Related Data Home Medications Medication Instructions Recorded Confirmed Lisinopril-Hctz 20-12.5 mg 1 tab PO BID 02/27/22 05/29/22 [Zestoretic 20-12.5] QUEtiapine FUMARATE [SEROquel] 100 mg PO HS 02/27/22 05/29/22 QUEtiapine [SEROquel] 50 mg PO DAILY 02/27/22 05/29/22 busPIRone HCL 15 mg PO TID 02/27/22 05/29/22 Previous Rx's Medication Instructions Recorded Gabapentin [Neurontin] 400 mg PO TID #6 cap 05/29/22 Atenolol/Chlorthalidone 1 each PO DAILY #10 tablet 06/10/22 [Atenolol/Chlorthalidone 50-25] Allergies Allergy/AdvReac Type Severity Reaction Status Date / Time Penicillins Allergy Unknown Verified 06/10/22 02:10 Childhood temazepam [From Restoril] Allergy Itching Verified 06/10/22 02:10 Review of Systems ROS Statement: Those systems with pertinent positive or pertinent negative responses have been documented in the HPI. ROS Other: All systems not noted in ROS Statement are negative. Past Medical History Past Medical History: Hypertension Additional Past Medical History / Comment(s): OTHER HX: fibromyalgia, chronic pain-generalized, migraines, R ovarian cysts, frequent UTI's, tachycardia, gastritis, duodenitis. Anxiety disorder History of Any Multi-Drug Resistant Organisms: None Reported Past Surgical History: Orthopedic Surgery Past Anesthesia/Blood Transfusion Reactions: Unable to Obtain Additional Past Anesthesia/Blood Transfusion Reaction / Comment(s): Pt has never had surgery Past Psychological History: Anxiety, Depression Smoking Status: Current every day smoker Past Alcohol Use History: None Reported Past Drug Use History: Marijuana, Opiates - Past Family History Mother Family Medical History: Cancer, Diabetes Mellitus, Myocardial Infarction ([place]) Additional Family Medical History / Comment(s): Mother had cervical cancer and hypotension. Father Family Medical History: Hypertension General Exam - General Exam Comments Initial Comments: Patient does not appear to be ill or toxic. Patient noted to be hypertensive. General appearance: alert, anxious, in distress Head exam: Present: atraumatic, normocephalic, normal inspection Eye exam: Present: normal appearance, PERRL, EOMI. Absent: scleral icterus, conjunctival injection, periorbital swelling ENT exam: Present: normal exam, normal oropharynx, mucous membranes moist, normal external ear exam. Absent: mucous membranes dry Neck exam: Present: normal inspection, full ROM. Absent: tenderness, meningismus, lymphadenopathy Respiratory exam: Present: normal lung sounds bilaterally, chest wall tenderness. Absent: respiratory distress, wheezes, rales, rhonchi, stridor, accessory muscle use, decreased breath sounds, prolonged expiratory Cardiovascular Exam: Present: regular rate, normal rhythm, normal heart sounds. Absent: systolic murmur, diastolic murmur, rubs, gallop, clicks GI/Abdominal exam: Present: soft, normal bowel sounds. Absent: distended, tenderness, guarding, rebound, rigid Extremities exam: Present: normal inspection, full ROM, normal capillary refill. Absent: tenderness, pedal edema, joint swelling, calf tenderness Back exam: Present: normal inspection Neurological exam: Present: alert, oriented X3, CN II-XII intact Psychiatric exam: Present: normal affect, normal mood Skin exam: Present: warm, dry, intact, normal color. Absent: rash Course Vital Signs 06/10/22 06/10/22 06/10/22 02:05 02:55 03:41 Temperature 98.3 F Pulse Rate 94 83 93 Respiratory 20 18 Rate Blood Pressure 193/125 180/122 164/132 O2 Sat by Pulse 99 99 98 Oximetry - Reevaluation(s) Reevaluation #1: 06/10/22 03:35 Medical record is reviewed Symptoms are improved here in the emergency department Patient is informed of results and questions answered Patient in no distress Reevaluation #2: 06/10/22 03:49 Patient essentially requesting to go. Patient requesting atenolol as she states that she was on this medication previously and was working well for her blood pressure. Patient apparently is not going to take the blood pressure medication prescribed by her regular physician. I did discuss smoking cessation for greater than 3 minutes. Patient is asking for Xanax to go. I did agree to give her 1 mg before being discharged. However patient will need to obtain any further controlled substances from the primary care physician. Discussed the patient's medication noncompliance. EKG Findings - EKG Comments: EKG Findings:: EKG done at 2:18 AM and read by the ED attending physician reveals sinus rhythm with a rate of 96. Normal intervals. Normal axis. Minimal voltage criteria for LVH noted. When compared to the previous study from 05/28/2022 there is no significant change. No evidence of ST elevation or ST depression. Medical Decision Making - Medical Decision Making Patient has PERC 0. I'm unable to see what blood pressure medication the patient was switched to. I did agree to give the patient atenolol/chlorthalidone as she states she was on this previously. We'll go with only 10 days of this. Patient was told to return to the ER for any signs or symptoms worsen. Told to return immediately if any other problems arise. All questions answered. Treatment plan discussed. Patient in agreement Every effort has been made to ensure accuracy of this dictation. However, due to the limitations of electronic medical records and dictation devices, errors in charting still occur. Did offer admission the patient. However the patient is ready to go. Patient does not want to be in the hospital. Patient requesting Xanax. The case was discussed in detail with ED attending physician. Presentation, findings, treatment plan discussed in detail. Finger Grip Machine Operator Dr. Spangler - Lab Data Result diagrams: 06/10/22 02:28 06/10/22 02:28 Lab Results 06/10/22 06/10/22 06/10/22 Range/Units 02:28 02:28 02:28 WBC 21.7 H (3.8-10.6) k/uL RBC 4.30 (3.80-5.40) m/uL Hgb 14.1 (11.4-16.0) gm/dL Hct 40.5 (34.0-46.0) % MCV 94.0 (80.0-100.0) fL MCH 32.7 (25.0-35.0) pg MCHC 34.8 (31.0-37.0) g/dL RDW 13.5 (11.5-15.5) % Plt Count 251 (150-450) k/uL MPV 8.4 Neutrophils % 88 % Lymphocytes % 7 % Monocytes % 3 % Eosinophils % 1 % Basophils % 0 % Neutrophils # 19.2 H (1.3-7.7) k/uL Lymphocytes # 1.6 (1.0-4.8) k/uL Monocytes # 0.6 (0-1.0) k/uL Eosinophils # 0.1 (0-0.7) k/uL Basophils # 0.0 (0-0.2) k/uL Sodium 138 (137-145) mmol/L Potassium 3.6 (3.5-5.1) mmol/L Chloride 108 H (98-107) mmol/L Carbon Dioxide 20 L (22-30) mmol/L Anion Gap 10 mmol/L BUN 9 (7-17) mg/dL Creatinine 0.56 (0.52-1.04) mg/dL Est GFR (CKD-EPI)AfAm >90 (>60 ml/min/1.73 sqM) Est GFR (CKD-EPI)NonAf >90 (>60 ml/min/1.73 sqM) Glucose 102 H (74-99) mg/dL Calcium 8.3 L (8.4-10.2) mg/dL Magnesium 1.8 (1.6-2.3) mg/dL Total Bilirubin 0.3 (0.2-1.3) mg/dL AST 22 (14-36) U/L ALT 18 (4-34) U/L Alkaline Phosphatase 83 (38-126) U/L Troponin I <0.012 (0.000-0.034) ng/mL Total Protein 6.8 (6.3-8.2) g/dL Albumin 4.3 (3.5-5.0) g/dL TSH 1.290 (0.465-4.680) mIU/L HCG, Qual Not Detected - Radiology Data Radiology results: report reviewed, image reviewed Disposition Clinical Impression: Atypical chest pain, Chest wall pain, Anxiety, Uncontrolled hypertension, Cigarette smoker, Noncompliance with medication regimen Narrative: Chronic leukocytosis Disposition: HOME SELF-CARE Condition: Undetermined Instructions (If sedation given, give patient instructions): Chest Wall Pain (ED), Generalized Anxiety Disorder (ED), How to Stop Smoking (ED) Additional Instructions: Call your doctor 8 AM Saturday morning to schedule follow-up. You need to get on your medications as directed by your physician. Your blood pressure is out of control any need to take your blood pressure medication as directed. Work on smoking cessation. Discussed anxiety with your regular doctor. Follow-up with your regular physician as directed. Return to the ER immediately if any symptoms worsen, new symptoms arise, or any other problems develop. Prescriptions: Atenolol/Chlorthalidone [Atenolol/Chlorthalidone 50-25] 1 each PO DAILY #10 tablet Is patient prescribed a controlled substance at d/c from ED?: No Referrals: Christophe Melton MD [Primary Care Provider] - 06/11/22 Time of Disposition: 03:47
[2022-06-10 02:46] LABS: Basophils % (A) 0 %; Eosinophils # (A) 0.1 k/uL (0-0.7); Eosinophils % (A) 1 %; HCT 40.5 % (34.0-46.0); HGB 14.1 gm/dL (11.4-16.0); Lymphocytes # (A) 1.6 k/uL (1.0-4.8); Lymphocytes % (A) 7 %; MCH 32.7 pg (25.0-35.0); MCHC 34.8 g/dL (31.0-37.0); Mean Platelet Volume 8.4; Monocytes # (A) 0.6 k/uL (0-1.0); Monocytes % (A) 3 %; Neutrophils # (A) 19.2 k/uL (1.3-7.7); Neutrophils % (A) 88 %; Platelet Count 251 k/uL (150-450); RDW 13.5 % (11.5-15.5); WBC 21.7 k/uL (3.8-10.6)
--- NOTE | 2022-06-10 02:59 | XR ---
EXAMINATION TYPE: XR chest 1V portable DATE OF EXAM: 06/10/2022 COMPARISON: 05/28/2022 HISTORY: Palpitations TECHNIQUE: FINDINGS: Heart and mediastinum are normal. Lungs are clear. Diaphragm is normal. Bony thorax appears normal. There are chest leads. IMPRESSION: Normal chest. No change.
[2022-06-10 03:04] LABS: ALT 18 U/L (4-34); AST 22 U/L (14-36); African American GFR (CKD) >90 (>60 ml/min/1.73 sqM); Albumin 4.3 g/dL (3.5-5.0); Alkaline Phosphatase 83 U/L (38-126); Anion Gap 10 mmol/L; Blood Urea Nitrogen 9 mg/dL (7-17); Calcium 8.3 mg/dL (8.4-10.2); Carbon Dioxide 20 mmol/L (22-30); Chloride 108 mmol/L (98-107); Glucose 102 mg/dL (74-99); HCG,Qualitative Serum Not Detected; Magnesium 1.8 mg/dL (1.6-2.3); Non-African American GFR(CKD) >90 (>60 ml/min/1.73 sqM); Potassium 3.6 mmol/L (3.5-5.1); Sodium 138 mmol/L (137-145); Total Bilirubin 0.3 mg/dL (0.2-1.3); Total Protein 6.8 g/dL (6.3-8.2)
[2022-06-10 03:42] VITALS: BP 164/132; PULSE 93; RESP 18
[2022-06-10] MEDS ORDERED: ALPRAZolam 1 MG TAB PO STA (03:44)
[2022-06-10 04:04] LABS: Amphetamine Screen,Urine Not Detected (NotDetected); Barbiturate Screen,Urine Not Detected (NotDetected); Benzodiazepines Screen,Urine Not Detected (NotDetected); Cocaine Screen,Urine Not Detected (NotDetected); Methadone Screen, Urine Not Detected (NotDetected); Opiate Screen,Urine Not Detected (NotDetected); Oxycodone Screen, Urine Not Detected (NotDetected); Phencyclidine Screen,Urine Not Detected (NotDetected); Tricyclic Antidepressant,Urine Not Detected (NotDetected); Urn Cannabinoid Scrn Detected (NotDetected)
== END 2022-06-10 04:20 | disposition home or self-care (01) ==
LOC: EC 02:04
DX: R07.89 Other chest pain (principal); I10 Essential (primary) hypertension; F41.9 Anxiety disorder, unspecified; F17.210 Nicotine dependence, cigarettes, uncomplicated; F12.90 Cannabis use, unspecified, uncomplicated; F32.A Depression, unspecified; F11.90 Opioid use, unspecified, uncomplicated; Z91.14 Patient's other noncompliance with medication regimen; Z79.811 Long term (current) use of aromatase inhibitors; Z79.899 Other long term (current) drug therapy; Z88.0 Allergy status to penicillin; Z88.8 Allergy status to other drugs, medicaments and biological substances
CPT/HCPCS: 36415; 93005; 80053; 84443; 83735; 84484; 85025; 84703; 80306; 71045; 99285; 96374; 96375; 96376 ×2; 96361; J2060; 99284

== ENCOUNTER 2022-06-23 04:28 | Emergency (ER) | payer OTHER ==
[2022-06-23 04:33] VITALS: BP 121/86; PULSE 73; RESP 18; TEMP 98
[2022-06-23] MEDS ORDERED: LORazepam 1 MG TAB PO STA (04:53)
--- NOTE | 2022-06-23 05:06 | ED ---
General Adult HPI - General Chief complaint: Anxiety Stated complaint: anxiety HTN Time Seen by Provider: 06/23/22 04:47 Source: patient, RN notes reviewed, old records reviewed Mode of arrival: ambulatory Limitations: no limitations - History of Present Illness Initial comments: Patient is a 37-year-old female who presents emergency Department complaining of anxiety. She has a history of anxiety. Is on Seroquel at baseline. With just discharged from a nearby hospital emergency department for management of hypertension. States that she left, be she became anxious and came here. When asked why she did not seek anxiety treatment at the other hospital, she states she does not know. She states her mind is racing. Feels anxious. Denies shortness of breath or chest pain. Denies abdominal pain, nausea, vomiting. Denies fevers or chills. His no other acute complaint at this time. Does have history of anxiety. Does see a therapist. Resents or further evaluation at this time. Is seeking medication to help with her anxiety. - Related Data Home Medications Medication Instructions Recorded Confirmed Lisinopril-Hctz 20-12.5 mg 1 tab PO BID 02/27/22 05/29/22 [Zestoretic 20-12.5] QUEtiapine FUMARATE [SEROquel] 100 mg PO HS 02/27/22 05/29/22 QUEtiapine [SEROquel] 50 mg PO DAILY 02/27/22 05/29/22 busPIRone HCL 15 mg PO TID 02/27/22 05/29/22 Previous Rx's Medication Instructions Recorded Gabapentin [Neurontin] 400 mg PO TID #6 cap 05/29/22 Atenolol/Chlorthalidone 1 each PO DAILY #10 tablet 06/10/22 [Atenolol/Chlorthalidone 50-25] LORazepam [Ativan] 0.5 mg PO DAILY PRN 3 Days #3 tab 06/23/22 Allergies Allergy/AdvReac Type Severity Reaction Status Date / Time Penicillins Allergy Unknown Verified 06/23/22 04:33 Childhood temazepam [From Restoril] Allergy Itching Verified 06/23/22 04:33 Review of Systems ROS Statement: Those systems with pertinent positive or pertinent negative responses have been documented in the HPI. Review of Systems: CONST: Denies fever EYES: Denies blurry vision ENT: Denies nasal congestion C/V: Denies Chest pain RESP: Denies shortness of breath GI: Denies abdominal pain : Denies dysuria SKIN: Denies rash. MSK: Denies joint pain. NEURO: Denies headache ROS Other: All systems not noted in ROS Statement are negative. Past Medical History Past Medical History: Hypertension Additional Past Medical History / Comment(s): OTHER HX: fibromyalgia, chronic pain-generalized, migraines, R ovarian cysts, frequent UTI's, tachycardia, gastritis, duodenitis. Anxiety disorder History of Any Multi-Drug Resistant Organisms: None Reported Past Surgical History: Orthopedic Surgery Past Anesthesia/Blood Transfusion Reactions: Unable to Obtain Additional Past Anesthesia/Blood Transfusion Reaction / Comment(s): Pt has never had surgery Past Psychological History: Anxiety, Depression Smoking Status: Current every day smoker Past Alcohol Use History: None Reported Past Drug Use History: Marijuana, Opiates - Past Family History Mother Family Medical History: Cancer, Diabetes Mellitus, Myocardial Infarction ([place]) Additional Family Medical History / Comment(s): Mother had cervical cancer and hypotension. Father Family Medical History: Hypertension General Exam - General Exam Comments Initial Comments: General: Appears mildly anxious. HEAD: Normal with no signs of head trauma. EYES: PERRLA, EOMI, conjunctiva normal, no discharge. ENT: Hearing grossly intact, normal oropharynx. RESPIRATORY: Clear breath sounds bilaterally. No wheezes, rales, or rhonchi. C/V: Regular rate and rhythm. S1 and S2 auscultated. Peripheral pulses 2+ intact throughout. ABD: Abd is soft, nontender, nondistended EXT: Normal range of motion, no obvious deformity SKIN: No rashes or lesions observed on exposed skin. NEURO: Alert and oriented 4. Limitations: no limitations Course Vital Signs 06/23/22 04:30 Temperature 98 F Pulse Rate 73 Respiratory 18 Rate Blood Pressure 121/86 O2 Sat by Pulse 95 Oximetry Medical Decision Making - Medical Decision Making Based on the patient's presentation and physical exam, do believe she is likely expressing some mild anxiety at this time. Vital signs within acceptable limits. She just received a workup for hypertension at the other hospital. She has no other acute complaint at this time. We will administer a dose of Ativan and evaluate for improvement in symptoms. She was in agreement with this plan. On reevaluation, patient is improved. I will provide her with 3 tablets of 0.5 mg of Ativan for home use as needed. Recommended follow-up with her PCP or therapist. She was in agreement this plan. Vital signs remained within acceptable limits. She'll be discharged home at this time. I will provide the patient with a prescription for Ativan 0.5 mg 3 tablets. I instructed the patient to follow up with their PCP in the next 1-3 days. I explained that the patient should return to the emergency department if they experience any worsening symptoms. Strict return precautions were discussed with the patient. The patient expressed understanding of these instructions. I answered all questions that the patient had. The patient was discharged home in good condition with their prescriptions and follow up information. Disposition Clinical Impression: Anxiety Disposition: HOME SELF-CARE Condition: Good Instructions (If sedation given, give patient instructions): Generalized An xiety Disorder (ED) Prescriptions: LORazepam [Ativan] 0.5 mg PO DAILY PRN 3 Days #3 tab PRN Reason: Anxiety Is patient prescribed a controlled substance at d/c from ED?: Yes Referrals: Christophe Melton MD [Primary Care Provider] - 1-2 days Time of Disposition: 05:50
== END 2022-06-23 06:19 | disposition home or self-care (01) ==
LOC: EC 04:28
DX: F41.9 Anxiety disorder, unspecified (principal); I10 Essential (primary) hypertension; F32.A Depression, unspecified; F17.200 Nicotine dependence, unspecified, uncomplicated; F12.90 Cannabis use, unspecified, uncomplicated; F11.90 Opioid use, unspecified, uncomplicated; Z79.811 Long term (current) use of aromatase inhibitors; Z79.899 Other long term (current) drug therapy; Z88.4 Allergy status to anesthetic agent; Z88.0 Allergy status to penicillin
CPT/HCPCS: 99282

== ENCOUNTER 2022-06-23 21:21 | Emergency (ER) | payer OTHER ==
[2022-06-23 21:26] VITALS: BP 100/60; PULSE 65; RESP 18; TEMP 98.1
--- NOTE | 2022-06-23 22:22 | ED ---
Anxiety HPI - General Chief Complaint: Anxiety Stated Complaint: Headache,lt arm pain Time Seen by Provider: 06/23/22 22:04 Source: patient, RN notes reviewed Mode of arrival: ambulatory - History of Present Illness Initial Comments: This is a 47-year-old female who is well known to our emergency department. She comes to the ER complaining of anxiety. Patient states she lost the prescription for anxiety medication she was given here yesterday. She was prescribed 3 tablets of 0.5 mg lorazepam. And has been seen at both hospitals here in the last several days. Patient usually has a problem with blood pressure but this is noted to be normal in triage today. Patient states that she is not thinking right "in my head." MD Complaint: anxiety - Related Data Home Medications: Home Medications Medication Instructions Recorded Confirmed Lisinopril-Hctz 20-12.5 mg 1 tab PO BID 02/27/22 05/29/22 [Zestoretic 20-12.5] QUEtiapine FUMARATE [SEROquel] 100 mg PO HS 02/27/22 05/29/22 QUEtiapine [SEROquel] 50 mg PO DAILY 02/27/22 05/29/22 busPIRone HCL 15 mg PO TID 02/27/22 05/29/22 Previous Rx's Medication Instructions Recorded Gabapentin [Neurontin] 400 mg PO TID #6 cap 05/29/22 Atenolol/Chlorthalidone 1 each PO DAILY #10 tablet 06/10/22 [Atenolol/Chlorthalidone 50-25] LORazepam [Ativan] 0.5 mg PO DAILY PRN 3 Days #3 tab 06/23/22 hydrOXYzine HCL 25 mg PO Q8HR PRN #10 tab 06/24/22 Allergies/Adverse Reactions: Allergies Allergy/AdvReac Type Severity Reaction Status Date / Time Penicillins Allergy Unknown Verified 06/23/22 21:26 Childhood temazepam [From Restoril] Allergy Itching Verified 06/23/22 21:26 Review of Systems ROS Statement: Those systems with pertinent positive or pertinent negative responses have been documented in the HPI. ROS Other: All systems not noted in ROS Statement are negative. Past Medical History Past Medical History: Hypertension Additional Past Medical History / Comment(s): OTHER HX: fibromyalgia, chronic pain-generalized, migraines, R ovarian cysts, frequent UTI's, tachycardia, gastritis, duodenitis. Anxiety disorder History of Any Multi-Drug Resistant Organisms: None Reported Past Surgical History: Orthopedic Surgery Past Anesthesia/Blood Transfusion Reactions: Unable to Obtain Additional Past Anesthesia/Blood Transfusion Reaction / Comment(s): Pt has never had surgery Past Psychological History: Anxiety, Depression Smoking Status: Current every day smoker Past Alcohol Use History: None Reported Past Drug Use History: Marijuana, Opiates - Past Family History Mother Family Medical History: Cancer, Diabetes Mellitus, Myocardial Infarction ([place]) Additional Family Medical History / Comment(s): Mother had cervical cancer and hypotension. Father Family Medical History: Hypertension General Exam Limitations: no limitations General appearance: alert, in no apparent distress Head exam: Present: atraumatic, normocephalic, normal inspection Eye exam: Present: normal appearance, PERRL, EOMI. Absent: scleral icterus, conjunctival injection, periorbital swelling ENT exam: Present: normal exam, mucous membranes moist Neck exam: Present: normal inspection, full ROM. Absent: tenderness, meningismus, lymphadenopathy Respiratory exam: Present: normal lung sounds bilaterally. Absent: respiratory distress, wheezes, rales, rhonchi, stridor Cardiovascular Exam: Present: regular rate, normal rhythm, normal heart sounds. Absent: systolic murmur, diastolic murmur, rubs, gallop, clicks GI/Abdominal exam: Present: soft, normal bowel sounds. Absent: distended, ten derness, guarding, rebound, rigid Extremities exam: Present: normal inspection, full ROM, normal capillary refill. Absent: tenderness, pedal edema, joint swelling, calf tenderness Back exam: Present: normal inspection Neurological exam: Present: alert, oriented X3, CN II-XII intact Psychiatric exam: Present: normal affect, normal mood. Absent: homicidal ideation, suicidal ideation Skin exam: Present: warm, dry, intact, normal color. Absent: rash Course Vital Signs 06/23/22 21:23 Temperature 98.1 F Pulse Rate 65 Respiratory 18 Rate Blood Pressure 100/60 O2 Sat by Pulse 97 Oximetry - Reevaluation(s) Reevaluation #1: 06/24/22 02:25 Medical record is reviewed Symptoms are improved here in the emergency department Patient is informed of results and questions answered Patient in no distress Reevaluation #2: 06/24/22 03:44 Patient's drug screen positive for tricyclic antidepressants, amphetamines, methamphetamine, benzodiazepine, and marijuana. Medical Decision Making - Medical Decision Making Patient came in complaining of anxiety. Patient's blood pressure was actually under control. Be ill or toxic. Patient denies suicidality or homicidality. Patient had a mental health evaluation and was deemed appropriate for discharge. Patient was given hydroxyzine for anxiety. Patient does have a prescription for a benzodiazepine at the pharmacy which was given and a previous visit. Patient released in stable condition. Vital signs stable, patient afebrile. Patient in no distress at discharge. The case was discussed in detail with ED attending physician. Presentation, findings, treatment plan discussed in detail. Patient was told to return to the ER for any signs or symptoms worsen. Told to return immediately if any other problems arise. All questions answered. Treatment plan discussed. Patient in agreement Every effort has been made to ensure accuracy of this dictation. However, due to the limitations of electronic medical records and dictation devices, errors in charting still occur. Note this patient specifically told me that she was not taking any illicit substances to include methamphetamine. Supervising Dr. Damon - Lab Data Lab Results 06/23/22 Range/Units 22:52 Urine Opiates Screen Not Detected (NotDetected) Ur Oxycodone Screen Not Detected (NotDetected) Urine Methadone Screen Not Detected (NotDetected) Ur Propoxyphene Screen Not Detected (NotDetected) Ur Barbiturates Screen Not Detected (NotDetected) U Tricyclic Antidepress Detected H (NotDetected) Ur Phencyclidine Scrn Not Detected (NotDetected) Ur Amphetamines Screen Detected H (NotDetected) U Methamphetamines Scrn Detected H (NotDetected) U Benzodiazepines Scrn Detected H (NotDetected) Urine Cocaine Screen Not Detected (NotDetected) U Marijuana (THC) Screen Detected H (NotDetected) Disposition Clinical Impression: Acute anxiety, Polysubstance abuse Disposition: HOME SELF-CARE Instructions (If sedation given, give patient instructions): Generalized Anxiety Disorder (ED) Additional Instructions: Follow-up with your regular physician as directed. Return to the ER immediately if any symptoms worsen, new symptoms arise, or any other problems develop. You have a prescription for lorazepam at your pharmacy that you can pick up man. This was prescribed a your previous visit. Prescriptions: hydrOXYzine HCL 25 mg PO Q8HR PRN #10 tab PRN Reason: Anxiety Is patient prescribed a controlled substance at d/c from ED?: No Referrals: Christophe Melton MD [Primary Care Provider] - 1-2 days Time of Disposition: 02:25
[2022-06-24 00:29] LABS: Amphetamine Screen,Urine Detected (NotDetected); Barbiturate Screen,Urine Not Detected (NotDetected); Benzodiazepines Screen,Urine Detected (NotDetected); Cocaine Screen,Urine Not Detected (NotDetected); Methadone Screen, Urine Not Detected (NotDetected); Opiate Screen,Urine Not Detected (NotDetected); Oxycodone Screen, Urine Not Detected (NotDetected); Phencyclidine Screen,Urine Not Detected (NotDetected); Tricyclic Antidepressant,Urine Detected (NotDetected)
[2022-06-24 00:30] LABS: Urn Cannabinoid Scrn Detected (NotDetected)
[2022-06-24] MEDS ORDERED: hydrOXYzine HCL 50 MG/ML 1 ML VIAL IM STA (02:24)
== END 2022-06-24 03:29 | disposition home or self-care (01) ==
LOC: EC 21:21
DX: F41.9 Anxiety disorder, unspecified (principal); F19.10 Other psychoactive substance abuse, uncomplicated; I10 Essential (primary) hypertension; F32.A Depression, unspecified; F17.200 Nicotine dependence, unspecified, uncomplicated; F12.90 Cannabis use, unspecified, uncomplicated; Z88.0 Allergy status to penicillin
CPT/HCPCS: 82075; 80306; 99283; 96372; J3410

== ENCOUNTER 2022-07-08 19:39 | Emergency (ER) | payer OTHER ==
[2022-07-08 21:02] VITALS: BP 126/90; PULSE 81; RESP 18; TEMP 98.5
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
[2022-07-09] MEDS ORDERED: ACETAMINOPHEN TAB 325 MG TAB PO STA (08:24)
== END 2022-07-09 09:48 | disposition home or self-care (01) ==
LOC: EC 19:39
DX: S00.93XA Contusion of unspecified part of head, initial encounter (principal); I10 Essential (primary) hypertension; F41.9 Anxiety disorder, unspecified; F32.A Depression, unspecified; F17.200 Nicotine dependence, unspecified, uncomplicated; F12.90 Cannabis use, unspecified, uncomplicated; Z88.0 Allergy status to penicillin; Z88.8 Allergy status to other drugs, medicaments and biological substances; X58.XXXA Exposure to other specified factors, initial encounter
CPT/HCPCS: 70450; 99285

== ENCOUNTER 2022-07-11 02:00 | Emergency (ER) | payer OTHER ==
--- NOTE | 2022-07-11 02:05 | ED ---
Recheck HPI - General Stated Complaint: Headache Time Seen by Provider: 07/11/22 02:02 Source: RN notes reviewed, old records reviewed Limitations: altered mental status - History of Present Illness Initial Comments: This is a 37-year-old female DF for evaluation of headache. Patient is known mental health patient comes DF for evaluation. Patient has history of methamphetamine abuse. Patient wishes bleeding under her skin causing headache. Patient is in the emergency department yesterday. She thought she had a computer her brain. Complaint: wound re-check -: days(s) Returns Today for: persistent/worsening pain related to initial visit Symptoms Since Prior Visit: worsening pain Associated Symptoms: none Treatments Prior to Arrival: Given Pain Meds on - Related Data Home Medications Medication Instructions Recorded Confirmed Lisinopril-Hctz 20-12.5 mg 1 tab PO BID 02/27/22 05/29/22 [Zestoretic 20-12.5] QUEtiapine FUMARATE [SEROquel] 100 mg PO HS 02/27/22 05/29/22 QUEtiapine [SEROquel] 50 mg PO DAILY 02/27/22 05/29/22 busPIRone HCL 15 mg PO TID 02/27/22 05/29/22 Previous Rx's Medication Instructions Recorded Gabapentin [Neurontin] 400 mg PO TID #6 cap 05/29/22 Atenolol/Chlorthalidone 1 each PO DAILY #10 tablet 06/10/22 [Atenolol/Chlorthalidone 50-25] LORazepam [Ativan] 0.5 mg PO DAILY PRN 3 Days #3 tab 06/23/22 hydrOXYzine HCL 25 mg PO Q8HR PRN #10 tab 06/24/22 Allergies Allergy/AdvReac Type Severity Reaction Status Date / Time Penicillins Allergy Unknown Verified 07/08/22 21:02 Childhood temazepam [From Restoril] Allergy Itching Verified 07/08/22 21:02 Review of Systems ROS Statement: Those systems with pertinent positive or pertinent negative responses have been documented in the HPI. ROS Other: All systems not noted in ROS Statement are negative. Past Medical History Past Medical History: Hypertension Additional Past Medical History / Comment(s): OTHER HX: fibromyalgia, chronic pain-generalized, migraines, R ovarian cysts, frequent UTI's, tachycardia, gastritis, duodenitis. Anxiety disorder History of Any Multi-Drug Resistant Organisms: None Reported Past Surgical History: Orthopedic Surgery Past Anesthesia/Blood Transfusion Reactions: Unable to Obtain Additional Past Anesthesia/Blood Transfusion Reaction / Comment(s): Pt has never had surgery Past Psychological History: Anxiety, Depression Smoking Status: Current every day smoker Past Alcohol Use History: None Reported Past Drug Use History: Marijuana, Opiates - Past Family History Mother Family Medical History: Cancer, Diabetes Mellitus, Myocardial Infarction ([place]) Additional Family Medical History / Comment(s): Mother had cervical cancer and hypotension. Father Family Medical History: Hypertension General Exam General appearance: alert, in no apparent distress Head exam: Present: atraumatic, normocephalic, normal inspection Eye exam: Present: normal appearance, PERRL, EOMI. Absent: scleral icterus, conjunctival injection, periorbital swelling ENT exam: Present: normal exam, mucous membranes moist Neck exam: Present: normal inspection. Absent: tenderness, meningismus, lymphadenopathy Respiratory exam: Present: normal lung sounds bilaterally. Absent: respiratory distress, wheezes, rales, rhonchi, stridor Cardiovascular Exam: Present: regular rate, normal rhythm, normal heart sounds. Absent: systolic murmur, diastolic murmur, rubs, gallop, clicks GI/Abdominal exam: Present: soft, normal bowel sounds. Absent: distended, tenderness, guarding, rebound, rigid Extremities exam: Present: normal inspection, full ROM, normal capillary refill. Absent: tenderness, pedal edema, joint swelling, calf tenderness Back exam: Present: normal inspection Neurological exam: Present: alert, oriented X3, CN II-XII intact Psychiatric exam: Present: normal affect, normal mood Skin exam: Present: warm, dry, intact, normal color. Absent: rash Course Vital Signs 07/11/22 02:02 Temperature 98.2 F Pulse Rate 121 H Respiratory 18 Rate Blood Pressure 109/96 O2 Sat by Pulse 99 Oximetry - Reevaluation(s) Reevaluation #1: 07/11/22 03:48 medical record is reviewed Reevaluation #2: 07/11/22 03:48 patient is informed of results and answered Medical Decision Making - Medical Decision Making 37 female headache is improved computed tomography scan is normal. Patient was clear for psychiatric evaluation and deemed stable for discharge from psychiatric standpoint - Lab Data Lab Results 12/07/22 12/07/22 Range/Units 04:37 04:37 Urine Color Yellow Urine Appearance Clear (Clear) Urine pH 5.5 (5.0-8.0) Ur Specific [place] 1.014 (1.001-1.035) Urine Protein Trace H (Negative) Urine Glucose (UA) Negative (Negative) Urine Ketones 1+ H (Negative) Urine Blood Negative (Negative) Urine Nitrite Negative (Negative) Urine Bilirubin Negative (Negative) Urine Urobilinogen <2.0 (<2.0) mg/dL Ur Leukocyte Esterase Negative (Negative) Urine HCG, Qual Not Detected (Not Detectd) - Radiology Data Radiology results: report reviewed (CT brain negative for acute disease), image reviewed Disposition Clinical Impression: Anxiety, Headache, Methamphetamine use disorder, severe Disposition: HOME SELF-CARE Condition: Good Instructions (If sedation given, give patient instructions): Acute Headache (ED) Is patient prescribed a controlled substance at d/c from ED?: No If Rx opioid, was Start Talking consent form obtained?: No Referrals: Christophe Melton MD [Primary Care Provider] - 1-2 days Time of Disposition: 05:00
[2022-07-11 02:06] VITALS: BP 109/96; PULSE 121; RESP 18; TEMP 98.2
[2022-07-11] MEDS ORDERED: HYDROcodone/APAP 5-325MG 1 EACH TAB PO STA (02:25)
[2022-07-11] MEDS ORDERED: ONDANSETRON ODT 4 MG TAB PO STA (02:25)
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
[2022-07-11 04:50] LABS: Appearance,Urine Clear (Clear); Bilirubin,Urine Negative (Negative); Blood,Urine Negative (Negative); Color,Urine Yellow; Glucose,Urine (UA) Negative (Negative); Ketones,Urine 1+ (Negative); Leukocyte Esterase,Urine Negative (Negative); Nitrite,Urine Negative (Negative); PH, Urine 5.5 (5.0-8.0); Protein,Urine Trace (Negative); Specific Gravity,Urine 1.014 (1.001-1.035); Urobilinogen,Urine <2.0 mg/dL (<2.0)
[2022-07-11 05:06] LABS: Amphetamine Screen,Urine Detected (NotDetected); Cocaine Screen,Urine Detected (NotDetected); Opiate Screen,Urine Detected (NotDetected); Phencyclidine Screen,Urine Not Detected (NotDetected); Urn Cannabinoid Scrn Detected (NotDetected)
[2022-07-11 05:07] LABS: Barbiturate Screen,Urine Not Detected (NotDetected); Benzodiazepines Screen,Urine Detected (NotDetected); Methadone Screen, Urine Not Detected (NotDetected); Oxycodone Screen, Urine Not Detected (NotDetected); Tricyclic Antidepressant,Urine Detected (NotDetected)
== END 2022-07-11 05:06 | disposition home or self-care (01) ==
LOC: EC 02:00
DX: R51.9 Headache, unspecified (principal); F41.9 Anxiety disorder, unspecified; F15.90 Other stimulant use, unspecified, uncomplicated; I10 Essential (primary) hypertension; F32.A Depression, unspecified; F17.200 Nicotine dependence, unspecified, uncomplicated; F12.90 Cannabis use, unspecified, uncomplicated; Z88.0 Allergy status to penicillin; Z88.8 Allergy status to other drugs, medicaments and biological substances
CPT/HCPCS: 70450; 80306; 81003; 81025; 99284

== ENCOUNTER 2022-07-11 08:39 | Emergency (ER) | payer OTHER ==
[2022-07-11 08:51] VITALS: BP 122/83; PULSE 106; RESP 20; TEMP 98.8
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
== END 2022-07-11 09:31 | disposition home or self-care (01) ==
LOC: EC 08:39
DX: F22 Delusional disorders (principal); I10 Essential (primary) hypertension; F41.9 Anxiety disorder, unspecified; F32.A Depression, unspecified; F12.90 Cannabis use, unspecified, uncomplicated; F17.200 Nicotine dependence, unspecified, uncomplicated; Z88.0 Allergy status to penicillin; Z88.8 Allergy status to other drugs, medicaments and biological substances
CPT/HCPCS: 99283

== ENCOUNTER 2022-07-17 01:00 | Emergency (ER) | payer OTHER ==
[2022-07-17 01:22] VITALS: BP 169/105; PULSE 101; RESP 18; TEMP 98.5
[2022-07-17] MEDS ORDERED: ACET/COD 300 MG/30 MG STARTER PACK 6 TAB BTL PO STA (04:44)
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
== END 2022-07-17 04:52 | disposition home or self-care (01) ==
LOC: EC 01:00
DX: R51.9 Headache, unspecified (principal); I10 Essential (primary) hypertension; F17.200 Nicotine dependence, unspecified, uncomplicated; F32.A Depression, unspecified; F41.9 Anxiety disorder, unspecified; F12.90 Cannabis use, unspecified, uncomplicated; Z88.0 Allergy status to penicillin; Z88.8 Allergy status to other drugs, medicaments and biological substances
CPT/HCPCS: 99283

== ENCOUNTER 2022-07-18 21:11 | Emergency (ER) | payer OTHER ==
[2022-07-18 21:41] VITALS: TEMP 98
[2022-07-18] MEDS ORDERED: ACETAMINOPHEN TAB 500 MG TAB PO STA (23:30)
[2022-07-18] MEDS ORDERED: SODIUM CHLORIDE 0.9% 500 ML 250 ML IV STA (23:30)
[2022-07-18] MEDS ORDERED: ONDANSETRON 4 MG/2 ML VIAL IVP STA (23:30)
[2022-07-18] MEDS ORDERED: ONDANSETRON 4 MG ODT STARTER PACK 2 TAB BTL PO STA (23:30)
--- NOTE | 2022-07-18 23:33 | ED ---
General Adult HPI - General Chief complaint: Upper Respiratory Infection Stated complaint: headache,body ache Time Seen by Provider: 07/18/22 22:59 Source: patient Mode of arrival: EMS Limitations: no limitations - History of Present Illness Initial comments: Dictation was produced using [employer] dictation software. please excuse any grammatical, word or spelling errors. Chief Complaint: 37-year-old female presents emergency department for generalized body aches, chills History of Present Illness: She 37-year-old female she is well-known to emergency department for multiple visitations. She is here today for 1-2 days of generalized body aches and chills. Denies any sore throat. She does have a mild cough. No other complaints at this time. The ROS documented in this emergency department record has been reviewed and confirmed by me. Those systems with pertinent positive or negative responses have been documented in the HPI. All other systems are other negative and/or noncontributory. PHYSICAL EXAM: General Impression: Alert and oriented x3, not in acute distress HEENT: Normocephalic atraumatic, extra-ocular movements intact, pupils equal and reactive to light bilaterally, mucous membranes moist. Cardiovascular: Heart regular rate and rhythm Chest: Able to complete full sentences, no retractions, no tachypnea Abdomen: abdomen soft, non-tender, non-distended, no organomegaly Musculoskeletal: Pulses present and equal in all extremities, no peripheral edema Motor: no focal deficits noted Neurological: CN II-XII grossly intact, no focal motor or sensory deficits noted Skin: Intact with no visualized rashes Psych: Normal affect and mood ED course: 37-year-old female presents emergency Department clinical presentation consistent with viral URI. Vital signs upon arrival are within acceptable limits. Patient requesting IV fluids. Viral panel is negative. Patient given Zofran and Tylenol. Patient be discharged. Nursing notes and chart review was performed - Related Data Home Medications Medication Instructions Recorded Confirmed Lisinopril-Hctz 20-12.5 mg 1 tab PO BID 02/27/22 05/29/22 [Zestoretic 20-12.5] QUEtiapine FUMARATE [SEROquel] 100 mg PO HS 02/27/22 05/29/22 QUEtiapine [SEROquel] 50 mg PO DAILY 02/27/22 05/29/22 busPIRone HCL 15 mg PO TID 02/27/22 05/29/22 Previous Rx's Medication Instructions Recorded Gabapentin [Neurontin] 400 mg PO TID #6 cap 05/29/22 Atenolol/Chlorthalidone 1 each PO DAILY #10 tablet 06/10/22 [Atenolol/Chlorthalidone 50-25] LORazepam [Ativan] 0.5 mg PO DAILY PRN 3 Days #3 tab 06/23/22 hydrOXYzine HCL 25 mg PO Q8HR PRN #10 tab 06/24/22 Allergies Allergy/AdvReac Type Severity Reaction Status Date / Time Penicillins Allergy Unknown Verified 07/17/22 01:22 Childhood temazepam [From Restoril] Allergy Itching Verified 07/17/22 01:22 Review of Systems ROS Statement: Those systems with pertinent positive or pertinent negative responses have been documented in the HPI. ROS Other: All systems not noted in ROS Statement are negative. Past Medical History Past Medical History: Hypertension Additional Past Medical History / Comment(s): OTHER HX: fibromyalgia, chronic pain-generalized, migraines, R ovarian cysts, frequent UTI's, tachycardia, gastritis, duodenitis. Anxiety disorder History of Any Multi-Drug Resistant Organisms: None Reported Past Surgical History: Orthopedic Surgery Past Anesthesia/Blood Transfusion Reactions: Unable to Obtain Additional Past Anesthesia/Blood Transfusion Reaction / Comment(s): Pt has never had surgery Past Psychological History: Anxiety, Depression Smoking Status: Current every day smoker Past Alcohol Use History: None Reported Past Drug Use History: Marijuana, Opiates - Past Family History Mother Family Medical History: Cancer, Diabetes Mellitus, Myocardial Infarction ([place]) Additional Family Medical History / Comment(s): Mother had cervical cancer and hypotension. Father Family Medical History: Hypertension General Exam Limitations: no limitations Course Vital Signs 07/18/22 21:37 Temperature 98 F Pulse Rate 110 H Respiratory 20 Rate Blood Pressure 190/110 O2 Sat by Pulse 95 Oximetry Medical Decision Making - Lab Data Lab Results 07/18/22 Range/Units 22:17 Influenza Type A (PCR) Not Detected (Not Detectd) Influenza Type B (PCR) Not Detected (Not Detectd) RSV (PCR) Not Detected (Not Detectd) SARS-CoV-2 (PCR) Not Detected (Not Detectd) Disposition Clinical Impression: Viral illness Disposition: HOME SELF-CARE Condition: Good Instructions (If sedation given, give patient instructions): Upper Respiratory Infection (ED) Is patient prescribed a controlled substance at d/c from ED?: No Referrals: Christophe Melton MD [Primary Care Provider] - 1-2 days Time of Disposition: 23:32
[2022-07-19 01:28] VITALS: BP 172/96; PULSE 102; RESP 18
== END 2022-07-19 01:27 | disposition home or self-care (01) ==
LOC: EC 21:11
DX: B34.9 Viral infection, unspecified (principal); I10 Essential (primary) hypertension; F41.9 Anxiety disorder, unspecified; F32.A Depression, unspecified; F12.90 Cannabis use, unspecified, uncomplicated; F11.90 Opioid use, unspecified, uncomplicated; F17.200 Nicotine dependence, unspecified, uncomplicated; Z20.822 Contact with and (suspected) exposure to COVID-19; Z79.899 Other long term (current) drug therapy; Z88.0 Allergy status to penicillin; Z88.8 Allergy status to other drugs, medicaments and biological substances
CPT/HCPCS: 87636; 99284; 96374; 96361; J2405; S0119

== ENCOUNTER 2022-07-23 23:24 | Emergency (ER) | payer OTHER ==
[2022-07-23 23:38] VITALS: BP 170/90; PULSE 115; RESP 18; TEMP 97.6
--- NOTE | 2022-07-24 00:39 | ED ---
Psych HPI - General Chief Complaint: Psychiatric Symptoms Stated Complaint: Mental health Time Seen by Provider: 07/24/22 00:36 Source: patient, RN notes reviewed, old records reviewed Mode of arrival: ambulatory Limitations: no limitations - History of Present Illness Initial Comments: This is a 37-year-old female DF for evaluation patient coming in for which she states is that she needs Ativan. Patient feeling very anxious. Patient is well-known to this emergency department for similar visits in the past. Currently not homicidal or suicidal denies drugs or alcohol MD Complaint: other (Anxious) Associated Psychiatric Symptoms: none Quality: constant Improves With: none Worsens With: none Context: not taking psychiatric medications, significant life stressor Associated Symptoms: denies other symptoms Treatments Prior to Arrival: placed on mental health hold - Related Data Home Medications Medication Instructions Recorded Confirmed Lisinopril-Hctz 20-12.5 mg 1 tab PO BID 02/27/22 05/29/22 [Zestoretic 20-12.5] QUEtiapine FUMARATE [SEROquel] 100 mg PO HS 02/27/22 05/29/22 QUEtiapine [SEROquel] 50 mg PO DAILY 02/27/22 05/29/22 busPIRone HCL 15 mg PO TID 02/27/22 05/29/22 Previous Rx's Medication Instructions Recorded Gabapentin [Neurontin] 400 mg PO TID #6 cap 05/29/22 Atenolol/Chlorthalidone 1 each PO DAILY #10 tablet 06/10/22 [Atenolol/Chlorthalidone 50-25] LORazepam [Ativan] 0.5 mg PO DAILY PRN 3 Days #3 tab 06/23/22 hydrOXYzine HCL 25 mg PO Q8HR PRN #10 tab 06/24/22 Allergies Allergy/AdvReac Type Severity Reaction Status Date / Time Penicillins Allergy Unknown Verified 07/28/22 12:51 Childhood temazepam [From Restoril] Allergy Itching Verified 07/28/22 12:51 Review of Systems ROS Statement: Those systems with pertinent positive or pertinent negative responses have been documented in the HPI. ROS Other: All systems not noted in ROS Statement are negative. Past Medical History Past Medical History: Hypertension Additional Past Medical History / Comment(s): OTHER HX: fibromyalgia, chronic pain-generalized, migraines, R ovarian cysts, frequent UTI's, tachycardia, gastritis, duodenitis. Anxiety disorder History of Any Multi-Drug Resistant Organisms: None Reported Past Surgical History: Orthopedic Surgery Past Anesthesia/Blood Transfusion Reactions: Unable to Obtain Additional Past Anesthesia/Blood Transfusion Reaction / Comment(s): Pt has never had surgery Past Psychological History: Anxiety, Depression Smoking Status: Current every day smoker Past Alcohol Use History: None Reported Past Drug Use History: Marijuana, Opiates - Past Family History Mother Family Medical History: Cancer, Diabetes Mellitus, Myocardial Infarction ([place]) Additional Family Medical History / Comment(s): Mother had cervical cancer and hypotension. Father Family Medical History: Hypertension General Exam Limitations: no limitations General appearance: alert, in no apparent distress, anxious Head exam: Present: atraumatic, normocephalic, normal inspection Eye exam: Present: normal appearance, PERRL, EOMI. Absent: scleral icterus, co njunctival injection, periorbital swelling ENT exam: Present: normal exam, mucous membranes moist Neck exam: Present: normal inspection. Absent: tenderness, meningismus, lymphadenopathy Respiratory exam: Present: normal lung sounds bilaterally. Absent: respiratory distress, wheezes, rales, rhonchi, stridor Cardiovascular Exam: Present: regular rate, normal rhythm, normal heart sounds. Absent: systolic murmur, diastolic murmur, rubs, gallop, clicks GI/Abdominal exam: Present: soft, normal bowel sounds. Absent: distended, tenderness, guarding, rebound, rigid Extremities exam: Present: normal inspection, full ROM, normal capillary refill. Absent: tenderness, pedal edema, joint swelling, calf tenderness Back exam: Present: normal inspection Neurological exam: Present: alert, oriented X3, CN II-XII intact Psychiatric exam: Present: normal affect, normal mood Skin exam: Present: warm, dry, intact, normal color. Absent: rash Course Vital Signs 07/23/22 23:34 Temperature 97.6 F Pulse Rate 115 H Respiratory 18 Rate Blood Pressure 170/90 O2 Sat by Pulse 96 Oximetry - Reevaluation(s) Reevaluation #1: medical record is reviewed Medically clear for psychiatry Medical Decision Making - Medical Decision Making 37 female with psychiatric anxiety reaction. Not homicidal or suicidal seen evaluated here in the ER and can be discharged home Disposition Clinical Impression: Anxiety Disposition: HOME SELF-CARE Condition: Fair Instructions (If sedation given, give patient instructions): Anxiety (ED) Is patient prescribed a controlled substance at d/c from ED?: No Referrals: Christophe Melton MD [Primary Care Provider] - 1-2 days
[2022-07-24] MEDS ORDERED: hydrOXYzine pamoate 25 MG CAP PO STA (03:17)
== END 2022-07-24 03:55 | disposition home or self-care (01) ==
LOC: EC 23:24
DX: F41.9 Anxiety disorder, unspecified (principal); I10 Essential (primary) hypertension; F32.A Depression, unspecified; F12.90 Cannabis use, unspecified, uncomplicated; F11.90 Opioid use, unspecified, uncomplicated; F17.200 Nicotine dependence, unspecified, uncomplicated; Z79.899 Other long term (current) drug therapy; Z88.0 Allergy status to penicillin
CPT/HCPCS: 82075; 99284

== ENCOUNTER 2022-07-28 12:42 | Emergency (ER) | payer OTHER ==
[2022-07-28 12:50] VITALS: RESP 18
[2022-07-28] MEDS ORDERED: SODIUM CHLORIDE 0.9% 1,000 ML IV STA (13:02)
[2022-07-28] MEDS ORDERED: ONDANSETRON 4 MG/2 ML VIAL IVP STA (13:02)
[2022-07-28] MEDS ORDERED: LORazepam 2 MG/ML INJ IV STA (13:02)
[2022-07-28] MEDS ORDERED: FAMOTIDINE 20 MG/2 ML VIAL IV STA (13:03)
--- NOTE | 2022-07-28 13:07 | ED ---
General Adult HPI - General Chief complaint: Anxiety Stated complaint: dry heaving Time Seen by Provider: 07/28/22 12:51 Source: patient, EMS, RN notes reviewed Mode of arrival: EMS Limitations: no limitations - History of Present Illness Initial comments: Patient is a pleasant 37-year-old female presenting to the emergency department with concerns for anxiety. Patient is concerned she is dehydrated. Patient has not been eating and drinking well lately. Patient did use cocaine recently. Patient feels anxious. Patient has nausea. Patient requests IV fluids. - Related Data Home Medications Medication Instructions Recorded Confirmed Lisinopril-Hctz 20-12.5 mg 1 tab PO BID 02/27/22 05/29/22 [Zestoretic 20-12.5] QUEtiapine FUMARATE [SEROquel] 100 mg PO HS 02/27/22 05/29/22 QUEtiapine [SEROquel] 50 mg PO DAILY 02/27/22 05/29/22 busPIRone HCL 15 mg PO TID 02/27/22 05/29/22 Previous Rx's Medication Instructions Recorded Gabapentin [Neurontin] 400 mg PO TID #6 cap 05/29/22 Atenolol/Chlorthalidone 1 each PO DAILY #10 tablet 06/10/22 [Atenolol/Chlorthalidone 50-25] LORazepam [Ativan] 0.5 mg PO DAILY PRN 3 Days #3 tab 06/23/22 hydrOXYzine HCL 25 mg PO Q8HR PRN #10 tab 06/24/22 Allergies Allergy/AdvReac Type Severity Reaction Status Date / Time Penicillins Allergy Unknown Verified 07/28/22 12:51 Childhood temazepam [From Restoril] Allergy Itching Verified 07/28/22 12:51 Review of Systems ROS Statement: Those systems with pertinent positive or pertinent negative responses have been documented in the HPI. ROS Other: All systems not noted in ROS Statement are negative. Constitutional: Denies: fever Eyes: Denies: eye pain ENT: Denies: ear pain Respiratory: Denies: cough Cardiovascular: Denies: chest pain Gastrointestinal: Reports: nausea, vomiting. Denies: abdominal pain Genitourinary: Denies: dysuria Musculoskeletal: Denies: back pain Skin: Denies: rash Neurological: Denies: weakness Past Medical History Past Medical History: Hypertension Additional Past Medical History / Comment(s): OTHER HX: fibromyalgia, chronic pain-generalized, migraines, R ovarian cysts, frequent UTI's, tachycardia, gastritis, duodenitis. Anxiety disorder History of Any Multi-Drug Resistant Organisms: None Reported Past Surgical History: Orthopedic Surgery Additional Past Surgical History / Comment(s): hand surgery Past Anesthesia/Blood Transfusion Reactions: Unable to Obtain Additional Past Anesthesia/Blood Transfusion Reaction / Comment(s): Pt has never had surgery Past Psychological History: Anxiety, Depression, PTSD Smoking Status: Current every day smoker Past Alcohol Use History: None Reported Past Drug Use History: Marijuana, Opiates - Past Family History Mother Family Medical History: Cancer, Diabetes Mellitus, Myocardial Infarction ([place]) Additional Family Medical History / Comment(s): Mother had cervical cancer and hypotension. Father Family Medical History: Hypertension General Exam Limitations: no limitations General appearance: alert, in no apparent distress Head exam: Present: normocephalic Eye exam: Present: normal appearance ENT exam: Present: normal oropharynx Neck exam: Present: normal inspection Respiratory exam: Present: normal lung sounds bilaterally Cardiovascular Exam: Present: regular rate, normal rhythm GI/Abdominal exam: Present: soft. Absent: distended, tenderness, guarding, rebound, rigid Extremities exam: Present: normal inspection Neurological exam: Present: alert Psychiatric exam: Present: normal affect, normal mood Skin exam: Present: normal color Course Vital Signs 07/28/22 07/28/22 12:45 13:25 Temperature 98.4 F Pulse Rate 110 H 107 H Respiratory 18 18 Rate Blood Pressure 176/121 179/120 O2 Sat by Pulse 99 98 Oximetry Medical Decision Making - Medical Decision Making Patient reevaluated and feeling somewhat better. Patient feels comfortable with discharge home. Patient is receptive to starter pack for Zofran as well as Ativan to take home. Patient updated on results and need for follow-up. - Lab Data Result diagrams: 07/28/22 13:20 07/28/22 13:20 Lab Results 07/28/22 07/28/22 Range/Units 13:20 13:20 WBC 11.0 H (3.8-10.6) k/uL RBC 4.92 (3.80-5.40) m/uL Hgb 15.9 (11.4-16.0) gm/dL Hct 45.9 (34.0-46.0) % MCV 93.4 (80.0-100.0) fL MCH 32.4 (25.0-35.0) pg MCHC 34.7 (31.0-37.0) g/dL RDW 13.2 (11.5-15.5) % Plt Count 269 (150-450) k/uL MPV 8.0 Neutrophils % 83 % Lymphocytes % 11 % Monocytes % 3 % Eosinophils % 1 % Basophils % 1 % Neutrophils # 9.1 H (1.3-7.7) k/uL Lymphocytes # 1.3 (1.0-4.8) k/uL Monocytes # 0.3 (0-1.0) k/uL Eosinophils # 0.1 (0-0.7) k/uL Basophils # 0.1 (0-0.2) k/uL Sodium 141 (137-145) mmol/L Potassium 4.0 (3.5-5.1) mmol/L Chloride 109 H (98-107) mmol/L Carbon Dioxide 19 L (22-30) mmol/L Anion Gap 13 mmol/L BUN 16 (7-17) mg/dL Creatinine 0.65 (0.52-1.04) mg/dL Est GFR (CKD-EPI)AfAm >90 (>60 ml/min/1.73 sqM) Est GFR (CKD-EPI)NonAf >90 (>60 ml/min/1.73 sqM) Glucose 76 (74-99) mg/dL Calcium 8.9 (8.4-10.2) mg/dL Total Bilirubin 0.9 (0.2-1.3) mg/dL AST 26 (14-36) U/L ALT 22 (4-34) U/L Alkaline Phosphatase 95 (38-126) U/L Total Protein 7.5 (6.3-8.2) g/dL Albumin 4.6 (3.5-5.0) g/dL Amylase 51 (30-110) U/L Lipase 65 (23-300) U/L HCG, Qual Not Detected Disposition Clinical Impression: Acute anxiety, Nausea & vomiting Disposition: HOME SELF-CARE Condition: Stable Instructions (If sedation given, give patient instructions): Generalized Anxiety Disorder (ED), Acute Nausea and Vomiting (ED) Additional Instructions: Please do follow-up with primary care physician in the next day or 2 for recheck. Return for increased vomiting, pain, fever, worsening symptoms or other concerns. Is patient prescribed a controlled substance at d/c from ED?: No Referrals: Christophe Melton MD [Primary Care Provider] - 1-2 days Time of Disposition: 13:56
[2022-07-28 13:29] LABS: Basophils # (A) 0.1 k/uL (0-0.2); Basophils % (A) 1 %; Eosinophils # (A) 0.1 k/uL (0-0.7); Eosinophils % (A) 1 %; HCT 45.9 % (34.0-46.0); HGB 15.9 gm/dL (11.4-16.0); Lymphocytes # (A) 1.3 k/uL (1.0-4.8); Lymphocytes % (A) 11 %; MCH 32.4 pg (25.0-35.0); MCHC 34.7 g/dL (31.0-37.0); MCV 93.4 fL (80.0-100.0); Monocytes # (A) 0.3 k/uL (0-1.0); Monocytes % (A) 3 %; Neutrophils # (A) 9.1 k/uL (1.3-7.7); Neutrophils % (A) 83 %; Platelet Count 269 k/uL (150-450); RBC 4.92 m/uL (3.80-5.40); RDW 13.2 % (11.5-15.5)
[2022-07-28 13:42] LABS: ALT 22 U/L (4-34); AST 26 U/L (14-36); African American GFR (CKD) >90 (>60 ml/min/1.73 sqM); Albumin 4.6 g/dL (3.5-5.0); Alkaline Phosphatase 95 U/L (38-126); Amylase 51 U/L (30-110); Anion Gap 13 mmol/L; Blood Urea Nitrogen 16 mg/dL (7-17); Calcium 8.9 mg/dL (8.4-10.2); Carbon Dioxide 19 mmol/L (22-30); Chloride 109 mmol/L (98-107); Glucose 76 mg/dL (74-99); Lipase 65 U/L (23-300); Non-African American GFR(CKD) >90 (>60 ml/min/1.73 sqM); Sodium 141 mmol/L (137-145); Total Bilirubin 0.9 mg/dL (0.2-1.3); Total Protein 7.5 g/dL (6.3-8.2)
[2022-07-28 13:49] LABS: HCG,Qualitative Serum Not Detected
[2022-07-28] MEDS ORDERED: LORazepam 1 MG TAB PO STA (13:57)
[2022-07-28] MEDS ORDERED: ONDANSETRON 4 MG ODT STARTER PACK 2 TAB BTL PO STA (13:57)
[2022-07-28 14:22] VITALS: BP 180/110; PULSE 100; TEMP 98.2
== END 2022-07-28 14:29 | disposition home or self-care (01) ==
LOC: EC 12:42
DX: R11.2 Nausea with vomiting, unspecified (principal); F41.9 Anxiety disorder, unspecified; I10 Essential (primary) hypertension; F32.A Depression, unspecified; F12.90 Cannabis use, unspecified, uncomplicated; F17.200 Nicotine dependence, unspecified, uncomplicated; F11.90 Opioid use, unspecified, uncomplicated; Z88.0 Allergy status to penicillin; Z88.8 Allergy status to other drugs, medicaments and biological substances; Z79.899 Other long term (current) drug therapy
CPT/HCPCS: 36415; 80053; 82150; 83690; 85025; 84703; 99283; 96374; 96375 ×2; 96361; J2060; J2405; S0119

== ENCOUNTER 2023-01-17 23:11 | Emergency (ER) | payer OTHER ==
[2023-01-17 23:28] VITALS: BP 124/48; PULSE 120; RESP 18; TEMP 98.1
[2023-01-17] MEDS ORDERED: LORazepam 2 MG/ML INJ IM STA (23:41)
[2023-01-17] MEDS ORDERED: KETOROLAC 15 MG/ML 1 ML VIAL IM STA (23:42)
--- NOTE | 2023-01-18 00:02 | ED ---
General Adult HPI - General Chief complaint: Anxiety Stated complaint: Headaches, Anxiety Time Seen by Provider: 01/17/23 23:31 Source: patient Mode of arrival: ambulatory Limitations: no limitations - History of Present Illness Initial comments: Patient is a 37-year-old female presenting with chief complaint of anxiety and headache. Patient states symptoms started this evening. She does admit to taking methamphetamines this evening. She denies chest pain, difficulty breathing, nausea, vomiting, abdominal pain, vision or hearing changes, num bness, tingling, weakness - Related Data Home Medications Medication Instructions Recorded Confirmed Lisinopril-Hctz 20-12.5 mg 1 tab PO BID 02/27/22 05/29/22 [Zestoretic 20-12.5] QUEtiapine FUMARATE [SEROquel] 100 mg PO HS 02/27/22 05/29/22 QUEtiapine [SEROquel] 50 mg PO DAILY 02/27/22 05/29/22 busPIRone HCL 15 mg PO TID 02/27/22 05/29/22 Previous Rx's Medication Instructions Recorded Gabapentin [Neurontin] 400 mg PO TID #6 cap 05/29/22 Atenolol/Chlorthalidone 1 each PO DAILY #10 tablet 06/10/22 [Atenolol/Chlorthalidone 50-25] LORazepam [Ativan] 0.5 mg PO DAILY PRN 3 Days #3 tab 06/23/22 hydrOXYzine HCL 25 mg PO Q8HR PRN #10 tab 06/24/22 Allergies Allergy/AdvReac Type Severity Reaction Status Date / Time Penicillins Allergy Unknown Verified 01/17/23 23:28 Childhood temazepam [From Restoril] Allergy Itching Verified 01/17/23 23:28 Review of Systems ROS Statement: Those systems with pertinent positive or pertinent negative responses have been documented in the HPI. ROS Other: All systems not noted in ROS Statement are negative. Past Medical History Past Medical History: Hypertension Additional Past Medical History / Comment(s): OTHER HX: fibromyalgia, chronic pain-generalized, migraines, R ovarian cysts, frequent UTI's, tachycardia, gastritis, duodenitis. Anxiety disorder History of Any Multi-Drug Resistant Organisms: None Reported Past Surgical History: Orthopedic Surgery Additional Past Surgical History / Comment(s): hand surgery Past Anesthesia/Blood Transfusion Reactions: Unable to Obtain Additional Past Anesthesia/Blood Transfusion Reaction / Comment(s): Pt has never had surgery Past Psychological History: Anxiety, Depression, PTSD Smoking Status: Current every day smoker Past Alcohol Use History: None Reported Past Drug Use History: Marijuana, Methamphetamine, Opiates - Past Family History Mother Family Medical History: Cancer, Diabetes Mellitus, Myocardial Infarction ([place]) Additional Family Medical History / Comment(s): Mother had cervical cancer and hypotension. Father Family Medical History: Hypertension General Exam Limitations: no limitations General appearance: alert, in no apparent distress Head exam: Present: atraumatic, normocephalic, normal inspection Eye exam: Present: normal appearance, PERRL, EOMI. Absent: scleral icterus, periorbital swelling Neck exam: Present: normal inspection, full ROM Respiratory exam: Present: normal lung sounds bilaterally. Absent: respiratory distress, wheezes, rales, rhonchi, stridor Cardiovascular Exam: Present: regular rate, normal rhythm, normal heart sounds. Absent: systolic murmur, diastolic murmur, rubs, gallop, clicks Neurological exam: Present: alert, oriented X3, CN II-XII intact Psychiatric exam: Present: normal affect, normal mood Skin exam: Present: warm, dry, intact, normal color. Absent: rash Course Vital Signs 01/17/23 23:24 Temperature 98.1 F Pulse Rate 120 H Respiratory 18 Rate Blood Pressure 124/48 O2 Sat by Pulse 96 Oximetry Medical Decision Making - Medical Decision Making Was pt. sent in by a medical professional or institution (, [place], [employer], urgent care, hospital, or residential...) When possible be specific @ -No Did you speak to anyone other than the patient for history (EMS, parent, family, police, friend...)? What history was obtained from this source @ -No Did you review nursing and triage notes (agree or disagree)? Why? @ -I reviewed and agree with nursing and triage notes Were old charts reviewed (outside hosp., previous admission, EMS record, old EKG, old radiological studies, urgent care reports/EKG's, residential records)? Report findings @ -No old charts were reviewed Differential Diagnosis (chest pain, altered mental status, abdominal pain women, abdominal pain men, vaginal bleeding, weakness, fever, dyspnea, syncope, headache, dizziness, GI bleed, back pain, seizure, CVA, palpatations, mental health, musculoskeletal)? @ -Differential Mental Health Depression, anxiety, bipolar, psychosis, schizophrenia, borderline personality, situational depression, adjustment disorder, behavioral disorder, brain tumor, malingering, substance abuse, encephalopathy, medication reaction, dementia, hypothyroidism, degenerative neurologic disorder, lupus.... This is not meant to be all-inclusive list EKG interpreted by me (3pts min.). @ -Sinus tachycardia ventricular rate 111. VA interval 146. QRS 89. QT 347. QTC 413. No ischemic changes. X-rays interpreted by me (1pt min.). @ -None done CT interpreted by me (1pt min.). @ -None done U/S interpreted by me (1pt. min.). @ -None done What testing was considered but not performed or refused? (CT, X-rays, U/S, labs)? Why? @ -None What meds were considered but not given or refused? Why? @ -None Did you discuss the management of the patient with other professionals (thu sorensen i.e. , PA, [employer], lab, RT, psych nurse, manager social responsibility, valuation manager, teacher, chief development officer, test case developer)? Give summary @ -No Was smoking cessation discussed for >3mins.? @ -No Was critical care preformed (if so, how long)? @ -No Were there social determinants of health that impacted care today? How? (Homelessness, low income, unemployed, alcoholism, drug addiction, transportation, low edu. Level, literacy, decrease access to med. care, intermediate, rehab)? @ -No Was there de-escalation of care discussed even if they declined (Discuss DNR or withdrawal of care, Hospice)? DNR status @ -No What co-morbidities impacted this encounter? (DM, HTN, Smoking, COPD, CAD, Cancer, CVA, ARF, Chemo, Hep., AIDS, mental health diagnosis, sleep apnea, morbid obesity)? @ -None Was patient admitted / discharged? Hospital course, mention meds given and route, prescriptions, significant lab abnormalities, going to OR and other pertinent info. @ -37-year-old female presenting with chief complaint of anxiety and headache. Patient did take methamphetamines prior to arrival. Physical examination is unremarkable. Patient is given Toradol and Ativan. I'm told the patient left the ER immediately after receiving medication. She should follow-up with her PCP and report back to the ER with any new or worsening symptoms. I attending is Dr. Boles Undiagnosed new problem with uncertain prognosis? @ -No Drug Therapy requiring intensive monitoring for toxicity (Heparin, Nitro, Insulin, Cardizem)? @ -No Were any procedures done? @ -No Diagnosis/symptom? @ -Headache Acute, or Chronic, or Acute on Chronic? @ -Acute Uncomplicated (without systemic symptoms) or Complicated (systemic symptoms)? @ -Complicated Side effects of treatment? @ -No Exacerbation, Progression, or Severe Exacerbation? @ -No Poses a threat to life or bodily function? How? (Chest pain, [place], [place], pneumonia, PE, COPD, DKA, ARF, appy, cholecystitis, CVA, Diverticulitis, Homicidal, Suicidal, threat to staff... and all critical care pts) @ -No Diagnosis/symptom? @ Anxiety and methamphetamine abuse Acute, or Chronic, or Acute on Chronic? @ Acute on chronic Uncomplicated (without systemic symptoms) or Complicated (systemic symptoms)? @ Complicated Side effects of treatment? @ none Exacerbation, Progression, or Severe Exacerbation] @ no Poses a threat to life or bodily function? @ no Disposition Clinical Impression: Acute anxiety, Methamphetamine abuse Disposition: HOME SELF-CARE Condition: Good Instructions (If sedation given, give patient instructions): Generalized Anxiety Disorder (ED), Methamphetamine Abuse (ED) Additional Instructions: Follow-up with PCP. Report back to ER with any new or worsening symptoms. Is patient prescribed a controlled substance at d/c from ED?: No Referrals: Christophe Melton MD [Primary Care Provider] - 1-2 days Time of Disposition: 00:02
== END 2023-01-18 00:24 | disposition home or self-care (01) ==
LOC: EC 23:11
DX: F41.9 Anxiety disorder, unspecified (principal); F15.10 Other stimulant abuse, uncomplicated; I10 Essential (primary) hypertension; F32.A Depression, unspecified; F17.200 Nicotine dependence, unspecified, uncomplicated; F12.90 Cannabis use, unspecified, uncomplicated; F11.90 Opioid use, unspecified, uncomplicated; Z79.899 Other long term (current) drug therapy; Z88.0 Allergy status to penicillin; Z88.8 Allergy status to other drugs, medicaments and biological substances
CPT/HCPCS: 99283; 96372 ×2; J2060; J1885

== ENCOUNTER 2023-01-18 13:44 | Emergency (ER) | payer OTHER ==
[2023-01-18 14:01] VITALS: TEMP 98
[2023-01-18] MEDS ORDERED: KETOROLAC 15 MG/ML 1 ML VIAL IM STA (14:55)
[2023-01-18] MEDS ORDERED: LORazepam 1 MG TAB PO STA (14:55)
--- NOTE | 2023-01-18 14:58 | ED ---
General Adult HPI - General Chief complaint: Psychiatric Symptoms Stated complaint: mental health Time Seen by Provider: 01/18/23 14:11 Source: patient, police, RN notes reviewed, old records reviewed Mode of arrival: ambulatory Limitations: no limitations - History of Present Illness Initial comments: 37-year-old female presenting for mental health evaluation. Patient delusional admits to methamphetamine use. Apparently the patient has been petitioned by local police. Denies suicidal or homicidal ideation. Complains of mild headache and anxiety. - Related Data Home Medications Medication Instructions Recorded Confirmed QUEtiapine FUMARATE [SEROquel] 400 mg PO HS 02/27/22 01/18/23 QUEtiapine [SEROquel] 50 mg PO DAILY 02/27/22 01/18/23 Gabapentin 800 mg PO TID 01/18/23 01/18/23 Ibuprofen [Motrin] 600 mg PO TID PRN 01/18/23 01/18/23 Propranolol [Inderal] 20 mg PO BID 01/18/23 01/18/23 cloNIDine HCL [Catapres] 0.1 mg PO DAILY PRN 01/18/23 01/18/23 lisinopriL 40 mg PO DAILY 01/18/23 01/18/23 Allergies Allergy/AdvReac Type Severity Reaction Status Date / Time Penicillins Allergy Unknown Verified 01/18/23 15:36 Childhood temazepam [From Restoril] AdvReac Itching Verified 01/18/23 15:36 Review of Systems ROS Statement: Those systems with pertinent positive or pertinent negative responses have been documented in the HPI. ROS Other: All systems not noted in ROS Statement are negative. Past Medical History Past Medical History: Hypertension Additional Past Medical History / Comment(s): OTHER HX: fibromyalgia, chronic pain-generalized, migraines, R ovarian cysts, frequent UTI's, tachycardia, gastritis, duodenitis. Anxiety disorder History of Any Multi-Drug Resistant Organisms: None Reported Past Surgical History: Orthopedic Surgery Additional Past Surgical History / Comment(s): hand surgery Past Anesthesia/Blood Transfusion Reactions: Unable to Obtain Additional Past Anesthesia/Blood Transfusion Reaction / Comment(s): Pt has never had surgery Past Psychological History: Anxiety, Depression, PTSD Smoking Status: Current every day smoker Past Alcohol Use History: None Reported Past Drug Use History: Cocaine, Marijuana, Methamphetamine, Opiates - Past Family History Mother Family Medical History: Cancer, Diabetes Mellitus, Myocardial Infarction ([place]) Additional Family Medical History / Comment(s): Mother had cervical cancer and hypotension. Father Family Medical History: Hypertension General Exam Limitations: no limitations General appearance: alert, in no apparent distress, anxious Head exam: Present: atraumatic, normocephalic Eye exam: Present: normal appearance. Absent: PERRL, EOMI ENT exam: Present: normal exam Neck exam: Present: normal inspection. Absent: tenderness, meningismus Respiratory exam: Present: normal lung sounds bilaterally. Absent: respiratory distress, wheezes Cardiovascular Exam: Present: normal rhythm, tachycardia GI/Abdominal exam: Present: soft. Absent: distended, tenderness, guarding Neurological exam: Present: alert. Absent: motor sensory deficit Psychiatric exam: Present: agitated, anxious, other (Delusional) Skin exam: Present: warm, dry, intact Course Vital Signs 01/18/23 13:56 Temperature 98.0 F Pulse Rate 125 H Respiratory 22 Rate Blood Pressure 158/109 O2 Sat by Pulse 96 Oximetry Medical Decision Making - Medical Decision Making Was pt. sent in by a medical professional or institution (, [place], [employer], urgent care, hospital, or retirement...) When possible be specific @No Did you speak to anyone other than the patient for history (EMS, parent, family, police, friend...)? What history was obtained from this source @ -[Local police Did you review nursing and triage notes (agree or disagree)? Why? @ -I reviewed and agree with nursing and triage notes Were old charts reviewed (outside hosp., previous admission, EMS record, old EKG , old radiological studies, urgent care reports/EKG's, retirement records)? Report findings @ -No old charts were reviewed Differential Diagnosis (chest pain, altered mental status, abdominal pain women, abdominal pain men, vaginal bleeding, weakness, fever, dyspnea, syncope, headache, dizziness, GI bleed, back pain, seizure, CVA, palpatations, mental health, musculoskeletal)? @ -[Differential Mental Health Depression, anxiety, bipolar, psychosis, schizophrenia, borderline personality, situational depression, adjustment disorder, behavioral disorder, brain tumor, malingering, substance abuse, encephalopathy, medication reaction, dementia, hypothyroidism, degenerative neurologic disorder, lupus.... This is not meant to be all-inclusive list EKG interpreted by me (3pts min.). @ -As above X-rays interpreted by me (1pt min.). @ -None done CT interpreted by me (1pt min.). @ -None done U/S interpreted by me (1pt. min.). @ -None done What testing was considered but not performed or refused? (CT, X-rays, U/S, labs)? Why? @ -None What meds were considered but not given or refused? Why? @ -None Did you discuss the management of the patient with other professionals (professionals i.e. , PA, [employer], lab, RT, psych nurse, social science professor, rolloff driver, teacher, classification officer, transplant case manager)? Give summary @ -EPS nurse Was smoking cessation discussed for >3mins.? @ -No Was critical care preformed (if so, how long)? @ -No Were there social determinants of health that impacted care today? How? (Homelessness, low income, unemployed, alcoholism, drug addiction, transportation, low edu. Level, literacy, decrease access to med. care, intermediate, rehab)? @ -[Drug addiction Was there de-escalation of care discussed even if they declined (Discuss DNR or withdrawal of care, Hospice)? DNR status @ -No What co-morbidities impacted this encounter? (DM, HTN, Smoking, COPD, CAD, Cancer, CVA, ARF, Chemo, Hep., AIDS, mental health diagnosis, sleep apnea, morbid obesity)? @ -[Cocaine and amphetamine abuse Was patient admitted / discharged? Hospital course, mention meds given and route, prescriptions, significant lab abnormalities, going to OR and other pertinent info. @37-year-old female presenting for evaluation, psychiatric evaluation. She has been petitioned. She is currently using methamphetamine on a regular basis. She denies suicidal or homicidal ideation. She was observed in the emergency department and ultimately evaluated by EPS. She was felt to be stable for discharge. She was able to sign a safety plan. She's given outpatient referrals Undiagnosed new problem with uncertain prognosis? @ -No Drug Therapy requiring intensive monitoring for toxicity (Heparin, Nitro, Insulin, Cardizem)? @ -No Were any procedures done? @ -No Diagnosis/symptom? @ -[Methamphetamine abuse Acute, or Chronic, or Acute on Chronic? @Acute on chronic Uncomplicated (without systemic symptoms) or Complicated (systemic symptoms)? @ -default Side effects of treatment? @ -No Exacerbation, Progression, or Severe Exacerbation? @ -No Poses a threat to life or bodily function? How? (Chest pain, [place], [place], pneumonia, PE, COPD, DKA, ARF, appy, cholecystitis, CVA, Diverticulitis, Homicidal, Suicidal, threat to staff... and all critical care pts) @ -Yes, use of illicit drugs - Lab Data Lab Results 01/18/23 Range/Units 16:04 Urine Opiates Screen Not Detected (NotDetected) Ur Oxycodone Screen Not Detected (NotDetected) Urine Methadone Screen Not Detected (NotDetected) Ur Propoxyphene Screen Not Detected (NotDetected) Ur Barbiturates Screen Not Detected (NotDetected) U Tricyclic Antidepress Detected H (NotDetected) Ur Phencyclidine Scrn Not Detected (NotDetected) Ur Amphetamines Screen Detected H (NotDetected) U Methamphetamines Scrn Detected H (NotDetected) U Benzodiazepines Scrn Detected H (NotDetected) Urine Cocaine Screen Detected H (NotDetected) U Marijuana (THC) Screen Detected H (NotDetected) Disposition Clinical Impression: Polypharmacy, Methamphetamine abuse, Acute psychosis, Drug-induced psychotic disorder Disposition: HOME SELF-CARE Condition: Poor Instructions (If sedation given, give patient instructions): Methamphetamine Abuse (ED), Polysubstance Abuse (ED) Additional Instructions: Please follow up with community mental health Is patient prescribed a controlled substance at d/c from ED?: No Referrals: Christophe Melton MD [Primary Care Provider] - 1-2 days
[2023-01-18 16:54] LABS: Amphetamine Screen,Urine Detected (NotDetected); Barbiturate Screen,Urine Not Detected (NotDetected); Benzodiazepines Screen,Urine Detected (NotDetected); Cocaine Screen,Urine Detected (NotDetected); Methadone Screen, Urine Not Detected (NotDetected); Opiate Screen,Urine Not Detected (NotDetected); Oxycodone Screen, Urine Not Detected (NotDetected); Phencyclidine Screen,Urine Not Detected (NotDetected); Tricyclic Antidepressant,Urine Detected (NotDetected); Urn Cannabinoid Scrn Detected (NotDetected)
[2023-01-19 05:24] VITALS: BP 187/99; PULSE 111; RESP 18
== END 2023-01-19 05:24 | disposition home or self-care (01) ==
LOC: EC 13:44
DX: F15.10 Other stimulant abuse, uncomplicated (principal); F23 Brief psychotic disorder; I10 Essential (primary) hypertension; F32.A Depression, unspecified; F41.9 Anxiety disorder, unspecified; F12.90 Cannabis use, unspecified, uncomplicated; F17.200 Nicotine dependence, unspecified, uncomplicated; Z79.899 Other long term (current) drug therapy; Z88.0 Allergy status to penicillin; Z88.8 Allergy status to other drugs, medicaments and biological substances
CPT/HCPCS: 82075; 80306; 99285; 96372; J1885

== ENCOUNTER 2023-08-05 15:33 | Emergency (ER) | payer OTHER ==
--- NOTE | 2023-08-05 16:28 | ED ---
General Adult HPI - General Source: patient, police, RN notes reviewed, old records reviewed Mode of arrival: ambulatory <Dickson Shell - Last Filed: 08/20/23 21:20> <Juan Antonio Cotto - Last Filed: 08/22/23 22:39> - General Chief complaint: Psychiatric Symptoms Stated complaint: Mental Health Time Seen by Provider: 08/05/23 15:40 - History of Present Illness Initial comments: This is a 38-year-old female who is been petition to be evaluated in the emergency department. Patient was found with the current thinking that people were after her trying to harm her. Patient states she thinks to putting things in her body she doesn't which is exactly. Patient states people are attending to be her family and they're not really her family and they're telling lies about her and telling people that she has to accident when she hasn't. Patient states she is a meth user but hasn't used lately. Patient also states she smokes quite a bit of marijuana. Patient denies suicidal or homicidal ideations. (Dickson Shell) - Related Data Home Medications Medication Instructions Recorded Confirmed QUEtiapine FUMARATE [SEROquel] 400 mg PO HS 02/27/22 08/05/23 QUEtiapine [SEROquel] 50 mg PO DAILY 02/27/22 08/05/23 Allergies Allergy/AdvReac Type Severity Reaction Status Date / Time Penicillins Allergy Unknown Verified 08/05/23 18:21 Childhood temazepam [From Restoril] AdvReac Itching Verified 08/05/23 18:21 Review of Systems ROS Other: All systems not noted in ROS Statement are negative. <Dickson Shell - Last Filed: 08/20/23 21:20> ROS Other: All systems not noted in ROS Statement are negative. <Juan Antonio Cotto - Last Filed: 08/22/23 22:39> ROS Statement: Those systems with pertinent positive or pertinent negative responses have been documented in the HPI. Past Medical History Past Medical History: Hypertension Additional Past Medical History / Comment(s): OTHER HX: fibromyalgia, chronic pain-generalized, migraines, R ovarian cysts, frequent UTI's, tachycardia, gastritis, duodenitis. Anxiety disorder History of Any Multi-Drug Resistant Organisms: None Reported Past Surgical History: Orthopedic Surgery Additional Past Surgical History / Comment(s): hand surgery Past Anesthesia/Blood Transfusion Reactions: Unable to Obtain Additional Past Anesthesia/Blood Transfusion Reaction / Comment(s): Pt has never had surgery Past Psychological History: Anxiety, Depression, PTSD Smoking Status: Current every day smoker Past Alcohol Use History: None Reported Past Drug Use History: Cocaine, Marijuana, Methamphetamine, Opiates - Past Family History Mother Family Medical History: Cancer, Diabetes Mellitus, Myocardial Infarction ([place]) Additional Family Medical History / Comment(s): Mother had cervical cancer and hypotension. Father Family Medical History: Hypertension <Dickson Shell - Last Filed: 08/20/23 21:20> General Exam <Dickson Shell - Last Filed: 08/20/23 21:20> - General Exam Comments Initial Comments: GENERAL: Patient is well-developed and well-nourished. Patient is nontoxic and well- hydrated and is in no acute distress. ENT: Neck is soft and supple. No significant lymphadenopathy is noted. Oropharynx is clear. Moist mucous membranes. Neck has full range of motion without eliciting any pain. EYES: The sclera were anicteric and conjunctiva were pink and moist. Extraocular movements were intact and pupils were equal round and reactive to light. Eyelids were unremarkable. PULMONARY: Unlabored respirations. Good breath sounds bilaterally. No audible rales rhonchi or wheezing was noted. CARDIOVASCULAR: There is a regular rate and rhythm without any murmurs gallops or rubs. ABDOMEN: Soft and nontender with normal bowel sounds. SKIN: Skin is clear with no lesions or rashes and otherwise unremarkable. NEUROLOGIC: Patient is alert and oriented x3. Cranial nerves II through XII are grossly intact. Motor and sensory are also intact. Normal speech, volume and content. Symmetrical smile. MUSCULOSKELETAL: Normal extremities with adequate strength and full range of motion. No lower extremity swelling or edema. No calf tenderness. LYMPHATICS: No significant lymphadenopathy is noted PSYCHIATRIC: Patient thinks people are pretending to be her family. Patient thinks that other people that she doesn't know of putting things in her body and she is concerned about that. (Dickson Shell) Course Vital Signs 08/05/23 08/05/23 08/05/23 15:40 21:05 23:19 Temperature 98.4 F Pulse Rate 144 H 105 H 117 H Respiratory 18 18 18 Rate Blood Pressure 195/126 198/134 190/127 O2 Sat by Pulse 97 97 99 Oximetry 08/06/23 08/06/23 08/06/23 02:00 08:36 09:50 Temperature 98.2 F Pulse Rate 100 86 88 Respiratory 18 18 18 Rate Blood Pressure 166/116 171/115 178/130 O2 Sat by Pulse 95 96 96 Oximetry 08/06/23 08/06/23 08/06/23 10:25 10:53 11:21 Temperature Pulse Rate 84 84 99 Respiratory 18 18 14 Rate Blood Pressure 193/142 181/138 152/110 O2 Sat by Pulse 96 95 97 Oximetry 08/06/23 08/06/23 08/06/23 12:13 13:08 14:07 Temperature Pulse Rate 90 95 101 H Respiratory 14 14 16 Rate Blood Pressure 155/96 159/124 138/98 O2 Sat by Pulse 96 95 95 Oximetry 08/06/23 08/06/23 08/06/23 14:53 18:44 21:26 Temperature Pulse Rate 91 96 92 Respiratory 14 16 18 Rate Blood Pressure 134/82 141/96 151/112 O2 Sat by Pulse 96 96 96 Oximetry 08/06/23 08/07/23 08/07/23 23:03 09:20 11:52 Temperature Pulse Rate 82 91 Respiratory 16 18 Rate Blood Pressure 127/92 143/99 129/83 O2 Sat by Pulse 96 97 Oximetry 08/07/23 08/07/23 12:37 16:00 Temperature 98 F Pulse Rate 92 Respiratory 18 Rate Blood Pressure 137/84 O2 Sat by Pulse 97 Oximetry Medical Decision Making - Lab Data Result diagrams: 08/06/23 00:11 08/06/23 00:11 <Dickson Shell - Last Filed: 08/20/23 21:20> - Lab Data Result diagrams: 08/06/23 00:11 08/06/23 00:11 <Juan Antonio Cotto - Last Filed: 08/22/23 22:39> - Medical Decision Making Was pt. sent in by a medical professional or institution (, PA, [facility], urgent care, hospital, or [facility]...) When possible be specific @ -Police bring the patient in and personnel from mobile crisis was with the patient Did you speak to anyone other than the patient for history (EMS, parent, family, police, friend...)? What history was obtained from this source @ -I spoke with the [facility] moment with the mobile crisis unit Did you review nursing and triage notes (agree or disagree)? Why? @ -[I reviewed and agree with nursing and triage notes] Were old charts reviewed (outside hosp., previous admission, EMS record, old EKG, old radiological studies, urgent care reports/EKG's, [facility] records)? Report findings @ -[No old charts were reviewed] Differential Diagnosis (chest pain, altered mental status, abdominal pain women, abdominal pain men, vaginal bleeding, weakness, fever, dyspnea, syncope, headache, dizziness, GI bleed, back pain, seizure, CVA, palpatations, mental health, musculoskeletal)? @ -Differential Mental Health Depression, anxiety, bipolar, psychosis, schizophrenia, borderline personality, situational depression, adjustment disorder, behavioral disorder, brain tumor, malingering, substance abuse, encephalopathy, medication reaction, dementia, hypothyroidism, degenerative neurologic disorder, lupus.... This is not meant to be all-inclusive list EKG interpreted by me (3pts min.). @ -[As above] X-rays interpreted by me (1pt min.). @ -[None done] CT interpreted by me (1pt min.). @ -[None done] U/S interpreted by me (1pt. min.). @ -[None done] What testing was considered but not performed or refused? (CT, X-rays, U/S, labs)? Why? @ -[None] What meds were considered but not given or refused? Why? @ -[None] Did you discuss the management of the patient with other professionals (professionals i.e. , PA, [facility], lab, RT, psych nurse, social studies teacher, vocational rehabilitation teacher, teacher, fiscal officer, rn case mgr)? Give summary @ -[No] Was smoking cessation discussed for >3mins.? @ -[No] Was critical care preformed (if so, how long)? @ -[No] Were there social determinants of health that impacted care today? How? (Homelessness, low income, unemployed, alcoholism, drug addiction, transportatio n, low edu. Level, literacy, decrease access to med. care, correction, rehab)? @ -[No] Was there de-escalation of care discussed even if they declined (Discuss DNR or withdrawal of care, Hospice)? DNR status @ -[No] What co-morbidities impacted this encounter? (DM, HTN, Smoking, COPD, CAD, Cancer, CVA, ARF, Chemo, Hep., AIDS, mental health diagnosis, sleep apnea, morbid obesity)? @ -[None] Was patient admitted / discharged? Hospital course, mention meds given and route, prescriptions, significant lab abnormalities, going to OR and other pertinent info. @ -Awaiting EPS to evaluate the patient. Dr. Cotto could have over the care of the patient at 9 PM (Dickson Shell) - Lab Data Lab Results 08/05/23 08/05/23 08/06/23 Range/Units 16:45 16:45 00:11 WBC 9.6 (3.8-10.6) k/uL RBC 4.54 (3.80-5.40) m/uL Hgb 14.4 (11.4-16.0) gm/dL Hct 42.6 (34.0-46.0) % MCV 93.9 (80.0-100.0) fL MCH 31.8 (25.0-35.0) pg MCHC 33.9 (31.0-37.0) g/dL RDW 13.5 (11.5-15.5) % Plt Count 307 (150-450) k/uL MPV 7.5 Neutrophils % 52 % Lymphocytes % 35 % Monocytes % 7 % Eosinophils % 3 % Basophils % 1 % Neutrophils # 5.0 (1.3-7.7) k/uL Lymphocytes # 3.4 (1.0-4.8) k/uL Monocytes # 0.7 (0-1.0) k/uL Eosinophils # 0.3 (0-0.7) k/uL Basophils # 0.1 (0-0.2) k/uL Sodium (137-145) mmol/L Potassium (3.5-5.1) mmol/L Chloride (98-107) mmol/L Carbon Dioxide (22-30) mmol/L Anion Gap mmol/L BUN (7-17) mg/dL Creatinine (0.52-1.04) mg/dL Est GFR (CKD-EPI)AfAm (>60 ml/min/1.73 sqM) Est GFR (CKD-EPI)NonAf (>60 ml/min/1.73 sqM) Glucose (74-99) mg/dL Calcium (8.4-10.2) mg/dL Total Bilirubin (0.2-1.3) mg/dL AST (14-36) U/L ALT (4-34) U/L Alkaline Phosphatase (38-126) U/L Total Protein (6.3-8.2) g/dL Albumin (3.5-5.0) g/dL HCG, Qual Urine Color Light Yellow Urine Appearance Cloudy H (Clear) Urine pH 6.5 (5.0-8.0) Ur Specific [place] 1.006 (1.001-1.035) Urine Protein Negative (Negative) Urine Glucose (UA) Negative (Negative) Urine Ketones Negative (Negative) Urine Blood Negative (Negative) Urine Nitrite Positive H (Negative) Urine Bilirubin Negative (Negative) Urine Urobilinogen <2.0 (<2.0) mg/dL Ur Leukocyte Esterase Trace H (Negative) Urine RBC 2 (0-5) /hpf Urine WBC 7 H (0-5) /hpf Ur Squamous Epith Cells 13 H (0-4) /hpf Urine Bacteria Many H (None) /hpf Urine Mucus Rare H (None) /hpf Urine Opiates Screen Not Detected (NotDetected) Ur Oxycodone Screen Not Detected (NotDetected) Urine Methadone Screen Not Detected (NotDetected) Ur Barbiturates Screen Not Detected (NotDetected) U Tricyclic Antidepress Detected H (NotDetected) Ur Phencyclidine Scrn Not Detected (NotDetected) Ur Amphetamines Screen Detected H (NotDetected) U Methamphetamines Scrn Detected H (NotDetected) U Benzodiazepines Scrn Not Detected (NotDetected) Urine Cocaine Screen Not Detected (NotDetected) U Marijuana (THC) Screen Detected H (NotDetected) Influenza Type A (PCR) (Not Detectd) Influenza Type B (PCR) (Not Detectd) RSV (PCR) (Not Detectd) SARS-CoV-2 (PCR) (Not Detectd) 08/06/23 08/06/23 Range/Units 00:11 00:11 WBC (3.8-10.6) k/uL RBC (3.80-5.40) m/uL Hgb (11.4-16.0) gm/dL Hct (34.0-46.0) % MCV (80.0-100.0) fL MCH (25.0-35.0) pg MCHC (31.0-37.0) g/dL RDW (11.5-15.5) % Plt Count (150-450) k/uL MPV Neutrophils % % Lymphocytes % % Monocytes % % Eosinophils % % Basophils % % Neutrophils # (1.3-7.7) k/uL Lymphocytes # (1.0-4.8) k/uL Monocytes # (0-1.0) k/uL Eosinophils # (0-0.7) k/uL Basophils # (0-0.2) k/uL Sodium 136 L (137-145) mmol/L Potassium 3.3 L (3.5-5.1) mmol/L Chloride 105 (98-107) mmol/L Carbon Dioxide 25 (22-30) mmol/L Anion Gap 6 mmol/L BUN 12 (7-17) mg/dL Creatinine 0.67 (0.52-1.04) mg/dL Est GFR (CKD-EPI)AfAm >90 (>60 ml/min/1.73 sqM) Est GFR (CKD-EPI)NonAf >90 (>60 ml/min/1.73 sqM) Glucose 96 (74-99) mg/dL Calcium 8.6 (8.4-10.2) mg/dL Total Bilirubin 0.3 (0.2-1.3) mg/dL AST 20 (14-36) U/L ALT 17 (4-34) U/L Alkaline Phosphatase 78 (38-126) U/L Total Protein 6.1 L (6.3-8.2) g/dL Albumin 3.5 (3.5-5.0) g/dL HCG, Qual Not Detected Urine Color Urine Appearance (Clear) Urine pH (5.0-8.0) Ur Specific [place] (1.001-1.035) Urine Protein (Negative) Urine Glucose (UA) (Negative) Urine Ketones (Negative) Urine Blood (Negative) Urine Nitrite (Negative) Urine Bilirubin (Negative) Urine Urobilinogen (<2.0) mg/dL Ur Leukocyte Esterase (Negative) Urine RBC (0-5) /hpf Urine WBC (0-5) /hpf Ur Squamous Epith Cells (0-4) /hpf Urine Bacteria (None) /hpf Urine Mucus (None) /hpf Urine Opiates Screen (NotDetected) Ur Oxycodone Screen (NotDetected) Urine Methadone Screen (NotDetected) Ur Barbiturates Screen (NotDetected) U Tricyclic Antidepress (NotDetected) Ur Phencyclidine Scrn (NotDetected) Ur Amphetamines Screen (NotDetected) U Methamphetamines Scrn (NotDetected) U Benzodiazepines Scrn (NotDetected) Urine Cocaine Screen (NotDetected) U Marijuana (THC) Screen (NotDetected) Influenza Type A (PCR) Not Detected (Not Detectd) Influenza Type B (PCR) Not Detected (Not Detectd) RSV (PCR) Not Detected (Not Detectd) SARS-CoV-2 (PCR) Not Detected (Not Detectd) Disposition <Dickson Shell - Last Filed: 08/20/23 21:20> Is patient prescribed a controlled substance at d/c from ED?: No - Out of Hospital Transfer - Req. Specs Out of Hospital Transfer - Requested Specifics: Psychiatric Non-ICU (Transferred psychiatric care) <Juan Antonio Cotto - Last Filed: 08/22/23 22:39> Clinical Impression: Psychosis Disposition: OTHER INSTITUTION NOT DEFINED Condition: Stable Referrals: None,Stated [Primary Care Provider] - 1-2 days
[2023-08-05 17:14] LABS: Appearance,Urine Cloudy (Clear); Bacteria,Urine Many /hpf; Bilirubin,Urine Negative (Negative); Blood,Urine Negative (Negative); Color,Urine Light Yellow; Glucose,Urine (UA) Negative (Negative); Ketones,Urine Negative (Negative); Leukocyte Esterase,Urine Trace (Negative); Mucus,Urine Rare /hpf; Nitrite,Urine Positive (Negative); PH, Urine 6.5 (5.0-8.0); Protein,Urine Negative (Negative); RBC,Urine 2 /hpf (0-5); Specific Gravity,Urine 1.006 (1.001-1.035); Squamous Epithelial Cell,Urine 13 /hpf (0-4); Urobilinogen,Urine <2.0 mg/dL (<2.0); WBC,Urine 7 /hpf (0-5)
[2023-08-05 17:16] LABS: Amphetamine Screen,Urine Detected (NotDetected); Barbiturate Screen,Urine Not Detected (NotDetected); Benzodiazepines Screen,Urine Not Detected (NotDetected); Cocaine Screen,Urine Not Detected (NotDetected); Methadone Screen, Urine Not Detected (NotDetected); Opiate Screen,Urine Not Detected (NotDetected); Oxycodone Screen, Urine Not Detected (NotDetected); Phencyclidine Screen,Urine Not Detected (NotDetected); Tricyclic Antidepressant,Urine Detected (NotDetected); Urn Cannabinoid Scrn Detected (NotDetected)
[2023-08-05] MEDS ORDERED: LORazepam 1 MG TAB PO STA (21:07)
[2023-08-06 00:26] LABS: Basophils # (A) 0.1 k/uL (0-0.2); Basophils % (A) 1 %; Eosinophils # (A) 0.3 k/uL (0-0.7); Eosinophils % (A) 3 %; HCT 42.6 % (34.0-46.0); HGB 14.4 gm/dL (11.4-16.0); Lymphocytes # (A) 3.4 k/uL (1.0-4.8); Lymphocytes % (A) 35 %; MCH 31.8 pg (25.0-35.0); MCHC 33.9 g/dL (31.0-37.0); MCV 93.9 fL (80.0-100.0); Mean Platelet Volume 7.5; Monocytes # (A) 0.7 k/uL (0-1.0); Monocytes % (A) 7 %; Neutrophils % (A) 52 %; Platelet Count 307 k/uL (150-450); RBC 4.54 m/uL (3.80-5.40); RDW 13.5 % (11.5-15.5); WBC 9.6 k/uL (3.8-10.6)
[2023-08-06 00:29] LABS: ALT 17 U/L (4-34); AST 20 U/L (14-36); African American GFR (CKD) >90 (>60 ml/min/1.73 sqM); Albumin 3.5 g/dL (3.5-5.0); Alkaline Phosphatase 78 U/L (38-126); Anion Gap 6 mmol/L; Blood Urea Nitrogen 12 mg/dL (7-17); Calcium 8.6 mg/dL (8.4-10.2); Carbon Dioxide 25 mmol/L (22-30); Chloride 105 mmol/L (98-107); Glucose 96 mg/dL (74-99); Non-African American GFR(CKD) >90 (>60 ml/min/1.73 sqM); Potassium 3.3 mmol/L (3.5-5.1); Sodium 136 mmol/L (137-145); Total Bilirubin 0.3 mg/dL (0.2-1.3); Total Protein 6.1 g/dL (6.3-8.2)
[2023-08-06 01:03] LABS: HCG,Qualitative Serum Not Detected
[2023-08-06] MEDS ORDERED: METOPROLOL TARTRATE 25 MG TAB PO STA (01:04)
[2023-08-06] MEDS: METOPROLOL TARTRATE 25 MG TAB PO SCH ×2 (08:43→21:24)
[2023-08-06] MEDS ORDERED: hydrALAZINE HCL 20 MG/ML 1 ML VIAL IVP STA ×2 (09:50→13:12)
[2023-08-06] MEDS ORDERED: ALPRAZolam 1 MG TAB PO STA (17:31)
[2023-08-06] MEDS ORDERED: ACETAMINOPHEN TAB 325 MG TAB PO STA (21:35)
[2023-08-07] MEDS: METOPROLOL TARTRATE 25 MG TAB PO SCH (09:22)
[2023-08-07 09:43] VITALS: RESP 18
[2023-08-07] MEDS ORDERED: LORazepam 1 MG TAB PO STA (09:58)
[2023-08-07 12:54] VITALS: TEMP 98
[2023-08-07] MEDS ORDERED: ZIPRASIDONE 20 MG VIAL IM STA (13:56)
[2023-08-07] MEDS ORDERED: LORazepam 2 MG/ML INJ IV STA (13:57)
[2023-08-07 16:06] VITALS: BP 137/84; PULSE 92
== END 2023-08-07 16:04 | disposition other institution (70) ==
LOC: EC 15:33
DX: F29 Unspecified psychosis not due to a substance or known physiological condition (principal); I10 Essential (primary) hypertension; F32.A Depression, unspecified; F41.9 Anxiety disorder, unspecified; F17.200 Nicotine dependence, unspecified, uncomplicated; F12.90 Cannabis use, unspecified, uncomplicated; F14.90 Cocaine use, unspecified, uncomplicated; F11.90 Opioid use, unspecified, uncomplicated; F15.90 Other stimulant use, unspecified, uncomplicated; Z20.822 Contact with and (suspected) exposure to COVID-19; Z79.899 Other long term (current) drug therapy; Z88.0 Allergy status to penicillin; Z88.8 Allergy status to other drugs, medicaments and biological substances
CPT/HCPCS: 82075; 36415; 80053; 85025; 81001; 84703; 80306; 87636; 99285; 96374; 96375; 96376; 96372; J2060; J0360; J3486

== ENCOUNTER 2023-08-27 14:18 | Emergency (ER) | payer OTHER ==
--- NOTE | 2023-08-27 14:34 | ED ---
General Adult HPI - General Chief complaint: Chest Pain Stated complaint: Chest Pain Time Seen by Provider: 08/27/23 14:21 Source: patient, RN notes reviewed, old records reviewed Mode of arrival: EMS Limitations: no limitations - History of Present Illness Initial comments: 38-year-old female presenting with chest pain and dyspnea. Patient states that she was diagnosed with pulmonary embolism at outside hospital. She states she was started on blood thinner which she believes was Eliquis. She has been compliant with this medication. She states she continues to have moderate dyspnea and chest discomfort. No measured fever. - Related Data Home Medications Medication Instructions Recorded Confirmed QUEtiapine FUMARATE [SEROquel] 400 mg PO HS 02/27/22 08/05/23 QUEtiapine [SEROquel] 50 mg PO DAILY 02/27/22 08/05/23 Previous Rx's Medication Instructions Recorded Cephalexin [Keflex] 500 mg PO Q12HR #20 cap 08/27/23 Allergies Allergy/AdvReac Type Severity Reaction Status Date / Time Penicillins Allergy Unknown Verified 08/05/23 18:21 Childhood temazepam [From Restoril] AdvReac Itching Verified 08/05/23 18:21 Review of Systems ROS Statement: Those systems with pertinent positive or pertinent negative responses have been documented in the HPI. ROS Other: All systems not noted in ROS Statement are negative. Past Medical History Past Medical History: Hypertension, Pulmonary Embolus (PE) Additional Past Medical History / Comment(s): OTHER HX: fibromyalgia, chronic pain-generalized, migraines, R ovarian cysts, frequent UTI's, tachycardia, gastritis, duodenitis. Anxiety disorder History of Any Multi-Drug Resistant Organisms: None Reported Past Surgical History: Orthopedic Surgery Additional Past Surgical History / Comment(s): hand surgery Past Anesthesia/Blood Transfusion Reactions: Unable to Obtain Additional Past Anesthesia/Blood Transfusion Reaction / Comment(s): Pt has never had surgery Past Psychological History: Anxiety, Depression, PTSD Smoking Status: Current every day smoker Past Alcohol Use History: None Reported Past Drug Use History: Cocaine, Marijuana, Methamphetamine, Opiates - Past Family History Mother Family Medical History: Cancer, Diabetes Mellitus, Myocardial Infarction (IA) Additional Family Medical History / Comment(s): Mother had cervical cancer and hypotension. Father Family Medical History: Hypertension General Exam Limitations: no limitations General appearance: alert, in no apparent distress Head exam: Present: atraumatic, normocephalic Eye exam: Present: normal appearance, PERRL ENT exam: Present: normal exam Respiratory exam: Present: normal lung sounds bilaterally. Absent: respiratory distress, wheezes Cardiovascular Exam: Present: regular rate, normal rhythm GI/Abdominal exam: Present: soft. Absent: distended, tenderness Neurological exam: Present: alert, oriented X3 Psychiatric exam: Present: normal affect, normal mood Skin exam: Present: warm, dry, intact Course Vital Signs 08/27/23 08/27/23 08/27/23 14:19 14:34 14:39 Temperature 98.8 F Pulse Rate 95 82 Pulse Rate [ 80 Operations Administrator ] Respiratory 16 20 20 Rate Blood Pressure 168/118 150/110 O2 Sat by Pulse 97 98 Oximetry 08/27/23 08/27/23 08/27/23 15:25 16:00 16:28 Temperature Pulse Rate 100 100 85 Pulse Rate [ Operations Administrator ] Respiratory 20 20 16 Rate Blood Pressure 160/110 150/110 155/99 O2 Sat by Pulse 98 98 99 Oximetry Medical Decision Making - Medical Decision Making Was pt. sent in by a medical professional or institution (, PA, RESISTANCE WELDING MACHINE OPERATOR, urgent care, hospital, or residential...) When possible be specific @ -No Did you speak to anyone other than the patient for history (EMS, parent, family, police, friend...)? What history was obtained from this source @ -No Did you review nursing and triage notes (agree or disagree)? Why? @ -I reviewed and agree with nursing and triage notes Were old charts reviewed (outside hosp., previous admission, EMS record, old EKG, old radiological studies, urgent care reports/EKG's, residential records)? Report findings @ -No old charts were reviewed Differential Diagnosis (chest pain, altered mental status, abdominal pain women, abdominal pain men, vaginal bleeding, weakness, fever, dyspnea, syncope, headache, dizziness, GI bleed, back pain, seizure, CVA, palpatations, mental health, musculoskeletal)? @ -Differential Dyspnea: Coronary syndrome, arrhythmia, tamponade, asthma, COPD, pulmonary embolism, pneumonia, pneumothorax, pulmonary effusion, anaphylaxis, diabetic ketoacidosis, flailed chest, pulmonary contusion, diaphragmatic rupture, anemia, neuromuscular, this is not meant to be an all-inclusive list. EKG interpreted by me (3pts min.). @EKG: Sinus rhythm rate of [address] segment elevation, OK interval 116, QRS duration 86, QTc 453 X-rays interpreted by me (1pt min.). @ -Chest x-ray negative for acute cardiopulmonary findings. CT interpreted by me (1pt min.). @ -CT angiography negative for pulmonary embolism or acute findings U/S interpreted by me (1pt. min.). @ -None done What testing was considered but not performed or refused? (CT, X-rays, U/S, labs)? Why? @ -None What meds were considered but not given or refused? Why? @ -None Did you discuss the management of the patient with other professionals (professionals i.e. , PA, RESISTANCE WELDING MACHINE OPERATOR, lab, RT, psych nurse, mental health social worker, manager pet, teacher, landing signal officer, case maker)? Give summary @ -No Was smoking cessation discussed for >3mins.? @ -No Was critical care preformed (if so, how long)? @ -No Were there social determinants of health that impacted care today? How? (Homelessness, low income, unemployed, alcoholism, drug addiction, transportation, low edu. Level, literacy, decrease access to med. care, [facility], rehab)? @ -No Was there de-escalation of care discussed even if they declined (Discuss DNR or withdrawal of care, Hospice)? DNR status @ -No What co-morbidities impacted this encounter? (DM, HTN, Smoking, COPD, CAD, Cancer, CVA, ARF, Chemo, Hep., AIDS, mental health diagnosis, sleep apnea, morbid obesity)? @ -None Was patient admitted / discharged? Hospital course, mention meds given and route , prescriptions, significant lab abnormalities, going to OR and other pertinent info. @38-year-old female with recent diagnosis of pulmonary embolism presents with chest pain and dyspnea. Patient is a current smoker. She states she has been on Eliquis twice daily and has been compliant with this medication. Workup was initiated which is showing sinus rhythm EKG, chest x-ray clear, CT angiography negative for pulmonary embolism. She has negative troponin, negative BNP. She does have signs of urinary tract infection and is having current symptoms. She will be treated for this. Patient stable for discharge at this time. She should follow-up with her primary care provider. Undiagnosed new problem with uncertain prognosis? @ -No Drug Therapy requiring intensive monitoring for toxicity (Heparin, Nitro, Insulin, Cardizem)? @ -No Were any procedures done? @ -No Diagnosis/symptom? @ -Chest pain, UTI Acute, or Chronic, or Acute on Chronic? @ -Acute Uncomplicated (without systemic symptoms) or Complicated (systemic symptoms)? @ -Default Side effects of treatment? @ -No Exacerbation, Progression, or Severe Exacerbation? @ -No Poses a threat to life or bodily function? How? (Chest pain, USA, IA, pneumonia, PE, COPD, DKA, ARF, appy, cholecystitis, CVA, Diverticulitis, Homicidal, Suicidal, threat to staff... and all critical care pts) @ -Low risk at this time - Lab Data Result diagrams: 08/27/23 14:31 08/27/23 14:31 Lab Results 08/27/23 08/27/23 08/27/23 Range/Units 14:31 14:31 14:31 WBC 8.1 (3.8-10.6) k/uL RBC 4.52 (3.80-5.40) m/uL Hgb 14.4 (11.4-16.0) gm/dL Hct 42.9 (34.0-46.0) % MCV 94.8 (80.0-100.0) fL MCH 31.7 (25.0-35.0) pg MCHC 33.5 (31.0-37.0) g/dL RDW 14.4 (11.5-15.5) % Plt Count 292 (150-450) k/uL MPV 7.8 Neutrophils % 64 % Lymphocytes % 24 % Monocytes % 6 % Eosinophils % 3 % Basophils % 0 % Neutrophils # 5.2 (1.3-7.7) k/uL Lymphocytes # 2.0 (1.0-4.8) k/uL Monocytes # 0.4 (0-1.0) k/uL Eosinophils # 0.3 (0-0.7) k/uL Basophils # 0.0 (0-0.2) k/uL PT 11.0 (10.0-12.5) sec INR 1.0 (<1.2) APTT 27.0 (22.0-30.0) sec Sodium 138 (137-145) mmol/L Potassium 3.6 (3.5-5.1) mmol/L Chloride 108 H (98-107) mmol/L Carbon Dioxide 26 (22-30) mmol/L Anion Gap 4 mmol/L BUN 12 (7-17) mg/dL Creatinine 0.68 (0.52-1.04) mg/dL Est GFR (CKD-EPI)AfAm >90 (>60 ml/min/1.73 sqM) Est GFR (CKD-EPI)NonAf >90 (>60 ml/min/1.73 sqM) Glucose 92 (74-99) mg/dL Calcium 8.7 (8.4-10.2) mg/dL Magnesium 1.7 (1.6-2.3) mg/dL Total Bilirubin 0.4 (0.2-1.3) mg/dL AST 18 (14-36) U/L ALT 19 (4-34) U/L Alkaline Phosphatase 86 (38-126) U/L Troponin I (0.000-0.034) ng/mL NT-Pro-B Natriuret Pep 190 pg/mL Total Protein 6.6 (6.3-8.2) g/dL Albumin 3.9 (3.5-5.0) g/dL Urine Color Urine Appearance (Clear) Urine pH (5.0-8.0) Ur Specific Loraine (1.001-1.035) Urine Protein (Negative) Urine Glucose (UA) (Negative) Urine Ketones (Negative) Urine Blood (Negative) Urine Nitrite (Negative) Urine Bilirubin (Negative) Urine Urobilinogen (<2.0) mg/dL Ur Leukocyte Esterase (Negative) Urine RBC (0-5) /hpf Urine WBC (0-5) /hpf Ur Squamous Epith Cells (0-4) /hpf Urine Bacteria (None) /hpf Urine Opiates Screen (NotDetected) Ur Oxycodone Screen (NotDetected) Urine Methadone Screen (NotDetected) Ur Barbiturates Screen (NotDetected) U Tricyclic Antidepress (NotDetected) Ur Phencyclidine Scrn (NotDetected) Ur Amphetamines Screen (NotDetected) U Methamphetamines Scrn (NotDetected) U Benzodiazepines Scrn (NotDetected) Urine Cocaine Screen (NotDetected) U Marijuana (THC) Screen (NotDetected) Serum Alcohol <10 mg/dL Influenza Type A (PCR) (Not Detectd) Influenza Type B (PCR) (Not Detectd) RSV (PCR) (Not Detectd) SARS-CoV-2 (PCR) (Not Detectd) 08/27/23 08/27/23 08/27/23 Range/Units 14:31 14:31 14:36 WBC (3.8-10.6) k/uL RBC (3.80-5.40) m/uL Hgb (11.4-16.0) gm/dL Hct (34.0-46.0) % MCV (80.0-100.0) fL MCH (25.0-35.0) pg MCHC (31.0-37.0) g/dL RDW (11.5-15.5) % Plt Count (150-450) k/uL MPV Neutrophils % % Lymphocytes % % Monocytes % % Eosinophils % % Basophils % % Neutrophils # (1.3-7.7) k/uL Lymphocytes # (1.0-4.8) k/uL Monocytes # (0-1.0) k/uL Eosinophils # (0-0.7) k/uL Basophils # (0-0.2) k/uL PT (10.0-12.5) sec INR (<1.2) APTT (22.0-30.0) sec Sodium (137-145) mmol/L Potassium (3.5-5.1) mmol/L Chloride (98-107) mmol/L Carbon Dioxide (22-30) mmol/L Anion Gap mmol/L BUN (7-17) mg/dL Creatinine (0.52-1.04) mg/dL Est GFR (CKD-EPI)AfAm (>60 ml/min/1.73 sqM) Est GFR (CKD-EPI)NonAf (>60 ml/min/1.73 sqM) Glucose (74-99) mg/dL Calcium (8.4-10.2) mg/dL Magnesium (1.6-2.3) mg/dL Total Bilirubin (0.2-1.3) mg/dL AST (14-36) U/L ALT (4-34) U/L Alkaline Phosphatase (38-126) U/L Troponin I <0.012 (0.000-0.034) ng/mL NT-Pro-B Natriuret Pep pg/mL Total Protein (6.3-8.2) g/dL Albumin (3.5-5.0) g/dL Urine Color Colorless Urine Appearance Cloudy H (Clear) Urine pH 6.5 (5.0-8.0) Ur Specific Loraine 1.006 (1.001-1.035) Urine Protein Negative (Negative) Urine Glucose (UA) Negative (Negative) Urine Ketones Negative (Negative) Urine Blood Large H (Negative) Urine Nitrite Positive H (Negative) Urine Bilirubin Negative (Negative) Urine Urobilinogen <2.0 (<2.0) mg/dL Ur Leukocyte Esterase Negative (Negative) Urine RBC 1 (0-5) /hpf Urine WBC 4 (0-5) /hpf Ur Squamous Epith Cells 5 H (0-4) /hpf Urine Bacteria Moderate H (None) /hpf Urine Opiates Screen Not Detected (NotDetected) Ur Oxycodone Screen Not Detected (NotDetected) Urine Methadone Screen Not Detected (NotDetected) Ur Barbiturates Screen Not Detected (NotDetected) U Tricyclic Antidepress Not Detected (NotDetected) Ur Phencyclidine Scrn Not Detected (NotDetected) Ur Amphetamines Screen Detected H (NotDetected) U Methamphetamines Scrn Not Detected (NotDetected) U Benzodiazepines Scrn Not Detected (NotDetected) Urine Cocaine Screen Not Detected (NotDetected) U Marijuana (THC) Screen Not Detected (NotDetected) Serum Alcohol mg/dL Influenza Type A (PCR) Not Detected (Not Detectd) Influenza Type B (PCR) Not Detected (Not Detectd) RSV (PCR) Not Detected (Not Detectd) SARS-CoV-2 (PCR) Not Detected (Not Detectd) Disposition Clinical Impression: Urinary tract infection, Chest pain Disposition: HOME SELF-CARE Condition: Fair Instructions (If sedation given, give patient instructions): Chest Pain (ED), Urinary Tract Infection in Women (ED) Prescriptions: Cephalexin [Keflex] 500 mg PO Q12HR #20 cap Is patient prescribed a controlled substance at d/c from ED?: No Referrals: None,Stated [Primary Care Provider] - 1-2 days Time of Disposition: 17:07
[2023-08-27 14:37] VITALS: TEMP 98.8
[2023-08-27 14:57] LABS: Basophils % (A) 0 %; Eosinophils # (A) 0.3 k/uL (0-0.7); Eosinophils % (A) 3 %; HCT 42.9 % (34.0-46.0); HGB 14.4 gm/dL (11.4-16.0); Lymphocytes % (A) 24 %; MCH 31.7 pg (25.0-35.0); MCHC 33.5 g/dL (31.0-37.0); MCV 94.8 fL (80.0-100.0); Mean Platelet Volume 7.8; Monocytes # (A) 0.4 k/uL (0-1.0); Monocytes % (A) 6 %; Neutrophils # (A) 5.2 k/uL (1.3-7.7); Neutrophils % (A) 64 %; Platelet Count 292 k/uL (150-450); RBC 4.52 m/uL (3.80-5.40); RDW 14.4 % (11.5-15.5); WBC 8.1 k/uL (3.8-10.6)
--- NOTE | 2023-08-27 15:03 | XR ---
EXAMINATION TYPE: XR chest 2V DATE OF EXAM: 08/27/2023 2:59 PM COMPARISON: Chest radiographs from 06/10/2022 TECHNIQUE: XR chest 2V Frontal and lateral views of the chest. CLINICAL INDICATION:Female, 38 years old with history of Chest Pain; FINDINGS: Lungs/Pleura: There is no evidence of pleural effusion, focal consolidation, or pneumothorax. Pulmonary vascularity: Unremarkable. Heart/mediastinum: Cardiomediastinal silhouette is unremarkable. Musculoskeletal: No acute osseous pathology. IMPRESSION: No acute cardiopulmonary disease/process.
[2023-08-27 15:09] LABS: ALT 19 U/L (4-34); AST 18 U/L (14-36); African American GFR (CKD) >90 (>60 ml/min/1.73 sqM); Albumin 3.9 g/dL (3.5-5.0); Alcohol <10 mg/dL; Alkaline Phosphatase 86 U/L (38-126); Anion Gap 4 mmol/L; Blood Urea Nitrogen 12 mg/dL (7-17); Calcium 8.7 mg/dL (8.4-10.2); Carbon Dioxide 26 mmol/L (22-30); Chloride 108 mmol/L (98-107); Glucose 92 mg/dL (74-99); Magnesium 1.7 mg/dL (1.6-2.3); Non-African American GFR(CKD) >90 (>60 ml/min/1.73 sqM); Potassium 3.6 mmol/L (3.5-5.1); Sodium 138 mmol/L (137-145); Total Bilirubin 0.4 mg/dL (0.2-1.3); Total Protein 6.6 g/dL (6.3-8.2)
[2023-08-27 15:17] LABS: NT-Pro-B-Type Natriuretic Pept 190 pg/mL
--- NOTE | 2023-08-27 16:14 | CT ---
CTA CHEST EXAMINATION TYPE: CT angio chest DATE OF EXAM: 08/27/2023 INDICATION: CP/BECKY. HX OF A PE CT DLP: 201.2 mGycm, Automated exposure control for dose reduction was used. CONTRAST: Patient injected with 65ML mL of Isovue 370. COMPARISON: 05/24/2014 TECHNIQUE: CT of the chest is performed on a spiral scan at 2 mm thick sections. Study is performed with intravenous contrast timed for evaluation for pulmonary embolism. This will limit additional po rtions of the evaluation. 3-D MIP images reconstructed by the technologist are reviewed on the compu ter in the coronal and sagittal planes. FINDINGS: No persistent filling defects are evident to suggest an acute pulmonary embolism. No mediastinal or hilar adenopathy enlarged by CT criteria is evident. The ascending aorta diameter at the level of the main pulmonary artery is 3.0 cm. The main pulmonary artery diameter at the bifur cation is 2.7 cm. Lung windows are clear. Limited CT section through the upper abdomen. IMPRESSION: 1. No acute pulmonary embolism.
[2023-08-27] MEDS ORDERED: KETOROLAC 15 MG/ML 1 ML VIAL IVP STA (16:18)
[2023-08-27 16:43] LABS: Appearance,Urine Cloudy (Clear); Bacteria,Urine Moderate /hpf; Bilirubin,Urine Negative (Negative); Blood,Urine Large (Negative); Color,Urine Colorless; Glucose,Urine (UA) Negative (Negative); Ketones,Urine Negative (Negative); Leukocyte Esterase,Urine Negative (Negative); Nitrite,Urine Positive (Negative); PH, Urine 6.5 (5.0-8.0); Protein,Urine Negative (Negative); RBC,Urine 1 /hpf (0-5); Specific Gravity,Urine 1.006 (1.001-1.035); Squamous Epithelial Cell,Urine 5 /hpf (0-4); Urobilinogen,Urine <2.0 mg/dL (<2.0); WBC,Urine 4 /hpf (0-5)
[2023-08-27 16:45] LABS: Amphetamine Screen,Urine Detected (NotDetected); Barbiturate Screen,Urine Not Detected (NotDetected); Benzodiazepines Screen,Urine Not Detected (NotDetected); Cocaine Screen,Urine Not Detected (NotDetected); Methadone Screen, Urine Not Detected (NotDetected); Opiate Screen,Urine Not Detected (NotDetected); Oxycodone Screen, Urine Not Detected (NotDetected); Phencyclidine Screen,Urine Not Detected (NotDetected); Tricyclic Antidepressant,Urine Not Detected (NotDetected); Urn Cannabinoid Scrn Not Detected (NotDetected)
[2023-08-27] MEDS ORDERED: cefTRIAXone IN SWFI 1,000 MG/10 ML SYRINGE IVP STA (17:05)
[2023-08-27 17:27] VITALS: BP 145/90; PULSE 90; RESP 20
== END 2023-08-27 17:23 | disposition home or self-care (01) ==
LOC: EC 14:18
DX: R07.89 Other chest pain (principal); N39.0 Urinary tract infection, site not specified; I10 Essential (primary) hypertension; F32.A Depression, unspecified; F41.9 Anxiety disorder, unspecified; F17.200 Nicotine dependence, unspecified, uncomplicated; F12.90 Cannabis use, unspecified, uncomplicated; F11.90 Opioid use, unspecified, uncomplicated; F14.90 Cocaine use, unspecified, uncomplicated; F15.90 Other stimulant use, unspecified, uncomplicated; Z20.822 Contact with and (suspected) exposure to COVID-19; Z79.899 Other long term (current) drug therapy; Z88.0 Allergy status to penicillin; Z88.8 Allergy status to other drugs, medicaments and biological substances; Z86.711 Personal history of pulmonary embolism
CPT/HCPCS: 36415; 93005; 83880; 80053; 83735; 84484; 85025; 85610; 85730; 81001; 80306; 87636; 71046; 71275; 99285; 96374; 96375; G0480; J0696; J1885; Q9967; 80320

== ENCOUNTER 2023-10-06 18:45 | Emergency (ER) | payer OTHER ==
--- NOTE | 2023-10-06 19:09 | ED ---
General Adult HPI - General Source: patient, RN notes reviewed Mode of arrival: ambulatory Limitations: no limitations <Ofe Iglesias - Last Filed: 10/06/23 19:08> <Félix Boles - Last Filed: 10/06/23 23:44> - General Stated complaint: chest pain rt side pain Time Seen by Provider: 10/06/23 19:08 - History of Present Illness Initial comments: Patient is a 38-year-old female presented to the ER with a chief complaint of right side pain. She states this has been going on for a day. She also was endorsing chills, nausea, vomiting. Denies any injuries denies history of kidney stones. (Ofe Iglesias) Dictation was produced using [employer] dictation software. please excuse any grammatical, word or spelling errors. Chief Complaint: 38-year-old female presents to the ER for right-sided pain History of Present Illness: 38-year-old female she complains about right-sided pain states that she has pain in her right neck, right back right flank right abdomen. States that she is feeling nauseated and diaphoretic. States that she is having difficulty ambulating. Patient well-known to emergency department for multiple visitations for myriad of complaints. The ROS documented in this emergency department record has been reviewed and confirmed by me. Those systems with pertinent positive or negative responses have been documented in the HPI. All other systems are other negative and/or noncontributory. (Félix Boles) - Related Data Home Medications Medication Instructions Recorded Confirmed QUEtiapine FUMARATE [SEROquel] 400 mg PO HS 02/27/22 08/05/23 QUEtiapine [SEROquel] 50 mg PO DAILY 02/27/22 08/05/23 Previous Rx's Medication Instructions Recorded Cephalexin [Keflex] 500 mg PO Q12HR #20 cap 08/27/23 HYDROcodone/APAP 5-325MG [[place] 1 tab PO Q6HR PRN 3 Days #12 tab 10/06/23 5-325] Allergies Allergy/AdvReac Type Severity Reaction Status Date / Time Penicillins Allergy Unknown Verified 10/06/23 19:31 Childhood temazepam [From Restoril] AdvReac Itching Verified 10/06/23 19:31 Review of Systems ROS Other: All systems not noted in ROS Statement are negative. <Ofe Iglesias - Last Filed: 10/06/23 19:08> ROS Other: All systems not noted in ROS Statement are negative. <Félix Boles - Last Filed: 10/06/23 23:44> ROS Statement: Those systems with pertinent positive or pertinent negative responses have been documented in the HPI. Past Medical History Past Medical History: Hypertension, Pulmonary Embolus (PE) Additional Past Medical History / Comment(s): OTHER HX: fibromyalgia, chronic pain-generalized, migraines, R ovarian cysts, frequent UTI's, tachycardia, gastritis, duodenitis. Anxiety disorder History of Any Multi-Drug Resistant Organisms: None Reported Past Surgical History: Orthopedic Surgery Additional Past Surgical History / Comment(s): hand surgery Past Anesthesia/Blood Transfusion Reactions: Unable to Obtain Additional Past Anesthesia/Blood Transfusion Reaction / Comment(s): Pt has never had surgery Past Psychological History: Anxiety, Depression, PTSD Smoking Status: Current every day smoker Past Alcohol Use History: None Reported Past Drug Use History: Cocaine, Marijuana, Methamphetamine, Opiates - Past Family History Mother Family Medical History: Cancer, Diabetes Mellitus, Myocardial Infarction (MT) Additional Family Medical History / Comment(s): Mother had cervical cancer and hypotension. Father Family Medical History: Hypertension <Ofe Iglesias - Last Filed: 10/06/23 19:08> General Exam <Ofe Iglesias - Last Filed: 10/06/23 19:08> <Félix Boles - Last Filed: 10/06/23 23:44> - General Exam Comments Initial Comments: Visual Physical Exam Vital signs reviewed General: Patient lying in position in wheelchair. Head: Normocephalic, atraumatic Eyes: PERRLA, EOMI ENT: Airway patent Chest: Nonlabored breathing Skin: No visual rash, normal skin tone Neuro: Alert and oriented 3 Musculoskeletal: No gross abnormalities (Ofe Iglesias) PHYSICAL EXAM: General Impression: Alert and oriented x3, not in acute distress HEENT: Normocephalic atraumatic, extra-ocular movements intact, pupils equal and reactive to light bilaterally, mucous membranes moist. Cardiovascular: Heart regular rate and rhythm Chest: Able to complete full sentences, no retractions, no tachypnea Abdomen: abdomen soft, non-tender, non-distended, no organomegaly Musculoskeletal: Pulses present and equal in all extremities, no peripheral edema Motor: no focal deficits noted Neurological: CN II-XII grossly intact, no focal motor or sensory deficits noted Skin: Intact with no visualized rashes Psych: Normal affect and mood (Félix Boles) Course Vital Signs 10/06/23 10/06/23 19:27 22:51 Temperature 97.8 F 99 F Pulse Rate 96 105 H Respiratory 18 18 Rate Blood Pressure 203/148 168/129 O2 Sat by Pulse 98 99 Oximetry Medical Decision Making <Ofe Iglesias - Last Filed: 10/06/23 19:08> - Lab Data Result diagrams: 10/06/23 19:45 10/06/23 19:45 <Félix Boles - Last Filed: 10/06/23 23:44> - Medical Decision Making I performed the quick note portion of this chart. Electronically signed by Ofe Iglesias PA-C (Ofe Iglesias) Was pt. sent in by a medical professional or institution (DORIE Kim, REAMING MACHINE TENDER, urgent care, hospital, or skilled nursing...) When possible be specific @ - Did you speak to anyone other than the patient for history (EMS, parent, family, police, friend...)? What history was obtained from this source @ -No Did you review nursing and triage notes (agree or disagree)? Why? @ -I reviewed and agree with nursing and triage notes Were old charts reviewed (outside hosp., previous admission, EMS record, old EKG, old radiological studies, urgent care reports/EKG's, skilled nursing records)? Report findings @ -No old charts were reviewed Differential Diagnosis (chest pain, altered mental status, abdominal pain women, abdominal pain men, vaginal bleeding, musculoskeletal, weakness, fever, dyspnea, syncope, headache, dizziness, GI bleed, back pain, seizure, CVA, palpatations, mental health)? @ -Differential Weakness: Hypoglycemia, shock, sepsis, hyponatremia, anemia, infection, MT, ETOH, adverse medicine reaction, overdose, stroke, this is not meant to be an all-inclusive list. EKG interpreted by me (3pts min.). @ -None done X-rays interpreted by me (1pt min.). @ -None done CT interpreted by me (1pt min.). @ -None done U/S interpreted by me (1pt. min.). @ -None done What testing was considered but not performed or refused? (CT, X-rays, U/S, labs )? Why? @ -None What meds were considered but not given or refused? Why? @ -None Did you discuss the management of the patient with other professionals (professionals i.e. DrCamilla, PA, REAMING MACHINE TENDER, lab, RT, psych nurse, rn social services, insolvency practitioner, teacher, air defense artillery officer, case packer and sealer)? Give summary @ -No Was smoking cessation discussed for >3mins.? @ -No Was critical care preformed (if so, how long)? @ -No Were there social determinants of health that impacted care today? How? (Homelessness, low income, unemployed, alcoholism, drug addiction, transportation, low edu. Level, literacy, decrease access to med. care, group home, rehab)? @ -No Was there de-escalation of care discussed even if they declined (Discuss DNR or withdrawal of care, Hospice)? DNR status @ -No What co-morbidities impacted this encounter? (DM, HTN, Smoking, COPD, CAD, Cancer, CVA, ARF, Chemo, Hep., AIDS, mental health diagnosis, sleep apnea, morbid obesity)? @ -None Was patient admitted / discharged? Hospital course, mention meds given and route, prescriptions, significant lab abnormalities, going to OR and other pertinent info. @ -38-year-old well-appearing female presents emergency department for complete right-sided pain. Patient well-known to emergency department for history of a myriad of complaints. Vital signs stable. Patient well-appearing at the bedside. She complains of difficulty walking however when asked to stand she stands up immediately and ambulates with no complications. Patient's physical examination is benign. Laboratory evaluation ordered by triage midlevel. CBC metabolic panel urinalysis negative. Viral testing negative. Patient will be discharged. Undiagnosed new problem with uncertain prognosis? @ -No Drug Therapy requiring intensive monitoring for toxicity (Heparin, Nitro, Insulin, Cardizem)? @ -No Were any procedures done? @ -No Diagnosis/symptom? Acute, or Chronic, or Acute on Chronic? Uncomplicated (without systemic symptoms) or Complicated (systemic symptoms)? @ -Generalized weakness Side effects of treatment? @ -No Exacerbation, Progression, or Severe Exacerbation? @ -No Poses a threat to life or bodily function? How? (Chest pain, USA, MT, pneumonia, PE, COPD, DKA, ARF, appy, cholecystitis, CVA, Diverticulitis, Homicidal, Suicidal, threat to staff... and all critical care pts) @ -No (Félix Boles) - Lab Data Lab Results 10/06/23 10/06/23 10/06/23 Range/Units 19:45 19:45 19:45 WBC 13.7 H (3.8-10.6) k/uL RBC 4.51 (3.80-5.40) m/uL Hgb 14.2 (11.4-16.0) gm/dL Hct 42.6 (34.0-46.0) % MCV 94.3 (80.0-100.0) fL MCH 31.4 (25.0-35.0) pg MCHC 33.3 (31.0-37.0) g/dL RDW 13.7 (11.5-15.5) % Plt Count 343 (150-450) k/uL MPV 7.5 Sodium 140 (137-145) mmol/L Potassium 3.6 (3.5-5.1) mmol/L Chloride 110 H (98-107) mmol/L Carbon Dioxide 27 (22-30) mmol/L Anion Gap 3 mmol/L BUN 11 (7-17) mg/dL Creatinine 0.65 (0.52-1.04) mg/dL Est GFR (CKD-EPI)AfAm >90 (>60 ml/min/1.73 sqM) Est GFR (CKD-EPI)NonAf >90 (>60 ml/min/1.73 sqM) Glucose 94 (74-99) mg/dL Calcium 8.5 (8.4-10.2) mg/dL Total Bilirubin 0.4 (0.2-1.3) mg/dL AST 19 (14-36) U/L ALT 15 (4-34) U/L Alkaline Phosphatase 85 (38-126) U/L Total Protein 6.0 L (6.3-8.2) g/dL Albumin 3.5 (3.5-5.0) g/dL Urine Color Urine Appearance (Clear) Urine pH (5.0-8.0) Ur Specific [place] (1.001-1.035) Urine Protein (Negative) Urine Glucose (UA) (Negative) Urine Ketones (Negative) Urine Blood (Negative) Urine Nitrite (Negative) Urine Bilirubin (Negative) Urine Urobilinogen (<2.0) mg/dL Ur Leukocyte Esterase (Negative) Urine HCG, Qual (Not Detectd) Influenza Type A (PCR) Not Detected (Not Detectd) Influenza Type B (PCR) Not Detected (Not Detectd) RSV (PCR) Not Detected (Not Detectd) SARS-CoV-2 (PCR) Not Detected (Not Detectd) 10/06/23 10/06/23 Range/Units 21:58 21:58 WBC (3.8-10.6) k/uL RBC (3.80-5.40) m/uL Hgb (11.4-16.0) gm/dL Hct (34.0-46.0) % MCV (80.0-100.0) fL MCH (25.0-35.0) pg MCHC (31.0-37.0) g/dL RDW (11.5-15.5) % Plt Count (150-450) k/uL MPV Sodium (137-145) mmol/L Potassium (3.5-5.1) mmol/L Chloride (98-107) mmol/L Carbon Dioxide (22-30) mmol/L Anion Gap mmol/L BUN (7-17) mg/dL Creatinine (0.52-1.04) mg/dL Est GFR (CKD-EPI)AfAm (>60 ml/min/1.73 sqM) Est GFR (CKD-EPI)NonAf (>60 ml/min/1.73 sqM) Glucose (74-99) mg/dL Calcium (8.4-10.2) mg/dL Total Bilirubin (0.2-1.3) mg/dL AST (14-36) U/L ALT (4-34) U/L Alkaline Phosphatase (38-126) U/L Total Protein (6.3-8.2) g/dL Albumin (3.5-5.0) g/dL Urine Color Colorless Urine Appearance Clear (Clear) Urine pH 7.0 (5.0-8.0) Ur Specific [place] 1.014 (1.001-1.035) Urine Protein Negative (Negative) Urine Glucose (UA) Negative (Negative) Urine Ketones Negative (Negative) Urine Blood Negative (Negative) Urine Nitrite Negative (Negative) Urine Bilirubin Negative (Negative) Urine Urobilinogen <2.0 (<2.0) mg/dL Ur Leukocyte Esterase Negative (Negative) Urine HCG, Qual Not Detected (Not Detectd) Influenza Type A (PCR) (Not Detectd) Influenza Type B (PCR) (Not Detectd) RSV (PCR) (Not Detectd) SARS-CoV-2 (PCR) (Not Detectd) Disposition <Ofe Iglesias - Last Filed: 10/06/23 19:08> Is patient prescribed a controlled substance at d/c from ED?: Yes If prescribed controlled substance>3 days was MAPS reviewed?: Prescribed <3 Days Time of Disposition: 23:43 <Félix Boles - Last Filed: 10/06/23 23:44> Clinical Impression: Pain Disposition: HOME SELF-CARE Condition: Good Instructions (If sedation given, give patient instructions): Hy drocodone/Acetaminophen (By mouth) Prescriptions: HYDROcodone/APAP 5-325MG [[place] 5-325] 1 tab PO Q6HR PRN 3 Days #12 tab PRN Reason: Severe Pain Referrals: Morro Rogers DO [REFERRING] - 1-2 days
[2023-10-06 20:10] LABS: HCT 42.6 % (34.0-46.0); HGB 14.2 gm/dL (11.4-16.0); MCH 31.4 pg (25.0-35.0); MCHC 33.3 g/dL (31.0-37.0); MCV 94.3 fL (80.0-100.0); Mean Platelet Volume 7.5; Platelet Count 343 k/uL (150-450); RBC 4.51 m/uL (3.80-5.40); RDW 13.7 % (11.5-15.5); WBC 13.7 k/uL (3.8-10.6)
[2023-10-06 20:41] LABS: ALT 15 U/L (4-34); AST 19 U/L (14-36); African American GFR (CKD) >90 (>60 ml/min/1.73 sqM); Albumin 3.5 g/dL (3.5-5.0); Alkaline Phosphatase 85 U/L (38-126); Anion Gap 3 mmol/L; Blood Urea Nitrogen 11 mg/dL (7-17); Calcium 8.5 mg/dL (8.4-10.2); Carbon Dioxide 27 mmol/L (22-30); Chloride 110 mmol/L (98-107); Glucose 94 mg/dL (74-99); Non-African American GFR(CKD) >90 (>60 ml/min/1.73 sqM); Potassium 3.6 mmol/L (3.5-5.1); Sodium 140 mmol/L (137-145); Total Bilirubin 0.4 mg/dL (0.2-1.3)
[2023-10-06 22:29] LABS: Appearance,Urine Clear (Clear); Bilirubin,Urine Negative (Negative); Blood,Urine Negative (Negative); Color,Urine Colorless; Glucose,Urine (UA) Negative (Negative); Ketones,Urine Negative (Negative); Leukocyte Esterase,Urine Negative (Negative); Nitrite,Urine Negative (Negative); Protein,Urine Negative (Negative); Specific Gravity,Urine 1.014 (1.001-1.035); Urobilinogen,Urine <2.0 mg/dL (<2.0)
[2023-10-07] MEDS: MORPHINE SULFATE 4 MG/ML SYRINGE IV STA (00:05)
[2023-10-07] MEDS: ONDANSETRON 4 MG/2 ML VIAL IVP STA (00:24)
[2023-10-07 01:56] VITALS: BP 154/119; PULSE 115; RESP 15; TEMP 98.3
== END 2023-10-07 01:36 | disposition home or self-care (01) ==
LOC: EC 18:45
DX: R07.89 Other chest pain (principal); R53.1 Weakness; I10 Essential (primary) hypertension; F32.A Depression, unspecified; F41.9 Anxiety disorder, unspecified; F17.200 Nicotine dependence, unspecified, uncomplicated; F12.90 Cannabis use, unspecified, uncomplicated; F11.90 Opioid use, unspecified, uncomplicated; F14.90 Cocaine use, unspecified, uncomplicated; F15.90 Other stimulant use, unspecified, uncomplicated; Z20.822 Contact with and (suspected) exposure to COVID-19; Z79.899 Other long term (current) drug therapy; Z88.0 Allergy status to penicillin; Z88.8 Allergy status to other drugs, medicaments and biological substances; Z86.711 Personal history of pulmonary embolism
CPT/HCPCS: 36415; 80053; 81003; 81025; 85027; 87636; 96374; 96375; 99285

== ENCOUNTER 2023-10-09 12:30 | Emergency (ER) | payer OTHER ==
[2023-10-09] MEDS: SODIUM CHLORIDE 0.9% 1,000 ML IV STA (13:47)
--- NOTE | 2023-10-09 14:01 | ED ---
General Adult HPI - General Source: patient, RN notes reviewed, old records reviewed Mode of arrival: EMS Limitations: no limitations <Juan Antonio Cotto - Last Filed: 10/12/23 21:56> - General Source: RN notes reviewed, old records reviewed Mode of arrival: EMS Limitations: altered mental status - History of Present Illness -: unknown Location: abdomen Radiation: abdomen Severity scale (1-10): 10 Quality: aching, sharp Consistency: constant Improves with: none Worsens with: none Associated Symptoms: loss of appetite, nausea/vomiting, shortness of breath, weakness Treatments Prior to Arrival: none <Dickson Spangler - Last Filed: 10/17/23 00:17> - General Chief complaint: Abdominal Pain Stated complaint: Weakness,Dizziness,Abd Pain Time Seen by Provider: 10/09/23 13:15 - History of Present Illness Initial comments: 38-year-old female presenting for evaluation of bilateral flank pain and urinary frequency, urgency. Patient is a poor historian. She also complains of generalized weakness and fatigue. She reports subjective fever and chills. (Juan Antonio Cotto) This is a 38 year old female to the ED for abdominal pain, weakness, near syncope (Dickson Spangler) - Related Data Previous Rx's Medication Instructions Recorded HYDROcodone/APAP 5-325MG [[place] 1 tab PO Q6HR PRN 3 Days #12 tab 10/06/23 5-325] Allergies Allergy/AdvReac Type Severity Reaction Status Date / Time Penicillins Allergy Unknown Verified 10/09/23 16:32 Childhood temazepam [From Restoril] AdvReac Itching Verified 10/09/23 16:32 Review of Systems ROS Other: All systems not noted in ROS Statement are negative. <Juan Antonio Cotto - Last Filed: 10/12/23 21:56> ROS Other: All systems not noted in ROS Statement are negative. <Dickson Spangler - Last Filed: 10/17/23 00:17> ROS Statement: Those systems with pertinent positive or pertinent negative responses have been documented in the HPI. Past Medical History Past Medical History: Hypertension, Pulmonary Embolus (PE) Additional Past Medical History / Comment(s): OTHER HX: fibromyalgia, chronic pain-generalized, migraines, R ovarian cysts, frequent UTI's, tachycardia, gastritis, duodenitis. Anxiety disorder History of Any Multi-Drug Resistant Organisms: None Reported Past Surgical History: Orthopedic Surgery Additional Past Surgical History / Comment(s): hand surgery Past Anesthesia/Blood Transfusion Reactions: Unable to Obtain Additional Past Anesthesia/Blood Transfusion Reaction / Comment(s): Pt has never had surgery Past Psychological History: Anxiety, Depression, PTSD Smoking Status: Current every day smoker Past Alcohol Use History: None Reported Past Drug Use History: Cocaine, Marijuana, Methamphetamine, Opiates - Past Family History Mother Family Medical History: Cancer, Diabetes Mellitus, Myocardial Infarction ([place]) Additional Family Medical History / Comment(s): Mother had cervical cancer and hypotension. Father Family Medical History: Hypertension <Juan Antonio Cotto N - Last Filed: 10/12/23 21:56> General Exam General appearance: alert, anxious Head exam: Present: atraumatic, normocephalic Eye exam: Present: normal appearance, PERRL ENT exam: Present: mucous membranes dry Neck exam: Present: normal inspection. Absent: tenderness, meningismus Respiratory exam: Present: normal lung sounds bilaterally. Absent: respiratory distress, wheezes Cardiovascular Exam: Present: normal rhythm, bradycardia GI/Abdominal exam: Present: soft. Absent: distended, tenderness Extremities exam: Present: normal inspection, normal capillary refill Neurological exam: Present: alert, CN II-XII intact Psychiatric exam: Present: anxious Skin exam: Present: warm, dry, intact. Absent: cyanosis, diaphoretic <Juan Antonio Cotto N - Last Filed: 10/12/23 21:56> Limitations: altered mental status, physical limitation General appearance: alert, anxious, lethargic, in distress Head exam: Present: atraumatic, normocephalic, normal inspection Eye exam: Present: normal appearance, PERRL, EOMI. Absent: scleral icterus, conjunctival injection, periorbital swelling ENT exam: Present: normal exam, mucous membranes moist Neck exam: Present: normal inspection. Absent: tenderness, meningismus, l ymphadenopathy Respiratory exam: Present: normal lung sounds bilaterally. Absent: respiratory distress, wheezes, rales, rhonchi, stridor Cardiovascular Exam: Present: bradycardia, normal heart sounds. Absent: systolic murmur, diastolic murmur, rubs, gallop, clicks GI/Abdominal exam: Present: soft, normal bowel sounds. Absent: distended, tenderness, guarding, rebound, rigid Extremities exam: Present: normal inspection, full ROM, normal capillary refill. Absent: tenderness, pedal edema, joint swelling, calf tenderness Back exam: Present: normal inspection Neurological exam: Present: alert, oriented X3, CN II-XII intact Psychiatric exam: Present: normal affect, normal mood Skin exam: Present: warm, dry, intact, normal color. Absent: rash <Dickson Spangler - Last Filed: 10/17/23 00:17> Course <Dickson Spangler - Last Filed: 10/17/23 00:17> Vital Signs 10/09/23 10/09/23 10/09/23 12:38 14:44 16:30 Temperature 97.4 F L 98.6 F Pulse Rate 55 L 103 H 107 H Respiratory 18 18 20 Rate Blood Pressure 83/68 121/87 138/108 O2 Sat by Pulse 100 100 97 Oximetry 10/09/23 10/09/23 10/09/23 16:52 16:54 16:59 Temperature 97.9 F 97.9 F 98.0 F Pulse Rate 111 H 113 H 113 H Respiratory 18 20 18 Rate Blood Pressure 123/100 123/100 125/92 O2 Sat by Pulse 99 100 100 Oximetry 10/09/23 10/09/23 10/09/23 17:04 17:14 17:24 Temperature 97.9 F 98.0 F 97.9 F Pulse Rate 110 H 109 H 107 H Respiratory 18 18 18 Rate Blood Pressure 129/104 142/96 135/99 O2 Sat by Pulse 99 100 100 Oximetry 10/09/23 10/09/23 10/09/23 17:40 17:55 18:10 Temperature 97.8 F 97.8 F 97.8 F Pulse Rate 109 H 105 H 101 H Respiratory 18 18 18 Rate Blood Pressure 133/107 143/96 141/100 O2 Sat by Pulse 99 100 Oximetry 10/09/23 10/09/23 10/09/23 18:25 18:35 18:55 Temperature 97.8 F 97.7 F 97.7 F Pulse Rate 96 109 H 95 Respiratory 18 18 18 Rate Blood Pressure 153/99 156/111 155/120 O2 Sat by Pulse 100 100 100 Oximetry - Reevaluation(s) Reevaluation #1: 10/09/23 16:21 Medical record is reviewed (Dickson Spangler) Reevaluation #2: 10/09/23 16:21 Patient symptoms are worsening, she is feeling weak lightheaded and hemoglobin has dropped (Dickson Spangler) Reevaluation #3: 10/09/23 16:21 Patient informed of results and questions answered (Dickson Spangler) Reevaluation #4: CT scan CT brain and abdomen pelvis negative for acute disease interpreted by pa Critical care 31 minutes Disposition Acute GI bleed with anemia and syncope, hypotension Life-threatening illness Disposition 38 female to the ER for evaluation, patient presents today for evaluation of near syncopal event weakness and abdominal pain. Patient is having active GI b leed, melanotic stool on rectal exam here in the ER, patient did have a hemoglobin drop of 7.6-6.4 here in the emergency department patient is normally significantly hypertensive with accelerated hypertension she is normotensive currently. Patient will be transferred to [facility] for GI evaluation (Dickson Spangler) Reevaluation #5: Differential Abdominal Pain Women: Appendicitis, Cholecystitis, diverticulosis, ischemic bowel, pancreatitis, hepa titis, UTI, gastroenteritis, AAA, incarcerated hernia, bowel obstruction, constipation, inflammatory bowel, hepatitis, peptic ulcer disease, splenic infarction, perforated viscus, vulvitis, ovarian torsion, PID, kidney stone, placenta abruption, this is not meant to be an all-inclusive list Differential Altered Mental Status: Hypoglycemia, DKA, hypercapnia, ETOH, overdose, CO poisoning, trauma, myxedema coma, HTN encephalopathy, infection, encephalitis, psychosis, intercranial hemorrhage, hepatic encephalopathy, meningitis, CVA, this is not meant to be an all-inclusive list (Dickson Spangler) - Consultations Consultation #1: spoke with [facility] regarding transfer they agree to accept the patient (Dickson Spangler) Medical Decision Making - Lab Data Result diagrams: 10/09/23 14:43 10/09/23 14:43 <Juan Antonio Cotto - Last Filed: 10/12/23 21:56> - Lab Data Result diagrams: 10/09/23 14:43 10/09/23 14:43 - Radiology Data Radiology results: report reviewed (CT abdomen pelvis is negative for acute disease, CT brain is negative for acute disease), image reviewed <Dickson Spangler Giovanna - Last Filed: 10/17/23 00:17> - Medical Decision Making 38-year-old female presenting with generalized abdominal pain, weakness, flank pain. Was pt. sent in by a medical professional or institution (, PA, CORRECTION WORKER, urgent care, hospital, or senior care...) When possible be specific @ -No Did you speak to anyone other than the patient for history (EMS, parent, family, police, friend...)? What history was obtained from this source @ -No Did you review nursing and triage notes (agree or disagree)? Why? @ -I reviewed and agree with nursing and triage notes Were old charts reviewed (outside hosp., previous admission, EMS record, old EKG, old radiological studies, urgent care reports/EKG's, senior care records)? Report findings @ -No old charts were reviewed Differential Diagnosis (chest pain, altered mental status, abdominal pain women, abdominal pain men, vaginal bleeding, weakness, fever, dyspnea, syncope, headache, dizziness, GI bleed, back pain, seizure, CVA, palpatations, mental health, musculoskeletal)? @ -[Differential Abdominal Pain Women: Appendicitis, Cholecystitis, diverticulosis, ischemic bowel, pancreatitis, hepatitis, UTI, gastroenteritis, AAA, incarcerated hernia, bowel obstruction, constipation, inflammatory bowel, hepatitis, peptic ulcer disease, splenic infarction, perforated viscus, vulvitis, ovarian torsion, PID, kidney stone, placenta abruption, this is not meant to be an all-inclusive list EKG interpreted by me (3pts min.). @ -As above X-rays interpreted by me (1pt min.). @ -None done CT interpreted by me (1pt min.). @ -None done U/S interpreted by me (1pt. min.). @ -None done What testing was considered but not performed or refused? (CT, X-rays, U/S, labs)? Why? @ -None What meds were considered but not given or refused? Why? @ -None Did you discuss the management of the patient with other professionals (professionals i.e. , PA, CORRECTION WORKER, lab, RT, psych nurse, social worker assistant, intellectual property lawyer, teacher, fourth officer, dependency case manager)? Give summary @ -No Was smoking cessation discussed for >3mins.? @ -No Was critical care preformed (if so, how long)? @ -No Were there social determinants of health that impacted care today? How? (Homelessness, low income, unemployed, alcoholism, drug addiction, transportation, low edu. Level, literacy, decrease access to med. care, fpc, rehab)? @ -No Was there de-escalation of care discussed even if they declined (Discuss DNR or withdrawal of care, Hospice)? DNR status @ -No What co-morbidities impacted this encounter? (DM, HTN, Smoking, COPD, CAD, Cancer, CVA, ARF, Chemo, Hep., AIDS, mental health diagnosis, sleep apnea, morbid obesity)? @ -None Was patient admitted / discharged? Hospital course, mention meds given and route, prescriptions, significant lab abnormalities, going to OR and other pertinent info. @ -[Patient care signed out to Dr. Spangler at shift change awaiting laboratory testing, CT scan, and reevaluation. (Juan Antonio Cotto) 38 female to the ER for evaluation, patient presents today for evaluation of near syncopal event weakness and abdominal pain. Patient is having active GI bleed, melanotic stool on rectal exam here in the ER, patient did have a hemoglobin drop of 7.6-6.4 here in the emergency department patient is normally significantly hypertensive with accelerated hypertension she is normotensive currently. Patient will be transferred to [facility] for GI evaluation (Dickson Spangler) - Lab Data Lab Results 10/09/23 10/09/23 10/09/23 Range/Units 13:34 13:34 13:34 WBC 19.5 H (3.8-10.6) k/uL RBC 2.41 L (3.80-5.40) m/uL Hgb 7.8 L D (11.4-16.0) gm/dL Hct 22.5 L (34.0-46.0) % MCV 93.3 (80.0-100.0) fL MCH 32.5 (25.0-35.0) pg MCHC 34.9 (31.0-37.0) g/dL RDW 13.8 (11.5-15.5) % Plt Count 303 (150-450) k/uL MPV 8.3 Neutrophils % 84 % Lymphocytes % 12 % Monocytes % 2 % Eosinophils % 0 % Basophils % 0 % Neutrophils # 16.4 H (1.3-7.7) k/uL Lymphocytes # 2.4 (1.0-4.8) k/uL Monocytes # 0.5 (0-1.0) k/uL Eosinophils # 0.0 (0-0.7) k/uL Basophils # 0.0 (0-0.2) k/uL PT 11.8 (10.0-12.5) sec INR 1.1 (<1.2) APTT 19.3 L (22.0-30.0) sec Sodium (137-145) mmol/L Potassium (3.5-5.1) mmol/L Chloride (98-107) mmol/L Carbon Dioxide (22-30) mmol/L Anion Gap mmol/L BUN (7-17) mg/dL Creatinine (0.52-1.04) mg/dL Est GFR (CKD-EPI)AfAm (>60 ml/min/1.73 sqM) Est GFR (CKD-EPI)NonAf (>60 ml/min/1.73 sqM) Glucose (74-99) mg/dL Lactic Ac Sepsis Rflx Plasma Lactic Acid Jerson (0.7-2.0) mmol/L Calcium (8.4-10.2) mg/dL Total Bilirubin (0.2-1.3) mg/dL AST (14-36) U/L ALT (4-34) U/L Alkaline Phosphatase (38-126) U/L Total Protein (6.3-8.2) g/dL Albumin (3.5-5.0) g/dL Lipase (23-300) U/L Urine Color Colorless Urine Appearance Clear (Clear) Urine pH 6.0 (5.0-8.0) Ur Specific [place] 1.021 (1.001-1.035) Urine Protein Negative (Negative) Urine Glucose (UA) Negative (Negative) Urine Ketones Negative (Negative) Urine Blood Small H (Negative) Urine Nitrite Negative (Negative) Urine Bilirubin Negative (Negative) Urine Urobilinogen <2.0 (<2.0) mg/dL Ur Leukocyte Esterase Negative (Negative) Urine RBC <1 (0-5) /hpf Urine WBC 2 (0-5) /hpf Ur Squamous Epith Cells 5 H (0-4) /hpf Hyaline Casts 4 H (0-2) /lpf Urine Mucus Occasional H (None) /hpf Urine HCG, Qual (Not Detectd) Stool Occult Blood (Negative) Urine Opiates Screen (NotDetected) Ur Oxycodone Screen (NotDetected) Urine Methadone Screen (NotDetected) Ur Barbiturates Screen (NotDetected) U Tricyclic Antidepress (NotDetected) Ur Phencyclidine Scrn (NotDetected) Ur Amphetamines Screen (NotDetected) U Methamphetamines Scrn (NotDetected) U Benzodiazepines Scrn (NotDetected) Urine Cocaine Screen (NotDetected) U Marijuana (THC) Screen (NotDetected) Influenza Type A (PCR) (Not Detectd) Influenza Type B (PCR) (Not Detectd) RSV (PCR) (Not Detectd) SARS-CoV-2 (PCR) (Not Detectd) Blood Type Blood Type Recheck Bld Type Recheck Status Antibody Screen Crossmatch Spec Expiration Date 10/09/23 10/09/23 10/09/23 Range/Units 13:34 13:34 13:34 WBC (3.8-10.6) k/uL RBC (3.80-5.40) m/uL Hgb (11.4-16.0) gm/dL Hct (34.0-46.0) % MCV (80.0-100.0) fL MCH (25.0-35.0) pg MCHC (31.0-37.0) g/dL RDW (11.5-15.5) % Plt Count (150-450) k/uL MPV Neutrophils % % Lymphocytes % % Monocytes % % Eosinophils % % Basophils % % Neutrophils # (1.3-7.7) k/uL Lymphocytes # (1.0-4.8) k/uL Monocytes # (0-1.0) k/uL Eosinophils # (0-0.7) k/uL Basophils # (0-0.2) k/uL PT (10.0-12.5) sec INR (<1.2) APTT (22.0-30.0) sec Sodium 132 L (137-145) mmol/L Potassium 4.0 (3.5-5.1) mmol/L Chloride 108 H (98-107) mmol/L Carbon Dioxide 19 L (22-30) mmol/L Anion Gap 5 mmol/L BUN 53 H (7-17) mg/dL Creatinine 0.64 (0.52-1.04) mg/dL Est GFR (CKD-EPI)AfAm >90 (>60 ml/min/1.73 sqM) Est GFR (CKD-EPI)NonAf >90 (>60 ml/min/1.73 sqM) Glucose 107 H (74-99) mg/dL Lactic Ac Sepsis Rflx Plasma Lactic Acid Jerson 2.6 H* (0.7-2.0) mmol/L Calcium 8.0 L (8.4-10.2) mg/dL Total Bilirubin 0.3 (0.2-1.3) mg/dL AST 14 (14-36) U/L ALT 12 (4-34) U/L Alkaline Phosphatase 57 (38-126) U/L Total Protein 5.1 L (6.3-8.2) g/dL Albumin 3.1 L (3.5-5.0) g/dL Lipase 54 (23-300) U/L Urine Color Urine Appearance (Clear) Urine pH (5.0-8.0) Ur Specific [place] (1.001-1.035) Urine Protein (Negative) Urine Glucose (UA) (Negative) Urine Ketones (Negative) Urine Blood (Negative) Urine Nitrite (Negative) Urine Bilirubin (Negative) Urine Urobilinogen (<2.0) mg/dL Ur Leukocyte Esterase (Negative) Urine RBC (0-5) /hpf Urine WBC (0-5) /hpf Ur Squamous Epith Cells (0-4) /hpf Hyaline Casts (0-2) /lpf Urine Mucus (None) /hpf Urine HCG, Qual (Not Detectd) Stool Occult Blood (Negative) Urine Opiates Screen (NotDetected) Ur Oxycodone Screen (NotDetected) Urine Methadone Screen (NotDetected) Ur Barbiturates Screen (NotDetected) U Tricyclic Antidepress (NotDetected) Ur Phencyclidine Scrn (NotDetected) Ur Amphetamines Screen (NotDetected) U Methamphetamines Scrn (NotDetected) U Benzodiazepines Scrn (NotDetected) Urine Cocaine Screen (NotDetected) U Marijuana (THC) Screen (NotDetected) Influenza Type A (PCR) Not Detected (Not Detectd) Influenza Type B (PCR) Not Detected (Not Detectd) RSV (PCR) Not Detected (Not Detectd) SARS-CoV-2 (PCR) Not Detected (Not Detectd) Blood Type Blood Type Recheck Bld Type Recheck Status Antibody Screen Crossmatch Spec Expiration Date 10/09/23 10/09/23 10/09/23 Range/Units 14:11 14:43 14:43 WBC (3.8-10.6) k/uL RBC (3.80-5.40) m/uL Hgb (11.4-16.0) gm/dL Hct (34.0-46.0) % MCV (80.0-100.0) fL MCH (25.0-35.0) pg MCHC (31.0-37.0) g/dL RDW (11.5-15.5) % Plt Count (150-450) k/uL MPV Neutrophils % % Lymphocytes % % Monocytes % % Eosinophils % % Basophils % % Neutrophils # (1.3-7.7) k/uL Lymphocytes # (1.0-4.8) k/uL Monocytes # (0-1.0) k/uL Eosinophils # (0-0.7) k/uL Basophils # (0-0.2) k/uL PT (10.0-12.5) sec INR (<1.2) APTT (22.0-30.0) sec Sodium (137-145) mmol/L Potassium (3.5-5.1) mmol/L Chloride (98-107) mmol/L Carbon Dioxide (22-30) mmol/L Anion Gap mmol/L BUN (7-17) mg/dL Creatinine (0.52-1.04) mg/dL Est GFR (CKD-EPI)AfAm (>60 ml/min/1.73 sqM) Est GFR (CKD-EPI)NonAf (>60 ml/min/1.73 sqM) Glucose (74-99) mg/dL Lactic Ac Sepsis Rflx Y Plasma Lactic Acid Jerson (0.7-2.0) mmol/L Calcium (8.4-10.2) mg/dL Total Bilirubin (0.2-1.3) mg/dL AST (14-36) U/L ALT (4-34) U/L Alkaline Phosphatase (38-126) U/L Total Protein (6.3-8.2) g/dL Albumin (3.5-5.0) g/dL Lipase (23-300) U/L Urine Color Urine Appearance (Clear) Urine pH (5.0-8.0) Ur Specific [place] (1.001-1.035) Urine Protein (Negative) Urine Glucose (UA) (Negative) Urine Ketones (Negative) Urine Blood (Negative) Urine Nitrite (Negative) Urine Bilirubin (Negative) Urine Urobilinogen (<2.0) mg/dL Ur Leukocyte Esterase (Negative) Urine RBC (0-5) /hpf Urine WBC (0-5) /hpf Ur Squamous Epith Cells (0-4) /hpf Hyaline Casts (0-2) /lpf Urine Mucus (None) /hpf Urine HCG, Qual Not Detected (Not Detectd) Stool Occult Blood (Negative) Urine Opiates Screen Detected H (NotDetected) Ur Oxycodone Screen Not Detected (NotDetected) Urine Methadone Screen Not Detected (NotDetected) Ur Barbiturates Screen Not Detected (NotDetected) U Tricyclic Antidepress Not Detected (NotDetected) Ur Phencyclidine Scrn Not Detected (NotDetected) Ur Amphetamines Screen Detected H (NotDetected) U Methamphetamines Scrn Detected H (NotDetected) U Benzodiazepines Scrn Not Detected (NotDetected) Urine Cocaine Screen Not Detected (NotDetected) U Marijuana (THC) Screen Not Detected (NotDetected) Influenza Type A (PCR) (Not Detectd) Influenza Type B (PCR) (Not Detectd) RSV (PCR) (Not Detectd) SARS-CoV-2 (PCR) (Not Detectd) Blood Type Blood Type Recheck Bld Type Recheck Status Antibody Screen Crossmatch Spec Expiration Date 10/09/23 10/09/23 10/09/23 Range/Units 14:43 14:43 16:20 WBC 16.2 H (3.8-10.6) k/uL RBC 1.96 L (3.80-5.40) m/uL Hgb 6.4 L* (11.4-16.0) gm/dL Hct 18.6 L* (34.0-46.0) % MCV 94.6 (80.0-100.0) fL MCH 32.5 (25.0-35.0) pg MCHC 34.4 (31.0-37.0) g/dL RDW 13.8 (11.5-15.5) % Plt Count 272 (150-450) k/uL MPV 8.1 Neutrophils % 84 % Lymphocytes % 13 % Monocytes % 2 % Eosinophils % 0 % Basophils % 0 % Neutrophils # 13.5 H (1.3-7.7) k/uL Lymphocytes # 2.1 (1.0-4.8) k/uL Monocytes # 0.3 (0-1.0) k/uL Eosinophils # 0.0 (0-0.7) k/uL Basophils # 0.0 (0-0.2) k/uL PT (10.0-12.5) sec INR (<1.2) APTT (22.0-30.0) sec Sodium 138 (137-145) mmol/L Potassium 2.6 L* (3.5-5.1) mmol/L Chloride 123 H (98-107) mmol/L Carbon Dioxide 11 L (22-30) mmol/L Anion Gap 4 mmol/L BUN 35 H (7-17) mg/dL Creatinine 0.38 L (0.52-1.04) mg/dL Est GFR (CKD-EPI)AfAm >90 (>60 ml/min/1.73 sqM) Est GFR (CKD-EPI)NonAf >90 (>60 ml/min/1.73 sqM) Glucose 65 L (74-99) mg/dL Lactic Ac Sepsis Rflx Plasma Lactic Acid Jerson (0.7-2.0) mmol/L Calcium 5.2 L* (8.4-10.2) mg/dL Total Bilirubin 0.2 (0.2-1.3) mg/dL AST 13 L (14-36) U/L ALT 8 (4-34) U/L Alkaline Phosphatase 38 (38-126) U/L Total Protein 3.3 L (6.3-8.2) g/dL Albumin 1.7 L (3.5-5.0) g/dL Lipase (23-300) U/L Urine Color Urine Appearance (Clear) Urine pH (5.0-8.0) Ur Specific [place] (1.001-1.035) Urine Protein (Negative) Urine Glucose (UA) (Negative) Urine Ketones (Negative) Urine Blood (Negative) Urine Nitrite (Negative) Urine Bilirubin (Negative) Urine Urobilinogen (<2.0) mg/dL Ur Leukocyte Esterase (Negative) Urine RBC (0-5) /hpf Urine WBC (0-5) /hpf Ur Squamous Epith Cells (0-4) /hpf Hyaline Casts (0-2) /lpf Urine Mucus (None) /hpf Urine HCG, Qual (Not Detectd) Stool Occult Blood Positive H (Negative) Urine Opiates Screen (NotDetected) Ur Oxycodone Screen (NotDetected) Urine Methadone Screen (NotDetected) Ur Barbiturates Screen (NotDetected) U Tricyclic Antidepress (NotDetected) Ur Phencyclidine Scrn (NotDetected) Ur Amphetamines Screen (NotDetected) U Methamphetamines Scrn (NotDetected) U Benzodiazepines Scrn (NotDetected) Urine Cocaine Screen (NotDetected) U Marijuana (THC) Screen (NotDetected) Influenza Type A (PCR) (Not Detectd) Influenza Type B (PCR) (Not Detectd) RSV (PCR) (Not Detectd) SARS-CoV-2 (PCR) (Not Detectd) Blood Type Blood Type Recheck Bld Type Recheck Status Antibody Screen Crossmatch Spec Expiration Date 10/09/23 10/09/23 Range/Units 16:41 16:41 WBC (3.8-10.6) k/uL RBC (3.80-5.40) m/uL Hgb (11.4-16.0) gm/dL Hct (34.0-46.0) % MCV (80.0-100.0) fL MCH (25.0-35.0) pg MCHC (31.0-37.0) g/dL RDW (11.5-15.5) % Plt Count (150-450) k/uL MPV Neutrophils % % Lymphocytes % % Monocytes % % Eosinophils % % Basophils % % Neutrophils # (1.3-7.7) k/uL Lymphocytes # (1.0-4.8) k/uL Monocytes # (0-1.0) k/uL Eosinophils # (0-0.7) k/uL Basophils # (0-0.2) k/uL PT (10.0-12.5) sec INR (<1.2) APTT (22.0-30.0) sec Sodium (137-145) mmol/L Potassium (3.5-5.1) mmol/L Chloride (98-107) mmol/L Carbon Dioxide (22-30) mmol/L Anion Gap mmol/L BUN (7-17) mg/dL Creatinine (0.52-1.04) mg/dL Est GFR (CKD-EPI)AfAm (>60 ml/min/1.73 sqM) Est GFR (CKD-EPI)NonAf (>60 ml/min/1.73 sqM) Glucose (74-99) mg/dL Lactic Ac Sepsis Rflx Plasma Lactic Acid Jerson 1.9 (0.7-2.0) mmol/L Calcium (8.4-10.2) mg/dL Total Bilirubin (0.2-1.3) mg/dL AST (14-36) U/L ALT (4-34) U/L Alkaline Phosphatase (38-126) U/L Total Protein (6.3-8.2) g/dL Albumin (3.5-5.0) g/dL Lipase (23-300) U/L Urine Color Urine Appearance (Clear) Urine pH (5.0-8.0) Ur Specific [place] (1.001-1.035) Urine Protein (Negative) Urine Glucose (UA) (Negative) Urine Ketones (Negative) Urine Blood (Negative) Urine Nitrite (Negative) Urine Bilirubin (Negative) Urine Urobilinogen (<2.0) mg/dL Ur Leukocyte Esterase (Negative) Urine RBC (0-5) /hpf Urine WBC (0-5) /hpf Ur Squamous Epith Cells (0-4) /hpf Hyaline Casts (0-2) /lpf Urine Mucus (None) /hpf Urine HCG, Qual (Not Detectd) Stool Occult Blood (Negative) Urine Opiates Screen (NotDetected) Ur Oxycodone Screen (NotDetected) Urine Methadone Screen (NotDetected) Ur Barbiturates Screen (NotDetected) U Tricyclic Antidepress (NotDetected) Ur Phencyclidine Scrn (NotDetected) Ur Amphetamines Screen (NotDetected) U Methamphetamines Scrn (NotDetected) U Benzodiazepines Scrn (NotDetected) Urine Cocaine Screen (NotDetected) U Marijuana (THC) Screen (NotDetected) Influenza Type A (PCR) (Not Detectd) Influenza Type B (PCR) (Not Detectd) RSV (PCR) (Not Detectd) SARS-CoV-2 (PCR) (Not Detectd) Blood Type B Positive Blood Type Recheck B Pos Bld Type Recheck Status No Antibody Screen NEGATIVE Crossmatch See Detail Spec Expiration Date 10/12/20232340 Critical Care Time Critical Care Time: Yes Total Critical Care Time: 31 <Dickson Spangler - Last Filed: 10/17/23 00:17> Disposition - Out of Hospital Transfer - Req. Specs Out of Hospital Transfer - Requested Specifics: Other Emergency Center (Transfer to [facility]) <Juan Antonio Cotto - Last Filed: 10/12/23 21:56> Is patient prescribed a controlled substance at d/c from ED?: No Time of Disposition: 16:20 <Dickson Spangler - Last Filed: 10/17/23 00:17> Clinical Impression: UGIB (upper gastrointestinal bleed), Anemia, Abdominal pain, Anxiety, Pain Disposition: OTHER INSTITUTION NOT DEFINED Condition: Serious Referrals: None,Stated [Primary Care Provider] - 1-2 days
[2023-10-09 14:06] LABS: Basophils % (A) 0 %; Eosinophils % (A) 0 %; HCT 22.5 % (34.0-46.0); Lymphocytes # (A) 2.4 k/uL (1.0-4.8); Lymphocytes % (A) 12 %; MCH 32.5 pg (25.0-35.0); MCHC 34.9 g/dL (31.0-37.0); MCV 93.3 fL (80.0-100.0); Mean Platelet Volume 8.3; Monocytes # (A) 0.5 k/uL (0-1.0); Monocytes % (A) 2 %; Neutrophils # (A) 16.4 k/uL (1.3-7.7); Neutrophils % (A) 84 %; Platelet Count 303 k/uL (150-450); RBC 2.41 m/uL (3.80-5.40); RDW 13.8 % (11.5-15.5); WBC 19.5 k/uL (3.8-10.6)
[2023-10-09 14:08] LABS: ALT 12 U/L (4-34); AST 14 U/L (14-36); African American GFR (CKD) >90 (>60 ml/min/1.73 sqM); Albumin 3.1 g/dL (3.5-5.0); Alkaline Phosphatase 57 U/L (38-126); Anion Gap 5 mmol/L; Blood Urea Nitrogen 53 mg/dL (7-17); Carbon Dioxide 19 mmol/L (22-30); Chloride 108 mmol/L (98-107); Glucose 107 mg/dL (74-99); Lipase 54 U/L (23-300); Non-African American GFR(CKD) >90 (>60 ml/min/1.73 sqM); Sodium 132 mmol/L (137-145); Total Bilirubin 0.3 mg/dL (0.2-1.3); Total Protein 5.1 g/dL (6.3-8.2)
[2023-10-09 14:12] LABS: HGB 7.8 gm/dL (11.4-16.0)
[2023-10-09 14:13] LABS: INR 1.1 (<1.2); Prothrombin Time 11.8 sec (10.0-12.5)
[2023-10-09 14:14] LABS: Partial Thromboplastin Time 19.3 sec (22.0-30.0)
[2023-10-09 15:08] LABS: Basophils % (A) 0 %; Eosinophils % (A) 0 %; Lymphocytes # (A) 2.1 k/uL (1.0-4.8); Lymphocytes % (A) 13 %; MCH 32.5 pg (25.0-35.0); MCHC 34.4 g/dL (31.0-37.0); MCV 94.6 fL (80.0-100.0); Mean Platelet Volume 8.1; Monocytes # (A) 0.3 k/uL (0-1.0); Monocytes % (A) 2 %; Neutrophils # (A) 13.5 k/uL (1.3-7.7); Neutrophils % (A) 84 %; Platelet Count 272 k/uL (150-450); RBC 1.96 m/uL (3.80-5.40); RDW 13.8 % (11.5-15.5); WBC 16.2 k/uL (3.8-10.6)
[2023-10-09 15:19] LABS: HCT 18.6 % (34.0-46.0); HGB 6.4 gm/dL (11.4-16.0)
[2023-10-09 15:31] LABS: Appearance,Urine Clear (Clear); Bilirubin,Urine Negative (Negative); Blood,Urine Small (Negative); Color,Urine Colorless; Glucose,Urine (UA) Negative (Negative); Hyaline Casts,Urine 4 /lpf (0-2); Ketones,Urine Negative (Negative); Leukocyte Esterase,Urine Negative (Negative); Mucus,Urine Occasional /hpf; Nitrite,Urine Negative (Negative); Protein,Urine Negative (Negative); RBC,Urine <1 /hpf (0-5); Specific Gravity,Urine 1.021 (1.001-1.035); Squamous Epithelial Cell,Urine 5 /hpf (0-4); Urobilinogen,Urine <2.0 mg/dL (<2.0); WBC,Urine 2 /hpf (0-5)
[2023-10-09 15:33] LABS: ALT 8 U/L (4-34); AST 13 U/L (14-36); African American GFR (CKD) >90 (>60 ml/min/1.73 sqM); Albumin 1.7 g/dL (3.5-5.0); Alkaline Phosphatase 38 U/L (38-126); Anion Gap 4 mmol/L; Blood Urea Nitrogen 35 mg/dL (7-17); Carbon Dioxide 11 mmol/L (22-30); Chloride 123 mmol/L (98-107); Glucose 65 mg/dL (74-99); Non-African American GFR(CKD) >90 (>60 ml/min/1.73 sqM); Sodium 138 mmol/L (137-145); Total Bilirubin 0.2 mg/dL (0.2-1.3); Total Protein 3.3 g/dL (6.3-8.2)
[2023-10-09 15:58] LABS: Amphetamine Screen,Urine Detected (NotDetected); Barbiturate Screen,Urine Not Detected (NotDetected); Benzodiazepines Screen,Urine Not Detected (NotDetected); Cocaine Screen,Urine Not Detected (NotDetected); Methadone Screen, Urine Not Detected (NotDetected); Opiate Screen,Urine Detected (NotDetected); Oxycodone Screen, Urine Not Detected (NotDetected); Phencyclidine Screen,Urine Not Detected (NotDetected); Tricyclic Antidepressant,Urine Not Detected (NotDetected); Urn Cannabinoid Scrn Not Detected (NotDetected)
--- NOTE | 2023-10-09 15:58 | CT ---
EXAMINATION: CT ABDOMEN AND PELVIS WITH IV CONTRAST DATE OF EXAMINATION: 10/09/2023. COMPARISON: None available. INDICATION: Bilateral flank pain. PROCEDURE: Axial CT of the abdomen and pelvis was performed with contrast and sagittal and coronal reformatted images were performed. CT dose lowering techniques were used, to include: automated expos ure control, adjustment for patient size, and/or use of iterative reconstruction. 100 mL of Isovue-30 0 was given intravenously. FINDINGS: LOWER CHEST : The visualized lung bases are clear. There are no pleural or pericardial effusions. ABDOMEN: Liver and Biliary system: Normal. Adrenal glands: Normal. Kidneys and ureters: Normal. Spleen: Normal. Pancreas: Normal. Gallbladder: Normal. Lymph nodes, Peritoneum and mesentery: There is no mesenteric or retroperitoneal lymphadenopathy. Gastrointestinal tract: There are no dilated loops of bowel or free intraperitoneal air. The appe ndix is normal. Aorta/IVC: There is mild vascular calcification throughout the abdominal aorta without evidence of aneurysmal dilation or dissection. IVC normal. Abdominal wall: Normal. PELVIS: Fluid: There is no free fluid in the pelvis. Lymph Nodes: There is no pelvic or inguinal lymphadenopathy.. Urinary bladder: Normal. BONES: There are no osseous destructive lesions.. ADDITIONAL SIGNIFICANT FINDINGS: None. IMPRESSION: No acute process within the abdomen or pelvis.
[2023-10-09] MEDS: fentaNYL (PF) 50 MCG/ML 2 ML AMP IVP STA ×2 (16:25→18:40)
[2023-10-09] MEDS: PANTOPRAZOLE 40 MG/10 ML VIAL IVP STA (16:26)
[2023-10-09] MEDS: ONDANSETRON 4 MG/2 ML VIAL IVP STA (16:28)
[2023-10-09 16:41] LABS: Calcium 5.2 mg/dL (8.4-10.2); Potassium 2.6 mmol/L (3.5-5.1)
[2023-10-09] MEDS: OCTREOTIDE 100 MCG/ML INJ IVP STA (16:43)
[2023-10-09] MEDS: POTASSIUM CHLORIDE 20 MEQ in WATER FOR INJECTION 1 100ML.BAG IVPB STA (17:10)
--- NOTE | 2023-10-09 17:12 | CT ---
EXAMINATION TYPE: CT brain wo con DATE OF EXAM: 10/09/2023 COMPARISON: None HISTORY: headache CT DLP: 1050.[address] of the brain was performed. The ventricles, basal cisterns and sulci overlying the cerebral convexities demonstrate a normal appe arance. There is no evidence for intracranial hemorrhage or sulcal effacement. No mass effects are seen. Osseous calvarium is intact. If symptoms persist consider MRI as clinically warranted. IMPRESSION: 1. No acute intracranial process is seen at this time.
[2023-10-09] MEDS: CALCIUM CHLORIDE 0.5 GM in SODIUM CHLORIDE 0.9% 50 ML IVPB ONE (17:29)
[2023-10-09 17:31] VITALS: RESP 18
[2023-10-09 19:01] VITALS: BP 155/120; PULSE 95; TEMP 97.7
== END 2023-10-09 18:55 | disposition other institution (70) ==
LOC: EC 12:30
DX: D64.9 Anemia, unspecified (principal); K92.2 Gastrointestinal hemorrhage, unspecified; F41.9 Anxiety disorder, unspecified; I10 Essential (primary) hypertension; F12.90 Cannabis use, unspecified, uncomplicated; F17.200 Nicotine dependence, unspecified, uncomplicated; Z86.59 Personal history of other mental and behavioral disorders; Z88.0 Allergy status to penicillin; Z88.8 Allergy status to other drugs, medicaments and biological substances; Z20.822 Contact with and (suspected) exposure to COVID-19
CPT/HCPCS: 36415; 86900; 86901; 80053; 83605; 83690; 85025; 85610; 85730; 86850; 86920; 82272; 81001; 81025; 80306; 87636; 70450; 74177; 99291; 96365; 36430; 96368; 96375 ×4; 96376; 96361; P9016; J3480; J2405; J2354; J3010; C9113; Q9967

== ENCOUNTER 2023-12-04 15:10 | Emergency (ER) | payer OTHER ==
--- NOTE | 2023-12-04 15:51 | ED ---
Recheck HPI - General Chief Complaint: Recheck/Abnormal Lab/Rx Stated Complaint: Hypertension Time Seen by Provider: 12/04/23 15:31 Source: EMS, RN notes reviewed, old records reviewed Mode of arrival: EMS Limitations: no limitations - History of Present Illness Initial Comments: This is a 38-year-old female to the ER for evaluation today. [place] [facility] [place] regards to hypertension with headache weakness and overall not feeling well. Patient has elevated blood pressure in the ER complaining of headache but no other complaints no other neurological symptoms or complaints. Patient has recent complicated inpatient hospitalization but currently denying any significant abdominal pain or blood in the stool or vomiting MD Complaint: abnormal lab -: days(s) Returns Today for: persistent/worsening pain related to initial visit Context: called for abnormal lab result Associated Symptoms: none Treatments Prior to Arrival: Given Pain Meds on - Related Data Home Medications Medication Instructions Recorded Confirmed Acetaminophen Tab [Tylenol] 650 mg PO TID PRN 12/04/23 12/04/23 Ferrous Sulfate [Feosol] 325 mg PO DAILY 12/04/23 12/04/23 Gabapentin 800 mg PO TID 12/04/23 12/04/23 Propranolol LA [Inderal LA] 60 mg PO DAILY 12/04/23 12/04/23 QUEtiapine [SEROquel] 200 mg PO HS 12/04/23 12/04/23 busPIRone HCl [Buspar] 5 mg PO TID 12/04/23 12/04/23 haloperidoL [Haldol] 2 mg PO DAILY 12/04/23 12/04/23 haloperidoL [Haldol] 5 mg PO HS 12/04/23 12/04/23 hydroCHLOROthiazide [Hydrodiuril] 12.5 mg PO DAILY 12/04/23 12/04/23 lisinopriL 40 mg PO DAILY 12/04/23 12/04/23 traZODone HCL [Desyrel] 25 mg PO HS 12/04/23 12/04/23 Allergies Allergy/AdvReac Type Severity Reaction Status Date / Time Penicillins Allergy Unknown Verified 12/04/23 17:15 Childhood temazepam [From Restoril] AdvReac Itching Verified 12/04/23 17:15 Review of Systems ROS Statement: Those systems with pertinent positive or pertinent negative responses have been documented in the HPI. ROS Other: All systems not noted in ROS Statement are negative. Past Medical History Past Medical History: Hypertension, Pulmonary Embolus (PE) Additional Past Medical History / Comment(s): OTHER HX: fibromyalgia, chronic pain-generalized, migraines, R ovarian cysts, frequent UTI's, tachycardia, ga stritis, duodenitis. Anxiety disorder History of Any Multi-Drug Resistant Organisms: None Reported Past Surgical History: Orthopedic Surgery Additional Past Surgical History / Comment(s): hand surgery Past Anesthesia/Blood Transfusion Reactions: Unable to Obtain Additional Past Anesthesia/Blood Transfusion Reaction / Comment(s): Pt has never had surgery Past Psychological History: Anxiety, Depression, PTSD Smoking Status: Current every day smoker Past Alcohol Use History: None Reported Past Drug Use History: Cocaine, Marijuana, Methamphetamine, Opiates - Past Family History Mother Family Medical History: Cancer, Diabetes Mellitus, Myocardial Infarction ([place]) Additional Family Medical History / Comment(s): Mother had cervical cancer and hypotension. Father Family Medical History: Hypertension General Exam Limitations: no limitations General appearance: alert, in no apparent distress Head exam: Present: atraumatic, normocephalic, normal inspection Eye exam: Present: normal appearance, PERRL, EOMI. Absent: scleral icterus, conjunctival injection, periorbital swelling ENT exam: Present: normal exam, mucous membranes moist Neck exam: Present: normal inspection. Absent: tenderness, meningismus, lymphadenopathy Respiratory exam: Present: normal lung sounds bilaterally. Absent: respiratory distress, wheezes, rales, rhonchi, stridor Cardiovascular Exam: Present: regular rate, normal rhythm, normal heart sounds. Absent: systolic murmur, diastolic murmur, rubs, gallop, clicks GI/Abdominal exam: Present: soft, normal bowel sounds. Absent: distended, tenderness, guarding, rebound, rigid Extremities exam: Present: normal inspection, full ROM, normal capillary refill. Absent: tenderness, pedal edema, joint swelling, calf tenderness Back exam: Present: normal inspection Neurological exam: Present: alert, oriented X3, CN II-XII intact Psychiatric exam: Present: normal affect, normal mood Skin exam: Present: warm, dry, intact, normal color. Absent: rash Course Vital Signs 12/04/23 12/04/23 12/04/23 15:20 15:33 16:45 Temperature 98.1 F Pulse Rate 101 H 98 Respiratory 16 18 Rate Blood Pressure 211/159 204/124 216/127 O2 Sat by Pulse 97 99 Oximetry 12/04/23 12/04/23 12/04/23 17:07 17:32 18:05 Temperature Pulse Rate 77 Respiratory 18 Rate Blood Pressure 182/127 185/109 171/118 O2 Sat by Pulse 100 Oximetry 12/04/23 20:13 Temperature Pulse Rate 89 Respiratory 16 Rate Blood Pressure 169/95 O2 Sat by Pulse 99 Oximetry - Reevaluation(s) Reevaluation #1: 12/04/23 19:40 medical record is reviewed Reevaluation #2: 12/04/23 19:40 patient symptoms improved Reevaluation #3: 12/04/23 19:40 patient informed of resutls and quesiots answered Reevaluation #4: Was pt. sent in by a medical professional or institution (DORIE Kim, [employer], urgent care, hospital, or longterm...) When possible be specific @ -no Did you speak to anyone other than the patient for history (EMS, parent, family, police, friend...)? What history was obtained from this source @ -no Did you review nursing and triage notes (agree or disagree)? Why? @ -agree Are old charts reviewed (outside hosp., previous admission, EMS record, old EKG, old radiological studies, urgent care reports/EKG's, longterm records)? Report findings @ -yes Differential Diagnosis (chest pain, altered mental status, abdominal pain women, abdominal pain men, vaginal bleeding, weakness, fever, dyspnea, syncope, headache, dizziness, GI bleed, back pain, seizure, CVA, palpatations, mental health, musculoskeletal)? @ -prior EKG interpreted by me (3pts min.). @ -yes X-rays interpreted by me (1pt min.). @ -yes negative for acute disease CT interpreted by me (1pt min.). @ -no U/S interpreted by me (1pt. min.). @ -no What testing was considered but not performed or refused? (CT, X-rays, U/S, labs)? Why? @ -none What meds were considered but not given or refused? Why? @ -none Did you discuss the management of the patient with other professionals (ludwin thakuronalfelipe i.e. , DORIE, [employer], lab, RT, psych nurse, aids social worker, concrete float maker, teacher, hotel security officer, case fitter)? Give summary @ -no Was smoking cessation discussed for >3mins.? @ -no Was critical care preformed (if so, how long)? @ -no Were there social determinants of health that impacted care today? How? (Homelessness, low income, unemployed, alcoholism, drug addiction, transportation, low edu. Level, literacy, decrease access to med. care, intermediate, rehab)? @ -none Was there de-escalation of care discussed even if they declined (Discuss DNR or withdrawal of care, Hospice)? DNR status @ -no What co-morbidities impacted this encounter? (DM, HTN, Smoking, COPD, CAD, Cancer, CVA, ARF, Chemo, Hep., AIDS, mental health diagnosis, sleep apnea, morbid obesity)? @ -none Was patient admitted / discharged? Hospital course, mention meds given and route, prescriptions, significant lab abnormalities, going to OR and other pertinent info. @ - 38 female to the ER for evaluation of severely elevated blood pressure. Pain and anxiety. Patient has no acute symptoms here in the ER symptoms are imp roving and patient can be discharged home Discharge Undiagnosed new problem with uncertain prognosis? @ -no Drug Therapy requiring intensive monitoring for toxicity (Heparin, Nitro, Insulin, Cardizem)? @ -no Were any procedures done? @ -no Diagnosis/symptom? @ -Anxiety Acute, or Chronic, or Acute on Chronic? @ -Acute Uncomplicated (without systemic symptoms) or Complicated (systemic symptoms)? @ -Complicated Side effects of treatment? @ -no Exacerbation, Progression, or Severe Exacerbation? @ -exacerbation Poses a threat to life or bodily function? How? (Chest pain, USA, CT, pneumonia, PE, COPD, DKA, ARF, appy, cholecystitis, CVA, Diverticulitis, Homicidal, Suicidal, threat to staff... and all critical care pts) @ -no Medical Decision Making - Medical Decision Making 38 female to the ER for evaluation of severely elevated blood pressure. Pain and anxiety. Patient has no acute symptoms here in the ER symptoms are improving and patient can be discharged home - Lab Data Result diagrams: 12/04/23 16:14 12/04/23 16:14 Lab Results 12/04/23 12/04/23 12/04/23 Range/Units 16:14 16:14 16:14 WBC 12.5 H (3.8-10.6) k/uL RBC 5.04 (3.80-5.40) m/uL Hgb 15.1 D (11.4-16.0) gm/dL Hct 46.9 H (34.0-46.0) % MCV 93.1 (80.0-100.0) fL MCH 29.9 (25.0-35.0) pg MCHC 32.2 (31.0-37.0) g/dL RDW 14.1 (11.5-15.5) % Plt Count 305 (150-450) k/uL MPV 7.8 Neutrophils % 79 % Lymphocytes % 14 % Monocytes % 5 % Eosinophils % 1 % Basophils % 0 % Neutrophils # 9.9 H (1.3-7.7) k/uL Lymphocytes # 1.7 (1.0-4.8) k/uL Monocytes # 0.6 (0-1.0) k/uL Eosinophils # 0.1 (0-0.7) k/uL Basophils # 0.0 (0-0.2) k/uL PT 10.7 (10.0-12.5) sec INR 1.0 (<1.2) APTT 25.4 (22.0-30.0) sec Sodium 138 (137-145) mmol/L Potassium 4.2 (3.5-5.1) mmol/L Chloride 106 (98-107) mmol/L Carbon Dioxide 22 (22-30) mmol/L Anion Gap 10 mmol/L BUN 7 (7-17) mg/dL Creatinine 0.68 (0.52-1.04) mg/dL Est GFR (CKD-EPI)AfAm >90 (>60 ml/min/1.73 sqM) Est GFR (CKD-EPI)NonAf >90 (>60 ml/min/1.73 sqM) Glucose 81 (74-99) mg/dL Plasma Lactic Acid Jerson (0.7-2.0) mmol/L Calcium 9.5 (8.4-10.2) mg/dL Phosphorus 3.5 (2.5-4.5) mg/dL Magnesium 1.8 (1.6-2.3) mg/dL Total Bilirubin 0.5 (0.2-1.3) mg/dL AST 28 (14-36) U/L ALT 16 (4-34) U/L Alkaline Phosphatase 109 (38-126) U/L Troponin I (0.000-0.034) ng/mL Total Protein 7.7 (6.3-8.2) g/dL Albumin 4.6 (3.5-5.0) g/dL Urine Color Urine Appearance (Clear) Urine pH (5.0-8.0) Ur Specific [place] (1.001-1.035) Urine Protein (Negative) Urine Glucose (UA) (Negative) Urine Ketones (Negative) Urine Blood (Negative) Urine Nitrite (Negative) Urine Bilirubin (Negative) Urine Urobilinogen (<2.0) mg/dL Ur Leukocyte Esterase (Negative) Ur Squamous Epith Cells (0-4) /hpf Urine Bacteria (None) /hpf 12/04/23 12/04/23 12/04/23 Range/Units 16:14 16:14 18:05 WBC (3.8-10.6) k/uL RBC (3.80-5.40) m/uL Hgb (11.4-16.0) gm/dL Hct (34.0-46.0) % MCV (80.0-100.0) fL MCH (25.0-35.0) pg MCHC (31.0-37.0) g/dL RDW (11.5-15.5) % Plt Count (150-450) k/uL MPV Neutrophils % % Lymphocytes % % Monocytes % % Eosinophils % % Basophils % % Neutrophils # (1.3-7.7) k/uL Lymphocytes # (1.0-4.8) k/uL Monocytes # (0-1.0) k/uL Eosinophils # (0-0.7) k/uL Basophils # (0-0.2) k/uL PT (10.0-12.5) sec INR (<1.2) APTT (22.0-30.0) sec Sodium (137-145) mmol/L Potassium (3.5-5.1) mmol/L Chloride (98-107) mmol/L Carbon Dioxide (22-30) mmol/L Anion Gap mmol/L BUN (7-17) mg/dL Creatinine (0.52-1.04) mg/dL Est GFR (CKD-EPI)AfAm (>60 ml/min/1.73 sqM) Est GFR (CKD-EPI)NonAf (>60 ml/min/1.73 sqM) Glucose (74-99) mg/dL Plasma Lactic Acid Jerson 1.5 (0.7-2.0) mmol/L Calcium (8.4-10.2) mg/dL Phosphorus (2.5-4.5) mg/dL Magnesium (1.6-2.3) mg/dL Total Bilirubin (0.2-1.3) mg/dL AST (14-36) U/L ALT (4-34) U/L Alkaline Phosphatase (38-126) U/L Troponin I <0.012 (0.000-0.034) ng/mL Total Protein (6.3-8.2) g/dL Albumin (3.5-5.0) g/dL Urine Color Colorless Urine Appearance Clear (Clear) Urine pH 6.0 (5.0-8.0) Ur Specific [place] 1.008 (1.001-1.035) Urine Protein Negative (Negative) Urine Glucose (UA) Negative (Negative) Urine Ketones Negative (Negative) Urine Blood Negative (Negative) Urine Nitrite Positive H (Negative) Urine Bilirubin Negative (Negative) Urine Urobilinogen <2.0 (<2.0) mg/dL Ur Leukocyte Esterase Negative (Negative) Ur Squamous Epith Cells <1 (0-4) /hpf Urine Bacteria Occasional H (None) /hpf - EKG Data -: EKG Interpreted by Me (EKG is sinus 83 PA 132 QRS 88 QTc 420) - Radiology Data Radiology results: report reviewed (CT brain is negative for acute disease), image reviewed Disposition Clinical Impression: Anxiety, Headache, Accelerated hypertension, Essential hypertension, Psychosis Disposition: HOME SELF-CARE Condition: Fair Instructions (If sedation given, give patient instructions): Hypertension (ED) Is patient prescribed a controlled substance at d/c from ED?: No Referrals: None,Stated [Primary Care Provider] - 1-2 days Time of Disposition: 19:15
[2023-12-04 16:05] VITALS: TEMP 98.1
[2023-12-04] MEDS: SODIUM CHLORIDE 0.9% 1,000 ML IV STA (16:09)
[2023-12-04] MEDS: ONDANSETRON 4 MG/2 ML VIAL IVP STA (16:11)
[2023-12-04] MEDS: MORPHINE SULFATE 2 MG/ML SYRINGE IVP STA (16:11)
[2023-12-04 16:30] LABS: Basophils % (A) 0 %; Eosinophils # (A) 0.1 k/uL (0-0.7); Eosinophils % (A) 1 %; HCT 46.9 % (34.0-46.0); Lymphocytes # (A) 1.7 k/uL (1.0-4.8); Lymphocytes % (A) 14 %; MCH 29.9 pg (25.0-35.0); MCHC 32.2 g/dL (31.0-37.0); MCV 93.1 fL (80.0-100.0); Mean Platelet Volume 7.8; Monocytes # (A) 0.6 k/uL (0-1.0); Monocytes % (A) 5 %; Neutrophils # (A) 9.9 k/uL (1.3-7.7); Neutrophils % (A) 79 %; Platelet Count 305 k/uL (150-450); RBC 5.04 m/uL (3.80-5.40); RDW 14.1 % (11.5-15.5); WBC 12.5 k/uL (3.8-10.6)
[2023-12-04 16:39] LABS: HGB 15.1 gm/dL (11.4-16.0)
--- NOTE | 2023-12-04 16:40 | CT ---
EXAMINATION TYPE: CT brain wo con DATE OF EXAM: 12/04/2023 COMPARISON: 10/09/2023 INDICATION: weakness, feels off. DLP: 1095.4 mGycm, Automated exposure control for dose reduction was used. CONTRAST: None CT of the brain is performed utilizing 3 mm thick sections through the posterior fossa and 3 mm thick sections through the remaining calvarium. Study is performed within 24 hours of arrival to the hosp ital. No abnormal hyperdensity is present to suggest an acute intracranial hemorrhage. No mass lesion is evident. No acute infarcts are evident. Ventricles and sulci are appropriate for the patient age. Paranasal sinuses and mastoid air cells within the [id number] are clear. IMPRESSION: 1. No acute intracranial process. Follow-up MRI can be performed as clinically indicated
[2023-12-04 16:47] LABS: Partial Thromboplastin Time 25.4 sec (22.0-30.0); Prothrombin Time 10.7 sec (10.0-12.5)
[2023-12-04 16:49] LABS: ALT 16 U/L (4-34); African American GFR (CKD) >90 (>60 ml/min/1.73 sqM); Albumin 4.6 g/dL (3.5-5.0); Anion Gap 10 mmol/L; Blood Urea Nitrogen 7 mg/dL (7-17); Calcium 9.5 mg/dL (8.4-10.2); Carbon Dioxide 22 mmol/L (22-30); Chloride 106 mmol/L (98-107); Glucose 81 mg/dL (74-99); Non-African American GFR(CKD) >90 (>60 ml/min/1.73 sqM); Sodium 138 mmol/L (137-145); Total Bilirubin 0.5 mg/dL (0.2-1.3); Total Protein 7.7 g/dL (6.3-8.2)
[2023-12-04] MEDS: LORazepam 2 MG/ML INJ IV STA (16:52)
[2023-12-04] MEDS: LABETALOL 5 MG/ML VIAL MDV IVP STA (16:52)
[2023-12-04 16:58] LABS: AST 28 U/L (14-36); Alkaline Phosphatase 109 U/L (38-126); Magnesium 1.8 mg/dL (1.6-2.3); Phosphorus 3.5 mg/dL (2.5-4.5); Potassium 4.2 mmol/L (3.5-5.1)
[2023-12-04] MEDS: hydrALAZINE HCL 20 MG/ML 1 ML VIAL IVP STA (19:38)
[2023-12-04] MEDS: cloNIDine 0.3 MG/24HR PATCH TRANSDERM SCH (19:50)
[2023-12-04 20:19] LABS: Appearance,Urine Clear (Clear); Bacteria,Urine Occasional /hpf; Bilirubin,Urine Negative (Negative); Blood,Urine Negative (Negative); Color,Urine Colorless; Glucose,Urine (UA) Negative (Negative); Ketones,Urine Negative (Negative); Leukocyte Esterase,Urine Negative (Negative); Nitrite,Urine Positive (Negative); Protein,Urine Negative (Negative); Specific Gravity,Urine 1.008 (1.001-1.035); Squamous Epithelial Cell,Urine <1 /hpf (0-4); Urobilinogen,Urine <2.0 mg/dL (<2.0)
[2023-12-04 20:33] VITALS: BP 169/95; PULSE 89; RESP 16
== END 2023-12-04 20:15 | disposition home or self-care (01) ==
LOC: EC 15:10
DX: F41.9 Anxiety disorder, unspecified (principal); F29 Unspecified psychosis not due to a substance or known physiological condition; I10 Essential (primary) hypertension; F17.200 Nicotine dependence, unspecified, uncomplicated; F14.90 Cocaine use, unspecified, uncomplicated; F12.90 Cannabis use, unspecified, uncomplicated; F15.90 Other stimulant use, unspecified, uncomplicated; Z88.0 Allergy status to penicillin; Z88.8 Allergy status to other drugs, medicaments and biological substances
CPT/HCPCS: 36415; 93005; 80053; 83605; 83735; 84100; 84484; 85025; 85610; 85730; 81001; 70450; 99284; 96374; 96375 ×4; 96361; J2060; J0360; J2405; J2270; J1920

== ENCOUNTER 2024-04-07 12:25 | Emergency (ER) | payer OTHER ==
--- NOTE | 2024-04-07 13:02 | ED ---
General Adult HPI - General Chief complaint: Psychiatric Symptoms Stated complaint: mental health Time Seen by Provider: 04/07/24 12:43 Source: patient, RN notes reviewed Mode of arrival: ambulatory Limitations: no limitations - History of Present Illness Initial comments: Patient is a 39-year-old female present to the emergency department for mental health evaluation. Patient does present with her [facility] worker. Patient has been having problems getting her medications. Patient has had high blood pressure and problems finding a primary care physician. Patient is having hallucinations. Patient is paranoid feeling that the police are following her. Patient has not used methamphetamines for the past 2 weeks. Patient does have thoughts of hurting other people because the police will not leave her alone - Related Data Home Medications Medication Instructions Recorded Confirmed Gabapentin 800 mg PO TID 12/04/23 04/07/24 Metoprolol Tartrate [Lopressor] 50 mg PO BID 04/07/24 04/07/24 QUEtiapine [SEROquel] 100 mg PO BID 04/07/24 04/07/24 amLODIPine [Norvasc] 10 mg PO DAILY 04/07/24 04/07/24 Allergies Allergy/AdvReac Type Severity Reaction Status Date / Time Penicillins Allergy Unknown Verified 04/07/24 14:15 Childhood temazepam [From Restoril] AdvReac Itching Verified 04/07/24 14:15 Review of Systems ROS Statement: Those systems with pertinent positive or pertinent negative responses have been documented in the HPI. ROS Other: All systems not noted in ROS Statement are negative. Constitutional: Denies: fever Eyes: Denies: eye pain ENT: Denies: ear pain Respiratory: Denies: cough Cardiovascular: Denies: chest pain Endocrine: Denies: fatigue Gastrointestinal: Denies: abdominal pain Genitourinary: Denies: dysuria Musculoskeletal: Denies: back pain Psychiatric: Reports: anxiety, auditory hallucinations, visual hallucinations Past Medical History Past Medical History: Hypertension, Pulmonary Embolus (PE) Additional Past Medical History / Comment(s): OTHER HX: fibromyalgia, chronic pain-generalized, migraines, R ovarian cysts, frequent UTI's, tachycardia, ga stritis, duodenitis. Anxiety disorder History of Any Multi-Drug Resistant Organisms: None Reported Past Surgical History: Orthopedic Surgery Additional Past Surgical History / Comment(s): hand surgery Past Anesthesia/Blood Transfusion Reactions: Unable to Obtain Additional Past Anesthesia/Blood Transfusion Reaction / Comment(s): Pt has never had surgery Past Psychological History: Anxiety, Depression, PTSD Smoking Status: Current every day smoker Past Alcohol Use History: None Reported Past Drug Use History: Cocaine, Marijuana, Methamphetamine, Opiates - Past Family History Mother Family Medical History: Cancer, Diabetes Mellitus, Myocardial Infarction ([place]) Additional Family Medical History / Comment(s): Mother had cervical cancer and hypotension. Father Family Medical History: Hypertension General Exam Limitations: no limitations General appearance: alert, in no apparent distress Head exam: Present: normocephalic Eye exam: Present: normal appearance Neck exam: Present: normal inspection Respiratory exam: Present: normal lung sounds bilaterally Cardiovascular Exam: Present: regular rate, normal rhythm GI/Abdominal exam: Present: soft. Absent: tenderness Extremities exam: Present: normal inspection Neurological exam: Present: alert Psychiatric exam: Present: manic Course Vital Signs 04/07/24 12:40 Temperature 97.9 F Pulse Rate 91 Respiratory 20 Rate Blood Pressure 180/90 O2 Sat by Pulse 99 Oximetry Medical Decision Making - Medical Decision Making Was pt. sent in by a medical professional or institution (Dr. PA, HOP SEPARATOR, urgent care, hospital, or senior living...) When possible be specific @ -There [facility] Did you speak to anyone other than the patient for history (EMS, parent, family, police, friend...)? What history was obtained from this source @ -[facility] worker helps provide history Did you review nursing and triage notes (agree or disagree)? Why? @ -I reviewed and agree with nursing and triage notes Were old charts reviewed (outside hosp., previous admission, EMS record, old EKG, old radiological studies, urgent care reports/EKG's, senior living records)? Report findings @ -No old charts were reviewed Differential Diagnosis (chest pain, altered mental status, abdominal pain women, abdominal pain men, vaginal bleeding, weakness, fever, dyspnea, syncope, headache, dizziness, GI bleed, back pain, seizure, CVA, palpatations, mental health, musculoskeletal)? @ -Differential Mental Health Depression, anxiety, bipolar, psychosis, schizophrenia, borderline personality, situational depression, adjustment disorder, behavioral disorder, brain tumor, malingering, substance abuse, encephalopathy, medication reaction, dementia, hypothyroidism, degenerative neurologic disorder, lupus.... This is not meant to be all-inclusive list EKG interpreted by me (3pts min.). @ -As above X-rays interpreted by me (1pt min.). @ -None done CT interpreted by me (1pt min.). @ -None done U/S interpreted by me (1pt. min.). @ -None done What testing was considered but not performed or refused? (CT, X-rays, U/S, labs)? Why? @ -None What meds were considered but not given or refused? Why? @ -None Did you discuss the management of the patient with other professionals (professionals i.e. , PA, HOP SEPARATOR, lab, RT, psych nurse, health social work professor, coordinator of rehabilitation services, teacher, preventive medicine officer, caseworker intake)? Give summary @ -Psychiatric nurse Josselyn who will admit Was smoking cessation discussed for >3mins.? @ -No Was critical care preformed (if so, how long)? @ -No Were there social determinants of health that impacted care today? How? (Homelessness, low income, unemployed, alcoholism, drug addiction, transportation, low edu. Level, literacy, decrease access to med. care, skilled nursing, rehab)? @ -No Was there de-escalation of care discussed even if they declined (Discuss DNR or withdrawal of care, Hospice)? DNR status @ -No What co-morbidities impacted this encounter? (DM, HTN, Smoking, COPD, CAD, Cancer, CVA, ARF, Chemo, Hep., AIDS, mental health diagnosis, sleep apnea, morbid obesity)? @ -History of psychiatric problems Was patient admitted / discharged? Hospital course, mention meds given and route, prescriptions, significant lab abnormalities, going to OR and other pertinent info. @ -Patient presents with multiple psychiatric problems and difficulty getting her medication. Patient will be admitted Undiagnosed new problem with uncertain prognosis? @ -No Drug Therapy requiring intensive monitoring for toxicity (Heparin, Nitro, Insulin, Cardizem)? @ -No Were any procedures done? @ -No Diagnosis/symptom? @ -Acute psychosis Acute, or Chronic, or Acute on Chronic? @ -Acute Uncomplicated (without systemic symptoms) or Complicated (systemic symptoms)? @ -Default Side effects of treatment? @ -No Exacerbation, Progression, or Severe Exacerbation? @ -No Poses a threat to life or bodily function? How? (Chest pain, [place], [place], pneumonia, PE, COPD, DKA, ARF, appy, cholecystitis, CVA, Diverticulitis, Homicidal, Suicidal, threat to staff... and all critical care pts) @ -No Disposition Clinical Impression: Psychosis Disposition: TRANSFER TO PSYCH HOSP/UNIT Is patient prescribed a controlled substance at d/c from ED?: No Referrals: None,Stated [Primary Care Provider] - 1-2 days Time of Disposition: 15:01
[2024-04-07] MEDS: LORazepam 1 MG TAB PO STA ×2 (15:04→23:51)
[2024-04-07 16:10] LABS: Amphetamine Screen,Urine Not Detected (NotDetected); Barbiturate Screen,Urine Not Detected (NotDetected); Benzodiazepines Screen,Urine Not Detected (NotDetected); Cocaine Screen,Urine Not Detected (NotDetected); Methadone Screen, Urine Not Detected (NotDetected); Opiate Screen,Urine Not Detected (NotDetected); Oxycodone Screen, Urine Not Detected (NotDetected); Phencyclidine Screen,Urine Not Detected (NotDetected); Tricyclic Antidepressant,Urine Detected (NotDetected); Urn Cannabinoid Scrn Detected (NotDetected)
[2024-04-08] MEDS: amLODIPine 10 MG TAB PO SCH (06:06)
[2024-04-08] MEDS: METOPROLOL TARTRATE 50 MG TAB PO SCH (06:07)
[2024-04-08] MEDS: LORazepam 1 MG TAB PO STA ×3 (06:07→18:35)
[2024-04-08] MEDS: GABAPENTIN 400 MG CAP PO SCH (09:36)
[2024-04-08] MEDS: QUEtiapine 100 MG TAB PO SCH (09:37)
[2024-04-08 10:21] VITALS: PULSE 78; RESP 16
[2024-04-08 12:35] LABS: Basophils # (A) 0.1 k/uL (0-0.2); Basophils % (A) 0 %; Eosinophils # (A) 0.3 k/uL (0-0.7); Eosinophils % (A) 2 %; HCT 43.7 % (34.0-46.0); HGB 14.8 gm/dL (11.4-16.0); Lymphocytes % (A) 16 %; MCH 31.2 pg (25.0-35.0); MCHC 33.7 g/dL (31.0-37.0); MCV 92.5 fL (80.0-100.0); Mean Platelet Volume 7.1; Monocytes # (A) 0.5 k/uL (0-1.0); Monocytes % (A) 4 %; Neutrophils # (A) 9.4 k/uL (1.3-7.7); Neutrophils % (A) 76 %; Platelet Count 348 k/uL (150-450); RBC 4.73 m/uL (3.80-5.40); RDW 15.3 % (11.5-15.5); WBC 12.4 k/uL (3.8-10.6)
[2024-04-08 12:48] LABS: ALT 18 U/L (4-34); AST 23 U/L (14-36); African American GFR (CKD) >90 (>60 ml/min/1.73 sqM); Albumin 3.9 g/dL (3.5-5.0); Alkaline Phosphatase 84 U/L (38-126); Anion Gap 6 mmol/L; Blood Urea Nitrogen 9 mg/dL (7-17); Calcium 9.2 mg/dL (8.4-10.2); Carbon Dioxide 24 mmol/L (22-30); Chloride 105 mmol/L (98-107); Glucose 85 mg/dL (74-99); Non-African American GFR(CKD) >90 (>60 ml/min/1.73 sqM); Potassium 4.1 mmol/L (3.5-5.1); Sodium 135 mmol/L (137-145); Total Bilirubin 0.5 mg/dL (0.2-1.3); Total Protein 6.5 g/dL (6.3-8.2)
[2024-04-08 16:27] LABS: Appearance,Urine Cloudy (Clear); Bacteria,Urine Occasional /hpf; Bilirubin,Urine Negative (Negative); Blood,Urine Negative (Negative); Color,Urine Colorless; Glucose,Urine (UA) Negative (Negative); Ketones,Urine Negative (Negative); Leukocyte Esterase,Urine Trace (Negative); Mucus,Urine Rare /hpf; Nitrite,Urine Positive (Negative); Protein,Urine Negative (Negative); RBC,Urine <1 /hpf (0-5); Specific Gravity,Urine 1.013 (1.001-1.035); Squamous Epithelial Cell,Urine 15 /hpf (0-4); Urobilinogen,Urine <2.0 mg/dL (<2.0); WBC,Urine 3 /hpf (0-5)
[2024-04-08] MEDS: ACETAMINOPHEN TAB 325 MG TAB PO STA (20:15)
[2024-04-08] MEDS ORDERED: OLANZapine 10 MG VIAL IM ONE (23:07)
[2024-04-08] MEDS: OLANZapine 10 MG VIAL IM STA (23:13)
[2024-04-08] MEDS: LORazepam 2 MG/ML INJ IM STA (23:15)
[2024-04-08] MEDS: diphenhydrAMINE 50 MG/ML 1 ML VIAL IM STA (23:15)
[2024-04-08 23:44] VITALS: BP 118/82; TEMP 97.7
== END 2024-04-08 22:25 ==
LOC: EC 12:25
DX: F29 Unspecified psychosis not due to a substance or known physiological condition (principal); F17.200 Nicotine dependence, unspecified, uncomplicated; Z88.0 Allergy status to penicillin; Z11.52 Encounter for screening for COVID-19
CPT/HCPCS: 36415; 80053; 80306; 81001; 81025; 82075; 85025; 87635; 96372; 99285

== ENCOUNTER 2024-04-19 13:13 | Emergency (ER) | payer OTHER ==
[2024-04-19 13:27] VITALS: BP 163/121; RESP 18
--- NOTE | 2024-04-19 13:32 | ED ---
Chest Pain HPI - General Source: patient, RN notes reviewed Mode of arrival: ambulatory Limitations: no limitations <Jenniffer Lino - Last Filed: 04/19/24 13:31> <Félix Boles - Last Filed: 04/19/24 15:48> - General Chief Complaint: Chest Pain Stated Complaint: Anxiety Time Seen by Provider: 04/19/24 13:30 - History of Present Illness Initial Comments: Quick [id number] female presents emergency department chief complaint of chest pain that has been intermittent over the past week. States that the pain will radiate into her back and endorses shortness of breath. Has history of hypertension and is not medicated. (Jenniffer Lino) Dictation was produced using [employer] dictation software. please excuse any grammatical, word or spelling errors. Chief Complaint: 39-year-old female presents to the emergency department with anxiety History of Present Illness: Patient 39-year-old female presents emergency department with anxiety. Patient had anxiety reaction. States that whenever she gets anxiety she has some chest pain and shortness of breath. Patient states she ran out of her anxiety medications. Denies any pressure-like sensation. Nonradiating to the arms or legs. No associated diaphoresis or nausea. The ROS documented in this emergency department record has been reviewed and confirmed by me. Those systems with pertinent positive or negative responses have been documented in the HPI. All other systems are other negative and/or noncontributory. (Félix Boles) - Related Data Home Medications Medication Instructions Recorded Confirmed Gabapentin 800 mg PO TID 12/04/23 04/07/24 Metoprolol Tartrate [Lopressor] 50 mg PO BID 04/07/24 04/07/24 QUEtiapine [SEROquel] 100 mg PO BID 04/07/24 04/07/24 amLODIPine [Norvasc] 10 mg PO DAILY 04/07/24 04/07/24 Allergies Allergy/AdvReac Type Severity Reaction Status Date / Time Penicillins Allergy Unknown Verified 04/19/24 13:26 Childhood temazepam [From Restoril] AdvReac Itching Verified 04/19/24 13:26 Review of Systems ROS Other: All systems not noted in ROS Statement are negative. <Jenniffer Lino - Last Filed: 04/19/24 13:31> ROS Other: All systems not noted in ROS Statement are negative. <Félix Boles - Last Filed: 04/19/24 15:48> ROS Statement: Those systems with pertinent positive or pertinent negative responses have been documented in the HPI. Past Medical History Past Medical History: Hypertension, Pulmonary Embolus (PE) Additional Past Medical History / Comment(s): OTHER HX: fibromyalgia, chronic pain-generalized, migraines, R ovarian cysts, frequent UTI's, tachycardia, gastritis, duodenitis. Anxiety disorder History of Any Multi-Drug Resistant Organisms: None Reported Past Surgical History: Orthopedic Surgery Additional Past Surgical History / Comment(s): hand surgery Past Anesthesia/Blood Transfusion Reactions: Unable to Obtain Additional Past Anesthesia/Blood Transfusion Reaction / Comment(s): Pt has never had surgery Past Psychological History: Anxiety, Depression, PTSD Smoking Status: Current every day smoker Past Alcohol Use History: None Reported Past Drug Use History: Cocaine, Marijuana, Opiates - Past Family History Mother Family Medical History: Cancer, Diabetes Mellitus, Myocardial Infarction ([place]) Additional Family Medical History / Comment(s): Mother had cervical cancer and hypotension. Father Family Medical History: Hypertension <Jenniffer Lino - Last Filed: 04/19/24 13:31> General Exam Limitations: no limitations <Jenniffer Lino - Last Filed: 04/19/24 13:31> <Félix Boles - Last Filed: 04/19/24 15:48> - General Exam Comments Initial Comments: Visual Physical Exam Vital signs reviewed General: Well-appearing, nontoxic, no acute distress. Head: Normocephalic, atraumatic Eyes: PERRLA, EOMI ENT: Airway patent Chest: Nonlabored breathing Skin: No visual rash, normal skin tone Neuro: Alert and oriented 3 Musculoskeletal: No gross abnormalities (Jenniffer Lino) PHYSICAL EXAM: General Impression: Alert and oriented x3, not in acute distress HEENT: Normocephalic atraumatic, extra-ocular movements intact, pupils equal and reactive to light bilaterally, mucous membranes moist. Cardiovascular: Heart regular rate and rhythm Chest: Able to complete full sentences, no retractions, no tachypnea Abdomen: abdomen soft, non-tender, non-distended, no organomegaly Musculoskeletal: Pulses present and equal in all extremities, no peripheral edema Motor: no focal deficits noted Neurological: CN II-XII grossly intact, no focal motor or sensory deficits noted Skin: Intact with no visualized rashes Psych: Normal affect and mood (Félix Boles) Course Vital Signs 04/19/24 13:24 Temperature 97.8 F Pulse Rate 125 H Respiratory 18 Rate Blood Pressure 163/121 O2 Sat by Pulse 97 Oximetry Chest Pain MDM <Jenniffer Lino - Last Filed: 04/19/24 13:31> <Félix Boles - Last Filed: 04/19/24 15:48> - MDM I completed the quick note portion of this chart signed Jenniffer Lino PA-C (Jenniffer Lino) Was pt. sent in by a medical professional or institution (DORIE Kim, CLIENT SERVICES COORDINATOR, urgent care, hospital, or usp...) When possible be specific @ -No Did you speak to anyone other than the patient for history (EMS, parent, family, police, friend...)? What history was obtained from this source @ -No Did you review nursing and triage notes (agree or disagree)? Why? @ -I reviewed and agree with nursing and triage notes Were old charts reviewed (outside hosp., previous admission, EMS record, old EKG, old radiological studies, urgent care reports/EKG's, usp records)? Report findings @ -No old charts were reviewed Differential Diagnosis (chest pain, altered mental status, abdominal pain women, abdominal pain men, vaginal bleeding, musculoskeletal, weakness, fever, dyspnea, syncope, headache, dizziness, GI bleed, back pain, seizure, CVA, palpatations, mental health)? @ -Differential Chest Pain: Stable Angina, Unstable Angina, STEMI, NSTEMI Aortic Dissection, Pneumothorax, Musculoskeletal, Esophageal Spasm GERD, Cholecystitis, Pancreatitis, Zoster, this is not meant to be an all-inclusive list. EKG interpreted by me (3pts min.). @ -My EKG interpretation: Ventricular rate 97, sinus rhythm,. 144, QRS 92, QTc 426. No VT prolongation, no QTC prolongation, no ST or T-wave changes noted. Overall, this EKG is unremarkable X-rays interpreted by me (1pt min.). @ -Chest x-ray shows no acute processes CT interpreted by me (1pt min.). @ -None done U/S interpreted by me (1pt. min.). @ -None done What testing was considered but not performed or refused? (CT, X-rays, U/S, labs)? Why? @ -None What meds were considered but not given or refused? Why? @ -None Was smoking cessation discussed for >3mins.? @ -No Were there social determinants of health that impacted care today? How? (Homelessness, low income, unemployed, alcoholism, drug addiction, transportation, low edu. Level, literacy, decrease access to med. care, group home, rehab)? @ -No Was there de-escalation of care discussed even if they declined (Discuss DNR or withdrawal of care, Hospice)? DNR status @ -No What co-morbidities impacted this encounter? (DM, HTN, Smoking, COPD, CAD, Cancer, CVA, ARF, Chemo, Hep., AIDS, mental health diagnosis, sleep apnea, morbid obesity)? @ -None Was patient admitted / discharged? Hospital course, mention meds given and route, prescriptions, significant lab abnormalities, going to OR and other pertinent info. @ -39-year-old female presents with anxiety reaction. Vital signs upon arrival showed tachycardia 125. At the time of EKG heart rate was improved. Rest of vital signs within acceptable limits. Laboratory evaluation obtained. Labs are unremarkable. Troponin is negative. Patient has low heart score. Will be discharged. Advised follow-up with primary care doctor for anxiety Did you discuss the management of the patient with other professionals (professionals i.e. , PA, CLIENT SERVICES COORDINATOR, lab, RT, psych nurse, director of social work, criminal defense lawyer, teacher, customer service officer, outpatient case manager)? Give summary @ -No Was critical care preformed (if so, how long)? @ -No Undiagnosed new problem with uncertain prognosis? @ -No Drug Therapy requiring intensive monitoring for toxicity (Heparin, Nitro, Insulin, Cardizem)? @ -No Were any procedures done? @ -No Diagnosis/symptom? Acute, or Chronic, or Acute on Chronic? Uncomplicated (without systemic symptoms) or Complicated (systemic symptoms)? @ -Anxiety reaction Side effects of treatment? @ -No Exacerbation, Progression, or Severe Exacerbation? @ -No Poses a threat to life or bodily function? How? (Chest pain, [place], [place], pneumonia, PE, COPD, DKA, ARF, appy, cholecystitis, CVA, Diverticulitis, Homicidal, Suicidal, threat to staff... and all critical care pts) @ -No (Félix Boles) Disposition <Jenniffer Lino - Last Filed: 04/19/24 13:31> Is patient prescribed a controlled substance at d/c from ED?: No Time of Disposition: 15:48 <Félix Boles - Last Filed: 04/19/24 15:48> Clinical Impression: Anxiety Disposition: HOME SELF-CARE Condition: Good Instructions (If sedation given, give patient instructions): Anxiety (ED) Referrals: None,Stated [Primary Care Provider] - 1-2 days
[2024-04-19 14:42] LABS: Basophils # (A) 0.1 k/uL (0-0.2); Basophils % (A) 0 %; Eosinophils # (A) 0.2 k/uL (0-0.7); Eosinophils % (A) 1 %; HCT 42.4 % (34.0-46.0); HGB 13.7 gm/dL (11.4-16.0); Lymphocytes # (A) 2.4 k/uL (1.0-4.8); Lymphocytes % (A) 18 %; MCH 30.5 pg (25.0-35.0); MCHC 32.4 g/dL (31.0-37.0); MCV 94.4 fL (80.0-100.0); Mean Platelet Volume 7.2; Monocytes # (A) 0.6 k/uL (0-1.0); Monocytes % (A) 4 %; Neutrophils # (A) 9.9 k/uL (1.3-7.7); Neutrophils % (A) 74 %; Platelet Count 340 k/uL (150-450); RBC 4.49 m/uL (3.80-5.40); RDW 15.3 % (11.5-15.5); WBC 13.5 k/uL (3.8-10.6)
[2024-04-19 14:52] LABS: ALT 25 U/L (4-34); AST 22 U/L (14-36); African American GFR (CKD) >90 (>60 ml/min/1.73 sqM); Albumin 4.5 g/dL (3.5-5.0); Alkaline Phosphatase 81 U/L (38-126); Amylase 169 U/L (30-110); Anion Gap 10 mmol/L; Blood Urea Nitrogen 12 mg/dL (7-17); Calcium 9.5 mg/dL (8.4-10.2); Carbon Dioxide 25 mmol/L (22-30); Chloride 102 mmol/L (98-107); Glucose 97 mg/dL (74-99); Lipase 439 U/L (23-300); Magnesium 1.7 mg/dL (1.6-2.3); Non-African American GFR(CKD) >90 (>60 ml/min/1.73 sqM); Potassium 3.8 mmol/L (3.5-5.1); Sodium 137 mmol/L (137-145); Total Bilirubin 0.3 mg/dL (0.2-1.3)
[2024-04-19 14:56] LABS: INR 0.9 (<1.2); Partial Thromboplastin Time 24.2 sec (22.0-30.0); Prothrombin Time 10.2 sec (10.0-12.5)
--- NOTE | 2024-04-19 15:00 | XR ---
EXAMINATION TYPE: XR chest 2V DATE OF EXAM: 04/19/2024 COMPARISON: 08/27/2023 HISTORY: 39-year-old female with chest pain TECHNIQUE: PA and lateral views FINDINGS: Heart upper limits of normal in size. Aorta and pulmonary vasculature are within normal limits. Hazy lower lung densities likely related to overlying soft tissue. No consolidation or pleural effusion. IMPRESSION: No acute cardiopulmonary process. [facility], , 04/19/2024 2:58 PM
[2024-04-19 16:06] VITALS: PULSE 100; TEMP 98
[2024-04-19] MEDS: ALPRAZolam 0.5 MG TAB PO STA (16:11)
== END 2024-04-19 16:14 | disposition home or self-care (01) ==
LOC: EC 13:13
CPT/HCPCS: 36415; 71046; 80053; 82150; 83690; 83735; 84484; 85025; 85379; 85610; 85730; 93005; 99285

== ENCOUNTER 2024-12-24 19:13 | Emergency (ER) | payer OTHER ==
[2024-12-24 19:20] VITALS: TEMP 98.5
--- NOTE | 2024-12-24 19:44 | ED ---
Extremity Problem HPI - General Chief complaint: Extremity Problem,Nontraumatic Stated complaint: L hand pain Time Seen by Provider: 12/24/24 19:20 Source: patient, RN notes reviewed Mode of arrival: ambulatory Limitations: no limitations - History of Present Illness Initial comments: This is a 39-year-old female who presents to the emergency department for left hand pain. Patient has a history of de Quervain's tenosynovitis and had surgery on it in 2017. Over the last week she has started to notice increasing pain to this area, particularly over the last 2 to 3 days. This is making it difficult to use the hand. Not currently taking anything for pain control. Denies sustaining any additional injuries. MD Complaint: extremity pain - Related Data Home Medications Medication Instructions Recorded Confirmed Gabapentin 800 mg PO TID 12/04/23 04/07/24 Metoprolol Tartrate [Lopressor] 50 mg PO BID 04/07/24 04/07/24 QUEtiapine [SEROquel] 100 mg PO BID 04/07/24 04/07/24 amLODIPine [Norvasc] 10 mg PO DAILY 04/07/24 04/07/24 Previous Rx's Medication Instructions Recorded Ketorolac [Toradol] 10 mg PO Q6HR PRN #15 tab 12/24/24 predniSONE 50 mg PO DAILY 5 Days #5 tab 12/24/24 Allergies Allergy/AdvReac Type Severity Reaction Status Date / Time Penicillins Allergy Unknown Verified 12/24/24 19:20 Childhood temazepam [From Restoril] AdvReac Itching Verified 12/24/24 19:20 Review of Systems ROS Statement: Those systems with pertinent positive or pertinent negative responses have been documented in the HPI. ROS Other: All systems not noted in ROS Statement are negative. Past Medical History Past Medical History: Hypertension, Pulmonary Embolus (PE) Additional Past Medical History / Comment(s): OTHER HX: fibromyalgia, chronic pain-generalized, migraines, R ovarian cysts, frequent UTI's, tachycardia, gastritis, duodenitis. Anxiety disorder History of Any Multi-Drug Resistant Organisms: None Reported Past Surgical History: Orthopedic Surgery Additional Past Surgical History / Comment(s): hand surgery Past Anesthesia/Blood Transfusion Reactions: Unable to Obtain Additional Past Anesthesia/Blood Transfusion Reaction / Comment(s): Pt has never had surgery Past Psychological History: Anxiety, Depression, PTSD Smoking Status: Current every day smoker Past Alcohol Use History: None Reported Past Drug Use History: Cocaine, Marijuana, Opiates - Past Family History Mother Family Medical History: Cancer, Diabetes Mellitus, Myocardial Infarction ([place]) Additional Family Medical History / Comment(s): Mother had cervical cancer and hypotension. Father Family Medical History: Hypertension General Exam Limitations: no limitations General appearance: alert, in no apparent distress Head exam: Present: atraumatic, normocephalic, normal inspection Respiratory exam: Present: normal lung sounds bilaterally. Absent: respiratory distress, wheezes, rales, rhonchi, stridor Cardiovascular Exam: Present: regular rate, normal rhythm Extremities exam: Present: other (Positive Frank test on the left. Range of motion significantly limited by pain. 2+ radial pulses) Neurological exam: Present: alert, oriented X3, CN II-XII intact Psychiatric exam: Present: normal affect, normal mood Skin exam: Present: warm, dry, intact, normal color. Absent: rash Course Vital Signs 12/24/24 12/24/24 19:17 20:32 Temperature 98.5 F Pulse Rate 89 84 Respiratory 18 16 Rate Blood Pressure 153/93 157/98 O2 Sat by Pulse 95 97 Oximetry Medical Decision Making - Medical Decision Making This is a 39-year-old female who presents to the emergency department for left hand pain. Was pt. sent in by a medical professional or institution? @ -No Did you speak to anyone other than the patient for history? @ -No Did you review nursing and triage notes? @ -Yes, and I agree, it is accurate with regards to the patient's symptoms. Were old charts reviewed? @ -No Differential Diagnosis? @ -Differential Musculoskeletal Muscular strain, contusion, ligament sprain, fracture, arthritis, septic arthritis, bursitis, cellulitis, muscle spasm, nerve compression, DVT, arterial occlusion, herpes zoster, electrolyte abnormality, tumor.... This is not meant to be in all inclusive list EKG interpreted by me (3pts min.)? @ -Not obtained X-rays interpreted by me (1pt min.)? @ -X-ray of the left hand and wrist obtained. My interpretation identifies no acute fractures. CT interpreted by me (1pt min.)? @ -Not obtained U/S interpreted by me (1pt. min.)? @ -Not obtained What testing was considered but not performed? (CT, X-rays, U/S, labs)? Why? @ -None What meds were considered but not given? Why? @ -None Did you discuss the management of the patient with other professionals? @ -No Did you reconcile home meds? @ -No Was smoking cessation discussed for >3mins.? @ -I discussed smoking cessation for greater than 3 minutes. The risk of smoking were discussed with the patient including but not limited to risks of cancer, stroke, coronary artery disease and COPD. Also discussed with patient were multiple methods of quitting smoking. Lastly we discussed the financial cost of smoking. Was critical care preformed (if so, how long)? @ -No Were there social determinants of health that impacted care today? How? (Homelessness, low income, unemployed, alcoholism, drug addiction, transportation, low edu. Level, literacy, decrease access to med. care, residential, rehab)? @ -No Was there de-escalation of care discussed even if they declined? (Discuss DNR or withdrawal of care, Hospice)? @ -No What co-morbidities impacted this encounter? (DM, HTN, Smoking, COPD, CAD, Cancer, CVA, Hep., AIDS, mental health diagnosis, sleep apnea, morbid obesity)? @ -Smoking Was patient admitted / discharged? @ -Discharged. X-ray of the left hand and wrist obtained revealing no acute process. Physical evaluation/presentation and patient's history is consistent with de Quervain's tenosynovitis. Pain was treated in the emergency department. Prescription for prednisone and Toradol provided with dosing instructions reviewed. Her hand was bandaged with an Arden wrap. Also discussed something lik e an [id number] brace to immobilize the area and allow it to heal. Information for orthopedic follow-up provided. She is advised to contact them for follow-up appointment. Patient discharged home in stable condition. Case discussed with ED attending Dr. Drummond. Return precautions reviewed in depth, the patient is instructed to return to the emergency department with any new, worsening, or concerning symptoms. Patient verbalized understanding. Undiagnosed new problem with uncertain prognosis? @ -None Drug Therapy requiring intensive monitoring for toxicity (Heparin, Nitro, Insulin, Cardizem)? @ -None Were any procedures done? @ -None Diagnosis/symptom? @ -De Quervain's tenosynovitis Acute, or Chronic, or Acute on Chronic? @ -Chronic Uncomplicated (without systemic symptoms) or Complicated (systemic symptoms)? @ -Uncomplicated Side effects of treatment? @ -None Exacerbation, Progression, or Severe Exacerbation] @ -Exacerbation Poses a threat to life or bodily function? @ -Will limit her use of the left hand for the meantime. - Radiology Data Radiology results: report reviewed, image reviewed Disposition Clinical Impression: Tenosynovitis, de Quervain, Nicotine dependence Disposition: HOME SELF-CARE Instructions (If sedation given, give patient instructions): De Quervain Disease (ED) Additional Instructions: Return to the emergency department with any new, worsening, or concerning symptoms. Take the prednisone daily for 5 days. Take the Toradol with Tylenol as needed for pain relief. If you choose to take the Toradol, do not take any other anti-inflammatories such as ibuprofen, take one or the other. You can purchase a splint [id number] or use an Arden bandage to help immobilize the area. Contact orthopedics as listed below for a follow-up appointment. Prescriptions: predniSONE 50 mg PO DAILY 5 Days #5 tab Ketorolac [Toradol] 10 mg PO Q6HR PRN #15 tab PRN Reason: Pain Is patient prescribed a controlled substance at d/c from ED?: No Referrals: Kenney Roberto DO [Primary Care Provider] - 1-2 days Dell Wolf DO [Doctor of Osteopathic Medicine] - 1-2 days Time of Disposition: 20:10
--- NOTE | 2024-12-24 19:50 | XR ---
EXAMINATION TYPE: XR wrist complete LT, XR hand complete LT DATE OF EXAM: 12/24/2024 7:42 PM INDICATION: Patient age:Female; 39 years old; Reason for study: Pain; [facility]. pain COMPARISON: None TECHNIQUE: 4 views of the left wrist. Frontal, navicular, lateral, and oblique. The left hand was ex amined in PA, oblique, lateral projections. FINDINGS: No acute osseous pathology, joint dislocation, or joint effusion. No osseous erosions. No e vidence of any soft tissue swelling is seen. No radiopaque foreign body. IMPRESSION: No acute osseous pathology. [facility], , 12/24/2024 7:48 PM
[2024-12-24] MEDS: LORazepam 1 MG TAB PO STA (19:55)
[2024-12-24] MEDS: ACETAMINOPHEN TAB 500 MG TAB PO STA (19:56)
[2024-12-24] MEDS: HYDROcodone/APAP 10-325MG 1 EACH TAB PO ONE (19:57)
[2024-12-24] MEDS: KETOROLAC 15 MG/ML 1 ML VIAL IM STA (19:57)
[2024-12-24] MEDS: DEXAMETHASONE SOD PHOSPHATE 10 MG/ML 1 ML VIAL IM STA (19:58)
[2024-12-24 20:36] VITALS: BP 157/98; PULSE 84; RESP 16
[2024-12-24] MEDS: ACET/COD 300 MG/30 MG STARTER PACK 6 TAB BTL PO STA (20:36)
== END 2024-12-24 20:32 | disposition home or self-care (01) ==
LOC: EC 19:13
DX: M65.942 Unspecified synovitis and tenosynovitis, left hand (principal); M65.4 Radial styloid tenosynovitis [de Quervain]; F17.200 Nicotine dependence, unspecified, uncomplicated; Z88.0 Allergy status to penicillin; Z88.8 Allergy status to other drugs, medicaments and biological substances
CPT/HCPCS: 73110; 73130; 99284; 96372 ×2; J1100; J1885